=== PATIENT | male | born 1965 | race Caucasian/White ===

== ENCOUNTER 2023-08-08 05:12 | Emergency (ER) | payer BC, SELFPAY ==
[2023-08-08 05:41] VITALS: BP 113/82; BP 138/78; PULSE 105; PULSE 88; RESP 18; TEMP 36.8; O2SAT 98; BMI 29.0
[2023-08-08 06:08] LABS: Basophils Percent Auto 0.5 % (0-2); Eosinophils Absolute Auto 0.1 X10*3/uL (0.0-0.4); Eosinophils Percent Auto 1.1 % (0-4); Hematocrit 30.2 % (42.0-52.0); Hemoglobin 10.1 g/dl (14.0-18.0); Imm Gran Abs Auto 0.02 X10*3/uL (0.00-0.03); Imm Gran Pct Auto 0.4 % (0.0-0.4); Lymphocytes Percent Auto 18.5 % (20-40); MANUAL DIFF FLAG NO; Mean Corpuscular HGB Conc 33.4 g/dl (31.0-36.0); Mean Corpuscular Hemoglobin 27.4 pg (27.0-33.0); Mean Corpuscular Volume 82.1 fL (80.0-98.0); Mean Platelet Volume 8.6 fL (9.4-12.4); Monocytes Absolute Auto 0.2 X10*3/uL (0.1-1.2); Neutrophils Absolute Auto 4.1 x10*3/uL (2.0-8.3); Neutrophils Percent Auto 75.5 % (45-73); Red Blood Count 3.68 X10*6/uL (4.60-5.80); Red Cell Distribution Width 15.6 % (11.0-16.0); White Blood Count 5.5 X10*3/uL (4.8-10.8)
[2023-08-08 06:24] LABS: COVID-19 Test Negative (Negative); IDNOW Serial# 6674DD1D
[2023-08-08 06:26] LABS: Alanine Aminotransferase 18 U/L (0-40); Albumin Level 3.1 g/dL (3.5-5.0); Alkaline Phosphatase 122 U/L (39-117); Anion Gap 15 (12-20); Aspartate Amino Transferase 60 U/L (5-37); Bilirubin Total 1.4 mg/dL (0.0-1.0); Blood Urea Nitrogen 11 mg/dL (9-16); Carbon Dioxide 23 mmol/L (22-29); Chloride 110 mmol/L (96-108); Creatinine Clr Calc Pharmacy 103.4; Estimated Glomerular Filt Rate > 60; Ethanol 338 mg/dL; Glucose Random 101 mg/dL (60-115); Potassium 3.5 mmol/L (3.3-5.1); Sodium 144 mmol/L (135-145); Total Protein 7.1 g/dL (6.5-8.0)
--- NOTE | 2023-08-08 06:26 | ED_ITS ---
HPI - Alcohol General Chief Complaint: ETOH/Substance Use Stated Complaint: ETOH Time Seen by Provider: 08/08/23 06:26 Source: patient and EMS Mode of arrival: EMS Limitations: no limitations History of Present Illness HPI narrative: 58 yo male with history of alcohol abuse and dependence presenting to the ER from home for detox for alcohol. He drinks way too much and usually drinks 4 or 5 days a week. He is interested in detox but doesn't know if he can do it. He denies history of withdrawal symptoms at home until he goes 2-3 days without drinking. He states he drinks hard alcohol, increased in the last 3 days. Up to 1/2 gallon. No history of withdrawal seizures in the past. Denies other drug use. MD complaint: alcohol intoxication, alcohol dependence and desires rehab Last drink: Hours (ago) Chronic alcohol use: Yes Previous visits for alcohol intoxication: Yes Recent trauma: No Associated symptoms: denies other symptoms Treatments prior to arrival: none Related Data Allergies Allergy/AdvReac Type Severity Reaction Status Date / Time No Known Allergies Allergy Verified 08/08/23 05:43 Review of Systems 2 Review of Systems: Yes all other systems are reviewed and are negative [facility] Social History Social History Alcohol intake: current Alcohol intake frequency: 3 or more drinks per day Alcohol type: hard liquor Smoked in Last 30 Days: No Use of substances other than those prescribed or required for medical reasons: No Advance Directives: No Physical Exam ED Vital Signs: Vital Signs - 24 hr 08/08/23 05:41 Temperature 98.2 F Pulse Rate 88 Respiratory Rate 18 Blood Pressure 113/82 Pulse Oximetry 98 Oxygen Delivery Method Room Air BMI result Body Mass Index 29.0 Appearance: Alert. Oriented X3. No acute distress. Unkempt, smells of alcohol. Head: normocephalic, atraumatic. Eyes: Pupils equal, round and reactive to light. ENT: Pharynx normal, poor dentition. No tonsillar swelling or exudate. Neck: Normal inspection. Neck supple. CVS: Normal heart rate and rhythm. Pulses normal. Respiratory: No respiratory distress. Breath sounds normal. Abdomen: Soft and nontender. +BS x4 Skin: Skin warm and dry. Normal skin color. Normal skin turgor. No rashes. Extremities: No lower extremity edema. No joint swelling. Neuro/psych: Oriented X 3. No motor deficit. No sensory deficit. CN II-XII intact. Coherent speech Medical Decision Making Medical Decision Making [facility] Narrative: 58 yo male with history of ETOH abuse/dependence presenting for detox. labs show etoh level 338. he is aaox3, steady gait after 1.5 hours in the ER he decided he did not want to stay for detox he was given list of local detox facilities he has a sober ride home comfortable w/ discharge - outpatient detox bed searching on his own Differential Diagnosis Differential Diagnoses: The differential diagnosis associated with the presentation includes alcohol abuse, alcohol dependence, alcohol withdrawal, polysubstance abuse Admission/Observation Consideration of admission/observation: Escalation of care including admission/observation considered Lab Data [facility] Lab Attestation statement: I reviewed the patient's lab results. anemia, thrombocytopenia, elevated ETOH 08/08/23 06:02 08/08/23 06:02 Labs: Lab Results 08/08/23 Range/Units 06:02 WBC 5.5 (4.8-10.8) X10*3/uL RBC 3.68 L (4.60-5.80) X10*6/uL Hgb 10.1 L (14.0-18.0) g/dl Hct 30.2 L (42.0-52.0) % MCV 82.1 (80.0-98.0) fL MCH 27.4 (27.0-33.0) pg MCHC 33.4 (31.0-36.0) g/dl RDW 15.6 (11.0-16.0) % Plt Count 53 L (160-400) X10*3/uL MPV 8.6 L (9.4-12.4) fL Immature Gran % (Auto) 0.4 (0.0-0.4) % Neut % (Auto) 75.5 H (45-73) % Lymph % (Auto) 18.5 L (20-40) % [place] % (Auto) 4.0 (2-11) % Eos % (Auto) 1.1 (0-4) % Baso % (Auto) 0.5 (0-2) % Lymph # (Auto) 1.0 L (1.2-4.9) X10*3/uL [place] # (Auto) 0.2 (0.1-1.2) X10*3/uL Eos # (Auto) 0.1 (0.0-0.4) X10*3/uL Baso # (Auto) 0.0 (0.0-0.2) X10*3/uL Abs Immat Gran (auto) 0.02 (0.00-0.03) X10*3/uL Absolute Neuts (auto) 4.1 (2.0-8.3) x10*3/uL Absolute Nucleated RBC 0.000 (0.0-0.012) X10*3/uL Nucleated RBC % (auto) 0.0 (0.0-0.2) /100WBC Sodium 144 (135-145) mmol/L Potassium 3.5 (3.3-5.1) mmol/L Chloride 110 H (96-108) mmol/L Carbon Dioxide 23 (22-29) mmol/L Anion Gap 15 (12-20) BUN 11 (9-16) mg/dL Creatinine 0.80 (0.5-1.4) mg/dL Estim Creat Clear Calc 103.4 Estimated GFR > 60 Random Glucose 101 (60-115) mg/dL Calcium 8.0 L (8.4-10.2) mg/dL Total Bilirubin 1.4 H (0.0-1.0) mg/dL AST 60 H (5-37) U/L ALT 18 (0-40) U/L Alkaline Phosphatase 122 H (39-117) U/L Total Protein 7.1 (6.5-8.0) g/dL Albumin 3.1 L (3.5-5.0) g/dL Ethyl Alcohol 338 H* mg/dL COVID-19 (JOLIE) Negative (Negative) COVID-19 Clin Com See Note Independent Historian Clinical information obtained from an independent historian. History obtained from or confirmed by: EMS Chronic Conditions Patient?s care impacted by: Other (alcohol abuse) Social Determinants Patient?s care significantly limited by Social Determinants of Health including: Alcoholism and drug addiction in family and Problems related to primary support group Critical Care Time Critical Care Time Critical Care Time: No Discharge Plan Discharge Clinical Impression: Alcohol abuse Patient Disposition: Home, Self-Care Instructions: Abuse of Alcohol (DC) Additional Instructions: call the local detox facilities for a detox bed recommend cutting back on your alcohol intake If you develop new or worsening symptoms call 911 or come back to the ER for further evaluation. Print Language: Yoruba
[2023-08-08 06:34] LABS: Platelet Count 53 X10*3/uL (160-400)
--- NOTE | 2023-08-08 07:21 | PC.NURSE ---
patient discharged to sister who came and picked patient up, patient ambulated off of unit with steady gait, alert and oriented. patient givn breakfast
== END 2023-08-08 07:21 | disposition home or self-care (01) ==
PROVIDERS: Emergency Provider Emergency Medicine
DX: F10.229 Alcohol dependence with intoxication, unspecified (principal); Y90.8 Blood alcohol level of 240 mg/100 ml or more; Z11.52 Encounter for screening for COVID-19
CPT/HCPCS: 80053; 80307; 85025; 87635; 99283; 99284

== ENCOUNTER 2023-08-12 02:06 | Inpatient (IN) | payer BC, SELFPAY ==
[2023-08-12] VITALS (7 sets, daily range): BP systolic 124–138; BP diastolic 70–87; PULSE 93–106; RESP 11–20; TEMP 36.7–37.1; O2SAT 96–100; BMI 26.8; BMI 25.5
--- NOTE | ~2023-08-12 | CT_ITS ---
EXAMINATION: CT HEAD WITHOUT CONTRAST CLINICAL INFORMATION: New hallucinations COMPARISON: None available. TECHNIQUE: Contiguous axial imaging was performed from the skull base to vertex without intravenous administration of contrast. This CT examination was performed using dose optimization techniques as appropriate, variously including the following: *Automated exposure control *Adjustment of mA and/or kV according to patient size (this includes techniques or standardized protocols for targeted exams where dose is matched to indication/reason for exam; i.e. extremities or head) *Use of iterative reconstruction technique DLP: 678 mGy-cm FINDINGS: There is no evidence of acute intracranial hemorrhage or territorial infarction. Chronic white matter small vessel ischemic changes. Mild cerebral atrophy. No abnormal mass effect or midline shift is seen. Rankin to white matter differentiation is well preserved. No extra-axial fluid collections are identified. The ventricles are normal in size. There is no abnormal attenuation within the brain parenchyma. The osseous structures and soft tissues are normal. Mucoperiosteal thickening of the right frontal, maxillary, and ethmoid sinuses. The mastoid air cells and visualized portions of the paranasal sinuses are well aerated. CT/CT head/brain wo IV con IMPRESSION: 1. No acute intracranial pathology. 2. Chronic white matter small vessel ischemic changes. 3. Mucoperiosteal thickening of the right frontal, maxillary, and ethmoid sinuses.
--- NOTE | 2023-08-12 02:30 | PC.NURSE ---
belongings placed in locker #11 in pod by security .
[2023-08-12 02:41] LABS: MANUAL DIFF FLAG NO
[2023-08-12 02:45] LABS: Appearance Urine Clear; Color Urine Yellow; Glucose Urine UA Negative (Negative); Leukocyte Esterase Urine Small (1+) (Negative); Nitrite Urine Negative (Negative); Specific Gravity - Urine <= 1.005 (1.005-1.025); UMIC TRIGGER UACC YES; Urine Blood Small (1+) (Negative); Urine Ketones Negative (Negative); Urine Protein Negative (Neg-Trace)
[2023-08-12 02:46] LABS: Basophils Percent Auto 0.3 % (0-2); Eosinophils Absolute Auto 0.1 X10*3/uL (0.0-0.4); Eosinophils Percent Auto 2.2 % (0-4); Hemoglobin 10.3 g/dl (14.0-18.0); Imm Gran Abs Auto 0.01 X10*3/uL (0.00-0.03); Imm Gran Pct Auto 0.2 % (0.0-0.4); Lymphocytes Percent Auto 16.4 % (20-40); Mean Corpuscular HGB Conc 34.3 g/dl (31.0-36.0); Mean Corpuscular Volume 81.5 fL (80.0-98.0); Mean Platelet Volume 9.9 fL (9.4-12.4); Monocytes Absolute Auto 0.5 X10*3/uL (0.1-1.2); Monocytes Percent Auto 8.6 % (2-11); Neutrophils Absolute Auto 4.4 x10*3/uL (2.0-8.3); Neutrophils Percent Auto 72.3 % (45-73); Platelet Count 52 X10*3/uL (160-400); Red Blood Count 3.68 X10*6/uL (4.60-5.80); Red Cell Distribution Width 16.9 % (11.0-16.0)
[2023-08-12 02:57] LABS: Amphetamine Screen Urine Not Detected (Not Detect); Barbiturates, Urine Not Detected (Not Detect); Benzodiazepines Screen Urine Not Detected (Not Detect); Buprenorphine Scr Not Detected (Not Detect); Cannabinoid Screen Urine Not Detected (Not Detect); Cocaine Screen Urine Not Detected (Not Detect); Fentanyl, urine Not Detected (Not Detect); Methadone Screen, Urine Not Detected (Not Detect); Opiate Screen Urine Not Detected (Not Detect); Oxycodone Screen Urine Not Detected (Not Detect); Phencyclidine Screen Urine Not Detected (Not Detect)
[2023-08-12 02:58] LABS: Alanine Aminotransferase 19 U/L (0-40); Albumin Level 3.6 g/dL (3.5-5.0); Alkaline Phosphatase 133 U/L (39-117); Anion Gap 13 (12-20); Aspartate Amino Transferase 59 U/L (5-37); Bacteria Urine None Seen (None Seen); Bilirubin Total 1.8 mg/dL (0.0-1.0); Blood Urea Nitrogen 9 mg/dL (9-16); Calcium 9.8 mg/dL (8.4-10.2); Carbon Dioxide 20 mmol/L (22-29); Chloride 112 mmol/L (96-108); Estimated Glomerular Filt Rate > 60; Ethanol 284 mg/dL; Glucose Random 86 mg/dL (60-115); Hyaline Casts Urine 0-2 /LPF (0-2); Lipase 69 U/L (8-78); Potassium 3.6 mmol/L (3.3-5.1); RBC Urine 0-2 /HPF (0-2); Sodium 141 mmol/L (135-145); Squamous Epithelial Cell Urine 0-2 /HPF (0-2); Total Protein 7.9 g/dL (6.5-8.0); UACC Culture Trigger YES; WBC Urine 0-5 /HPF (0-5)
--- NOTE | 2023-08-12 06:17 | PC.NURSE ---
patient having conversations with self. thinking his mamita is in bed 4. pt redirected multiple times, informed his mom/family is not here in the hospital with him, that he came alone by ambulance.
--- NOTE | 2023-08-12 07:01 | ED.PSYCH ---
HPI - Psych General Chief Complaint: ETOH/Substance Use Stated Complaint: ETOH, SECTION 12 Time Seen by Provider: 08/12/23 07:00 Source: patient and EMS Mode of arrival: EMS Limitations: no limitations History of Present Illness HPI Narrative: 58 yo male with history of alcohol abuse presents to the ER for evaluation of visual hallucinations. He states his daughter called 911 last night when she was worried about him engaging with some things. He states he had a bad dream. He admits that drinking alcohol makes these episodes worse. He states the psychosocial stress makes things worse. 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 He has been drinking a few shots the last 5 days. He reports periods of sobriety. When asked if he was on any psychiatric medications he responded, will they help? Denies SI or HI. He states his anxiety and depression have been beyond comprehension. He was seen here 4 days ago for alcohol detox but decided against it and was discharged home. MD complaint: feels depressed, anxiety, hallucinations and alcohol abuse Onset (ago): unknown Duration: changing over time History of same: Yes Context: recent alcohol abuse and significant life stressor Associated psychiatric symptoms: depression Associated symptoms: insomnia Related Data Allergies Allergy/AdvReac Type Severity Reaction Status Date / Time No Known Allergies Allergy Verified 08/12/23 02:20 Review of Systems Review of Systems: Yes all other systems are reviewed and are negative [facility] Social History Social History Alcohol intake: current Alcohol intake frequency: 3 or more drinks per day Alcohol type: hard liquor Smoked in Last 30 Days: No Use of substances other than those prescribed or required for medical reasons: No Advance Directives: No Advance Directives Information Provided: No Physical Exam Vital Signs: Vital Signs: Last Vital Signs Temp 98.8 F 08/12/23 06:22 Pulse 96 08/12/23 09:10 Resp 16 08/12/23 09:10 BP 124/75 08/12/23 09:10 Pulse Ox 96 08/12/23 09:10 O2 Del Method Room Air 08/12/23 09:10 BMI result Body Mass Index 26.8 Appearance: Alert. Oriented X3. No acute distress. Head: normocephalic, atraumatic. Eyes: Pupils equal, round and reactive to light. ENT: Pharynx normal. No tonsillar swelling or exudate. Neck: Normal inspection. Neck supple. CVS: Normal heart rate and rhythm. Pulses normal. Respiratory: No respiratory distress. Breath sounds normal. Abdomen: Soft and nontender. +BS x4 Skin: Skin warm and dry. Normal skin color. Normal skin turgor. No rashes. Extremities: No lower extremity edema. No joint swelling. Neuro/psych: Oriented X 3. No motor deficit. No sensory deficit. CN II-XII intact. depressed mood. talking to people who are not there, responding to internal stimuli, anxious Course Reevaluation(s) Reevaluation #1: Physician observation started at 0736. Patient placed in physician observation because patient is awaiting CARE team evaluation for the possible need of inpatient psych admission. At the time observation was started patient's vital signs were stable. Patient is alert and oriented. Neuro exam is non-focal, responding to internal stimuli, hallucinating. CV: RRR and lungs are clear. Will continue to monitor. Time: 07:37 Reevaluation #2: physician observation discontinued. patient meets medical need for admission of alcohol induced delirium/withdrawal/psychosis. hospitalist texted for admission total time in physician observation is 5 hours Time: 12:37 Consultations Consultation #1: psych Medications Administered Discontinued Medications Generic Name Dose Route Start Last Admin Trade Name Freq PRN Reason Stop Dose Admin Lorazepam 1 mg 08/12/23 09:12 08/12/23 09:28 Lorazepam 1 Mg Tablet PO 08/12/23 09:13 1 mg ONCE ONE Administration Lorazepam 2 mg 08/12/23 11:58 08/12/23 12:06 Lorazepam 1 Mg Tablet PO 08/12/23 11:59 2 mg ONCE ONE Administration Medical Decision Making Medical Decision Making MDM Narrative: 58 yo male with history of ETOH abuse/dependence presenting with visual hallucinations, depression and anxiety. actively responding to internal stimuli during interview he is seeing family members and talking on the phone to people who are not there concerned for alcohol induced psychosis vs wernickes encephalopathy ciwa 16 due to hallucinations - po ativan ordered starting high dose thiamine until evaluated by CARE team Spoke w/ Kellee VASQUEZ from [facility] - recommending initation of phenobarbital and medical admission Differential Diagnosis Differential Diagnoses: The differential diagnosis associated with the presentation includes wernickes encephalopathy, substance induced mood disorder, acute psychosis due to alcohol, schizophrenia, schizoaffective disorder, PTSD, bipolar disorder, major depression with psychotic features Admission/Observation Consideration of admission/observation: Escalation of care including admission/observation considered Consult Healthcare Provider Management of the patient was discussed with: Hospitalist and Materials Management Clerk Psych Lab Data MDM Lab Attestation statement: I reviewed the patient's lab results. stable thrombocytopenia, anemia and liver function tests due to chronic alcohol abuse 08/12/23 02:35 08/12/23 02:35 Labs: Lab Results 08/12/23 Range/Units 02:35 WBC 6.0 (4.8-10.8) X10*3/uL RBC 3.68 L (4.60-5.80) X10*6/uL Hgb 10.3 L (14.0-18.0) g/dl Hct 30.0 L (42.0-52.0) % MCV 81.5 (80.0-98.0) fL MCH 28.0 (27.0-33.0) pg MCHC 34.3 (31.0-36.0) g/dl RDW 16.9 H (11.0-16.0) % Plt Count 52 L (160-400) X10*3/uL MPV 9.9 (9.4-12.4) fL Immature Gran % (Auto) 0.2 (0.0-0.4) % Neut % (Auto) 72.3 (45-73) % Lymph % (Auto) 16.4 L (20-40) % [place] % (Auto) 8.6 (2-11) % Eos % (Auto) 2.2 (0-4) % Baso % (Auto) 0.3 (0-2) % Lymph # (Auto) 1.0 L (1.2-4.9) X10*3/uL [place] # (Auto) 0.5 (0.1-1.2) X10*3/uL Eos # (Auto) 0.1 (0.0-0.4) X10*3/uL Baso # (Auto) 0.0 (0.0-0.2) X10*3/uL Abs Immat Gran (auto) 0.01 (0.00-0.03) X10*3/uL Absolute Neuts (auto) 4.4 (2.0-8.3) x10*3/uL Absolute Nucleated RBC 0.000 (0.0-0.012) X10*3/uL Nucleated RBC % (auto) 0.0 (0.0-0.2) /100WBC Sodium 141 (135-145) mmol/L Potassium 3.6 (3.3-5.1) mmol/L Chloride 112 H (96-108) mmol/L Carbon Dioxide 20 L (22-29) mmol/L Anion Gap 13 (12-20) BUN 9 (9-16) mg/dL Creatinine 1.01 (0.5-1.4) mg/dL Estim Creat Clear Calc 79.0 Estimated GFR > 60 Random Glucose 86 (60-115) mg/dL Calcium 9.8 D (8.4-10.2) mg/dL Total Bilirubin 1.8 H (0.0-1.0) mg/dL AST 59 H (5-37) U/L ALT 19 (0-40) U/L Alkaline Phosphatase 133 H (39-117) U/L Total Protein 7.9 (6.5-8.0) g/dL Albumin 3.6 (3.5-5.0) g/dL Lipase 69 (8-78) U/L Urine Color Yellow Urine Appearance Clear Urine pH 7.0 (5.0-9.0) Ur Specific [place] <= 1.005 (1.005-1.025) Urine Protein Negative (Neg-Trace) mg/dL Urine Glucose (UA) Negative (Negative) mg/dL Urine Ketones Negative (Negative) mg/dL Urine Blood Small (1+) H (Negative) Urine Nitrite Negative (Negative) Ur Leukocyte Esterase Small (1+) H (Negative) Urine RBC 0-2 (0-2) /HPF Urine WBC 0-5 (0-5) /HPF Ur Squamous Epith Cells 0-2 (0-2) /HPF Urine Bacteria None Seen (None Seen) Hyaline Casts 0-2 (0-2) /LPF Urine Opiates Screen Not Detected (Not Detect) Ur Buprenorphine Scrn Not Detected (Not Detect) ng/mL Ur Oxycodone Screen Not Detected (Not Detect) ng/mL Urine Methadone Screen Not Detected (Not Detect) ng/mL Urine Fentanyl Screen Not Detected (Not Detect) Ur Barbiturates Screen Not Detected (Not Detect) Ur Phencyclidine Scrn Not Detected (Not Detect) Ur Amphetamines Screen Not Detected (Not Detect) U Benzodiazepines Scrn Not Detected (Not Detect) Urine Cocaine Screen Not Detected (Not Detect) U Marijuana (THC) Screen Not Detected (Not Detect) Ethyl Alcohol 284 mg/dL Independent Interpretation I performed an independent interpretation of an: CT Scan Interpretation: no bleed, mass or swelling in head ct Radiology Impression Discussion of test interpretation with radiology: I have reviewed the radiologist's reading. Radiologist Impression: CT/CT head/brain wo IV con IMPRESSION: 1. No acute intracranial pathology. 2. Chronic white matter small vessel ischemic changes. 3. Mucoperiosteal thickening of the right frontal, maxillary, and ethmoid sinuses. Independent Historian Clinical information obtained from an independent historian. History obtained from or confirmed by: EMS External Record Review External record reviewed: Prior outpatient labs Prescription Management I considered prescription management with: Other (antipsychotic, ativan) Chronic Conditions Patient?s care impacted by: Other (alcohol abuse) Social Determinants Patient?s care significantly limited by Social Determinants of Health including: Alcoholism and drug addiction in family and Problems related to primary support group Critical Care Time Critical Care Time Critical Care Time: Yes Total Critical Care Time: 46 Attestation: I have personally provided critical care time exclusive of time spent on separately billable procedures. Time includes review of lab data, radiology results, discussion with consultants, and monitoring for potential decompensation. Intervention performed as documented. Discharge Plan Discharge Clinical Impression: Alcohol use disorder, Hallucinations Patient Disposition: Admitted As Inpatient Print Language: Malian
--- NOTE | 2023-08-12 09:24 | PC.NURSE ---
pt continues to be responding to internal stimuli, CIWA - 16 d/t auditory/visual hallucinations. pt alert and oriented to person/place, continues to say that family members have been right in front of him, crying to staff, pt asked this RN to take a picture of his mother who he believes to be having an operation in ED 4 to prove to his family that she is hear. pt aware that he is on a section and needs to be seen by the CARE team. pt denies SI/HI but reports that he has been having increased anxiety and depression along w increased ETOH. pt transitioned to pod d/t flight risk.
[2023-08-12] MEDS: LORazepam 1 MG TABLET PO (09:28)
--- NOTE | 2023-08-12 12:49 | PC.NURSE ---
Order given for Ativan PO and Phenobarbital IM as patient was getting more agitated , he is refusing to take any medication. No need to resistant at this time. Requesting to be taken to [facility] as that is his hospital ALICIA is a 13.
[2023-08-12] MEDS: PHENobarbitaL sodium 130 MG/ML IM ONCE 270 MG IM (13:14)
--- NOTE | 2023-08-12 13:37 | PM.IMHP ---
History of Present Illness Date of Service: 08/12/23 Attending physician on admission: Ricarda Blanc Chief Complaint: visual hallucinations 58-year-old male with history of alcohol use disorder and alcoholic cirrhosis complicated by ascitespvt/esophageal varices, chronic thrombocytopenia, denise not on cpap, and hld presented to the ED after his daughter called EMS after witnessing visual hallucination. Per daughter, the patient with lining of pillows in the room and speaking with them. He does have a long history of alcohol abuse with periods of sobriety. The patient had been sober for over a month and then about 5 days ago per daughter's report has been drinking several shots daily, last drink was 2 days ago. He presented to the ED 4 days ago and reported desiring sobriety and was given resources. Unfortunately, today he presents in acute alcohol withdrawal with elevated CIWA score. The patient seems somewhat confused on exam and question his history. 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 He has also reported feeling depressed lately but denies any SI or HI. Since arrival, vital signs stable. He has a normocytic anemia with H/H 10.3/30.0%. Platelets 52, consistent with baseline. Renal function and electrolyte levels normal. Total bilirubin 1.8, consistent with baseline. AST 59, ALT 19, alkaline phosphatase 133. Urinalysis unremarkable. Urine tox screen negative. Ethyl alcohol level 284 at [address] negative for acute intracranial pathology which shows chronic white matter small-vessel ischemic changes and thickening of the sinuses. In the ED, has been given multiple doses of lorazepam and started on phenobarbital per protocol. He was evaluated by psychiatry recommending admission to medicine for management of acute alcohol withdrawal. Review of Systems Review of Systems: Yes Unobtainable due to mental status [facility] Medical History Tubular adenoma Subclinical hypothyroidism Alcohol use disorder BPH (benign prostatic hyperplasia) Obstructive sleep apnea Hyperlipidemia Portal hypertension Esophageal varices Alcoholic cirrhosis Social History Alcohol intake: current Alcohol intake frequency: 3 or more drinks per day Alcohol type: hard liquor Smoked in Last 30 Days: No Use of substances other than those prescribed or required for medical reasons: No Advance Directives: No Advance Directives Information Provided: No Meds Allergies Allergy/AdvReac Type Severity Reaction Status Date / Time No Known Allergies Allergy Verified 08/12/23 02:20 Active Medications: Current Medications Pharmacy Consult (Consult Rx Etoh Phenob Im/Po) 1 each MISCELLANE ONCE PRN; Protocol PRN Reason: Consult order Phenobarbital (Phenobarbital 30 Mg Tablet) 30 mg PO BID CHRIS; Protocol Stop: 08/14/23 21:01 Phenobarbital (Phenobarbital 15 Mg Tablet) 15 mg PO BID CHRIS; Protocol Stop: 08/16/23 21:01 Phenobarbital (Phenobarbital 15 Mg Tablet) 15 mg PO DAILY CHRIS; Protocol Stop: 08/18/23 09:01 Phenobarbital Sodium (Phenobarbital Sodium 130 Mg/Ml Vial Im Q3hx2) 205 mg IM Q3H CHRIS; Protocol Stop: 08/12/23 18:01 Thiamine HCl (Thiamine Hcl 100 Mg Tablet) 500 mg PO TID CHRIS Stop: 08/16/23 21:00 Physical Exam Vital Signs and Narrative: Vital Signs: Last Vital Signs Temp 98.8 F 08/12/23 06:22 Pulse 96 08/12/23 09:10 Resp 16 08/12/23 09:10 BP 124/75 08/12/23 09:10 Pulse Ox 96 08/12/23 09:10 O2 Del Method Room Air 08/12/23 09:10 BMI result Body Mass Index 26.8 Constitutional - Awake and Alert, No apparent distress Eyes - PERRLA, EOMI Cardiovascular - S1S2, RRR, No edema Respiratory - Normal lung expansion, Normal respiratory effort, No respiratory distress, CTA bilaterally Gastrointestinal - NT / ND; +BS; No rebound or guarding Extremities - no calf tenderness bilaterally, no swelling Skin - Warm/Dry Neurological - Alert & oriented x3 but some what confused giving history, CN II-XII in tact, mmildly tremulous with outstretched hands Psychological - no si/hi Results Labs 08/12/23 02:35 08/12/23 02:35 Labs: Laboratory Results - last 24 hr 08/12/23 02:35 MCV 81.5 MCH 28.0 MCHC 34.3 RDW 16.9 H Plt Count 52 L MPV 9.9 Immature Gran % (Auto) 0.2 Neut % (Auto) 72.3 Lymph % (Auto) 16.4 L [place] % (Auto) 8.6 Eos % (Auto) 2.2 Baso % (Auto) 0.3 Lymph # (Auto) 1.0 L [place] # (Auto) 0.5 Eos # (Auto) 0.1 Baso # (Auto) 0.0 Abs Immat Gran (auto) 0.01 Absolute Neuts (auto) 4.4 Absolute Nucleated RBC 0.000 Nucleated RBC % (auto) 0.0 Anion Gap 13 Estim Creat Clear Calc 79.0 Estimated GFR > 60 Random Glucose 86 Calcium 9.8 D Total Bilirubin 1.8 H AST 59 H ALT 19 Alkaline Phosphatase 133 H Total Protein 7.9 Albumin 3.6 Lipase 69 Urine Color Yellow Urine Appearance Clear Urine pH 7.0 Ur Specific [place] <= 1.005 Urine Protein Negative Urine Glucose (UA) Negative Urine Ketones Negative Urine Blood Small (1+) H Urine Nitrite Negative Ur Leukocyte Esterase Small (1+) H Urine RBC 0-2 Urine WBC 0-5 Ur Squamous Epith Cells 0-2 Urine Bacteria None Seen Hyaline Casts 0-2 Urine Opiates Screen Not Detected Ur Buprenorphine Scrn Not Detected Ur Oxycodone Screen Not Detected Urine Methadone Screen Not Detected Urine Fentanyl Screen Not Detected Ur Barbiturates Screen Not Detected Ur Phencyclidine Scrn Not Detected Ur Amphetamines Screen Not Detected U Benzodiazepines Scrn Not Detected Urine Cocaine Screen Not Detected U Marijuana (THC) Screen Not Detected Ethyl Alcohol 284 Imaging Radiologist's Impressions: Impressions Head CT 08/12/23 11:12 IMPRESSION: 1. No acute intracranial pathology. 2. Chronic white matter small vessel ischemic changes. 3. Mucoperiosteal thickening of the right frontal, maxillary, and ethmoid sinuses. Assessment and Plan (1) Alcohol withdrawal: Status: Acute (2) Hallucinations: Status: Acute (3) Alcohol use disorder: Status: Acute Plan 58-year-old male with history of alcohol use disorder and alcoholic cirrhosis complicated by ascites/esophageal varices/portal hypertension, chronic thrombocytopenia, denise not on cpap, and hld admitted for management of acute alcohol withdrawal #Acute alcohol withdrawal with hallucinations -etoh on arrival 286 -witnessed hallucinations, CIWA 13 -continue phenobarbital per protocol -monitor on ciwa q4h -IV thiamine and folic acid -addiction medicine consult #Compensated alcoholic cirrhosis with ascites/esophageal varices/portal hypertension -continue lasix and spironolactone -low sodium diet # chronic thrombocytopenia -due to cirrhosis -baseline #DENISE -not on cpap dvt prophylaxis- scps full code pt requires inpt stay at least 2 midnight for management of severe alcohol withdrawal requiring phenobarbital per protocol and close monitoring for decompensation Quality Stroke Does the patient have a stroke diagnosis?: No VTE Prior VTE?: No VTE Risk Level:: Medical - moderate - high VTE Device Contraindication: N/A - Device Ordered VTE Drug Contraindication: Treatment Not Indicated
[2023-08-12] MEDS: Folic Acid 1 MG in 0.9 % Sodium Chloride 50 ML 100.4 MG IV (15:35)
[2023-08-12] MEDS: PHENobarbitaL sodium 130 MG/ML VIAL IM Q3Hx2 205 MG IM ×2 (15:41→19:03)
[2023-08-12] MEDS: Thiamine HCL 100 MG in 0.9 % Sodium Chloride 100 ML 202 MG IV (15:43)
--- NOTE | 2023-08-12 15:48 | PC.NURSE ---
PT MOVED TO ED BED 6, PLACED ON MONITOR, APPEARS IN NSR WITH OCCASIONAL PVCS. PT SLEEPING, EASILY ROUSED. A&OX3 AT THIS TIME, ABLE TO ANSWER QUESTIONS MORE APPROPRIATELY, SPEAKING LESS TANGENTIALLY. IVP PLACED IN LFA, MEDICATED PER EMR. SITTER AT BEDSIDE. WCTM.
--- NOTE | 2023-08-12 15:53 | PHA.MEDREC ---
Pharmacy Consult ? Medication Reconciliation Pharmacy has completed the medication reconciliation. Patient confirmed medications. Reports not taking Keppra. Reports he was told to stay away from meloxicam and pantoprazole, and the spironolactone was only a 2 week temporary medication. Mami Pinto, PharmD
[2023-08-12] MEDS: 0.9 % Sodium Chloride Flush 3 ML SYRINGE IVFLUSH ×2 (17:22→21:08)
[2023-08-12] MEDS: Thiamine HCL 100 MG TABLET 500 MG PO ×2 (17:22→21:09)
[2023-08-13 03:22] VITALS: BP 137/80; PULSE 96; RESP 18; TEMP 37.1; O2SAT 100
[2023-08-13 06:59] LABS: MANUAL DIFF FLAG NO
[2023-08-13 07:13] VITALS: BP 133/74; PULSE 80; RESP 18; TEMP 36.4; O2SAT 100
[2023-08-13 07:17] LABS: Basophils Percent Auto 0.3 % (0-2); Eosinophils Absolute Auto 0.1 X10*3/uL (0.0-0.4); Hematocrit 28.1 % (42.0-52.0); Hemoglobin 9.3 g/dl (14.0-18.0); Imm Gran Abs Auto 0.01 X10*3/uL (0.00-0.03); Imm Gran Pct Auto 0.3 % (0.0-0.4); Lymphocytes Absolute Auto 0.8 X10*3/uL (1.2-4.9); Lymphocytes Percent Auto 22.5 % (20-40); Mean Corpuscular HGB Conc 33.1 g/dl (31.0-36.0); Mean Corpuscular Hemoglobin 28.4 pg (27.0-33.0); Mean Corpuscular Volume 85.9 fL (80.0-98.0); Mean Platelet Volume 10.4 fL (9.4-12.4); Monocytes Absolute Auto 0.4 X10*3/uL (0.1-1.2); Monocytes Percent Auto 11.8 % (2-11); Neutrophils Absolute Auto 2.3 x10*3/uL (2.0-8.3); Neutrophils Percent Auto 62.1 % (45-73); Red Blood Count 3.27 X10*6/uL (4.60-5.80); Red Cell Distribution Width 17.9 % (11.0-16.0); White Blood Count 3.7 X10*3/uL (4.8-10.8)
[2023-08-13 07:36] LABS: Platelet Count 51 X10*3/uL (160-400)
[2023-08-13] MEDS: 0.9 % Sodium Chloride Flush 3 ML SYRINGE IVFLUSH ×3 (07:40→20:18)
[2023-08-13] MEDS: Thiamine HCL 100 MG in 0.9 % Sodium Chloride 100 ML 202 MG IV (07:41)
[2023-08-13] MEDS: Thiamine HCL 100 MG TABLET 500 MG PO ×3 (07:44→20:18)
[2023-08-13] MEDS: PHENobarbitaL 30 MG TABLET PO ×2 (07:44→20:18)
[2023-08-13 08:06] LABS: Anion Gap 9 (12-20); Blood Urea Nitrogen 9 mg/dL (9-16); Calcium 8.6 mg/dL (8.4-10.2); Carbon Dioxide 24 mmol/L (22-29); Chloride 108 mmol/L (96-108); Creatinine Clr Calc Pharmacy 98.5; Estimated Glomerular Filt Rate > 60; Glucose Random 78 mg/dL (60-115); Potassium 3.7 mmol/L (3.3-5.1); Sodium 137 mmol/L (135-145)
[2023-08-13] MEDS: Folic Acid 1 MG in 0.9 % Sodium Chloride 50 ML 100.4 MG IV (08:48)
--- NOTE | 2023-08-13 09:44 | MHC.CM.PN ---
pt lives with mother and dgter he may need a ride home when dcd dc plan home no servies
--- NOTE | 2023-08-13 13:15 | P.PNIM_ITS ---
Subjective Subjective Date of Service: 08/13/23 Interval History: Being followed for alcohol withdrawal with visual hallucinations. No episodes of hallucinations overnight, patient awake alert, feels a little shaky denies nausea, no vomiting, no chest pain, no palpitation,feels depressed. Review of Systems All other system reviewed and negative. Physical Exam 2 Vital Signs: Vital Signs: Last Vital Signs Temp 97.6 F 08/13/23 07:13 Pulse 80 08/13/23 07:13 Resp 18 08/13/23 07:13 BP 133/74 08/13/23 07:13 Pulse Ox 100 08/13/23 07:13 O2 Del Method Room Air 08/13/23 07:13 BMI result Body Mass Index 25.5 Const: Other: General awake alert, no acute distress. Anicteric sclera Neck supple no JVD. CVS regular rate rhythm, Respiratory lungs clear to auscultation, no respiratory distress, no wheeze, no rhonchi. Gastrointestinal abdomen soft, non tender, bowel sounds audible, no no guarding , no rigidity. Extremities no edema. Neuro non focal Skin no rash Psych depressed affect Objective Data Active Medications Acetaminophen (Acetaminophen 325 Mg Tablet) 650 mg PO Q6H PRN PRN Reason: Pain, Mild (Pain Scale 1-3) Thiamine HCl 100 mg/ Sodium (Chloride) 101 mls @ 202 mls/hr IV DAILY [facility] Last Infusion: 08/13/23 08:51 Dose: Infused Documented By: GREGORIO Folic Acid 1 mg/ Sodium (Chloride) 50.2 mls @ 100.4 mls/hr IV DAILY [facility] Stop: 08/14/23 09:29 Last Infusion: 08/13/23 09:39 Dose: Infused Documented By: GREGORIO Ondansetron HCl (Ondansetron Hcl 4 Mg/2 Ml Vial) 4 mg IVPUSH Q8H PRN PRN Reason: Nausea and Vomiting Pharmacy Consult (Consult Rx Etoh Phenob Im/Po) 1 each MISCELLANE ONCE PRN; Protocol PRN Reason: Consult order Phenobarbital (Phenobarbital 30 Mg Tablet) 30 mg PO BID [facility]; Protocol Stop: 08/14/23 21:01 Last Admin: 08/13/23 07:44 Dose: 30 mg Documented By: GREGORIO Phenobarbital (Phenobarbital 15 Mg Tablet) 15 mg PO BID [facility]; Protocol Stop: 08/16/23 21:01 Phenobarbital (Phenobarbital 15 Mg Tablet) 15 mg PO DAILY [facility]; Protocol Stop: 08/18/23 09:01 Senna (Sennosides 8.6 Mg Tablet) 17.2 mg PO BEDTIME PRN PRN Reason: Constipation Sodium Chloride (0.9 % Sodium Chloride Flush 3 Ml Syringe) 3 ml IVFLUSH QSHIFT [facility] Last Admin: 08/13/23 07:40 Dose: 3 ml Documented By: GREGORIO Thiamine HCl (Thiamine Hcl 100 Mg Tablet) 500 mg PO TID [facility] Stop: 08/16/23 21:00 Last Admin: 08/13/23 07:44 Dose: 500 mg Documented By: GREGORIO Labs 08/13/23 05:38 08/13/23 05:38 Labs: Laboratory Results - last 24 hr 08/13/23 05:38 MCV 85.9 MCH 28.4 MCHC 33.1 RDW 17.9 H Plt Count 51 L MPV 10.4 Immature Gran % (Auto) 0.3 Neut % (Auto) 62.1 Lymph % (Auto) 22.5 [place] % (Auto) 11.8 H Eos % (Auto) 3.0 Baso % (Auto) 0.3 Lymph # (Auto) 0.8 L [place] # (Auto) 0.4 Eos # (Auto) 0.1 Baso # (Auto) 0.0 Abs Immat Gran (auto) 0.01 Absolute Neuts (auto) 2.3 Absolute Nucleated RBC 0.000 Nucleated RBC % (auto) 0.0 Anion Gap 9 L Estim Creat Clear Calc 98.5 Estimated GFR > 60 Random Glucose 78 Calcium 8.6 D Microbiology Microbiology Results: Microbiology 08/12/23 Unknown Urine Culture - Final Urine clean catch - Urine delatorre top Assessment and Plan (1) Alcohol withdrawal: Status: Acute (2) Hallucinations: Status: Acute (3) Alcohol use disorder: Status: Acute Plan 58-year-old male with history of alcohol use disorder and alcoholic cirrhosis complicated by ascites/esophageal varices/portal hypertension, chronic thrombocytopenia, denise not on cpap, and hld admitted for management of acute alcohol withdrawal #Acute alcohol withdrawal with hallucinations -no further episodes of hallucinations, etoh on arrival 286 -continue phenobarbital per protocol -monitor on ciwa q4h/DC IV fluids -on IV thiamine and folic acid will transition to by mouth -addiction medicine consult #Compensated alcoholic cirrhosis with ascites/esophageal varices/portal hypertension -continue lasix and spironolactone -low sodium diet # chronic thrombocytopenia -due to cirrhosis -baseline #DENISE -not on cpap dvt prophylaxis- scps full code pt requires continued inpatient stay for management of severe alcohol withdrawal requiring phenobarbital per protocol and close monitoring for decompensation Quality Stroke Does the patient have a stroke diagnosis?: No VTE Prior VTE?: No VTE Risk Level:: Medical - moderate - high VTE Device Contraindication: N/A - Device Ordered VTE Drug Contraindication: Treatment Not Indicated
--- NOTE | 2023-08-13 14:47 | P.EN_ITS ---
Event Note Date of Service: 08/13/23 Event Note: Addiction consult placed for patient medically admitted with acute alcohol withdrawal Pt requesting this typewriter aligner return in the morning, I have not slept at all, please come back tomorrow Folder with resources left on bedside table, plan for ACS follow up in the morning Time Spent With Patient Time: Total time managing care of this patient today ____ minutes.
[2023-08-13 15:08] VITALS: BP 114/68; PULSE 75; RESP 18; TEMP 36.7; O2SAT 98
[2023-08-13 19:06] VITALS: BP 124/77; PULSE 98; RESP 18; TEMP 37; O2SAT 99
[2023-08-14 04:00] VITALS: BP 125/68; PULSE 72; RESP 16; TEMP 36.6; O2SAT 100
[2023-08-14 07:29] VITALS: BP 119/70; PULSE 76; RESP 12; TEMP 36.8; O2SAT 99
[2023-08-14] MEDS: Thiamine HCL 100 MG TABLET 500 MG PO (08:54)
[2023-08-14] MEDS: Folic Acid 1 MG TABLET PO (08:54)
[2023-08-14] MEDS: PHENobarbitaL 30 MG TABLET PO ×2 (08:54→20:23)
[2023-08-14] MEDS: 0.9 % Sodium Chloride Flush 3 ML SYRINGE IVFLUSH ×3 (08:54→20:23)
--- NOTE | 2023-08-14 13:24 | HO.PM.IMPN ---
Subjective Subjective Date of Service: 08/14/23 Interval History: Being followed for alcohol withdrawal with visual hallucinations Feeling better this morning tolerating diet no nausea, no vomiting, no abdominal pain, less tremulous, denies chest pain, no palpitations, no lightheadedness or dizziness. Review of Systems All other system reviewed and negative. Physical Exam Vital Signs: Vital Signs: Last Vital Signs Temp 98.3 F 08/14/23 07:29 Pulse 76 08/14/23 07:29 Resp 12 08/14/23 07:29 BP 119/70 08/14/23 07:29 Pulse Ox 99 08/14/23 07:29 O2 Del Method Room Air 08/14/23 07:29 BMI result Body Mass Index 25.5 Const: Other: General awake alert, no acute distress. Anicteric sclera Neck supple no JVD. CVS regular rate rhythm, Respiratory lungs clear to auscultation, no respiratory distress, no wheeze, no rhonchi. Gastrointestinal abdomen soft, non tender, bowel sounds audible, no guarding , no rigidity. Extremities no edema. Neuro non focal , no tremors Skin no rash Psych appropriate affect Objective Data Active Medications Acetaminophen (Acetaminophen 325 Mg Tablet) 650 mg PO Q6H PRN PRN Reason: Pain, Mild (Pain Scale 1-3) Folic Acid (Folic Acid 1 Mg Tablet) 1 mg PO DAILY [facility] Last Admin: 08/14/23 08:54 Dose: 1 mg Documented By: GREGORIO Ondansetron HCl (Ondansetron Hcl 4 Mg/2 Ml Vial) 4 mg IVPUSH Q8H PRN PRN Reason: Nausea and Vomiting Pharmacy Consult (Consult Rx Etoh Phenob Im/Po) 1 each MISCELLANE ONCE PRN; Protocol PRN Reason: Consult order Phenobarbital (Phenobarbital 30 Mg Tablet) 30 mg PO BID [facility]; Protocol Stop: 08/14/23 21:01 Last Admin: 08/14/23 08:54 Dose: 30 mg Documented By: GREGORIO Phenobarbital (Phenobarbital 15 Mg Tablet) 15 mg PO BID [facility]; Protocol Stop: 08/16/23 21:01 Phenobarbital (Phenobarbital 15 Mg Tablet) 15 mg PO DAILY [facility]; Protocol Stop: 08/18/23 09:01 Senna (Sennosides 8.6 Mg Tablet) 17.2 mg PO BEDTIME PRN PRN Reason: Constipation Sodium Chloride (0.9 % Sodium Chloride Flush 3 Ml Syringe) 3 ml IVFLUSH QSHIFT [facility] Last Admin: 08/14/23 08:54 Dose: 3 ml Documented By: GREGORIO Thiamine HCl (Thiamine Hcl 100 Mg Tablet) 500 mg PO TID [facility] Stop: 08/16/23 21:00 Last Admin: 08/14/23 08:54 Dose: 500 mg Documented By: GREGORIO Labs 08/13/23 05:38 08/13/23 05:38 Assessment and Plan (1) Alcohol withdrawal: Status: Acute (2) Hallucinations: Status: Acute (3) Alcohol use disorder: Status: Acute Plan 58-year-old male with history of alcohol use disorder and alcoholic cirrhosis complicated by ascites/esophageal varices/portal hypertension, chronic thrombocytopenia, elsa not on cpap, and hld admitted for management of acute alcohol withdrawal #Acute alcohol withdrawal with hallucinations -no further episodes of hallucinations, etoh on arrival 286 -continue phenobarbital per protocol -monitor on ciwa q4h -on thiamine and folic acid -addiction medicine consult #Compensated alcoholic cirrhosis with ascites/esophageal varices/portal hypertension -resume Coreg -low sodium diet, follow LFTs # chronic thrombocytopenia -due to cirrhosis, no bleeding noted #ELSA -not on cpap dvt prophylaxis- compression boots full code pt requires continued inpatient stay for management of severe alcohol withdrawal requiring phenobarbital per protocol and close monitoring for decompensation Quality Stroke Does the patient have a stroke diagnosis?: No VTE Prior VTE?: No VTE Risk Level:: Medical - moderate - high VTE Device Contraindication: N/A - Device Ordered VTE Drug Contraindication: Treatment Not Indicated
--- NOTE | 2023-08-14 14:02 | MHC.RECOVRN ---
Met with pt in 346 after consult placed to Addiction Medicine for alcohol use. Pt had presented to the ED with [facility] with hallucinations and alcohol use. Pt denied SI/HI. Upon evaluation, pt admitted for alcohol withdrawal and hallucinations. Pt laying in bed, awake, alert, easily engages in conversation, tearful at times. Pt reports alcohol use, 1 pint whiskey prior to admission, reports alcohol use prior to that was a few days. Pt reports recently going to [place] for AUD treatment, had been admitted to a facility from 06/18 to 07/18. Pt reports upon returning to the area he resumed drinking after one week. Pt then reports going to a facility in [facility] for a few days, I just wanted to go home. Soon after returning from [facility], pt presented to [facility]. Pt reports daughters are upset with him due to alcohol use. Pt reports stress and depression are triggers for alcohol use. Pt reports prior to going to [place] he had been working with a therapist on stress reduction techniques and is ready to use them. Currently, pt reports feeling isolated. Discussed recovery resources and supports, including [facility]. Pt is interested in naltrexone and continuing care with the [facility]. Pt denies questions or concerns at this time. Discussed with Rosa Davis APRN. [facility] appt 08/18 at 10:30AM.
[2023-08-14 15:07] VITALS: BP 108/68; PULSE 88; RESP 16; TEMP 36.7; O2SAT 99
[2023-08-14 19:18] VITALS: BP 106/56; PULSE 85; RESP 16; TEMP 36.9; O2SAT 99
[2023-08-14] MEDS: carvediloL 3.125 MG TABLET PO (20:23)
[2023-08-15 03:07] VITALS: BP 112/66; PULSE 78; RESP 16; TEMP 36.8; O2SAT 99
[2023-08-15 07:01] LABS: Hematocrit 28.7 % (42.0-52.0); Hemoglobin 9.6 g/dl (14.0-18.0); Mean Corpuscular HGB Conc 33.4 g/dl (31.0-36.0); Mean Corpuscular Hemoglobin 28.2 pg (27.0-33.0); Mean Corpuscular Volume 84.2 fL (80.0-98.0); Mean Platelet Volume 11.1 fL (9.4-12.4); Red Blood Count 3.41 X10*6/uL (4.60-5.80); Red Cell Distribution Width 17.8 % (11.0-16.0); White Blood Count 3.7 X10*3/uL (4.8-10.8)
[2023-08-15 07:03] LABS: Alanine Aminotransferase 15 U/L (0-40); Albumin Level 2.9 g/dL (3.5-5.0); Alkaline Phosphatase 103 U/L (39-117); Aspartate Amino Transferase 45 U/L (5-37); Bilirubin Direct 0.8 mg/dL (0.0-0.5); Bilirubin Total 1.7 mg/dL (0.0-1.0); Platelet Count 59 X10*3/uL (160-400); Total Protein 6.6 g/dL (6.5-8.0)
[2023-08-15 07:15] VITALS: BP 107/62; PULSE 79; RESP 16; TEMP 36.7; O2SAT 98
[2023-08-15] MEDS: Folic Acid 1 MG TABLET PO (08:22)
[2023-08-15] MEDS: Thiamine HCL 100 MG TABLET PO (08:22)
[2023-08-15] MEDS: carvediloL 3.125 MG TABLET PO (08:22)
[2023-08-15] MEDS: 0.9 % Sodium Chloride Flush 3 ML SYRINGE IVFLUSH (08:23)
[2023-08-15] MEDS: PHENobarbitaL 15 MG TABLET PO (08:23)
--- NOTE | 2023-08-15 09:38 | MHC.CM.PN ---
PT MEDICALLY CLEARED FOR DC HOME SELF-CARE, PT'S FOLLOW UP APPT W/JENNI 08/18 AT 10:30AM, CM WILL ARRANGE [facility]
--- NOTE | 2023-08-15 09:54 | P.DS_ITS ---
DS: Providers Provider Date of Service: 08/15/23 Date of admission: 08/12/23 13:33 Primary care physician: Tanya Chen NP Consults: 08/12/23 07:31 Consult to Care Team Stat Comment: Reason for consultation: visual hallucinations 08/12/23 13:54 Addiction Medicine Routine Consulting Provider: Addiction Covering Reason for consultation: etoh dependence DS: Diagnosis Discharge Diagnosis (1) Alcohol withdrawal: Status: Acute (2) Hallucinations: Status: Acute (3) Alcohol use disorder: Status: Acute DS: Summary Hospital Course Hospital Course: History of presenting illness: Date of Service: 08/12/23 Attending physician on admission: Ricarda Blanc Chief Complaint: visual hallucinations 58-year-old male with history of alcohol use disorder and alcoholic cirrhosis complicated by ascitespvt/esophageal varices, chronic thrombocytopenia, elsa not on cpap, and hld presented to the ED after his daughter called EMS after witnessing visual hallucination. Per daughter, the patient with lining of pillows in the room and speaking with them. He does have a long history of alcohol abuse with periods of sobriety. The patient had been sober for over a month and then about 5 days ago per daughter's report has been drinking several shots daily, last drink was 2 days ago. He presented to the ED 4 days ago and reported desiring sobriety and was given resources. Unfortunately, today he presents in acute alcohol withdrawal with elevated CIWA score. The patient seems somewhat confused on exam and question his history. 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 He has also reported feeling depressed lately but denies any SI or HI. Since arrival, vital signs stable. He has a normocytic anemia with H/H 10.3/30.0%. Platelets 52, consistent with baseline. Renal function and electrolyte levels normal. Total bilirubin 1.8, consistent with baseline. AST 59, ALT 19, alkaline phosphatase 133. Urinalysis unremarkable. Urine tox screen negative. Ethyl alcohol level 284 at [address] negative for acute intracranial pathology which shows chronic white matter small-vessel ischemic changes and thickening of the sinuses. In the ED, has been given multiple doses of lorazepam and started on phenobarbital per protocol. He was evaluated by psychiatry recommending admission to medicine for management of acute alcohol withdrawal. Hospital course: 58-year-old male with history of alcohol use disorder and alcoholic cirrhosis complicated by ascites/esophageal varices/portal hypertension, chronic thrombocytopenia, elsa not on cpap, and hld admitted for management of acute alcohol withdrawal with visual hallucination, patient treated with phenobarb protocol, thiamine and folic acid subsequently seen by Addiction Team patient agreed for outpatient comprehensive care, at present patient has no symptoms of withdrawal visual hallucinations have resolved, patient is tolerating diet with no nausea, no vomiting or pain, therefore being discharged home with close outpatient follow-up with outpatient care, and has been strongly advised to abstain from C alcohol. Compensated alcoholic cirrhosis with ascites/esophageal varices/portal hypertension, recommend complete abstinence from alcohol LFTs are stable continue Coreg. chronic thrombocytopenia -due to cirrhosis, no bleeding noted Time Attestation Discharge Coordination Time (in mins): 38 Quality: Safe Use of Opioids Does Pt have an Active Cancer Diagnosis on the Problem List?: No Quality: Stroke Does the patient have a stroke diagnosis?: No Physical Exam Vital Signs: Vital Signs: Last Vital Signs Temp 98.0 F 08/15/23 07:15 Pulse 79 08/15/23 07:15 Resp 16 08/15/23 07:15 BP 107/62 08/15/23 07:15 Pulse Ox 98 08/15/23 07:15 O2 Del Method Room Air 08/15/23 07:15 BMI result Body Mass Index 25.5 Const: Other: General awake alert, no acute distress. Anicteric sclera Neck supple no JVD. CVS regular rate rhythm, Respiratory lungs clear to auscultation, no respiratory distress, no wheeze, no rhonchi. Gastrointestinal abdomen soft, non tender, bowel sounds audible, no guarding , no rigidity. Extremities no edema. Neuro non focal , no tremors Skin no rash Psych appropriate affect DS: Data Data Completed and Pending Labs on day of discharge: Laboratory Results - last 24 hr 08/15/23 05:20 WBC 3.7 L RBC 3.41 L Hgb 9.6 L Hct 28.7 L MCV 84.2 MCH 28.2 MCHC 33.4 RDW 17.8 H Plt Count 59 L MPV 11.1 Absolute Nucleated RBC 0.000 Nucleated RBC % (auto) 0.0 Total Bilirubin 1.7 H Direct Bilirubin 0.8 H AST 45 H ALT 15 Alkaline Phosphatase 103 Total Protein 6.6 Albumin 2.9 L Discharge Plan Discharge Anticipated Discharge Date/Time: 08/15/23 08:37 Patient Disposition: Home, Self-Care Discharge Diagnosis: Acute alcohol withdrawal with hallucination Referrals: Tanya Chen NP [Primary Care Provider] - 1 Week Ninfa Bazzi NP [Nurse Practitioner] - 08/19/23 10:30 am (You have an appointment scheduled with the [facility]. If you can not make this appointment call office to reschedule.) Discharge Medications: Continued carvedilol 3.125 mg tablet 3.125 mg PO BID folic acid 800 mcg tablet 0.8 mg PO DAILY melatonin 10 mg Tablet 10 mg PO BEDTIME PRN (Reason: Insomnia) Discharge Orders: Discharge Order (Routine); Ordered 08/15/23 Ordered By: Ricarda Blanc Diet: Advance to usual diet Activity on Discharge: As tolerated Stand Alone Forms: Patient Portal Discharge page Print Language: Cypriot Care Plan Goals: Alcohol withdrawal with hallucination all symptoms resolved recommend abstinence from alcohol and outpatient follow-up at [facility] Concerns: Cirrhosis Plan of Treatment: Outpatient follow-up with primary care physician Outpatient follow-up at [facility] Assessment: As above
--- NOTE | 2023-08-15 10:54 | P.PNADD_ITS ---
Subjective Subjective Date of Service: 08/15/23 Reason For Visit: ETOH Withdrawal Hallucination Interim History: Met with patient in follow up Scheduled to discharge today Expressing anxiety regarding relapse and how to manage anxiety and/or how to reduce impacts of of alcohol if he does drink again Reviewed harm reduction strategies, encouraged to take HUNG Reviewed recovery supports in the community and how to access them Provided with resources for his daughters as well Review of Systems Medical Review of Systems: changed (no withdrawal sx) Mental Status Exam Mental Status Exam Patient Appearance: Appropriate Level of Consciousness: Awake, Appropriate and Alert Patient Behavior: Talkative and Anxious Mood Description: Anxious Affect Description: Anxious Ability to Follow Directions: Excellent Speech Pattern: Clear Hallucinations: None Thought Process: Intact Judgement: Good Diagnostics Vital Signs (24Hr): Vital Signs - 24 hr 08/14/23 15:07 08/14/23 19:18 08/15/23 03:07 Temperature 98.1 F 98.4 F 98.3 F Pulse Rate 88 85 78 Respiratory Rate 16 16 16 Blood Pressure 108/68 106/56 L 112/66 Pulse Oximetry 99 99 99 Oxygen Delivery Method Room Air Room Air Room Air 08/15/23 07:15 Temperature 98.0 F Pulse Rate 79 Respiratory Rate 16 Blood Pressure 107/62 Pulse Oximetry 98 Oxygen Delivery Method Room Air BMI result Body Mass Index 25.5 Labs 08/15/23 05:20 08/13/23 05:38 Labs: Laboratory Results - last 48 hr 08/15/23 05:20 WBC 3.7 L RBC 3.41 L Hgb 9.6 L Hct 28.7 L MCV 84.2 MCH 28.2 MCHC 33.4 RDW 17.8 H Plt Count 59 L MPV 11.1 Absolute Nucleated RBC 0.000 Nucleated RBC % (auto) 0.0 Total Bilirubin 1.7 H Direct Bilirubin 0.8 H AST 45 H ALT 15 Alkaline Phosphatase 103 Total Protein 6.6 Albumin 2.9 L Imaging Radiology Impressions: ITS Impressions Head CT 08/12/23 11:12 IMPRESSION: 1. No acute intracranial pathology. 2. Chronic white matter small vessel ischemic changes. 3. Mucoperiosteal thickening of the right frontal, maxillary, and ethmoid sinuses. Medications Medications Current Medications Acetaminophen (Acetaminophen 325 Mg Tablet) 650 mg PO Q6H PRN PRN Reason: Pain, Mild (Pain Scale 1-3) Carvedilol (Carvedilol 3.125 Mg Tablet) 3.125 mg PO BID [facility]; Protocol Last Admin: 08/15/23 08:22 Dose: 3.125 mg Folic Acid (Folic Acid 1 Mg Tablet) 1 mg PO DAILY [facility] Last Admin: 08/15/23 08:22 Dose: 1 mg Ondansetron HCl (Ondansetron Hcl 4 Mg/2 Ml Vial) 4 mg IVPUSH Q8H PRN PRN Reason: Nausea and Vomiting Pharmacy Consult (Consult Rx Etoh Phenob Im/Po) 1 each MISCELLANE ONCE PRN; Protocol PRN Reason: Consult order Phenobarbital (Phenobarbital 15 Mg Tablet) 15 mg PO BID [facility]; Protocol Stop: 08/16/23 21:01 Last Admin: 08/15/23 08:23 Dose: 15 mg Phenobarbital (Phenobarbital 15 Mg Tablet) 15 mg PO DAILY [facility]; Protocol Stop: 08/18/23 09:01 Senna (Sennosides 8.6 Mg Tablet) 17.2 mg PO BEDTIME PRN PRN Reason: Constipation Sodium Chloride (0.9 % Sodium Chloride Flush 3 Ml Syringe) 3 ml IVFLUSH QSHIFT [facility] Last Admin: 08/15/23 08:23 Dose: 3 ml Thiamine HCl (Thiamine Hcl 100 Mg Tablet) 100 mg PO DAILY [facility] Last Admin: 08/15/23 08:22 Dose: 100 mg Allergies Allergies Allergy/AdvReac Type Severity Reaction Status Date / Time No Known Allergies Allergy Verified 08/12/23 02:20 Assessment & Plan Assessment & Plan (1) Alcohol use disorder: Status: Acute Code(s): F10.90 - Alcohol use, unspecified, uncomplicated Assessment and Plan: * follow up with [facility] Saturday as scheduled * recovery resources provided * naltrexone ordered Total time managing care of this patient today __30__ minutes.
== END 2023-08-15 13:23 | disposition home or self-care (01) | DRG 775 ==
LOC: HO.ED 13:10 → HO.EDOVER 13:43 → HO.S3 19:16
PROVIDERS: Admitting Provider Physician Assistant; Emergency Provider Emergency Medicine; PCP Nurse Practitioner Family; Visit Provider Hospitalist
DX: F10.931 Alcohol use, unspecified with withdrawal delirium (principal); I85.10 Secondary esophageal varices without bleeding; K76.6 Portal hypertension; K70.31 Alcoholic cirrhosis of liver with ascites; D69.59 Other secondary thrombocytopenia; E78.5 Hyperlipidemia, unspecified; Y90.8 Blood alcohol level of 240 mg/100 ml or more; G47.33 Obstructive sleep apnea (adult) (pediatric); K31.89 Other diseases of stomach and duodenum; Z79.899 Other long term (current) drug therapy
CPT/HCPCS: 36415; 70450; 80048; 80053; 80076; 80307; 81001; 83690; 85025; 85027; 87086; 99285; J2560; J3411

== ENCOUNTER → 2023-08-12 13:33 | Outpatient (BNV) | payer BC, SELFPAY | PROVIDERS: Admitting Provider Physician Assistant; Emergency Provider Emergency Medicine; PCP Nurse Practitioner Family; Visit Provider Physician Assistant | DX: F10.939 Alcohol use, unspecified with withdrawal, unspecified (principal); R44.3 Hallucinations, unspecified | CPT/HCPCS: 99223; 99232; 99239 ==

== ENCOUNTER → 2023-08-12 13:33 | Outpatient (BNV) | payer BC, SELFPAY | PROVIDERS: Admitting Provider Physician Assistant; Emergency Provider Emergency Medicine; PCP Nurse Practitioner Family; Visit Provider Nurse Practitioner Psychiatric/Mental Health | DX: F10.90 Alcohol use, unspecified, uncomplicated (principal) | CPT/HCPCS: 99231; 99499 ==

== ENCOUNTER 2023-08-19 10:37 | Emergency (ER) | payer BC, SELFPAY ==
--- NOTE | ~2023-08-19 | CT_ITS ---
EXAMINATION: CT HEAD WITHOUT CONTRAST CLINICAL INFORMATION: Intoxicated, Mechanical fall, Blunt head trauma without loss of consciousness, significant head injury and posttraumatic headache. COMPARISON: CT scan of brain on 08/12/2023 TECHNIQUE: Contiguous axial imaging was performed from the skull base to vertex without intravenous administration of contrast. This CT examination was performed using dose optimization techniques as appropriate, variously including the following: *Automated exposure control *Adjustment of mA and/or kV according to patient size (this includes techniques or standardized protocols for targeted exams where dose is matched to indication/reason for exam; i.e. extremities or head) *Use of iterative reconstruction technique DLP: 673 mGy-cm FINDINGS: Ventricles, sulci and cisterns are dilated for the patient's age. There is no midline shift, no abnormal intra- or extra- axial fluid accumulation. Rankin and white matter differentiation is normal. Bone window images show no evidence of skull fracture. Small polypoid mucosal lesion is seen at lateral inferior right maxillary sinus. CT/CT head/brain wo IV con IMPRESSION: 1. Unchanged mild cerebral atrophy more than expected for the patient's age. 2. No intracranial hemorrhage or skull fracture is seen. 3. No evidence of space occupying lesion could be found. 4. The current plain CT scan of the brain shows no diagnostic evidence of acute cerebral infarction.
[2023-08-19 10:50] VITALS: BP 136/72; PULSE 88; BMI 26.6
--- NOTE | 2023-08-19 13:20 | ED.ALCOHOL ---
HPI - Alcohol General Chief Complaint: ETOH/Substance Use Stated Complaint: ETOH USE,POLICE ON BOARD PER EMS Time Seen by Provider: 08/19/23 12:10 Source: patient Mode of arrival: EMS History of Present Illness HPI narrative: 58-year-old male who reports that he owns the house that his mother lives in, he does consume alcohol, states he wants to go home, denies any suicidal or homicidal ideations in adamantly denies interest in detox at this time. The concern was that mother found patient on the floor. He denies any headache or dizziness. Related Data Home Medications ?Medication ?Instructions ?Recorded ?Confirmed carvedilol 3.125 mg tablet 3.125 mg PO BID 08/12/23 08/12/23 folic acid 800 mcg tablet 0.8 mg PO DAILY 08/12/23 08/12/23 melatonin 10 mg tablet 10 mg PO BEDTIME PRN Insomnia 08/12/23 08/12/23 Previous Rx's ?Medication ?Instructions ?Recorded naltrexone 50 mg tablet 50 mg PO DAILY #30 tabs 08/15/23 Allergies Allergy/AdvReac Type Severity Reaction Status Date / Time No Known Allergies Allergy Verified 08/19/23 10:53 Review of Systems Review of Systems: Pertinent positives and negatives as stated in HPI PMFSH Past Medical History Source: nursing notes reviewed Medical History Tubular adenoma Subclinical hypothyroidism Alcohol use disorder BPH (benign prostatic hyperplasia) Obstructive sleep apnea Hyperlipidemia Portal hypertension Esophageal varices Alcoholic cirrhosis Social History Social History Household Members: Family Housing: House Do you presently have visiting nurse or other home services: No Alcohol intake: current Alcohol intake frequency: 3 or more drinks per day Alcohol type: hard liquor Comment: mark Alcaraz Patient Tobacco Use Status: Never used Tobacco Smoked in Last 30 Days: No Use of substances other than those prescribed or required for medical reasons: No Advance Directives: No Advance Directives Information Provided: No service: No Physical Exam ED Vital Signs: Vital Signs - 24 hr 08/19/23 15:32 Temperature 98 F Pulse Rate 77 Respiratory Rate 18 Blood Pressure 136/74 Pulse Oximetry 98 Oxygen Delivery Method Room Air BMI result Body Mass Index 26.6 VITAL SIGNS: Reviewed. GENERAL: Well developed, well nourished, in no acute distress. HEAD: Normocephalic/atraumatic EYES: PERRLA, EOMI EARS: Ext canals without abnormality NOSE: Nares patent bilateral OROPHARYNX: no oral lesions noted, posterior pharynx clear NECK: Supple, no adenopathy LUNGS: Normal breath sounds. No adventitious sounds or accessory muscle use. CARDIOVASCULAR: Regular rate and rhythm without noted murmurs ABDOMEN: Soft, non-tender, non-distended with bowel sounds. MUSCULOSKELETAL: No tenderness, deformities, or effusions noted on gross inspection. EXTREMITIES: No cyanosis, clubbing or edema. SKIN: Inspection of the skin reveals no rashes NEUROLOGIC: Alert and oriented x 4. Strength and sensation to light touch were grossly intact x 4, no facial asymmetry, no pronator drift, ambulates with a steady gait, cranial nerves 2-12 are grossly intact. Medical Decision Making Medical Decision Making MDM Narrative: 58-year-old male who lives with his mother and has a history and clinical presentation of significant alcohol use disorder, currently intoxicated but otherwise stable gait, alert and oriented x4 and no focal findings. Will proceed with CT head which I will prelim read and patient will otherwise be discharged and provided safe transportation home I do not have concerns that he will became unconscious or proved to be a harm to himself. He is also requesting to leave. CT of the head on my prelim read does not demonstrate any acute intracranial bleeding or mass effect, patient continues to ambulate with a steady gait is otherwise arranged for safe transportation home where he does not live by himself. I reviewed the official read of the CT scan from Radiology and agree with the impression. Differential Diagnosis Differential Diagnoses: The differential diagnosis associated with the presentation includes Please see the discussion above Admission/Observation Consideration of admission/observation: Escalation of care including admission/observation considered Please see the discussion above Radiology Impression Discussion of test interpretation with radiology: I have reviewed the radiologist's reading. Radiologist Impression: Please see the discussion above Critical Care Time Critical Care Time Critical Care Time: Yes Total Critical Care Time: 60 Attestation: I personally attest to this time spent taking care of the patient. Discharge Plan Discharge Clinical Impression: Alcohol use disorder, Fall Patient Disposition: Home, Self-Care Instructions: Abuse of Alcohol (ED) Additional Instructions: Please return if you decide to pursue detox from alcohol dependency. Prescriptions: No Action naltrexone 50 mg tablet 50 mg PO DAILY Qty: 30 0RF Rx Instructions: take 1/2 tab daily for 3 days then increase to one tab daily carvedilol 3.125 mg tablet 3.125 mg PO BID folic acid 800 mcg tablet 0.8 mg PO DAILY melatonin 10 mg Tablet 10 mg PO BEDTIME PRN (Reason: Insomnia) Referrals: Tanya Chen DIRECTOR CLIENT SERVICES [Primary Care Provider] - Interventions: ED Discharge Assessment Last Done: 08/19/23 15:32 Discharge Date/Time: 08/19/23 15:33 Print Language: Maltese
--- NOTE | 2023-08-19 13:21 | PC.NURSE ---
Seen by provider, ambulating with steady gait, per provider okay to book uber ride room, loading and unloading supervisor notified
[2023-08-19 15:32] VITALS: BP 136/74; PULSE 77; RESP 18; TEMP 36.6; O2SAT 98
--- NOTE | 2023-08-19 15:32 | PC.NURSE ---
Nursing supervisor spring up booked ride home for patient and brought him to waiting room to wait for ride
== END 2023-08-19 15:33 | disposition home or self-care (01) ==
PROVIDERS: Emergency Provider Student in an Organized Health Care Education/Training Program; PCP Nurse Practitioner Family
DX: S09.90XA Unspecified injury of head, initial encounter (principal); R51.9 Headache, unspecified; F10.129 Alcohol abuse with intoxication, unspecified; Y90.8 Blood alcohol level of 240 mg/100 ml or more; W01.10XA Fall on same level from slipping, tripping and stumbling with subsequent striking against unspecified object, initial encounter; Y93.9 Activity, unspecified; Y92.9 Unspecified place or not applicable; Y99.8 Other external cause status; Z79.899 Other long term (current) drug therapy
CPT/HCPCS: 70450; 99284

== ENCOUNTER 2023-09-13 22:33 | Inpatient (IN) | payer BC, SELFPAY ==
--- NOTE | ~2023-09-13 | CT_ITS ---
EXAMINATION: CT head/brain wo IV con CLINICAL INFORMATION: Reason for Exam intoxicated, possible head injury COMPARISON: None. TECHNIQUE: Contiguous axial imaging was performed from the skull base to vertex without intravenous contrast. Sagittal and coronal reformatted images were obtained. This CT examination was performed using dose optimization techniques as appropriate, variously including the following: * Automated exposure control * Adjustment of mA and/or kV according to patient size (this includes techniques or standardized protocols for targeted exams where dose is matched to indication/reason for exam; i.e. extremities or head) Use of iterative reconstruction technique DLP: 650 mGy-cm FINDINGS: No acute osseous or soft tissue abnormality. The mastoid air cells and visualized portions of the paranasal sinuses are well aerated. There is no evidence of acute intracranial hemorrhage or territorial infarction. No abnormal mass effect or midline shift is seen. Rankin to white matter differentiation is well preserved. No extra-axial fluid collections are identified. No hydrocephalus. Proportional prominence of the ventricles and sulcal spaces related to volume loss. Patchy periventricular and deep white matter hypoattenuation is consistent with mild small vessel ischemic changes. CT/CT head/brain wo IV con IMPRESSION: No acute intracranial abnormality including hemorrhage, mass effect, hydrocephalus, or acute territorial edematous infarction.
--- NOTE | ~2023-09-13 | CT_ITS ---
EXAMINATION: CT abdomen pelvis w IV con CLINICAL INFORMATION: Reason for Exam Elevated lipase, thrombocytopenia, alcoholic COMPARISON: No prior CT available for comparison. TECHNIQUE: Multidetector volumetric imaging was performed from the superior aspect of the liver through the pubic symphysis 85 mL Omnipaque 350 injected Sagittal and coronal reformatted images were obtained on the technologist's workstation. This CT examination was performed using dose optimization techniques as appropriate, variously including the following: *Automated exposure control *Adjustment of mA and/or kV according to patient size (this includes techniques or standardized protocols for targeted exams where dose is matched to indication/reason for exam; i.e. extremities or head) *Use of iterative reconstruction technique DLP: 519 mGy-cm FINDINGS: LOWER THORAX: Included lung bases are clear. HEPATOBILIARY: Extremely heterogeneous liver texture with nodular surface compatible with liver cirrhosis, there are subtle hypodense areas in the posterior segment right lobe segment 6, ill-defined, cannot rule out liver lesion. Hepatocellular carcinoma. This may require correlation with follow-up advanced imaging with dynamically enhanced liver MRI. No intra or extrahepatic biliary dilatation. GALLBLADDER: Gallbladder is markedly distended with multiple gallstones present. SPLEEN: Spleen is enlarged 12 cm. PANCREAS: No focal mass or ductal dilatation. STOMACH AND GASTROINTESTINAL TRACT: Stomach is grossly unremarkable. There is no bowel distention or thickening. There is circumferential wall thickening of the rectum and distal sigmoid colon, also mild thickening of the cecum and ascending colon, nonspecific CT finding, differential diagnoses would include inflammatory and/or infection etiology including IBD, colitis, less commonly ischemia and neoplasm. Clinical correlation and follow-up recommended. ADRENALS: No adrenal nodules. KIDNEYS/URETERS: Tiny cyst upper pole right kidney 1 cm Bosniak class I, almost certainly benign no follow-up imaging recommended. No kidney stone or hydronephrosis. URINARY BLADDER: Partially decompressed. PELVIC VISCERA: Unremarkable PERITONEUM: Cloudiness mesentery midabdomen and a few enlarged mesenteric lymph nodes compatible with mesenteric panniculitis. LYMPH NODES: No lymphadenopathy. VASCULAR:Engorgement of the portal vein and varices found around the gastroesophageal junction and distal esophagus and at the splenic hilum periumbilical suggesting portal hypertension and portosystemic shunting. BONES, ABDOMINAL WALL AND SOFT TISSUES: Age-appropriate changes of the spine and skeletal system, no destructive osteolytic or osteosclerotic bone lesion found CT/CT abdomen pelvis w IV con IMPRESSION: 1. Extremely heterogeneous liver texture with nodular surface compatible with liver cirrhosis, there are subtle hypo and hyperdense areas in the posterior segment right lobe segment 6, CANNOT RULE OUT LIVER LESION. HCC. Recommend attention to correlation with follow-up advanced imaging with dynamically enhanced liver MRI. 2. Splenomegaly. 3. Varices around the gastroesophageal junction and distal esophagus and at the splenic hilum suggesting portal hypertension and portosystemic shunting. 4. Cloudy [place]ara mesentery and mesenteric lymph nodes enlarged consistent with Mesenteric panniculitis. Nonspecific CT finding. Please see below for differential. 5. Circumferential wall thickening of the rectum and distal sigmoid colon, also mild thickening of the cecum and ascending colon, nonspecific CT finding, differential diagnoses would include inflammatory and/or infection etiology including IBD, colitis, less commonly ischemia and neoplasm. 6. Markedly distended gallbladder, multiple gallstones. Mesenteric panniculitis is a nonspecific finding and can coexistent with malignancy such as extra-abdominal non-Hodgkin lymphoma, breast carcinoma, prostate carcinoma, lung carcinoma, gastrointestinal carcinoma, colorectal carcinoma, melanoma, pancreatic neoplasm among other neoplasms. It also can coexist with benign process such as Crohn's disease, sarcoidosis, liver cirrhosis, colitis, lupus, sclerosing cholangitis, pancreatitis, mesenteritis, retroperitoneal fibrosis. It also could be idiopathic. Recommended clinical assessment and careful exclusion of possible other neoplasms. If no further action taken now, followup CT scan in 6 months advised. Reference: [place] Journal of Radiology May 1999, volume 174, #2. (Referring physician staff is being called, by physician staff assistance, to be alerted of the above critical findings and recommendations.) 09/14/2023 11:22 AM MICKI
[2023-09-13 22:47] VITALS: BP 110/70; PULSE 95; O2SAT 96; BMI 22.1
[2023-09-13 22:59] VITALS: BP 114/66; PULSE 92; RESP 16; O2SAT 98
--- NOTE | 2023-09-13 23:02 | MHC.CARE ---
[facility] contacted the CARE team and indicated that Edward would be arriving to the ED on a section 12 and was found appropriate for inpatient level of care. [facility] stated that patient's daughter contacted [facility] due to increased alcohol consumption and stated that he recently relapsed after a few months of sobriety. Per [facility] he has been increasingly depressed and endorsing suicidal ideation with thoughts to drink himself to and appeared increasingly helpless and hopeless. [facility] reported that he is not currently intoxicated however, advocated for medical clearance and reported that he has not consumed food in two weeks, is not tending to his ADL's, and has been previously diagnosed with Cirrhosis of the liver. [facility] stated that he is not currently combative however, was agitated and did not want to initially present to the ED as he wanted to stay in bed and reported that due to him becoming slightly agitated they contacted PD to assist with transport. Assessment will be sent over when completed but [facility] noted that it might be a slight delay as the clinician who completed the evaluation had seen two back to back cases in the community and had to complete documentation on both. The fax number to the care team office was requested as [facility] was uncertain when the documentation would be completed and information was provided upon request. Information was passed to the ED RN and will be passed to the ED provider upon his arrival to the ED. RAD team notified regarding incoming bed search from the community.
[2023-09-13 23:24] LABS: MANUAL DIFF FLAG NO
--- NOTE | 2023-09-13 23:24 | ED_ITS ---
HPI - General Adult General Chief complaint: Psychiatric Symptoms Stated complaint: section 12, SI, ETOH, hx liver sclerosis, met PD Time Seen by Provider: 09/13/23 23:24 History of Present Illness HPI narrative: The patient is a 58-year-old male with a history of significant alcohol use disorder and cirrhosis who has had complications including ascites and esophageal varices as well as chronic thrombocytopenia. The patient was last hospitalized at this hospital last month from August 11 to August 14. The patient was admitted for alcohol withdrawal and hallucinations. The patient also had an ER visit for alcohol intoxication on August 18 by Rosa Davis the patient has continued to drink alcohol quite heavily. Tonight the patient was brought in on a section 12 issued by the [place] for [employer] because the patient seemed to be expressing suicidal ideation in the context of his ongoing alcohol use. The family reported that the patient has been drinking more heavily than usual, the patient had not been eating, and the patient had not been getting out of the house at all. The patient admits to possible passive suicidal ideation and admits that he might be trying to drink himself to . He denies any more active suicidality however. He denies doing anything to hurt himself acutely. The patient admits to having had several falls over the last several months but he has not certain if he has had a fall with a head injury recently. He denies any current headache. Related Data Home Medications ?Medication ?Instructions ?Recorded ?Confirmed carvedilol 3.125 mg tablet 3.125 mg PO BID 08/12/23 08/12/23 folic acid 800 mcg tablet 0.8 mg PO DAILY 08/12/23 08/12/23 melatonin 10 mg tablet 10 mg PO BEDTIME PRN Insomnia 08/12/23 08/12/23 Previous Rx's ?Medication ?Instructions ?Recorded naltrexone 50 mg tablet 50 mg PO DAILY #30 tabs 08/15/23 Allergies Allergy/AdvReac Type Severity Reaction Status Date / Time No Known Allergies Allergy Verified 09/13/23 22:54 Review of Systems 2 Review of Systems: Yes all other systems are reviewed and are negative [facility] Past Medical History Medical History Tubular adenoma Subclinical hypothyroidism Alcohol use disorder BPH (benign prostatic hyperplasia) Obstructive sleep apnea Hyperlipidemia Portal hypertension Esophageal varices Alcoholic cirrhosis Social History Social History Household Members: Family Housing: House Do you presently have visiting nurse or other home services: No Alcohol intake: current Alcohol intake frequency: 3 or more drinks per day Alcohol type: hard liquor Comment: mark Alcaraz Patient Tobacco Use Status: Never used Tobacco Advance Directives: No Advance Directives Information Provided: Yes Do you have a plan to hurt others: No Plan service: No Physical Exam ED Vital Signs: Vital Signs - 24 hr 09/13/23 22:59 09/14/23 03:07 09/14/23 08:03 Temperature 98.0 F 98.8 F Pulse Rate 92 84 94 Respiratory Rate 16 18 18 Blood Pressure 114/66 115/71 112/78 Pulse Oximetry 98 98 98 Oxygen Delivery Method Room Air Room Air Room Air BMI result Body Mass Index 22.1 Const Other: The patient is a disheveled 58-year-old male who seemed intoxicated but not in distress. HENMT Other: No obvious signs of trauma to the head or the face. Eyes Other: Pupils are round equal, conjunctivae are clear Neck Other: No JVD, no cervical spine tenderness Resp Effort & Inspection: normal respiratory effort Auscultation: clear to auscultation bilaterally Cardio Rate: regular rate Rhythm: regular rhythm Heart sounds: S1 normal heart sound present and S2 normal heart sound present GI Other: Abdomen is soft and nontender. Specifically there is no epigastric tenderness. Skin Other: Skin is pale and dry Neuro Other: The patient is awake and alert. He seems intoxicated. Otherwise he seems neurologically intact. Extrem Other: No signs of injury to the extremities Medications Administered Discontinued Medications Generic Name Dose Route Start Last Admin Trade Name Freq PRN Reason Stop Dose Admin Lorazepam 2 mg 09/14/23 02:18 09/14/23 02:33 Lorazepam 1 Mg Tablet PO 09/14/23 02:19 2 mg ONCE ONE Administration Medical Decision Making Medical Decision Making [facility] Narrative: The patient is a 58-year-old alcoholic who was brought to the hospital on a section 12 because his family feels that he is doing very poorly and essentially drinking himself to . Here his alcohol level was 450. [place] [address]. He also has an INR of 2.0. The patient has a history of falls although it is not clear if he has had a recent fall. Given his degree of intoxication I felt it would be prudent to get a head CT. This was negative. Other labs have shown that his lipase is elevated. He does not have any abdominal tenderness but we have done a CT of his abdomen and pelvis as well. I contacted Dr. Madsen of Hematology Oncology regarding the patient's thrombocytopenia. This point there was no recommendation for any acute intervention as obvious sign of infection or other acute process. I suspect that this is more likely an exacerbation of his chronic thrombocytopenia probably related to alcohol related marrow suppression. Recommendations would be to transfuse platelets if there was bleeding or the platelet count fell below 10,000. At the end of my shift the reading of the CT scan of the abdomen and pelvis is pending. Additionally the patient will need a crisis evaluation. The patient will be signed out to the oncoming emergency physician. Lab Data 09/14/23 07:12 09/14/23 07:12 Labs: Lab Results 09/13/23 09/14/23 09/14/23 Range/Units 23:18 00:44 07:12 WBC 3.6 L 3.2 L (4.8-10.8) X10*3/uL RBC 3.70 L 3.44 L (4.60-5.80) X10*6/uL Hgb 10.6 L 10.0 L (14.0-18.0) g/dl Hct 31.6 L 29.8 L (42.0-52.0) % MCV 85.4 86.6 (80.0-98.0) fL MCH 28.6 29.1 (27.0-33.0) pg MCHC 33.5 33.6 (31.0-36.0) g/dl RDW 20.6 H 20.5 H (11.0-16.0) % Plt Count 16 L* D 14 L* (160-400) X10*3/uL MPV 10.3 8.9 L (9.4-12.4) fL Immature Gran % (Auto) 0.3 (0.0-0.4) % Neut % (Auto) 69.9 (45-73) % Lymph % (Auto) 15.9 L (20-40) % [place] % (Auto) 11.7 H (2-11) % Eos % (Auto) 1.1 (0-4) % Baso % (Auto) 1.1 (0-2) % Lymph # (Auto) 0.6 L (1.2-4.9) X10*3/uL [place] # (Auto) 0.4 (0.1-1.2) X10*3/uL Eos # (Auto) 0.0 (0.0-0.4) X10*3/uL Baso # (Auto) 0.0 (0.0-0.2) X10*3/uL Abs Immat Gran (auto) 0.01 (0.00-0.03) X10*3/uL Absolute Neuts (auto) 2.5 (2.0-8.3) x10*3/uL Absolute Nucleated RBC 0.000 0.000 (0.0-0.012) X10*3/uL Nucleated RBC % (auto) 0.0 0.0 (0.0-0.2) /100WBC PT 22.8 H 23.6 H (11.1-13.3) SEC INR 1.9 H 1.9 H (0.9-1.1) Sodium 140 138 (135-145) mmol/L Potassium 3.6 3.2 L (3.3-5.1) mmol/L Chloride 103 101 (96-108) mmol/L Carbon Dioxide 27 24 (22-29) mmol/L Anion Gap 14 16 (12-20) BUN 11 11 (9-16) mg/dL Creatinine 0.80 0.82 (0.5-1.4) mg/dL Estim Creat Clear Calc 99.2 96.8 Estimated GFR > 60 > 60 Random Glucose 111 141 H (60-115) mg/dL Calcium 8.3 L 8.2 L (8.4-10.2) mg/dL Total Bilirubin 4.8 H (0.0-1.0) mg/dL Direct Bilirubin 3.3 H (0.0-0.5) mg/dL AST 304 H (5-37) U/L ALT 51 H (0-40) U/L Alkaline Phosphatase 147 H (39-117) U/L Total Protein 7.0 (6.5-8.0) g/dL Albumin 3.1 L (3.5-5.0) g/dL Lipase 369 H (8-78) U/L Ethyl Alcohol 450 H* mg/dL Discharge Plan Discharge Clinical Impression: Alcohol use disorder, Depression, Thrombocytopenia, Chronic alcoholic liver disease Patient Disposition: Still a Patient Prescriptions: No Action naltrexone 50 mg tablet 50 mg PO DAILY Qty: 30 0RF Rx Instructions: take 1/2 tab daily for 3 days then increase to one tab daily carvedilol 3.125 mg tablet 3.125 mg PO BID folic acid 800 mcg tablet 0.8 mg PO DAILY melatonin 10 mg Tablet 10 mg PO BEDTIME PRN (Reason: Insomnia) Print Language: Icelandic
[2023-09-13 23:28] LABS: Basophils Percent Auto 1.1 % (0-2); Eosinophils Percent Auto 1.1 % (0-4); Hematocrit 31.6 % (42.0-52.0); Hemoglobin 10.6 g/dl (14.0-18.0); Imm Gran Abs Auto 0.01 X10*3/uL (0.00-0.03); Imm Gran Pct Auto 0.3 % (0.0-0.4); Lymphocytes Absolute Auto 0.6 X10*3/uL (1.2-4.9); Lymphocytes Percent Auto 15.9 % (20-40); Mean Corpuscular HGB Conc 33.5 g/dl (31.0-36.0); Mean Corpuscular Hemoglobin 28.6 pg (27.0-33.0); Mean Corpuscular Volume 85.4 fL (80.0-98.0); Mean Platelet Volume 10.3 fL (9.4-12.4); Monocytes Absolute Auto 0.4 X10*3/uL (0.1-1.2); Monocytes Percent Auto 11.7 % (2-11); Neutrophils Absolute Auto 2.5 x10*3/uL (2.0-8.3); Neutrophils Percent Auto 69.9 % (45-73); Red Cell Distribution Width 20.6 % (11.0-16.0); White Blood Count 3.6 X10*3/uL (4.8-10.8)
[2023-09-13 23:33] LABS: Platelet Count 16 X10*3/uL (160-400)
[2023-09-13 23:37] LABS: Ethanol 450 mg/dL
[2023-09-13 23:46] LABS: Alanine Aminotransferase 51 U/L (0-40); Albumin Level 3.1 g/dL (3.5-5.0); Alkaline Phosphatase 147 U/L (39-117); Anion Gap 14 (12-20); Aspartate Amino Transferase 304 U/L (5-37); Bilirubin Total 4.8 mg/dL (0.0-1.0); Blood Urea Nitrogen 11 mg/dL (9-16); Calcium 8.3 mg/dL (8.4-10.2); Carbon Dioxide 27 mmol/L (22-29); Chloride 103 mmol/L (96-108); Creatinine Clr Calc Pharmacy 99.2; Estimated Glomerular Filt Rate > 60; Glucose Random 111 mg/dL (60-115); Potassium 3.6 mmol/L (3.3-5.1); Sodium 140 mmol/L (135-145)
[2023-09-14] VITALS (7 sets, daily range): BP systolic 112–131; BP diastolic 70–78; PULSE 83–97; RESP 14–18; TEMP 36.1–37.1; O2SAT 97–100; BMI 25.2
[2023-09-14 00:05] LABS: Bilirubin Direct 3.3 mg/dL (0.0-0.5); Lipase 369 U/L (8-78)
--- NOTE | 2023-09-14 00:33 | PC.NURSE ---
Late entry d/t computers down. Critical lab received @ 2334 Platelet count 16. Tor notified and aware of pts critical lab of platelet 16 @ 2334. Pt with CT @ 0026. Plan of care ongoing.
[2023-09-14 00:56] LABS: INTERNATIONAL NORM RATIO 1.9 (0.9-1.1); Prothrombin Time 22.8 SEC (11.1-13.3)
[2023-09-14] MEDS: LORazepam 1 MG TABLET 2 MG PO (02:33)
--- NOTE | 2023-09-14 02:35 | PC.NURSE ---
Pt c&suellen self and place\, no signs of distress, resting in bed comfortably. Pt medicated per jun. Plan of care ongoing.
--- NOTE | 2023-09-14 03:24 | PC.NURSE ---
Pt reporting unable to use the bathroom to provide urine. Plan of care ongoing.
[2023-09-14 07:23] LABS: Hematocrit 29.8 % (42.0-52.0); Mean Corpuscular HGB Conc 33.6 g/dl (31.0-36.0); Mean Corpuscular Hemoglobin 29.1 pg (27.0-33.0); Mean Corpuscular Volume 86.6 fL (80.0-98.0); Mean Platelet Volume 8.9 fL (9.4-12.4); Red Blood Count 3.44 X10*6/uL (4.60-5.80); Red Cell Distribution Width 20.5 % (11.0-16.0); White Blood Count 3.2 X10*3/uL (4.8-10.8)
[2023-09-14 07:27] LABS: INTERNATIONAL NORM RATIO 1.9 (0.9-1.1); Prothrombin Time 23.6 SEC (11.1-13.3)
[2023-09-14 07:29] LABS: Platelet Count 14 X10*3/uL (160-400)
[2023-09-14 07:33] LABS: Anion Gap 16 (12-20); Blood Urea Nitrogen 11 mg/dL (9-16); Calcium 8.2 mg/dL (8.4-10.2); Carbon Dioxide 24 mmol/L (22-29); Chloride 101 mmol/L (96-108); Creatinine Clr Calc Pharmacy 96.8; Estimated Glomerular Filt Rate > 60; Glucose Random 141 mg/dL (60-115); Potassium 3.2 mmol/L (3.3-5.1); Sodium 138 mmol/L (135-145)
--- NOTE | 2023-09-14 09:21 | PC.NURSE ---
IV established, awaiting CT scan at this time. patient denies any abdominal pain/discomfort. remains section 12 w/ patient observer at bedside for patient safety. calm/cooperative, respirations even and unlabored.
[2023-09-14] MEDS: iohexoL 350 MG/ML 75 ML INFUS..BTL 85 ML IV (10:29)
[2023-09-14 11:22] LABS: OBS Int Ctl Valid YES; OBS1 POSITIVE (NEGATIVE)
[2023-09-14 11:56] LABS: MANUAL DIFF FLAG NO
[2023-09-14 11:58] LABS: Basophils Percent Auto 1.1 % (0-2); Eosinophils Percent Auto 0.7 % (0-4); Hematocrit 30.7 % (42.0-52.0); Hemoglobin 10.2 g/dl (14.0-18.0); Imm Gran Abs Auto 0.01 X10*3/uL (0.00-0.03); Imm Gran Pct Auto 0.4 % (0.0-0.4); Lymphocytes Absolute Auto 0.4 X10*3/uL (1.2-4.9); Lymphocytes Percent Auto 14.8 % (20-40); Mean Corpuscular HGB Conc 33.2 g/dl (31.0-36.0); Mean Corpuscular Hemoglobin 28.5 pg (27.0-33.0); Mean Corpuscular Volume 85.8 fL (80.0-98.0); Monocytes Absolute Auto 0.3 X10*3/uL (0.1-1.2); Monocytes Percent Auto 12.2 % (2-11); Neutrophils Absolute Auto 1.9 x10*3/uL (2.0-8.3); Neutrophils Percent Auto 70.8 % (45-73); Red Blood Count 3.58 X10*6/uL (4.60-5.80); Red Cell Distribution Width 20.6 % (11.0-16.0); White Blood Count 2.7 X10*3/uL (4.8-10.8)
[2023-09-14 12:04] LABS: Platelet Count 14 X10*3/uL (160-400)
[2023-09-14 12:11] LABS: Alanine Aminotransferase 51 U/L (0-40); Alkaline Phosphatase 136 U/L (39-117); Anion Gap 16 (12-20); Aspartate Amino Transferase 298 U/L (5-37); Bilirubin Total 5.2 mg/dL (0.0-1.0); Blood Urea Nitrogen 10 mg/dL (9-16); Calcium 8.2 mg/dL (8.4-10.2); Carbon Dioxide 26 mmol/L (22-29); Chloride 99 mmol/L (96-108); Creatinine Clr Calc Pharmacy 107.2; Estimated Glomerular Filt Rate > 60; Glucose Random 107 mg/dL (60-115); Magnesium 1.8 mg/dL (1.6-2.6); Potassium 3.5 mmol/L (3.3-5.1); Sodium 137 mmol/L (135-145); Total Protein 6.7 g/dL (6.5-8.0)
--- NOTE | 2023-09-14 12:30 | PHA.MEDREC ---
Pharmacy Consult ? Medication Reconciliation Pharmacy has completed the medication reconciliation. spoke with patient to confirm medications. He reports that he doesn't think hes on carvedilol. He only confirmed two medications, the folic acid and melatonin. He reports he is currently not taking anything for alcohol cravings. He is still not taking pantoprazole, keppra, meloxicam, or spironolactone.
--- NOTE | 2023-09-14 12:45 | PM.IMHP ---
History of Present Illness Date of Service: 09/14/23 Attending physician on admission: Wilfrid Melo Chief Complaint: Section 12, SI, ETOH Pt is a 58-year-old male with a PMH significant for?alcohol use disorder, alcoholic cirrhosis with ascites and esophageal varices previously requiring banding, chronic thrombocytopenia, DENISE not on CPAP, and HLD who presents to the ED from home on a section 12 for evaluation of increasing alcohol intake, depression, and SI. Section 12 was issued by the [employer], for [employer], and according to family patient has been drinking more heavily than usual, not eating for 2 weeks, not leaving house, and expressing suicidal ideation. In the ED patient was noted to admit to possible passive suicidal ideation and admitting he might be trying to drink himself to . Labs were significant for showing thrombocytopenia of 16, INR 1.9, and physical exam in the ED revealed melena-appearing stool positive for occult blood. The patient reports that he has been attending rehab of some sort at the beginning of this year, but then reports history of falls in April where he experienced ankle pain which then caused him to start drinking again. Lives with his mother, daughter, and daughter's boyfriend. Patient unsure exactly how or why he arrived at the ED, but reports he has been drinking a lot lately, not eating, and feeling depressed. However, patient currently denies SI. Patient also denies melena or hematochezia, hemoptysis or hematemesis. Denies abdominal pain. No nausea, vomiting. Denies auditory visual hallucinations. No increased anxiety or diaphoresis. Denies chest pain/pressure, palpitations. No shortness a breath or cough. In the ED pt with elevated heart rate up to 94, vitals otherwise stable and WNL. Labs were significant for thrombocytopenia of 16 with repeat at 14, chronic normocytic anemia stable at 10 0.6/31.6 with repeat 10.0/29.8, PT 23.6 with INR 1.9, bilirubin 4.8, AST 304, ALT 51, alk-phos 147, albumin 3.1, and lipase 369. Stool positive for occult blood. Ethyl alcohol for 50 at time of presentation. CT?of head showed no acute intracranial abnormality. CT of abdomen found extremely heterogeneous liver texture with nodular surface compatible with liver cirrhosis with possible liver lesions, splenomegaly, varices around gastroesophageal junction and distal esophagus suggestive portal hypertension and portosystemic shunting. Also found possible mesenteric panniculitis, circumferential wall thickening of rectum and distal sigmoid colon, marked distended gallbladder with multiple gallstones. Pt was treated with lorazepam, Protonix, IVF, ceftriaxone, and started on octreotide drip. Pt will be admitted to the hospital for treatment further evaluation of thrombocytopenia in the setting of likely upper GI bleed secondary to alcoholic cirrhosis and alcohol use disorder. Review of Systems Review of Systems: Increased depression Increased alcohol consumption Anorexia Patient otherwise has no acute medical complaints, though unreliable historian Denies abdominal pain No fever, chills, nausea, vomiting No hematemesis, hemoptysis, melena, or hematochezia Denies chest pain/pressure, palpitations No shortness a breath Denies anxiety, diaphoresis, auditory or visual hallucinations ON LICENSE OF [facility] Medical History Tubular adenoma Subclinical hypothyroidism Alcohol use disorder BPH (benign prostatic hyperplasia) Obstructive sleep apnea Hyperlipidemia Portal hypertension Esophageal varices Alcoholic cirrhosis Social History Household Members: Family Housing: House Do you presently have visiting nurse or other home services: No Alcohol intake: current Alcohol intake frequency: 3 or more drinks per day Alcohol type: hard liquor Comment: mark Alcaraz Patient Tobacco Use Status: Never used Tobacco Advance Directives: No Advance Directives Information Provided: Yes Do you have a plan to hurt others: No Plan service: No Meds Allergies Allergy/AdvReac Type Severity Reaction Status Date / Time No Known Allergies Allergy Verified 09/13/23 22:54 Active Medications: Current Medications Octreotide Acetate 500 mcg/ (Sodium Chloride) 501 mls @ 25.05 mls/hr IVCONT .Q20H CHRIS Home Medications ?Medication ?Instructions ?Recorded ?Confirmed ?Last Taken ?Type folic acid 800 mcg tablet 0.8 mg PO DAILY 08/12/23 09/14/23 Unknown History melatonin 10 mg tablet 10 mg PO BEDTIME PRN Insomnia 08/12/23 09/14/23 Unknown History Physical Exam Vital Signs and Narrative: Vital Signs: Last Vital Signs Temp 97.0 F 09/14/23 11:10 Pulse 83 09/14/23 11:10 Resp 14 09/14/23 11:10 BP 113/72 09/14/23 11:10 Pulse Ox 97 09/14/23 11:10 O2 Del Method Room Air 09/14/23 11:10 BMI result Body Mass Index 22.1 Constitutional: Alert, disheveled, unkempt, in no acute distress. Mental Status: Oriented to person, place and time. Eyes: Pupils are equal, round, and reactive to light. Ear, Nose, and Throat: Oropharynx clear, mucous membranes moist. Ears and nose without deformities. Trachea midline. Respiratory: Clear to auscultation bilaterally. No wheezing, rales, or rhonchi. Cardiovascular: S1, S2 regular. No murmurs, rubs, or gallops. Gastrointestinal: Abdomen soft, non-tender, non-distended. Normal bowel sounds. Neurologic: Cranial nerves II-XII are grossly intact bilaterally. No focal neurological deficits. Moves all extremities spontaneously. Skin: Warm, dry. Extremities: No edema. Psychiatric: Calm, cooperative. Normal mood and affect. Results Labs 09/14/23 11:51 09/14/23 11:51 Labs: Laboratory Results - last 24 hr 09/13/23 09/14/23 09/14/23 23:18 00:44 07:12 MCV 85.4 86.6 MCH 28.6 29.1 MCHC 33.5 33.6 RDW 20.6 H 20.5 H Plt Count 16 L* D 14 L* MPV 10.3 8.9 L Immature Gran % (Auto) 0.3 Neut % (Auto) 69.9 Lymph % (Auto) 15.9 L [place] % (Auto) 11.7 H Eos % (Auto) 1.1 Baso % (Auto) 1.1 Lymph # (Auto) 0.6 L [place] # (Auto) 0.4 Eos # (Auto) 0.0 Baso # (Auto) 0.0 Abs Immat Gran (auto) 0.01 Absolute Neuts (auto) 2.5 Absolute Nucleated RBC 0.000 0.000 Nucleated RBC % (auto) 0.0 0.0 PT 22.8 H 23.6 H INR 1.9 H 1.9 H Anion Gap 14 16 Estim Creat Clear Calc 99.2 96.8 Estimated GFR > 60 > 60 Random Glucose 111 141 H Lactic Acid Calcium 8.3 L 8.2 L Magnesium Total Bilirubin 4.8 H Direct Bilirubin 3.3 H AST 304 H ALT 51 H Alkaline Phosphatase 147 H Total Protein 7.0 Albumin 3.1 L Lipase 369 H Stool Occult Blood Ethyl Alcohol 450 H* Blood Type Antibody Screen 09/14/23 09/14/23 09/14/23 10:19 11:04 11:51 MCV 85.8 MCH 28.5 MCHC 33.2 RDW 20.6 H Plt Count 14 L* MPV Not Reportable Immature Gran % (Auto) 0.4 Neut % (Auto) 70.8 Lymph % (Auto) 14.8 L [place] % (Auto) 12.2 H Eos % (Auto) 0.7 Baso % (Auto) 1.1 Lymph # (Auto) 0.4 L [place] # (Auto) 0.3 Eos # (Auto) 0.0 Baso # (Auto) 0.0 Abs Immat Gran (auto) 0.01 Absolute Neuts (auto) 1.9 L Absolute Nucleated RBC 0.000 Nucleated RBC % (auto) 0.0 PT INR Anion Gap 16 Estim Creat Clear Calc 107.2 Estimated GFR > 60 Random Glucose 107 Lactic Acid 4.0 H* Calcium 8.2 L Magnesium 1.8 Total Bilirubin 5.2 H Direct Bilirubin AST 298 H ALT 51 H Alkaline Phosphatase 136 H Total Protein 6.7 Albumin 3.0 L Lipase Stool Occult Blood POSITIVE Ethyl Alcohol Blood Type A Positive Antibody Screen NEGATIVE Imaging Radiologist's Impressions: Impressions Head CT 09/14/23 00:40 IMPRESSION: No acute intracranial abnormality including hemorrhage, mass effect, hydrocephalus, or acute territorial edematous infarction. Abdomen/Pelvis CT 09/14/23 09:55 IMPRESSION: 1. Extremely heterogeneous liver texture with nodular surface compatible with liver cirrhosis, there are subtle hypo and hyperdense areas in the posterior segment right lobe segment 6, CANNOT RULE OUT LIVER LESION. HCC. Recommend attention to correlation with follow-up advanced imaging with dynamically enhanced liver MRI. 2. Splenomegaly. 3. Varices around the gastroesophageal junction and distal esophagus and at the splenic hilum suggesting portal hypertension and portosystemic shunting. 4. Cloudy Tara mesentery and mesenteric lymph nodes enlarged consistent with Mesenteric panniculitis. Nonspecific CT finding. Please see below for differential. 5. Circumferential wall thickening of the rectum and distal sigmoid colon, also mild thickening of the cecum and ascending colon, nonspecific CT finding, differential diagnoses would include inflammatory and/or infection etiology including IBD, colitis, less commonly ischemia and neoplasm. 6. Markedly distended gallbladder, multiple gallstones. Mesenteric panniculitis is a nonspecific finding and can coexistent with malignancy such as extra-abdominal non-Hodgkin lymphoma, breast carcinoma, prostate carcinoma, lung carcinoma, gastrointestinal carcinoma, colorectal carcinoma, melanoma, pancreatic neoplasm among other neoplasms. It also can coexist with benign process such as Crohn's disease, sarcoidosis, liver cirrhosis, colitis, lupus, sclerosing cholangitis, pancreatitis, mesenteritis, retroperitoneal fibrosis. It also could be idiopathic. Recommended clinical assessment and careful exclusion of possible other neoplasms. If no further action taken now, followup CT scan in 6 months advised. Reference: [place] Journal of Radiology May 1999, volume 174, #2. (Referring physician staff is being called, by physician staff assistance, to be alerted of the above critical findings and recommendations.) 09/14/2023 11:22 AM AJ Assessment and Plan (1) Thrombocytopenia: Status: Acute (2) Depression: Status: Acute (3) Alcohol use disorder: Status: Acute Plan Pt is a 58-year-old male with a PMH significant for?alcohol use disorder, alcoholic cirrhosis with ascites and esophageal varices previously requiring banding, chronic thrombocytopenia, DENISE not on CPAP, and HLD who presents to the ED from home on a section 12 for evaluation of increasing alcohol intake, depression, and SI. Pt will be admitted to the hospital for treatment further evaluation of thrombocytopenia in the setting of likely upper GI bleed secondary to alcoholic cirrhosis and alcohol use disorder. Thrombocytopenia Initial platelets 16 with repeat 14, INR 1.9 In the setting of alcoholic cirrhosis and alcohol use disorder Likely secondary to upper GI bleed Patient with history of esophageal varices requiring banding Stool positive for occult blood Patient will be transfused 1 unit of platelets; platelet goal of 50 before scoping by GI Will give vitamin K 5mg IV Continue octreotide drip Protonix 40 mg IV b.i.d. GI consult Follow CBC Suicidal ideation Patient arrives on section [facility] [employer] for SI at home Currently denies SI Care team consult 1 on sitter Alcoholic cirrhosis Will empirically cover with ceftriaxone for possible SBP, started 09/14/2023 Patient does not meet sepsis criteria Alcohol use disorder Patient with increasing heavy alcohol use for the past 3 weeks Patient's alcohol level 450 at time of presentation, will hold on phenobarb protocol for now Monitor on CIWA Patient currently denies auditory or visual hallucinations, increased anxiety, nausea/vomiting, diaphoresis Daily multivitamin, folic acid thiamine Follow lytes, Mag, BNP Addiction medicine consult Lactic acidosis Initial lactic acid 4.0 with repeat 3.7 after IVF Likely secondary to cirrhosis, not sepsis Patient does not meet sepsis criteria: HR 94, but no tachypnea, fever, or leukocytosis Empirically covering with ceftriaxone for possible SBP Full Code Attending:?Dr. Joy DVT Prophylaxis: Pneumatic boots Pt will require a hospitalization of at least two nights for treatment of?thrombocytopenia in setting of likely upper GI bleed secondary to alcoholic cirrhosis and alcohol use disorder. Patient required hospitalization for close monitoring of platelet and blood levels, administration octreotide drip, transfusions as necessary, likely imminent treatment for alcohol withdrawal, specialist consultation with GI with likely procedure on Saturday, and consultation with care team/psychiatry for suicidal ideation. Quality Stroke Does the patient have a stroke diagnosis?: No VTE Prior VTE?: No VTE Risk Level:: Medical - moderate - high VTE Device Contraindication: N/A - Device Ordered VTE Drug Contraindication: Treatment Not Indicated
[2023-09-14] MEDS: Pantoprazole Sodium 40 MG/10 ML VIAL 80 MG IVPUSH (13:21)
[2023-09-14] MEDS: 0.9 % Sodium Chloride 500 ML IV (13:24)
[2023-09-14] MEDS: Octreotide Acetate 100 MCG/ML AMPUL 50 MCG IVPUSH (13:27)
[2023-09-14] MEDS: Octreotide Acetate 500 MCG in 0.9 % Sodium Chloride 500 ML 25.05 MCG IVCONT (13:33)
[2023-09-14 13:54] LABS: Reflex Lactate? Lactic Acid Added
[2023-09-14] MEDS: cefTRIAXone sodium 2 GM in 0.9 % Sodium Chloride 50 ML IV (13:59)
[2023-09-14 14:22] LABS: ~Lactic Acid-LAB USE ONLY 3.7 mmol/L (0.5-2.0)
[2023-09-14 14:38] LABS: Cancel Lactic Acid Canceled
[2023-09-14] MEDS: Phytonadione (Vit K1) 5 MG in 0.9 % Sodium Chloride 50 ML 50.5 MG IV (15:45)
[2023-09-14] MEDS: Pantoprazole Sodium 40 MG/10 ML VIAL IVPUSH (17:03)
[2023-09-14] MEDS: Multivitamin TABLET 1 TAB PO (17:03)
[2023-09-14] MEDS: Thiamine HCL 100 MG TABLET PO (17:04)
[2023-09-14] MEDS: Folic Acid 1 MG TABLET PO (17:04)
--- NOTE | 2023-09-14 17:24 | PC.NURSE ---
platelets infusing at this time. no obvious signs/symptoms of distress noted. patient remains alert and oriented with even and unlabored respirations.
[2023-09-15] VITALS (9 sets, daily range): BP systolic 119–135; BP diastolic 71–81; PULSE 90–109; RESP 12–20; TEMP 36.7–37.6; O2SAT 97–99
[2023-09-15] MEDS: Pantoprazole Sodium 40 MG/10 ML VIAL IVPUSH ×2 (06:15→16:06)
[2023-09-15] MEDS: 0.9 % Sodium Chloride Flush 3 ML SYRINGE IVFLUSH ×3 (06:15→16:15)
--- NOTE | 2023-09-15 07:32 | P.CNGI_ITS ---
History of Present Illness Data of Consult Service Date: 09/15/23 Requesting physician: Ta Conroy Primary Care Provider: Unknown Physician HPI Reason for consult: GI bleed 58-year-old male with a PMH significant for?alcohol use disorder, alcoholic cirrhosis with ascites and esophageal varices previously requiring banding, chronic thrombocytopenia, DENISE not on CPAP, and HLD who I am seeing for assessment for melena Patient initially prsented with depression and SI on background of heavy alcohol intake for 2 weeks and poor PO intake. Stool test was done and apparently ED provider noted it looked melenic. pt himself denies rectal bleeding or black tarry stools. Denies nsaid use. He tells me he had a bowel motion overnight which was brown. Patient also denies hemoptysis or hematemesis. Denies abdominal pain. No nausea, vomiting. Denies auditory visual hallucinations. No increased anxiety or diaphoresis. Denies chest pain/pressure, palpitations. No shortness a breath or cough. patient says he knows he has a liver lesion and follows with hepatology at [facility] and has been told the lesion is stable . he denies feeling suicidal today LABS;thrombocytopenia of 16 with repeat at 14, chronic normocytic anemia stable at 10 0.6/31.6 with repeat 10.0/29.8, PT 23.6 with INR 1.9, bilirubin 4.8, AST 304, ALT 51, alk-phos 147, albumin 3.1, and lipase 369. Stool positive for occult blood. Ethyl alcohol 50 IMAGING: CT of abdomen: heterogeneous liver texture with nodular surface compatible with liver cirrhosis with possible liver lesions, splenomegaly, varices around gastroesophageal junction and distal esophagus suggestive portal hypertension and portosystemic shunting. Also found possible mesenteric panniculitis, circumferential wall thickening of rectum and distal sigmoid colon, marked distended gallbladder with multiple gallstones. Review of Systems 2 Review of Systems: Constitutional : No Weight loss, No Fever, No Chills ENT/Mouth : No sore throat, No Rhinorrhea Eyes: No Swelling, No Redness Cardiovascular : No Chest Pain, No SOB, No Edema Respiratory : No Cough, No Sputum, No Wheezing Gastrointestinal : see HPI Genitourinary : NO Dysuria, No Urinary Frequency, No Hematuria, No Urgency Musculoskeletal : + joint pain, No Myalgias, No Joint Swelling Skin : No Skin Lesions, No rash Neuro : No Weakness, No Numbness, No Dizziness, No Headache Psych : No Anxiety/Panic, + Depression Heme/Lymph: No Bruising, No Lymphadenopathy Endocrine : No Polyuria, No Polydipsia All other systems reviewed and are negative. [facility] Past Medical History Medical History Tubular adenoma Subclinical hypothyroidism Alcohol use disorder BPH (benign prostatic hyperplasia) Obstructive sleep apnea Hyperlipidemia Portal hypertension Esophageal varices Alcoholic cirrhosis Social History Social History Household Members: Family Household Members Other:: Mother, Daughter and Daughters Boyfriend Housing: House Do you presently have visiting nurse or other home services: No Alcohol intake: current Alcohol intake frequency: 3 or more drinks per day Alcohol type: hard liquor Comment: 1:1 sitter Patient Tobacco Use Status: Never used Tobacco Smoked in Last 30 Days: No e-Cigarette/Vaping Use: Never Used Patient Interested in Nicotine Replacement: No Patient Given Instructions on How to Stop Smoking: No Second Hand Smoke Exposure: No Use of substances other than those prescribed or required for medical reasons: No Substance Use Type: Other Substance Use Type Other:: n/a Last Used Substance Other:: n/a Currently Displaying Signs/Symptoms of Drug Intoxication Withdrawal: No Any prior treatment program specific to substance use: No Have you been hit, kicked, punched, or otherwise hurt by someone within the past year? If so, by whom?: No Do you feel safe in your current relationship?: No Current Relationship Is there a partner from a previous relationship who is making you feel unsafe now?: No Are you made to feel afraid or neglected: Yes (Ex- will send text messages about Silly things decline elaboration) Advance Directives: No Advance Directives Information Provided: Yes Advance Directives on File: No Do you have a plan to hurt others: No Plan Recently lost weight without trying: No How much weight loss: Not applicable Eating poorly because of decreased appetite: Yes Nutrition screen score: 1 Nutrition Risks: No Nutritional Risk Poor oral hygiene: No service: No Meds Allergies Allergy/AdvReac Type Severity Reaction Status Date / Time No Known Allergies Allergy Verified 09/13/23 22:54 Active Medications: Current Medications Acetaminophen (Acetaminophen 325 Mg Tablet) 650 mg PO Q6H PRN PRN Reason: Pain, Mild (Pain Scale 1-3) Benzonatate (Benzonatate 100 Mg Capsule) 100 mg PO TID PRN PRN Reason: Cough Folic Acid (Folic Acid 1 Mg Tablet) 1 mg PO DAILY [facility] Stop: 09/17/23 14:59 Last Admin: 09/14/23 17:04 Dose: 1 mg Octreotide Acetate 500 mcg/ (Sodium Chloride) 501 mls @ 25.05 mls/hr IVCONT .Q20H [facility] Last Admin: 09/14/23 13:33 Dose: 25 mcg/hr, 25.05 mls/hr Ceftriaxone Sodium 1 gm/ (Sodium Chloride) 50 mls @ 100 mls/hr IV Q24H [facility] Melatonin (Melatonin 3 Mg Tablet) 6 mg PO BEDTIME PRN PRN Reason: Insomnia Multivitamins/Vitamin C (Multivitamin Tablet) 1 tab PO DAILY [facility] Stop: 09/17/23 14:59 Last Admin: 09/14/23 17:03 Dose: 1 tab Ondansetron HCl (Ondansetron Hcl 4 Mg/2 Ml Vial) 4 mg IVPUSH Q8H PRN PRN Reason: Nausea and Vomiting Pantoprazole Sodium (Pantoprazole Sodium 40 Mg/10 Ml Vial) 40 mg IVPUSH BID@0630,1630 [facility] Last Admin: 09/15/23 06:15 Dose: 40 mg Sodium Chloride (0.9 % Sodium Chloride Flush 3 Ml Syringe) 3 ml IVFLUSH QSHIFT [facility] Last Admin: 09/15/23 06:15 Dose: 3 ml Thiamine HCl (Thiamine Hcl 100 Mg Tablet) 100 mg PO DAILY [facility] Stop: 09/17/23 14:59 Last Admin: 09/14/23 17:04 Dose: 100 mg Home Medications ?Medication ?Instructions ?Recorded ?Confirmed ?Last Taken ?Type folic acid 800 mcg tablet 0.8 mg PO DAILY 08/12/23 09/14/23 Unknown History melatonin 10 mg tablet 10 mg PO BEDTIME PRN Insomnia 08/12/23 09/14/23 Unknown History Physical Exam 2 Vital Signs: Vital Signs: Last Vital Signs Temp 98.7 F 09/15/23 03:57 Pulse 96 09/15/23 03:57 Resp 16 09/15/23 03:57 BP 125/74 09/15/23 03:57 Pulse Ox 99 09/15/23 03:57 O2 Del Method Room Air 09/15/23 03:57 BMI result Body Mass Index 25.2 EXAM: GENERAL: The patient dishevelled VITAL SIGNS:see workflow HEENT: Nonicteric sclerae, PERRLA, EOMI. Oropharynx clear. Moist mucous membranes. Conjunctivae appear well perfused. No thyroid mass. CHEST: Chest wall is nontender. HEART: Regular rate and rhythm without murmurs. LUNGS: Clear to auscultation bilaterally. ABDOMEN: Soft, positive bowel sounds, nontender, no organomegaly.no flank tenderness SKIN: No rash, no excessive bruising, petechiae, or purpura. NEUROLOGIC: Cranial nerves II-XII intact without motor/sensory deficit. Psych: normal affect Results Labs 09/15/23 07:02 09/15/23 07:02 Labs: Short CBC 09/14/23 Range/Units 11:51 WBC 2.7 L (4.8-10.8) X10*3/uL Hgb 10.2 L (14.0-18.0) g/dl Hct 30.7 L (42.0-52.0) % Plt Count 14 L* (160-400) X10*3/uL BMP 09/14/23 09/14/23 07:12 11:51 Sodium 138 137 Potassium 3.2 L 3.5 Chloride 101 99 Carbon Dioxide 24 26 BUN 11 10 Creatinine 0.82 0.74 Calcium 8.2 L 8.2 L Liver Function 09/14/23 Range/Units 11:51 Total Bilirubin 5.2 H (0.0-1.0) mg/dL AST 298 H (5-37) U/L ALT 51 H (0-40) U/L Alkaline Phosphatase 136 H (39-117) U/L Albumin 3.0 L (3.5-5.0) g/dL Imaging CT scan - abdomen: Attestation: I personally reviewed and interpreted this imaging study as follows: (nodular liver, heterogeneity noted, varices, gallstones) Radiologist's impression: CT/CT abdomen pelvis w IV con IMPRESSION: 1. Extremely heterogeneous liver texture with nodular surface compatible with liver cirrhosis, there are subtle hypo and hyperdense areas in the posterior segment right lobe segment 6, CANNOT RULE OUT LIVER LESION. HCC. Recommend attention to correlation with follow-up advanced imaging with dynamically enhanced liver MRI. 2. Splenomegaly. 3. Varices around the gastroesophageal junction and distal esophagus and at the splenic hilum suggesting portal hypertension and portosystemic shunting. 4. Cloudy [place]ara mesentery and mesenteric lymph nodes enlarged consistent with Mesenteric panniculitis. Nonspecific CT finding. Please see below for differential. 5. Circumferential wall thickening of the rectum and distal sigmoid colon, also mild thickening of the cecum and ascending colon, nonspecific CT finding, differential diagnoses would include inflammatory and/or infection etiology including IBD, colitis, less commonly ischemia and neoplasm. 6. Markedly distended gallbladder, multiple gallstones. Mesenteric panniculitis is a nonspecific finding and can coexistent with malignancy such as extra-abdominal non-Hodgkin lymphoma, breast carcinoma, prostate carcinoma, lung carcinoma, gastrointestinal carcinoma, colorectal carcinoma, melanoma, pancreatic neoplasm among other neoplasms. It also can coexist with benign process such as Crohn's disease, sarcoidosis, liver cirrhosis, colitis, lupus, sclerosing cholangitis, pancreatitis, mesenteritis, retroperitoneal fibrosis. It also could be idiopathic. Recommended clinical assessment and careful exclusion of possible other neoplasms. If no further action taken now, followup CT scan in 6 months advised. Assessment and Plan (1) Chronic alcoholic liver disease: Status: Acute (2) Thrombocytopenia: Status: Acute Plan 1/ Cirrhosis, likely alcohol related, abn imaging of the liver, but per pt sees [facility] and stable. May have superimposed alcoholic hepatitis 2/ Possible melena, but pt denies, also plts extremely low, may have mucosal oozing, PLAN: 1/ Get notes from [facility] 2/ cont to monitor HGB< hold on EGD if stable --low plts make risk of mucosal trauma from endoscopy v high, would need to be closer to 50 K 3/ hold on steroids, maintain high protein diet 1.1g/kg per day 4/agree with multi vitamins -alcohol withdrawal protocol 5/ imaging with thickened colon suspect this is more colopathy due to cirrhosis and low albumin Procedures Date of Service Date of Service: 09/15/23
[2023-09-15 08:09] LABS: Hematocrit 28.2 % (42.0-52.0); Hemoglobin 9.2 g/dl (14.0-18.0); Mean Corpuscular HGB Conc 32.6 g/dl (31.0-36.0); Mean Corpuscular Hemoglobin 28.7 pg (27.0-33.0); Mean Corpuscular Volume 87.9 fL (80.0-98.0); Mean Platelet Volume 10.4 fL (9.4-12.4); Red Blood Count 3.21 X10*6/uL (4.60-5.80); Red Cell Distribution Width 21.4 % (11.0-16.0); White Blood Count 3.3 X10*3/uL (4.8-10.8)
[2023-09-15 08:11] LABS: Anion Gap 15 (12-20); Blood Urea Nitrogen 8 mg/dL (9-16); Calcium 8.1 mg/dL (8.4-10.2); Carbon Dioxide 25 mmol/L (22-29); Chloride 99 mmol/L (96-108); Creatinine Clr Calc Pharmacy 108.5; Estimated Glomerular Filt Rate > 60; Glucose Random 126 mg/dL (60-115); Potassium 3.9 mmol/L (3.3-5.1); Sodium 135 mmol/L (135-145)
[2023-09-15 08:18] LABS: Platelet Count 17 X10*3/uL (160-400)
--- NOTE | 2023-09-15 08:37 | MHC.CM.PN ---
CM met with Patient at bedside.Patient was cent here by [facility] [place] [facility] [employer], on a Section 12 r/t his increased ETOH use & Depression & SI. Patient will benefit from a Care Team Consult to assist with disposition. CM has initiated and will follow for dc planning. Patient lives in a house with his Mother, Daughter/HCP/Modesta and Modesta's Boyfriend. 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 PCP/NEWSPAPER EDITOR is Tanya Chen.
[2023-09-15] MEDS: Octreotide Acetate 500 MCG in 0.9 % Sodium Chloride 500 ML 25.05 MCG IVCONT (09:08)
[2023-09-15] MEDS: Multivitamin TABLET 1 TAB PO (09:08)
[2023-09-15] MEDS: Folic Acid 1 MG TABLET PO (09:08)
[2023-09-15] MEDS: Thiamine HCL 100 MG TABLET PO (09:10)
[2023-09-15 09:15] LABS: Prothrombin Time 24.6 SEC (11.1-13.3)
[2023-09-15 09:23] LABS: Alanine Aminotransferase 40 U/L (0-40); Albumin Level 2.7 g/dL (3.5-5.0); Alkaline Phosphatase 127 U/L (39-117); Aspartate Amino Transferase 216 U/L (5-37); Bilirubin Direct 3.4 mg/dL (0.0-0.5); Bilirubin Total 5.9 mg/dL (0.0-1.0); Magnesium 1.5 mg/dL (1.6-2.6)
--- NOTE | 2023-09-15 11:23 | HO.PM.IMPN ---
Subjective Subjective Date of Service: 09/15/23 Interval History: no christiano bleeding mildly tremulous denies SI platelets 14->17 after 1 unit transfused Review of Systems Review of Systems: Yes all other systems are reviewed and are negative Physical Exam Vital Signs: Vital Signs: Last Vital Signs Temp 99.5 F 09/15/23 08:00 Pulse 106 H 09/15/23 08:00 Resp 20 09/15/23 08:00 BP 132/71 09/15/23 08:00 Pulse Ox 98 09/15/23 08:00 O2 Del Method Room Air 09/15/23 08:00 BMI result Body Mass Index 25.2 Gen: mildly tremulous HEENT: sclera icteric, moist mucus membranes Neck: supple Lungs: clear to auscultation bilaterally Heart: regular, tachycardic, no murmurs Abd: soft, non-tender, non-distended Ext: no edema Skin: warm/well-perfused Neuro: alert and oriented x3, no focal findings, mildly tremulous Psych: appropriate affect Objective Data Active Medications Acetaminophen (Acetaminophen 325 Mg Tablet) 650 mg PO Q6H PRN PRN Reason: Pain, Mild (Pain Scale 1-3) Benzonatate (Benzonatate 100 Mg Capsule) 100 mg PO TID PRN PRN Reason: Cough Folic Acid (Folic Acid 1 Mg Tablet) 1 mg PO DAILY [facility] Stop: 09/17/23 14:59 Last Admin: 09/15/23 09:08 Dose: 1 mg Documented By: KATHY Octreotide Acetate 500 mcg/ (Sodium Chloride) 501 mls @ 25.05 mls/hr IVCONT .Q20H [facility] Last Admin: 09/15/23 09:08 Dose: 25 mcg/hr, 25.05 mls/hr Documented By: KATHY Ceftriaxone Sodium 1 gm/ (Sodium Chloride) 50 mls @ 100 mls/hr IV Q24H [facility] Melatonin (Melatonin 3 Mg Tablet) 6 mg PO BEDTIME PRN PRN Reason: Insomnia Multivitamins/Vitamin C (Multivitamin Tablet) 1 tab PO DAILY [facility] Stop: 09/17/23 14:59 Last Admin: 09/15/23 09:08 Dose: 1 tab Documented By: KATHY Ondansetron HCl (Ondansetron Hcl 4 Mg/2 Ml Vial) 4 mg IVPUSH Q8H PRN PRN Reason: Nausea and Vomiting Pantoprazole Sodium (Pantoprazole Sodium 40 Mg/10 Ml Vial) 40 mg IVPUSH BID@0630,1630 [facility] Last Admin: 09/15/23 06:15 Dose: 40 mg Documented By: MICHAEL Pharmacy Consult (Consult Rx Etoh Phenob Im/Po) 1 each MISCELLANE ONCE PRN; Protocol PRN Reason: Consult order Sodium Chloride (0.9 % Sodium Chloride Flush 3 Ml Syringe) 3 ml IVFLUSH QSHIFT [facility] Last Admin: 09/15/23 09:08 Dose: 3 ml Documented By: KATHY Thiamine HCl (Thiamine Hcl 100 Mg Tablet) 100 mg PO DAILY [facility] Stop: 09/17/23 14:59 Last Admin: 09/15/23 09:10 Dose: 100 mg Documented By: KATHY Labs 09/15/23 07:02 09/15/23 07:02 Labs: Laboratory Results - last 24 hr 09/14/23 09/14/23 09/14/23 10:19 11:51 14:03 MCV 85.8 MCH 28.5 MCHC 33.2 RDW 20.6 H Plt Count 14 L* MPV Not Reportable Immature Gran % (Auto) 0.4 Neut % (Auto) 70.8 Lymph % (Auto) 14.8 L Wilkinson % (Auto) 12.2 H Eos % (Auto) 0.7 Baso % (Auto) 1.1 Lymph # (Auto) 0.4 L Wilkinson # (Auto) 0.3 Eos # (Auto) 0.0 Baso # (Auto) 0.0 Abs Immat Gran (auto) 0.01 Absolute Neuts (auto) 1.9 L Absolute Nucleated RBC 0.000 Nucleated RBC % (auto) 0.0 PT INR Anion Gap 16 Estim Creat Clear Calc 107.2 Estimated GFR > 60 Random Glucose 107 Lactic Acid 4.0 H* Lactic Acid F/U @ 2Hr 3.7 H* Calcium 8.2 L Magnesium 1.8 Total Bilirubin 5.2 H Direct Bilirubin AST 298 H ALT 51 H Alkaline Phosphatase 136 H Total Protein 6.7 Albumin 3.0 L Blood Type A Positive Antibody Screen NEGATIVE 09/15/23 09/15/23 07:02 09:02 MCV 87.9 MCH 28.7 MCHC 32.6 RDW 21.4 H Plt Count 17 L* MPV 10.4 Immature Gran % (Auto) Neut % (Auto) Lymph % (Auto) Wilkinson % (Auto) Eos % (Auto) Baso % (Auto) Lymph # (Auto) Wilkinson # (Auto) Eos # (Auto) Baso # (Auto) Abs Immat Gran (auto) Absolute Neuts (auto) Absolute Nucleated RBC 0.000 Nucleated RBC % (auto) 0.0 PT 24.6 H INR 2.0 H Anion Gap 15 Estim Creat Clear Calc 108.5 Estimated GFR > 60 Random Glucose 126 H Lactic Acid Lactic Acid F/U @ 2Hr Calcium 8.1 L Magnesium 1.5 L Total Bilirubin 5.9 H Direct Bilirubin 3.4 H AST 216 H ALT 40 Alkaline Phosphatase 127 H Total Protein 6.0 L Albumin 2.7 L Blood Type Antibody Screen Assessment and Plan (1) Thrombocytopenia: Status: Acute Plan d2 58yo M with AUD, EtOH cirrhosis, hx esophageal varices with banding in past, thrombocytopenia, DENISE not on CPAP, HLD sent to ED on section 12 for EtOH intoxication/depression/SI found to have melena, coagulopathy, and thrombocytopenia UGIB, hx varices - continue IV PPI, octreotide gtt, IV ceftriaxone; GI consulted and plan EGD once plts 50+, keep on clear liquids for now thrombocytopenia - will transfuse another 1u pRBCs and recheck CBC in AM; Hem-Onc consult. Suspect due to cirrhosis coagulopathy - will give another 5 mg vit K and recheck INR in AM hypoMg - replete IV, recheck level in AM lactic acidosis - due to cirrhosis, not sepsis liver lesions suspicious for HCC [subtle hypodense areas in the posterior segment right lobe segment 6, ill-defined] - check AFP, will need outpt MRI liver protocol AUD with withdrawal syndrome - start phenobarbital taper, continue thiamine/folate/multivitamin, consult Addiction Medicine SI - arrived on sec 12 from [facility]NOTE 3] for SI; currently denies; CARE Team assessment once medically cleared and in meanwhile continue sitter VTE ppx - SCDs dispo - TBD In my clinical judgment, the patient requires continued inpatient hospitalization for the following reasons: severe thrombocytopenia, GIB Total time managing care of this patient today: 50 minutes. Quality Stroke Does the patient have a stroke diagnosis?: No VTE Prior VTE?: No VTE Risk Level:: Medical - moderate - high VTE Device Contraindication: N/A - Device Ordered VTE Drug Contraindication: Treatment Not Indicated
--- NOTE | 2023-09-15 12:06 | P.CNHO_ITS ---
Subjective - Subjective Chief complaint: Consult for: Thrombocytopenia. Patient: new to practice Consult date: 09/15/23 Requesting Physician: Benita. Primary Care Provider: Unknown Physician Family Provider: unknown Medical Summary: DIAGNOSIS: THROMBOCYTOPENIA. HPI - Consult Narrative Reason for consult: Consult for: Thrombocytopenia. Narrative: I have been asked by Dr. Joy to evaluate Jigar Travis, a 58 year old gentleman, for thrombocytopenia. He has a PMH significant for?alcohol use disorder, alcoholic cirrhosis with ascites and esophageal varices previously requiring banding, chronic thrombocytopenia, DENISE not on CPAP, and HLD. He presented to the ED from home on a section 12 for evaluation of increasing alcohol intake, depression, and SI. Section 12 was issued by the [facility], and according to family patient has been drinking more heavily than usual, not eating for 2 weeks, not leaving house, and expressing suicidal ideation. In the ED patient was noted to admit to possible passive suicidal ideation and admitting he might be trying to drink himself to . Physical exam in the ED revealed melena-appearing stool positive for occult blood. The patient reports that he has been attending rehab of some sort at the beginning of this year, but then reports history of falls in April where he experienced ankle pain which then caused him to start drinking again. Lives with his mother, daughter, and daughter's boyfriend. Patient unsure exactly how or why he arrived at the ED, but reports he has been drinking a lot lately, not eating, and feeling depressed. However, patient currently denies SI. Patient also denies melena or hematochezia, hemoptysis or hematemesis. Denies abdominal pain. No nausea, vomiting. Denies auditory visual hallucinations. No increased anxiety or diaphoresis. Denies chest pain/pressure, palpitations. No shortness a breath or cough. In the ED pt with elevated heart rate up to 94, vitals otherwise stable and WNL. Labs were significant for thrombocytopenia of 16 with repeat at 14, chronic normocytic anemia stable at 10 0.6/31.6 with repeat 10.0/29.8, PT 23.6 with INR 1.9, bilirubin 4.8, AST 304, ALT 51, alk-phos 147, albumin 3.1, and lipase 369. Stool positive for occult blood. Ethyl alcohol for [address] at time of presentation. CT?of head showed no acute intracranial abnormality. CT of abdomen found extremely heterogeneous liver texture with nodular surface compatible with liver cirrhosis with possible liver lesions, splenomegaly, varices around gastroesophageal junction and distal esophagus suggestive portal hypertension and portosystemic shunting. Also found possible mesenteric panniculitis, circumferential wall thickening of rectum and distal sigmoid colon, marked distended gallbladder with multiple gallstones. Pt was treated with lorazepam, Protonix, IVF, ceftriaxone, and started on octreotide drip. Pt was admitted to the hospital for treatment further evaluation of thrombocytopenia in the setting of likely upper GI bleed secondary to alcoholic cirrhosis and alcohol use disorder. Medical History: Tubular adenoma Subclinical hypothyroidism Alcohol use disorder BPH (benign prostatic hyperplasia) Obstructive sleep apnea Hyperlipidemia Portal hypertension Esophageal varices Alcoholic cirrhosis Review of Systems 2 Review of Systems: Increased depression Increased alcohol consumption Anorexia Patient otherwise has no acute medical complaints, though unreliable historian Denies abdominal pain No fever, chills, nausea, vomiting No hematemesis, hemoptysis, melena, or hematochezia Denies chest pain/pressure, palpitations No shortness a breath Denies anxiety, diaphoresis, auditory or visual hallucinations Review of Systems - Constitutional Reports system reviewed and no additional complaints, except as documented, Reports anorexia, Reports lack of energy, Reports malaise, Reports poor appetite, Reports weight loss - Eyes Reports system reviewed and no additional complaints, except as documented - ENT Reports system reviewed and no additional complaints, except as documented - Cardiovascular Reports system reviewed and no additional complaints, except as documented - Respiratory Reports no additional respiratory complaints - Gastrointestinal Reports system reviewed and no additional complaints, except as documented - Genitourinary Genitourinary: Reports no additional male genitourinary complaints - Musculoskeletal Reports system reviewed and no additional complaints, except as documented - Integumentary/Breasts Skin/Breast: Reports no additional skin complaints - Neurologic Reports system reviewed and no additional complaints, except as documented - Psychiatric Reports system reviewed and no additional complaints, except as documented - Endocrine Reports no additional endocrine complaints - Hematologic/Lymphatic Reports system reviewed and no additional complaints, except as documented - Allergic/Immunologic Reports system reviewed and no additional complaints, except as documented Oncology Screenings - ECOG Performance Status ECOG Performance Status: 2 [facility] Medical History: Medical History (Last Reviewed 09/14/23 @ 20:28 by Ellie Boswell RN) Alcohol use disorder Alcoholic cirrhosis BPH (benign prostatic hyperplasia) Esophageal varices Hyperlipidemia Obstructive sleep apnea Portal hypertension Subclinical hypothyroidism Tubular adenoma Functional capacity: wheelchair bound Patient : No Social History: Social History (Last Reviewed 09/14/23 @ 20:29 by Ellie Boswell RN) Living Situation History: Household Members: Family Household Members Other:: Mother, Daughter and Daughters Boyfriend Housing: House Do you presently have visiting nurse or other home services: No Alcohol History Details: 1. How often do you have a drink containing alcohol?: e. 4 or more times a week 2. How many drinks containing alcohol do you have on a typical day when you are drinking?: c. 5 or 6 3. How often do you have six or more drinks on one occasion?: d. Weekly AUDIT-C Alcohol total score: 9 Last drink: Just prior to admission Amount Drank: Bottle 375mL Whisky Currently Displaying Signs/Symptoms of Alcohol Withdrawal: No Tobacco History: Patient Tobacco Use Status: Never used Tobacco Smoked in Last 30 Days: No Smoke Quit Date: 12 Years ago e-Cigarette/Vaping Use: Never Used Patient Interested in Nicotine Replacement: No Patient Given Instructions on How to Stop Smoking: No Second Hand Smoke Exposure: No Substance Use History: Use of substances other than those prescribed or required for medical reasons : No Substance Use Type: Other Substance Use Type Other:: n/a Last Used Substance Other:: n/a Currently Displaying Signs/Symptoms of Drug Intoxication Withdrawal: No Any prior treatment program specific to substance use: No Domestic Abuse History: Have you been hit, kicked, punched, or otherwise hurt by someone within the past year? If so, by whom?: No Do you feel safe in your current relationship?: No Current Relationship Is there a partner from a previous relationship who is making you feel unsafe now?: No Are you made to feel afraid or neglected: Yes Are you made to feel afraid or neglected comment: Ex- will send text messages about Silly things decline elaboration Advance Directives: Advance Directives: No Advance Directives Information Provided: Yes Advance Directives on File: No Homicidal Assessment: Do you have a plan to hurt others: No Plan Nutrition Assessment: Recently lost weight without trying: No How much weight loss: Not applicable Eating poorly because of decreased appetite: Yes Nutrition screen score: 1 Nutrition Risks: No Nutritional Risk Patient : No Poor oral hygiene: No Occupation Assessmet: service: No Home Medications and Allergies Current Medications: Current Medications Acetaminophen (Acetaminophen 325 Mg Tablet) 650 mg PO Q6H PRN PRN Reason: Pain, Mild (Pain Scale 1-3) Benzonatate (Benzonatate 100 Mg Capsule) 100 mg PO TID PRN PRN Reason: Cough Folic Acid (Folic Acid 1 Mg Tablet) 1 mg PO DAILY [facility] Stop: 09/17/23 14:59 Last Admin: 09/15/23 09:08 Dose: 1 mg Octreotide Acetate 500 mcg/ (Sodium Chloride) 501 mls @ 25.05 mls/hr IVCONT .Q20H [facility] Last Admin: 09/15/23 09:08 Dose: 25 mcg/hr, 25.05 mls/hr Ceftriaxone Sodium 1 gm/ (Sodium Chloride) 50 mls @ 100 mls/hr IV Q24H [facility] Phytonadione 5 mg/ Sodium (Chloride) 50.5 mls @ 50.5 mls/hr IV ONCE ONE Stop: 09/15/23 12:26 Magnesium Sulfate (Magnesium Sulfate/H2o) 2 gm in 50 mls @ 25 mls/hr IV ONCE ONE Stop: 09/15/23 13:26 Melatonin (Melatonin 3 Mg Tablet) 6 mg PO BEDTIME PRN PRN Reason: Insomnia Multivitamins/Vitamin C (Multivitamin Tablet) 1 tab PO DAILY [facility] Stop: 09/17/23 14:59 Last Admin: 09/15/23 09:08 Dose: 1 tab Ondansetron HCl (Ondansetron Hcl 4 Mg/2 Ml Vial) 4 mg IVPUSH Q8H PRN PRN Reason: Nausea and Vomiting Pantoprazole Sodium (Pantoprazole Sodium 40 Mg/10 Ml Vial) 40 mg IVPUSH BID@0630,1630 [facility] Last Admin: 09/15/23 06:15 Dose: 40 mg Pharmacy Consult (Consult Rx Etoh Phenob Im/Po) 1 each MISCELLANE ONCE PRN; Protocol PRN Reason: Consult order Phenobarbital (Phenobarbital 15 Mg Tablet) 45 mg PO BID [facility]; Protocol Stop: 09/17/23 21:01 Phenobarbital (Phenobarbital 15 Mg Tablet) 15 mg PO BID [facility]; Protocol Stop: 09/19/23 21:01 Phenobarbital (Phenobarbital 15 Mg Tablet) 15 mg PO DAILY [facility]; Protocol Stop: 09/21/23 09:01 Phenobarbital Sodium (Phenobarbital Sodium 130 Mg/Ml Vial Im Q3hx2) 167 mg IM Q3H [facility]; Protocol Stop: 09/15/23 18:01 Sodium Chloride (0.9 % Sodium Chloride Flush 3 Ml Syringe) 3 ml IVFLUSH QSHIFT [facility] Last Admin: 09/15/23 09:08 Dose: 3 ml Thiamine HCl (Thiamine Hcl 100 Mg Tablet) 100 mg PO DAILY [facility] Stop: 09/17/23 14:59 Last Admin: 09/15/23 09:10 Dose: 100 mg Home Medications ?Medication ?Instructions ?Recorded ?Confirmed ?Type folic acid 800 mcg tablet 0.8 mg PO DAILY 08/12/23 09/14/23 History melatonin 10 mg tablet 10 mg PO BEDTIME PRN Insomnia 08/12/23 09/14/23 History Allergies Allergy/AdvReac Type Severity Reaction Status Date / Time No Known Allergies Allergy Verified 09/13/23 22:54 Physical Exam Vital signs: Vital Signs Temp 99.5 F 09/15/23 08:00 Pulse 106 H 09/15/23 08:00 Resp 20 09/15/23 08:00 BP 132/71 09/15/23 08:00 Pulse Ox 98 09/15/23 08:00 O2 Del Method Room Air 09/15/23 08:00 Intake & Output 09/14/23 09/15/23 09/15/23 18:59 06:59 18:59 Intake Total 600.5 / 1036.5 436 / 1036.5 490.562 / 490.562 Output Total 0 / 0 Balance 600.5 / 1036.5 436 / 1036.5 490.562 / 490.562 Urine Output (Average ml/kg/hr) 0.00 0.00 Intake: Intake, Oral Amount 0 / 0 Intake (Blood Product) Amount 0 / 336 336 / 336 Plt Aph Pas Pathreduced(E8342) 0 / 336 336 / 336 Unit [id number] Intake, IV Amount 600.5 / 700.5 100 / 700.5 490.562 / 490.562 0.9 % Sodium Chloride 100 ml @ 100 / 100 100 mls/hr IV ONCE ONE Rx#: [id number] 0.9 % Sodium Chloride 500 ml @ 500 / 500 500 mls/hr IV .Q1H [facility] Rx#: [id number] Phytonadione (Vit K1) 5 mg In 0 50.5 / 50.5 .9 % Sodium Chloride 50 ml @ 50 .5 mls/hr IV ONCE ONE Rx#: [id number] cefTRIAXone sodium 2 gm In 0.9 50 / 50 % Sodium Chloride 50 ml @ 100 mls/hr IV ONCE ONE Rx#: [id number] Octreotide Acetate 500 mcg In 0 490.562 / 490.562 .9 % Sodium Chloride 500 ml @ 25 MCG/HR 25.05 mls/hr IVCONT . Q20H [facility] Rx#:[id number] Output: Output, Urine Amount 0 / 0 Output, Stool Amount 0 / 0 Other: Meal Refused No NPO No Number of Incontinent Voids 0 Number of Unmeasured Voids 2 Number of Bowel Movements 0 Urine Bathroom Last Bowel Movement 09/14/23 Stool Bathroom Weight 77.5 kg Weight in Grams [id number] Weight 77.5 kg - Constitutional Present: mild distress - Routine HEENT Exam Head: Present: normal inspection Eye: Present: conjunctival injection, normal appearance ENT: Present: mucous membranes moist - Routine Neck Exam Present: supple - Routine Respiratory Exam Present: CTAB - Routine Cardiovascular Exam Cardiovascular: Present: RRR, S1, S2 - Routine Abdominal Exam Present: tenderness - Routine Extremities Exam Present: nontender - Routine Skin Exam Present: intact, normal turgor Hem/Onc Consult Result - Labs CBC & Chem 7: 09/16/23 05:44 09/16/23 05:44 Labs: Short CBC 09/15/23 Range/Units 07:02 WBC 3.3 L (4.8-10.8) X10*3/uL Hgb 9.2 L (14.0-18.0) g/dl Hct 28.2 L (42.0-52.0) % Plt Count 17 L* (160-400) X10*3/uL BMP 09/14/23 09/15/23 11:51 07:02 Sodium 137 135 Potassium 3.5 3.9 Chloride 99 99 Carbon Dioxide 26 25 BUN 10 8 L Creatinine 0.74 0.76 Calcium 8.2 L 8.1 L Liver Function 09/14/23 09/15/23 Range/Units 11:51 09:02 Total Bilirubin 5.2 H 5.9 H (0.0-1.0) mg/dL Direct Bilirubin 3.4 H (0.0-0.5) mg/dL AST 298 H 216 H (5-37) U/L ALT 51 H 40 (0-40) U/L Alkaline Phosphatase 136 H 127 H (39-117) U/L Albumin 3.0 L 2.7 L (3.5-5.0) g/dL Assessment and Plan Patient Active problem list reviewed?: Yes (1) Thrombocytopenia Status: Acute Assessment and plan: 58-year-old gentleman, with history of alcohol abuse, brought in while actively drinking. Noted to have significant thrombocytopenia. Serial platelet count: 16, 14, 14, 17. INR: 2. LFTs: 5.9/136/298/51. DIFFERENTIAL DIAGNOSIS: 1. ACUTE SUPPRESSIVE EFFECT ALCOHOL OF THE MARROW. With baseline thrombocytopenia, from 2. UNDERLYING LIVER CIRRHOSIS and hypersplenism. 3. AN INFECTIOUS PROCESS: No obvious fever. Elevated lactate. On empiric ceftriaxone. 4. DIC: Doubt. INR: 2. Coagulopathy related to liver disease. On vitamin K. CT scan of the abdomen: 1. Extremely heterogeneous liver texture with nodular surface compatible with liver cirrhosis, there are subtle hypo and hyperdense areas in the posterior segment right lobe segment 6, CANNOT RULE OUT LIVER LESION. HCC. Recommend attention to correlation with follow-up advanced imaging with dynamically enhanced liver MRI. 2. Splenomegaly. 3. Varices around the gastroesophageal junction and distal esophagus and at the splenic hilum suggesting portal hypertension and portosystemic shunting. 4. Cloudy Tara mesentery and mesenteric lymph nodes enlarged consistent with Mesenteric panniculitis. Nonspecific CT finding. Please see below for differential. 5. Circumferential wall thickening of the rectum and distal sigmoid colon, also mild thickening of the cecum and ascending colon, nonspecific CT finding, differential diagnoses would include inflammatory and/or infection etiology including IBD, colitis, less commonly ischemia and neoplasm. 6. Markedly distended gallbladder, multiple gallstones. 7. Mesenteric panniculitis is a nonspecific finding and can coexistent with malignancy such as extra-abdominal non-Hodgkin lymphoma, breast carcinoma, prostate carcinoma, lung carcinoma, gastrointestinal carcinoma, colorectal carcinoma, melanoma, pancreatic neoplasm among other neoplasms. It also can coexist with benign process such as Crohn's disease, sarcoidosis, liver cirrhosis, colitis, lupus, sclerosing cholangitis, pancreatitis, mesenteritis, retroperitoneal fibrosis. It also could be idiopathic. Recommended clinical assessment and careful exclusion of possible other neoplasms. If no further action taken now, followup CT scan in 6 months advised. Tremulous. Being managed for impending DTs. Has had melena. Guaiac-positive stools. PLAN: Check fibrinogen. 126, likely from decreased synthetic function of liver, To receive 1 more unit of platelets. To have upper endoscopy to look for bleeding varices, once stabilized. Question of HCC. AFP pending. Outpatient MRI. Thank you for the consult, Will follow along with you, - Time Spent With Patient Time Spent with Patient (in minutes): 30
[2023-09-15 12:36] LABS: Fibrinogen 126 MG/DL (259-690)
[2023-09-15] MEDS: PHENobarbitaL sodium 130 MG/ML IM ONCE 226 MG IM (13:09)
[2023-09-15] MEDS: cefTRIAXone sodium 1 GM in 0.9 % Sodium Chloride 50 ML IV (13:10)
[2023-09-15] MEDS: Magnesium Sulfate/H2O 2 GM/50 ML PIGGYBACK IV (13:51)
[2023-09-15] MEDS: Phytonadione (Vit K1) 5 MG in 0.9 % Sodium Chloride 50 ML 50.5 MG IV (16:06)
[2023-09-15] MEDS: Melatonin 3 MG TABLET 6 MG PO (22:48)
[2023-09-16] VITALS (10 sets, daily range): BP systolic 111–134; BP diastolic 66–79; PULSE 80–101; RESP 16–20; TEMP 35.9–37.5; O2SAT 97–99
[2023-09-16] MEDS: Pantoprazole Sodium 40 MG/10 ML VIAL IVPUSH ×2 (05:54→17:36)
[2023-09-16] MEDS: Octreotide Acetate 500 MCG in 0.9 % Sodium Chloride 500 ML 25.05 MCG IVCONT (05:54)
[2023-09-16 06:25] LABS: Hemoglobin 9.1 g/dl (14.0-18.0)
[2023-09-16 06:27] LABS: Hematocrit 27.4 % (42.0-52.0); Mean Corpuscular HGB Conc 33.2 g/dl (31.0-36.0); Mean Corpuscular Hemoglobin 29.1 pg (27.0-33.0); Mean Corpuscular Volume 87.5 fL (80.0-98.0); Mean Platelet Volume 9.8 fL (9.4-12.4); Red Blood Count 3.13 X10*6/uL (4.60-5.80); Red Cell Distribution Width 21.6 % (11.0-16.0)
[2023-09-16 06:39] LABS: Alanine Aminotransferase 34 U/L (0-40); Albumin Level 2.5 g/dL (3.5-5.0); Alkaline Phosphatase 114 U/L (39-117); Anion Gap 12 (12-20); Aspartate Amino Transferase 164 U/L (5-37); Bilirubin Total 6.3 mg/dL (0.0-1.0); Blood Urea Nitrogen 7 mg/dL (9-16); Calcium 8.2 mg/dL (8.4-10.2); Carbon Dioxide 25 mmol/L (22-29); Chloride 100 mmol/L (96-108); Creatinine Clr Calc Pharmacy 109.9; Estimated Glomerular Filt Rate > 60; Glucose Random 111 mg/dL (60-115); INTERNATIONAL NORM RATIO 2.1 (0.9-1.1); Magnesium 1.8 mg/dL (1.6-2.6); Potassium 3.5 mmol/L (3.3-5.1); Prothrombin Time 25.2 SEC (11.1-13.3); Sodium 133 mmol/L (135-145); Total Protein 5.7 g/dL (6.5-8.0)
[2023-09-16 06:42] LABS: PLT ABN DIST 1
[2023-09-16 06:45] LABS: Platelet Count 20 X10*3/uL (160-400)
--- NOTE | 2023-09-16 09:42 | PM.EVENT ---
Event Note Date of Service: 09/16/23 Event Note: Addiction consult placed Patient to be seen on 09/16 Time Spent With Patient Time: Total time managing care of this patient today ____ minutes.
[2023-09-16] MEDS: Folic Acid 1 MG TABLET PO (10:18)
[2023-09-16] MEDS: PHENobarbitaL 15 MG TABLET 45 MG PO ×2 (10:18→21:35)
[2023-09-16] MEDS: cefTRIAXone sodium 1 GM in 0.9 % Sodium Chloride 50 ML IV (10:18)
[2023-09-16] MEDS: Multivitamin TABLET 1 TAB PO (10:18)
[2023-09-16] MEDS: Thiamine HCL 100 MG TABLET PO (10:18)
[2023-09-16] MEDS: 0.9 % Sodium Chloride Flush 3 ML SYRINGE IVFLUSH ×2 (10:19→17:36)
[2023-09-16] MEDS: Calcium Carbonate 750 MG TAB.CHEW PO ×2 (11:36→21:33)
--- NOTE | 2023-09-16 12:26 | P.PNIM_ITS ---
Subjective Subjective Date of Service: 09/16/23 Interval History: no BRBPR; has dark stool tremors improved plts up to 20 Review of Systems Review of Systems: Yes all other systems are reviewed and are negative Physical Exam 2 Vital Signs: Vital Signs: Last Vital Signs Temp 97.9 F 09/16/23 11:17 Pulse 80 09/16/23 11:17 Resp 16 09/16/23 11:17 BP 111/70 09/16/23 11:17 Pulse Ox 97 09/16/23 11:15 O2 Del Method Room Air 09/16/23 11:15 BMI result Body Mass Index 25.2 Gen: NAD HEENT: sclera icteric, moist mucus membranes Neck: supple Lungs: clear to auscultation bilaterally Heart: regular, tachycardic, no murmurs Abd: soft, non-tender, non-distended Ext: no edema Skin: warm/well-perfused Neuro: alert and oriented x3, no focal findings, no asterixis Psych: appropriate affect Objective Data Active Medications Acetaminophen (Acetaminophen 325 Mg Tablet) 650 mg PO Q6H PRN PRN Reason: Pain, Mild (Pain Scale 1-3) Benzonatate (Benzonatate 100 Mg Capsule) 100 mg PO TID PRN PRN Reason: Cough Calcium Carbonate (Calcium Carbonate 750 Mg Tab.Chew) 750 mg PO Q4H PRN PRN Reason: heart burn Last Admin: 09/16/23 11:36 Dose: 750 mg Documented By: GAVIOTA Folic Acid (Folic Acid 1 Mg Tablet) 1 mg PO DAILY [facility] Stop: 09/17/23 14:59 Last Admin: 09/16/23 10:18 Dose: 1 mg Documented By: GAVIOTA Octreotide Acetate 500 mcg/ (Sodium Chloride) 501 mls @ 25.05 mls/hr IVCONT .Q20H [facility] Last Admin: 09/16/23 05:54 Dose: 25 mcg/hr, 25.05 mls/hr Documented By: DEEPAK Ceftriaxone Sodium 1 gm/ (Sodium Chloride) 50 mls @ 100 mls/hr IV Q24H [facility] Last Infusion: 09/16/23 10:48 Dose: Infused Documented By: GAVIOTA Melatonin (Melatonin 3 Mg Tablet) 6 mg PO BEDTIME PRN PRN Reason: Insomnia Last Admin: 09/15/23 22:48 Dose: 6 mg Documented By: DEEPAK Multivitamins/Vitamin C (Multivitamin Tablet) 1 tab PO DAILY [facility] Stop: 09/17/23 14:59 Last Admin: 09/16/23 10:18 Dose: 1 tab Documented By: GAVIOTA Ondansetron HCl (Ondansetron Hcl 4 Mg/2 Ml Vial) 4 mg IVPUSH Q8H PRN PRN Reason: Nausea and Vomiting Pantoprazole Sodium (Pantoprazole Sodium 40 Mg/10 Ml Vial) 40 mg IVPUSH BID@0630,1630 [facility] Last Admin: 09/16/23 05:54 Dose: 40 mg Documented By: DEEPAK Pharmacy Consult (Consult Rx Etoh Phenob Im/Po) 1 each MISCELLANE ONCE PRN; Protocol PRN Reason: Consult order Phenobarbital (Phenobarbital 15 Mg Tablet) 45 mg PO BID [facility]; Protocol Stop: 09/17/23 21:01 Last Admin: 09/16/23 10:18 Dose: 45 mg Documented By: GAVIOTA Phenobarbital (Phenobarbital 15 Mg Tablet) 15 mg PO BID [facility]; Protocol Stop: 09/19/23 21:01 Phenobarbital (Phenobarbital 15 Mg Tablet) 15 mg PO DAILY [facility]; Protocol Stop: 09/21/23 09:01 Sodium Chloride (0.9 % Sodium Chloride Flush 3 Ml Syringe) 3 ml IVFLUSH [facility] Last Admin: 09/16/23 10:19 Dose: 3 ml Documented By: GAVIOTA Thiamine HCl (Thiamine Hcl 100 Mg Tablet) 100 mg PO DAILY [facility] Stop: 09/17/23 14:59 Last Admin: 09/16/23 10:18 Dose: 100 mg Documented By: GAVIOTA Labs 09/16/23 05:44 09/16/23 05:44 Labs: Laboratory Results - last 24 hr 09/14/23 09/15/23 09/16/23 10:19 09:02 05:44 MCV 87.5 MCH 29.1 MCHC 33.2 RDW 21.6 H Plt Count 20 L* MPV 9.8 Absolute Nucleated RBC 0.000 Nucleated RBC % (auto) 0.0 PT 25.2 H INR 2.1 H Fibrinogen 126 L Anion Gap 12 Estim Creat Clear Calc 109.9 Estimated GFR > 60 Random Glucose 111 Calcium 8.2 L Magnesium 1.8 Total Bilirubin 6.3 H AST 164 H ALT 34 Alkaline Phosphatase 114 Total Protein 5.7 L Albumin 2.5 L Blood Type A Positive Antibody Screen NEGATIVE Microbiology Microbiology Results: Microbiology 09/14/23 13:26 Blood Culture - Preliminary Blood - Venous No growth after 24 hours. 09/14/23 11:51 Blood Culture - Preliminary Blood - Venous No growth after 24 hours. Assessment and Plan (1) Thrombocytopenia: Status: Acute Plan d3 58yo M with AUD, EtOH cirrhosis, hx esophageal varices with banding in past, thrombocytopenia, DENISE not on CPAP, HLD sent to ED on section 12 for EtOH intoxication/depression/SI found to have melena, coagulopathy, and thrombocytopenia UGIB, hx varices - continue IV PPI, octreotide gtt, IV ceftriaxone; GI consulted and plan EGD once plts 50+, keep on clear liquids for now thrombocytopenia - will transfuse another 1u pRBCs and recheck CBC in AM; Hem-Onc consulted. Suspect due to cirrhosis coagulopathy - due to cirrhosis; not correctible with vit K hypoMg - repleted lactic acidosis - due to cirrhosis, not sepsis liver lesions suspicious for HCC [subtle hypodense areas in the posterior segment right lobe segment 6, ill-defined] - pt states followed by liver clinic at [facility] and lesions are known to him and them AUD with withdrawal syndrome - started phenobarbital taper, continue thiamine/folate/multivitamin, Addiction Medicine consult pending SI - arrived on sec [address] [facility] for SI; currently denies; CARE Team assessment once medically cleared and in meanwhile continue sitter VTE ppx - SCDs dispo - TBD In my clinical judgment, the patient requires continued inpatient hospitalization for the following reasons: severe thrombocytopenia, GIB Total time managing care of this patient today: 40 minutes. Quality Stroke Does the patient have a stroke diagnosis?: No VTE Prior VTE?: No VTE Risk Level:: Medical - moderate - high VTE Device Contraindication: N/A - Device Ordered VTE Drug Contraindication: Treatment Not Indicated
--- NOTE | 2023-09-16 15:52 | MHC.CM.PN ---
EMR reviewed and per MD rounds, pt is not medically cleared due to management of severe thrombocytopenia and GIB.
[2023-09-17] VITALS (7 sets, daily range): BP systolic 107–131; BP diastolic 60–74; PULSE 76–93; RESP 16–19; TEMP 36.3–37.3; O2SAT 98–99
[2023-09-17] MEDS: Melatonin 3 MG TABLET 6 MG PO ×2 (00:30→20:09)
[2023-09-17] MEDS: Octreotide Acetate 500 MCG in 0.9 % Sodium Chloride 500 ML 25.05 MCG IVCONT ×2 (00:31→21:42)
[2023-09-17] MEDS: 0.9 % Sodium Chloride Flush 3 ML SYRINGE IVFLUSH ×4 (00:35→20:10)
[2023-09-17] MEDS: Pantoprazole Sodium 40 MG/10 ML VIAL IVPUSH ×2 (05:31→16:56)
[2023-09-17 06:14] LABS: Hemoglobin 9.1 g/dl (14.0-18.0); Mean Corpuscular Volume 86.5 fL (80.0-98.0); PLT CLUMP 1
[2023-09-17 06:16] LABS: Hematocrit 26.3 % (42.0-52.0); Mean Corpuscular HGB Conc 34.6 g/dl (31.0-36.0); Mean Corpuscular Hemoglobin 29.9 pg (27.0-33.0); Mean Platelet Volume 10.8 fL (9.4-12.4); Red Blood Count 3.04 X10*6/uL (4.60-5.80); Red Cell Distribution Width 21.2 % (11.0-16.0)
[2023-09-17 06:19] LABS: Platelet Count 30 X10*3/uL (160-400)
[2023-09-17 06:20] LABS: INTERNATIONAL NORM RATIO 2.3 (0.9-1.1); Prothrombin Time 27.9 SEC (11.1-13.3)
[2023-09-17 06:27] LABS: Alanine Aminotransferase 27 U/L (0-40); Albumin Level 2.4 g/dL (3.5-5.0); Alkaline Phosphatase 110 U/L (39-117); Anion Gap 10 (12-20); Aspartate Amino Transferase 123 U/L (5-37); Bilirubin Total 6.2 mg/dL (0.0-1.0); Blood Urea Nitrogen 6 mg/dL (9-16); Calcium 7.9 mg/dL (8.4-10.2); Carbon Dioxide 24 mmol/L (22-29); Chloride 104 mmol/L (96-108); Creatinine Clr Calc Pharmacy 114.5; Estimated Glomerular Filt Rate > 60; Glucose Random 88 mg/dL (60-115); Magnesium 1.7 mg/dL (1.6-2.6); Potassium 3.3 mmol/L (3.3-5.1); Sodium 135 mmol/L (135-145); Total Protein 5.5 g/dL (6.5-8.0)
[2023-09-17] MEDS: PHENobarbitaL 15 MG TABLET 45 MG PO ×2 (08:44→20:10)
[2023-09-17] MEDS: Thiamine HCL 100 MG TABLET PO (08:44)
[2023-09-17] MEDS: Multivitamin TABLET 1 TAB PO (08:44)
[2023-09-17] MEDS: Folic Acid 1 MG TABLET PO (08:44)
[2023-09-17] MEDS: cefTRIAXone sodium 1 GM in 0.9 % Sodium Chloride 50 ML IV (11:05)
--- NOTE | 2023-09-17 11:37 | HO.PM.IMPN ---
Subjective Subjective Date of Service: 09/17/23 Interval History: no tremor stool less dark no abd pain no hematemesis Review of Systems Review of Systems: Yes all other systems are reviewed and are negative Physical Exam Vital Signs: Vital Signs: Last Vital Signs Temp 99.1 F 09/17/23 11:25 Pulse 81 09/17/23 11:25 Resp 18 09/17/23 11:25 BP 112/70 09/17/23 11:25 Pulse Ox 98 09/17/23 11:25 O2 Del Method Room Air 09/17/23 11:25 BMI result Body Mass Index 25.2 Gen: NAD HEENT: sclera icteric, moist mucus membranes Neck: supple Lungs: clear to auscultation bilaterally Heart: regular, tachycardic, no murmurs Abd: soft, non-tender, non-distended Ext: no edema Skin: warm/well-perfused Neuro: alert and oriented x3, no focal findings, no asterixis Psych: appropriate affect Objective Data Active Medications Acetaminophen (Acetaminophen 325 Mg Tablet) 650 mg PO Q6H PRN PRN Reason: Pain, Mild (Pain Scale 1-3) Benzonatate (Benzonatate 100 Mg Capsule) 100 mg PO TID PRN PRN Reason: Cough Calcium Carbonate (Calcium Carbonate 750 Mg Tab.Chew) 750 mg PO Q4H PRN PRN Reason: heart burn Last Admin: 09/16/23 21:33 Dose: 750 mg Documented By: MICHAEL Folic Acid (Folic Acid 1 Mg Tablet) 1 mg PO DAILY [facility] Stop: 09/17/23 14:59 Last Admin: 09/17/23 08:44 Dose: 1 mg Documented By: GAVIOTA Octreotide Acetate 500 mcg/ (Sodium Chloride) 501 mls @ 25.05 mls/hr IVCONT .Q20H [facility] Last Admin: 09/17/23 00:31 Dose: 25 mcg/hr, 25.05 mls/hr Documented By: SHALOM Ceftriaxone Sodium 1 gm/ (Sodium Chloride) 50 mls @ 100 mls/hr IV Q24H [facility] Last Admin: 09/17/23 11:05 Dose: 100 mls/hr Documented By: GAVIOTA Sodium Chloride (Ns) 100 mls @ 100 mls/hr IV ONCE ONE Stop: 09/18/23 08:59 Melatonin (Melatonin 3 Mg Tablet) 6 mg PO BEDTIME PRN PRN Reason: Insomnia Last Admin: 09/17/23 00:30 Dose: 6 mg Documented By: SHALOM Multivitamins/Vitamin C (Multivitamin Tablet) 1 tab PO DAILY [facility] Stop: 09/17/23 14:59 Last Admin: 09/17/23 08:44 Dose: 1 tab Documented By: GAVIOTA Ondansetron HCl (Ondansetron Hcl 4 Mg/2 Ml Vial) 4 mg IVPUSH Q8H PRN PRN Reason: Nausea and Vomiting Pantoprazole Sodium (Pantoprazole Sodium 40 Mg/10 Ml Vial) 40 mg IVPUSH BID@0630,1630 [facility] Last Admin: 09/17/23 05:31 Dose: 40 mg Documented By: GREGORIO Pharmacy Consult (Consult Rx Etoh Phenob Im/Po) 1 each MISCELLANE ONCE PRN; Protocol PRN Reason: Consult order Phenobarbital (Phenobarbital 15 Mg Tablet) 45 mg PO BID [facility]; Protocol Stop: 09/17/23 21:01 Last Admin: 09/17/23 08:44 Dose: 45 mg Documented By: GAVIOTA Phenobarbital (Phenobarbital 15 Mg Tablet) 15 mg PO BID [facility]; Protocol Stop: 09/19/23 21:01 Phenobarbital (Phenobarbital 15 Mg Tablet) 15 mg PO DAILY [facility]; Protocol Stop: 09/21/23 09:01 Sodium Chloride (0.9 % Sodium Chloride Flush 3 Ml Syringe) 3 ml IVFLUSH QSHIFT [facility] Last Admin: 09/17/23 08:44 Dose: 3 ml Documented By: GAVIOTA Thiamine HCl (Thiamine Hcl 100 Mg Tablet) 100 mg PO DAILY [facility] Stop: 09/17/23 14:59 Last Admin: 09/17/23 08:44 Dose: 100 mg Documented By: GAVIOTA Labs 09/17/23 06:01 09/17/23 06:01 Labs: Laboratory Results - last 24 hr 09/14/23 09/17/23 07:12 06:01 MCV 86.5 MCH 29.9 MCHC 34.6 RDW 21.2 H Plt Count 30 L D MPV 10.8 Absolute Nucleated RBC 0.000 Nucleated RBC % (auto) 0.0 Smear Path Review SEE NOTE PT 27.9 H INR 2.3 H Anion Gap 10 L Estim Creat Clear Calc 114.5 Estimated GFR > 60 Random Glucose 88 Calcium 7.9 L Magnesium 1.7 Total Bilirubin 6.2 H AST 123 H ALT 27 Alkaline Phosphatase 110 Total Protein 5.5 L Albumin 2.4 L Microbiology Microbiology Results: Microbiology 09/14/23 13:26 Blood Culture - Preliminary Blood - Venous No growth after 48 hours. 09/14/23 11:51 Blood Culture - Preliminary Blood - Venous No growth after 48 hours. Assessment and Plan (1) Thrombocytopenia: Status: Acute Plan d4 58yo M with AUD, EtOH cirrhosis, hx esophageal varices with banding in past, thrombocytopenia, DENISE not on CPAP, HLD sent to ED on section 12 for EtOH intoxication/depression/SI found to have melena, coagulopathy, and thrombocytopenia UGIB, hx varices - continue IV PPI, octreotide gtt, IV ceftriaxone; GI consulted and plan EGD tomorrow; will give FFP + platelets just prior to EGD thrombocytopenia - improved to 30; give 1u just prior to EGD tomorrow coagulopathy - due to cirrhosis; not correctible with vit K; give FFP just prior to EGD tomorrow hypoMg - repleted lactic acidosis - due to cirrhosis, not sepsis liver lesions suspicious for HCC [subtle hypodense areas in the posterior segment right lobe segment 6, ill-defined] - pt states followed by liver clinic at [facility] and lesions are known to him and them AUD with withdrawal syndrome - started phenobarbital taper, continue thiamine/folate/multivitamin, Addiction Medicine consult pending EtOH hepatitis - no steroids per GI SI - arrived on sec 12 from [facility] for SI; currently denies; CARE Team assessment once medically cleared and in meanwhile continue sitter VTE ppx - SCDs dispo - TBD In my clinical judgment, the patient requires continued inpatient hospitalization for the following reasons: severe thrombocytopenia, GIB Total time managing care of this patient today: 40 minutes. Quality Stroke Does the patient have a stroke diagnosis?: No VTE Prior VTE?: No VTE Risk Level:: Medical - moderate - high VTE Device Contraindication: N/A - Device Ordered VTE Drug Contraindication: Treatment Not Indicated
--- NOTE | 2023-09-17 13:20 | HO.ADDICTCON ---
History of Present Illness Date of Service: 09/17/2023 Chief Complaint: GI bleed, thrombocytopenia, SI Reason for Consult: AUD Sources of Information: patient interviewed and chart reviewed HPI Narrative: Patient is a 58 year old male with alcohol use disorder medically admitted with GI bleed. Per H&P he initially presented to the ED via ambulance on a Section 12 from [facility] due to reported suicidal statements and increased drinking. Known to this freelance writer via admission last month. Seen in room 486. Patient awake and alert. He reports he had not been drinking for over a month, until last and Saturday when he reports he started drinking heavily due to not being able to go to an AA meeting. Per notes, family reports he has been drinking for over 2 weeks with decreased nutritional intake. He states that he has been attending meetings and finds those helpful He did not find Campral helpful Discussed triggers which he identified as lack of structure in his day He is very focused on feeling stress and anxiety about not being home and not being able to work, this freelance writer inquired if his drinking has impacted his work and he denies this (unclear if this is accurate) He declines any resources at this time verbalizing concern that patient observer is with him, denies any suicidal statements Review of Systems Constitutional: Reports as per HPI Diagnostics Vital Signs (24Hr): Vital Signs - 24 hr 09/16/23 16:00 09/16/23 20:00 09/17/23 00:00 Temperature 98.8 F 98.9 F 99 F Pulse Rate 100 83 85 Respiratory Rate 17 16 16 Blood Pressure 134/79 121/69 130/71 Pulse Oximetry 99 98 98 Oxygen Delivery Method Room Air Room Air Room Air 09/17/23 01:48 09/17/23 03:48 09/17/23 07:35 Temperature 98.5 F 98.7 F Pulse Rate 90 93 Respiratory Rate 18 16 18 Blood Pressure 131/62 125/74 Pulse Oximetry 98 98 Oxygen Delivery Method Room Air Room Air 09/17/23 11:25 Temperature 99.1 F Pulse Rate 81 Respiratory Rate 18 Blood Pressure 112/70 Pulse Oximetry 98 Oxygen Delivery Method Room Air BMI result Body Mass Index 25.2 Labs 09/17/23 06:01 09/17/23 06:01 Labs: Laboratory Results - last 48 hr 09/14/23 09/14/23 09/16/23 07:12 10:19 05:44 WBC 4.0 L RBC 3.13 L Hgb 9.1 L Hct 27.4 L MCV 87.5 MCH 29.1 MCHC 33.2 RDW 21.6 H Plt Count 20 L* MPV 9.8 Absolute Nucleated RBC 0.000 Nucleated RBC % (auto) 0.0 Smear Path Review SEE NOTE PT 25.2 H INR 2.1 H Sodium 133 L Potassium 3.5 Chloride 100 Carbon Dioxide 25 Anion Gap 12 BUN 7 L Creatinine 0.75 Estim Creat Clear Calc 109.9 Estimated GFR > 60 Random Glucose 111 Calcium 8.2 L Magnesium 1.8 Total Bilirubin 6.3 H AST 164 H ALT 34 Alkaline Phosphatase 114 Total Protein 5.7 L Albumin 2.5 L Blood Type A Positive Antibody Screen NEGATIVE 09/17/23 06:01 WBC 4.0 L RBC 3.04 L Hgb 9.1 L Hct 26.3 L MCV 86.5 MCH 29.9 MCHC 34.6 RDW 21.2 H Plt Count 30 L D MPV 10.8 Absolute Nucleated RBC 0.000 Nucleated RBC % (auto) 0.0 Smear Path Review PT 27.9 H INR 2.3 H Sodium 135 Potassium 3.3 Chloride 104 Carbon Dioxide 24 Anion Gap 10 L BUN 6 L Creatinine 0.72 Estim Creat Clear Calc 114.5 Estimated GFR > 60 Random Glucose 88 Calcium 7.9 L Magnesium 1.7 Total Bilirubin 6.2 H AST 123 H ALT 27 Alkaline Phosphatase 110 Total Protein 5.5 L Albumin 2.4 L Blood Type Antibody Screen Imaging Radiology Impressions: ITS Impressions Head CT 09/14/23 00:40 IMPRESSION: No acute intracranial abnormality including hemorrhage, mass effect, hydrocephalus, or acute territorial edematous infarction. Abdomen/Pelvis CT 09/14/23 09:55 IMPRESSION: 1. Extremely heterogeneous liver texture with nodular surface compatible with liver cirrhosis, there are subtle hypo and hyperdense areas in the posterior segment right lobe segment 6, CANNOT RULE OUT LIVER LESION. HCC. Recommend attention to correlation with follow-up advanced imaging with dynamically enhanced liver MRI. 2. Splenomegaly. 3. Varices around the gastroesophageal junction and distal esophagus and at the splenic hilum suggesting portal hypertension and portosystemic shunting. 4. Cloudy Tara mesentery and mesenteric lymph nodes enlarged consistent with Mesenteric panniculitis. Nonspecific CT finding. Please see below for differential. 5. Circumferential wall thickening of the rectum and distal sigmoid colon, also mild thickening of the cecum and ascending colon, nonspecific CT finding, differential diagnoses would include inflammatory and/or infection etiology including IBD, colitis, less commonly ischemia and neoplasm. 6. Markedly distended gallbladder, multiple gallstones. Mesenteric panniculitis is a nonspecific finding and can coexistent with malignancy such as extra-abdominal non-Hodgkin lymphoma, breast carcinoma, prostate carcinoma, lung carcinoma, gastrointestinal carcinoma, colorectal carcinoma, melanoma, pancreatic neoplasm among other neoplasms. It also can coexist with benign process such as Crohn's disease, sarcoidosis, liver cirrhosis, colitis, lupus, sclerosing cholangitis, pancreatitis, mesenteritis, retroperitoneal fibrosis. It also could be idiopathic. Recommended clinical assessment and careful exclusion of possible other neoplasms. If no further action taken now, followup CT scan in 6 months advised. Reference: [place] Journal of Radiology May 1999, volume 174, #2. (Referring physician staff is being called, by physician staff assistance, to be alerted of the above critical findings and recommendations.) 09/14/2023 11:22 AM Mental Status Exam Mental Status Exam Level of Consciousness: Awake and Appropriate Patient Behavior: Appropriate and Avoidant Mood Description: Calm Affect Description: Blunted Speech Pattern: Clear Thought Process: Intact Thought Content: positive for Intact Judgement: Fair Judgement and Insight: poor insight Medications Medications Current Medications Acetaminophen (Acetaminophen 325 Mg Tablet) 650 mg PO Q6H PRN PRN Reason: Pain, Mild (Pain Scale 1-3) Benzonatate (Benzonatate 100 Mg Capsule) 100 mg PO TID PRN PRN Reason: Cough Calcium Carbonate (Calcium Carbonate 750 Mg Tab.Chew) 750 mg PO Q4H PRN PRN Reason: heart burn Last Admin: 09/16/23 21:33 Dose: 750 mg Folic Acid (Folic Acid 1 Mg Tablet) 1 mg PO DAILY [facility] Stop: 09/17/23 14:59 Last Admin: 09/17/23 08:44 Dose: 1 mg Octreotide Acetate 500 mcg/ (Sodium Chloride) 501 mls @ 25.05 mls/hr IVCONT .Q20H [facility] Last Admin: 09/17/23 00:31 Dose: 25 mcg/hr, 25.05 mls/hr Ceftriaxone Sodium 1 gm/ (Sodium Chloride) 50 mls @ 100 mls/hr IV Q24H [facility] Last Infusion: 09/17/23 11:35 Dose: Infused Sodium Chloride (Ns) 100 mls @ 100 mls/hr IV ONCE ONE Stop: 09/18/23 08:59 Melatonin (Melatonin 3 Mg Tablet) 6 mg PO BEDTIME PRN PRN Reason: Insomnia Last Admin: 09/17/23 00:30 Dose: 6 mg Multivitamins/Vitamin C (Multivitamin Tablet) 1 tab PO DAILY [facility] Stop: 09/17/23 14:59 Last Admin: 09/17/23 08:44 Dose: 1 tab Ondansetron HCl (Ondansetron Hcl 4 Mg/2 Ml Vial) 4 mg IVPUSH Q8H PRN PRN Reason: Nausea and Vomiting Pantoprazole Sodium (Pantoprazole Sodium 40 Mg/10 Ml Vial) 40 mg IVPUSH BID@0630,1630 [facility] Last Admin: 09/17/23 05:31 Dose: 40 mg Pharmacy Consult (Consult Rx Etoh Phenob Im/Po) 1 each MISCELLANE ONCE PRN; Protocol PRN Reason: Consult order Phenobarbital (Phenobarbital 15 Mg Tablet) 45 mg PO BID [facility]; Protocol Stop: 09/17/23 21:01 Last Admin: 09/17/23 08:44 Dose: 45 mg Phenobarbital (Phenobarbital 15 Mg Tablet) 15 mg PO BID [facility]; Protocol Stop: 09/19/23 21:01 Phenobarbital (Phenobarbital 15 Mg Tablet) 15 mg PO DAILY [facility]; Protocol Stop: 09/21/23 09:01 Sodium Chloride (0.9 % Sodium Chloride Flush 3 Ml Syringe) [facility] Last Admin: 09/17/23 08:44 Dose: 3 ml Thiamine HCl (Thiamine Hcl 100 Mg Tablet) 100 mg PO DAILY [facility] Stop: 09/17/23 14:59 Last Admin: 09/17/23 08:44 Dose: 100 mg Allergies Allergies Allergy/AdvReac Type Severity Reaction Status Date / Time No Known Allergies Allergy Verified 09/13/23 22:54 Assessment & Plan Assessment & Plan (1) Alcohol use disorder: Status: Acute Code(s): F10.90 - Alcohol use, unspecified, uncomplicated Assessment and Plan: encouraged patient to continue vitamins at home due to ongoing alcohol use not interested in HUNG patient minimizing alcohol use at this time and declines supports--feels he has adequate supports and knowledge of what to do to help myself no follow up indicated at this time, unless patient requests it Total time managing care of this patient today ____ minutes. [facility] Past Medical History Medical History Tubular adenoma Subclinical hypothyroidism Alcohol use disorder BPH (benign prostatic hyperplasia) Obstructive sleep apnea Hyperlipidemia Portal hypertension Esophageal varices Alcoholic cirrhosis Social History Social History Household Members: Family Household Members Other:: Mother, Daughter and Daughters Boyfriend Housing: House Do you presently have visiting nurse or other home services: No Alcohol intake: current Alcohol intake frequency: 3 or more drinks per day Alcohol type: hard liquor Comment: 1:1 sitter at bedside Patient Tobacco Use Status: Never used Tobacco Smoked in Last 30 Days: No e-Cigarette/Vaping Use: Never Used Patient Interested in Nicotine Replacement: No Patient Given Instructions on How to Stop Smoking: No Second Hand Smoke Exposure: No Use of substances other than those prescribed or required for medical reasons: No Substance Use Type: Other Substance Use Type Other:: n/a Last Used Substance Other:: n/a Currently Displaying Signs/Symptoms of Drug Intoxication Withdrawal: No Any prior treatment program specific to substance use: No Have you been hit, kicked, punched, or otherwise hurt by someone within the past year? If so, by whom?: No Do you feel safe in your current relationship?: No Current Relationship Is there a partner from a previous relationship who is making you feel unsafe now?: No Are you made to feel afraid or neglected: Yes (Ex- will send text messages about Silly things decline elaboration) Advance Directives: No Advance Directives Information Provided: Yes Advance Directives on File: No Do you have a plan to hurt others: No Plan Recently lost weight without trying: No How much weight loss: Not applicable Eating poorly because of decreased appetite: Yes Nutrition screen score: 1 Nutrition Risks: No Nutritional Risk Poor oral hygiene: No service: No
[2023-09-17 18:31] LABS: Appearance Urine Clear; Color Urine Dark Yellow; Glucose Urine UA Negative (Negative); Leukocyte Esterase Urine Negative (Negative); Nitrite Urine Negative (Negative); PH 8.5 (5.0-9.0); Specific Gravity - Urine <= 1.005 (1.005-1.025); Urine Blood Negative (Negative); Urine Ketones Negative (Negative); Urine Protein Negative (Neg-Trace)
[2023-09-17 18:45] LABS: Amphetamine Screen Urine Not Detected (Not Detect); Barbiturates, Urine POSITIVE (Not Detect); Benzodiazepines Screen Urine Not Detected (Not Detect); Buprenorphine Scr Not Detected (Not Detect); Cannabinoid Screen Urine Not Detected (Not Detect); Cocaine Screen Urine Not Detected (Not Detect); Fentanyl, urine Not Detected (Not Detect); Methadone Screen, Urine Not Detected (Not Detect); Opiate Screen Urine Not Detected (Not Detect); Oxycodone Screen Urine Not Detected (Not Detect); Phencyclidine Screen Urine Not Detected (Not Detect)
[2023-09-18] VITALS (17 sets, daily range): BP systolic 103–134; BP diastolic 57–80; PULSE 73–99; RESP 16–20; TEMP 36.3–37.3; O2SAT 97–100
[2023-09-18] MEDS: Pantoprazole Sodium 40 MG/10 ML VIAL IVPUSH ×2 (06:16→15:39)
[2023-09-18 09:05] LABS: Hematocrit 29.6 % (42.0-52.0); Hemoglobin 9.8 g/dl (14.0-18.0); Mean Corpuscular HGB Conc 33.1 g/dl (31.0-36.0); Mean Corpuscular Hemoglobin 29.1 pg (27.0-33.0); Mean Corpuscular Volume 87.8 fL (80.0-98.0); Mean Platelet Volume 10.4 fL (9.4-12.4); Red Blood Count 3.37 X10*6/uL (4.60-5.80); Red Cell Distribution Width 22.2 % (11.0-16.0); White Blood Count 3.8 X10*3/uL (4.8-10.8)
[2023-09-18 09:08] LABS: Platelet Count 42 X10*3/uL (160-400)
[2023-09-18] MEDS: PHENobarbitaL 15 MG TABLET PO ×2 (09:13→21:05)
[2023-09-18] MEDS: 0.9 % Sodium Chloride Flush 3 ML SYRINGE IVFLUSH ×3 (09:13→21:04)
[2023-09-18 09:25] LABS: Alanine Aminotransferase 27 U/L (0-40); Albumin Level 2.4 g/dL (3.5-5.0); Alkaline Phosphatase 111 U/L (39-117); Anion Gap 12 (12-20); Aspartate Amino Transferase 119 U/L (5-37); Bilirubin Total 7.4 mg/dL (0.0-1.0); Blood Urea Nitrogen 6 mg/dL (9-16); Calcium 8.1 mg/dL (8.4-10.2); Carbon Dioxide 18 mmol/L (22-29); Chloride 110 mmol/L (96-108); Creatinine Clr Calc Pharmacy 108.5; Estimated Glomerular Filt Rate > 60; Glucose Random 72 mg/dL (60-115); Magnesium 1.8 mg/dL (1.6-2.6); Potassium 3.9 mmol/L (3.3-5.1); Sodium 136 mmol/L (135-145); Total Protein 5.8 g/dL (6.5-8.0)
--- NOTE | 2023-09-18 11:18 | P.PNIM_ITS ---
Subjective Subjective Date of Service: 09/18/23 Interval History: no tremor no melena no hematochezia denies SI Review of Systems Review of Systems: Yes all other systems are reviewed and are negative Physical Exam 2 Vital Signs: Vital Signs: Last Vital Signs Temp 98.2 F 09/18/23 11:12 Pulse 87 09/18/23 11:12 Resp 20 09/18/23 11:12 BP 105/62 09/18/23 11:12 Pulse Ox 99 09/18/23 11:12 O2 Del Method Room Air 09/18/23 11:12 BMI result Body Mass Index 25.2 Gen: NAD HEENT: sclera icteric, moist mucus membranes Neck: supple Lungs: clear to auscultation bilaterally Heart: regular, tachycardic, no murmurs Abd: soft, non-tender, non-distended Ext: no edema Skin: warm/well-perfused Neuro: alert and oriented x3, no focal findings, no asterixis Psych: appropriate affect Objective Data Active Medications Acetaminophen (Acetaminophen 325 Mg Tablet) 650 mg PO Q6H PRN PRN Reason: Pain, Mild (Pain Scale 1-3) Benzonatate (Benzonatate 100 Mg Capsule) 100 mg PO TID PRN PRN Reason: Cough Calcium Carbonate (Calcium Carbonate 750 Mg Tab.Chew) 750 mg PO Q4H PRN PRN Reason: heart burn Last Admin: 09/16/23 21:33 Dose: 750 mg Documented By: MICHAEL Octreotide Acetate 500 mcg/ (Sodium Chloride) 501 mls @ 25.05 mls/hr IVCONT .Q20H [facility] Last Admin: 09/17/23 21:42 Dose: 25 mcg/hr, 25.05 mls/hr Documented By: IVORY Ceftriaxone Sodium 1 gm/ (Sodium Chloride) 50 mls @ 100 mls/hr IV Q24H [facility] Last Infusion: 09/17/23 11:35 Dose: Infused Documented By: GAVIOTA Melatonin (Melatonin 3 Mg Tablet) 6 mg PO BEDTIME PRN PRN Reason: Insomnia Last Admin: 09/17/23 20:09 Dose: 6 mg Documented By: IVORY Ondansetron HCl (Ondansetron Hcl 4 Mg/2 Ml Vial) 4 mg IVPUSH Q8H PRN PRN Reason: Nausea and Vomiting Pantoprazole Sodium (Pantoprazole Sodium 40 Mg/10 Ml Vial) 40 mg IVPUSH BID@0630,1630 [facility] Last Admin: 09/18/23 06:16 Dose: 40 mg Documented By: IVORY Pharmacy Consult (Consult Rx Etoh Phenob Im/Po) 1 each MISCELLANE ONCE PRN; Protocol PRN Reason: Consult order Phenobarbital (Phenobarbital 15 Mg Tablet) 15 mg PO BID [facility]; Protocol Stop: 09/19/23 21:01 Last Admin: 09/18/23 09:13 Dose: 15 mg Documented By: MARIA LUISA Phenobarbital (Phenobarbital 15 Mg Tablet) 15 mg PO DAILY [facility]; Protocol Stop: 09/21/23 09:01 Sodium Chloride (0.9 % Sodium Chloride Flush 3 Ml Syringe) 3 ml IVFLUSH QSWIFT [facility] Last Admin: 09/18/23 09:13 Dose: 3 ml Documented By: MARIA LUISA Labs 09/18/23 08:45 09/18/23 08:45 Labs: Laboratory Results - last 24 hr 09/17/23 09/18/23 18:10 08:45 MCV 87.8 MCH 29.1 MCHC 33.1 RDW 22.2 H Plt Count 42 L D MPV 10.4 Absolute Nucleated RBC 0.000 Nucleated RBC % (auto) 0.0 Anion Gap 12 Estim Creat Clear Calc 108.5 Estimated GFR > 60 Random Glucose 72 Calcium 8.1 L Magnesium 1.8 Total Bilirubin 7.4 H AST 119 H ALT 27 Alkaline Phosphatase 111 Total Protein 5.8 L Albumin 2.4 L Urine Color Dark Yellow Urine Appearance Clear Urine pH 8.5 Ur Specific [place] <= 1.005 Urine Protein Negative Urine Glucose (UA) Negative Urine Ketones Negative Urine Blood Negative Urine Nitrite Negative Ur Leukocyte Esterase Negative Urine Opiates Screen Not Detected Ur Buprenorphine Scrn Not Detected Ur Oxycodone Screen Not Detected Urine Methadone Screen Not Detected Urine Fentanyl Screen Not Detected Ur Barbiturates Screen POSITIVE H Ur Phencyclidine Scrn Not Detected Ur Amphetamines Screen Not Detected U Benzodiazepines Scrn Not Detected Urine Cocaine Screen Not Detected U Marijuana (THC) Screen Not Detected Blood Type A Positive Antibody Screen NEGATIVE Microbiology Microbiology Results: Microbiology 09/14/23 13:26 Blood Culture - Preliminary Blood - Venous No growth after 48 hours. Assessment and Plan (1) Thrombocytopenia: Status: Acute Plan d5 58yo M with AUD, EtOH cirrhosis, hx esophageal varices with banding in past, thrombocytopenia, DENISE not on CPAP, HLD sent to ED on section 12 for EtOH intoxication/depression/SI found to have melena, coagulopathy, and thrombocytopenia UGIB, hx varices - continue IV PPI, octreotide gtt, IV ceftriaxone; GI consulted and plan EGD today; will give FFP + platelets just prior to EGD thrombocytopenia - improved to 42; give 1u just prior to EGD today coagulopathy - due to cirrhosis; not correctible with vit K; give FFP just prior to EGD today hypoMg - repleted lactic acidosis - due to cirrhosis, not sepsis liver lesions suspicious for HCC [subtle hypodense areas in the posterior segment right lobe segment 6, ill-defined] - pt states followed by liver clinic at [facility] and lesions are known to him and them; AFP level pending AUD with withdrawal syndrome - continue phenobarbital taper, continue thiamine/folate/multivitamin, Addiction Medicine consulted and pt declines services EtOH hepatitis - no steroids per GI SI - arrived on sec 12 from [facility] for SI; currently denies; CARE Team assessment once medically cleared; discontinue sitter VTE ppx - SCDs dispo - TBD In my clinical judgment, the patient requires continued inpatient hospitalization for the following reasons: severe thrombocytopenia, GIB Total time managing care of this patient today: 40 minutes. Quality Stroke Does the patient have a stroke diagnosis?: No VTE Prior VTE?: No VTE Risk Level:: Medical - moderate - high VTE Device Contraindication: N/A - Device Ordered VTE Drug Contraindication: Treatment Not Indicated
--- NOTE | 2023-09-18 12:04 | HO.ANESPROP2 ---
[facility], LAT[facility] Active Problems Active Problems: All Active Problems Chronic alcoholic liver disease (Acute) Thrombocytopenia (Acute) Depression (Acute) Alcohol use disorder (Acute) Past Medical History Medical History Tubular adenoma Subclinical hypothyroidism Alcohol use disorder BPH (benign prostatic hyperplasia) Obstructive sleep apnea Hyperlipidemia Portal hypertension Esophageal varices Alcoholic cirrhosis Functional capacity: wheelchair bound Family History Family history of problems with anesthesia: No Surgical History History of Problems with Anesthesia: No Social History Social History Household Members: Family Household Members Other:: Mother, Daughter and Daughters Boyfriend Housing: House Do you presently have visiting nurse or other home services: No Alcohol intake: current Alcohol intake frequency: 3 or more drinks per day Alcohol type: hard liquor Comment: 1:1 sitter at bedside Patient Tobacco Use Status: Never used Tobacco Smoked in Last 30 Days: No e-Cigarette/Vaping Use: Never Used Patient Interested in Nicotine Replacement: No Patient Given Instructions on How to Stop Smoking: No Second Hand Smoke Exposure: No Use of substances other than those prescribed or required for medical reasons: No Substance Use Type: Other Substance Use Type Other:: n/a Last Used Substance Other:: n/a Currently Displaying Signs/Symptoms of Drug Intoxication Withdrawal: No Any prior treatment program specific to substance use: No Have you been hit, kicked, punched, or otherwise hurt by someone within the past year? If so, by whom?: No Do you feel safe in your current relationship?: No Current Relationship Is there a partner from a previous relationship who is making you feel unsafe now?: No Are you made to feel afraid or neglected: Yes (Ex- will send text messages about Silly things decline elaboration) Are you DNR?: No Advance Directives: No Advance Directives Information Provided: Yes Advance Directives on File: No Do you have a plan to hurt others: No Plan Recently lost weight without trying: No How much weight loss: Not applicable Eating poorly because of decreased appetite: Yes Nutrition screen score: 1 Nutrition Risks: No Nutritional Risk Poor oral hygiene: No service: No Meds Allergies Allergy/AdvReac Type Severity Reaction Status Date / Time No Known Allergies Allergy Verified 09/13/23 22:54 Active Medications: Current Medications Acetaminophen (Acetaminophen 325 Mg Tablet) 650 mg PO Q6H PRN PRN Reason: Pain, Mild (Pain Scale 1-3) Benzonatate (Benzonatate 100 Mg Capsule) 100 mg PO TID PRN PRN Reason: Cough Calcium Carbonate (Calcium Carbonate 750 Mg Tab.Chew) 750 mg PO Q4H PRN PRN Reason: heart burn Last Admin: 09/16/23 21:33 Dose: 750 mg Octreotide Acetate 500 mcg/ (Sodium Chloride) 501 mls @ 25.05 mls/hr IVCONT .Q20H [facility] Last Admin: 09/17/23 21:42 Dose: 25 mcg/hr, 25.05 mls/hr Ceftriaxone Sodium 1 gm/ (Sodium Chloride) 50 mls @ 100 mls/hr IV Q24H [facility] Last Infusion: 09/17/23 11:35 Dose: Infused Melatonin (Melatonin 3 Mg Tablet) 6 mg PO BEDTIME PRN PRN Reason: Insomnia Last Admin: 09/17/23 20:09 Dose: 6 mg Ondansetron HCl (Ondansetron Hcl 4 Mg/2 Ml Vial) 4 mg IVPUSH Q8H PRN PRN Reason: Nausea and Vomiting Pantoprazole Sodium (Pantoprazole Sodium 40 Mg/10 Ml Vial) 40 mg IVPUSH BID@0630,1630 [facility] Last Admin: 09/18/23 06:16 Dose: 40 mg Pharmacy Consult (Consult Rx Etoh Phenob Im/Po) 1 each MISCELLANE ONCE PRN; Protocol PRN Reason: Consult order Phenobarbital (Phenobarbital 15 Mg Tablet) 15 mg PO BID [facility]; Protocol Stop: 09/19/23 21:01 Last Admin: 09/18/23 09:13 Dose: 15 mg Phenobarbital (Phenobarbital 15 Mg Tablet) 15 mg PO DAILY [facility]; Protocol Stop: 09/21/23 09:01 Sodium Chloride (0.9 % Sodium Chloride Flush 3 Ml Syringe) [facility] Last Admin: 09/18/23 09:13 Dose: 3 ml Home Medications ?Medication ?Instructions ?Recorded ?Confirmed ?Last Taken ?Type folic acid 800 mcg tablet 0.8 mg PO DAILY 08/12/23 09/14/23 Unknown History melatonin 10 mg tablet 10 mg PO BEDTIME PRN Insomnia 08/12/23 09/14/23 Unknown History Exam Height,Weight and Vital Signs: Height 5 ft 9 in Weight 77.5 kg Last Vital Signs Temp 98.5 F 09/18/23 11:35 Pulse 78 09/18/23 11:35 Resp 18 09/18/23 11:35 BP 111/68 09/18/23 11:35 Pulse Ox 99 09/18/23 11:12 O2 Del Method Room Air 09/18/23 11:12 Pertinent Lab Results Pertinent Lab Results: Laboratory Tests 09/13/23 09/14/23 09/14/23 23:18 00:44 07:12 WBC 3.6 L 3.2 L RBC 3.70 L 3.44 L Hgb 10.6 L 10.0 L Hct 31.6 L 29.8 L MCV 85.4 86.6 MCH 28.6 29.1 MCHC 33.5 33.6 RDW 20.6 H 20.5 H Plt Count 16 L* D 14 L* MPV 10.3 8.9 L Immature Gran % (Auto) 0.3 Neut % (Auto) 69.9 Lymph % (Auto) 15.9 L Yates % (Auto) 11.7 H Eos % (Auto) 1.1 Baso % (Auto) 1.1 Lymph # (Auto) 0.6 L Yates # (Auto) 0.4 Eos # (Auto) 0.0 Baso # (Auto) 0.0 Abs Immat Gran (auto) 0.01 Absolute Neuts (auto) 2.5 Absolute Nucleated RBC 0.000 0.000 Nucleated RBC % (auto) 0.0 0.0 Smear Path Review SEE NOTE PT 22.8 H 23.6 H INR 1.9 H 1.9 H Fibrinogen Sodium 140 138 Potassium 3.6 3.2 L Chloride 103 101 Carbon Dioxide 27 24 Anion Gap 14 16 BUN 11 11 Creatinine 0.80 0.82 Estim Creat Clear Calc 99.2 96.8 Estimated GFR > 60 > 60 Random Glucose 111 141 H Lactic Acid Lactic Acid F/U @ 2Hr Calcium 8.3 L 8.2 L Magnesium Total Bilirubin 4.8 H Direct Bilirubin 3.3 H AST 304 H ALT 51 H Alkaline Phosphatase 147 H Total Protein 7.0 Albumin 3.1 L Lipase 369 H Urine Color Urine Appearance Urine pH Ur Specific [place] Urine Protein Urine Glucose (UA) Urine Ketones Urine Blood Urine Nitrite Ur Leukocyte Esterase Stool Occult Blood Urine Opiates Screen Ur Buprenorphine Scrn Ur Oxycodone Screen Urine Methadone Screen Urine Fentanyl Screen Ur Barbiturates Screen Ur Phencyclidine Scrn Ur Amphetamines Screen U Benzodiazepines Scrn Urine Cocaine Screen U Marijuana (THC) Screen Ethyl Alcohol 450 H* Blood Type Antibody Screen 09/14/23 09/14/23 09/14/23 10:19 11:04 11:51 WBC 2.7 L RBC 3.58 L Hgb 10.2 L Hct 30.7 L MCV 85.8 MCH 28.5 MCHC 33.2 RDW 20.6 H Plt Count 14 L* MPV Not Reportable Immature Gran % (Auto) 0.4 Neut % (Auto) 70.8 Lymph % (Auto) 14.8 L Yates % (Auto) 12.2 H Eos % (Auto) 0.7 Baso % (Auto) 1.1 Lymph # (Auto) 0.4 L Yates # (Auto) 0.3 Eos # (Auto) 0.0 Baso # (Auto) 0.0 Abs Immat Gran (auto) 0.01 Absolute Neuts (auto) 1.9 L Absolute Nucleated RBC 0.000 Nucleated RBC % (auto) 0.0 Smear Path Review PT INR Fibrinogen Sodium 137 Potassium 3.5 Chloride 99 Carbon Dioxide 26 Anion Gap 16 BUN 10 Creatinine 0.74 Estim Creat Clear Calc 107.2 Estimated GFR > 60 Random Glucose 107 Lactic Acid 4.0 H* Lactic Acid F/U @ 2Hr Calcium 8.2 L Magnesium 1.8 Total Bilirubin 5.2 H Direct Bilirubin AST 298 H ALT 51 H Alkaline Phosphatase 136 H Total Protein 6.7 Albumin 3.0 L Lipase Urine Color Urine Appearance Urine pH Ur Specific [place] Urine Protein Urine Glucose (UA) Urine Ketones Urine Blood Urine Nitrite Ur Leukocyte Esterase Stool Occult Blood POSITIVE Urine Opiates Screen Ur Buprenorphine Scrn Ur Oxycodone Screen Urine Methadone Screen Urine Fentanyl Screen Ur Barbiturates Screen Ur Phencyclidine Scrn Ur Amphetamines Screen U Benzodiazepines Scrn Urine Cocaine Screen U Marijuana (THC) Screen Ethyl Alcohol Blood Type A Positive Antibody Screen NEGATIVE 09/14/23 09/15/23 09/15/23 14:03 07:02 09:02 WBC 3.3 L RBC 3.21 L Hgb 9.2 L Hct 28.2 L MCV 87.9 MCH 28.7 MCHC 32.6 RDW 21.4 H Plt Count 17 L* MPV 10.4 Immature Gran % (Auto) Neut % (Auto) Lymph % (Auto) Yates % (Auto) Eos % (Auto) Baso % (Auto) Lymph # (Auto) Yates # (Auto) Eos # (Auto) Baso # (Auto) Abs Immat Gran (auto) Absolute Neuts (auto) Absolute Nucleated RBC 0.000 Nucleated RBC % (auto) 0.0 Smear Path Review PT 24.6 H INR 2.0 H Fibrinogen 126 L Sodium 135 Potassium 3.9 Chloride 99 Carbon Dioxide 25 Anion Gap 15 BUN 8 L Creatinine 0.76 Estim Creat Clear Calc 108.5 Estimated GFR > 60 Random Glucose 126 H Lactic Acid Lactic Acid F/U @ 2Hr 3.7 H* Calcium 8.1 L Magnesium 1.5 L Total Bilirubin 5.9 H Direct Bilirubin 3.4 H AST 216 H ALT 40 Alkaline Phosphatase 127 H Total Protein 6.0 L Albumin 2.7 L Lipase Urine Color Urine Appearance Urine pH Ur Specific [place] Urine Protein Urine Glucose (UA) Urine Ketones Urine Blood Urine Nitrite Ur Leukocyte Esterase Stool Occult Blood Urine Opiates Screen Ur Buprenorphine Scrn Ur Oxycodone Screen Urine Methadone Screen Urine Fentanyl Screen Ur Barbiturates Screen Ur Phencyclidine Scrn Ur Amphetamines Screen U Benzodiazepines Scrn Urine Cocaine Screen U Marijuana (THC) Screen Ethyl Alcohol Blood Type Antibody Screen 09/16/23 09/17/23 09/17/23 05:44 06:01 18:10 WBC 4.0 L 4.0 L RBC 3.13 L 3.04 L Hgb 9.1 L 9.1 L Hct 27.4 L 26.3 L MCV 87.5 86.5 MCH 29.1 29.9 MCHC 33.2 34.6 RDW 21.6 H 21.2 H Plt Count 20 L* 30 L D MPV 9.8 10.8 Immature Gran % (Auto) Neut % (Auto) Lymph % (Auto) Yates % (Auto) Eos % (Auto) Baso % (Auto) Lymph # (Auto) Yates # (Auto) Eos # (Auto) Baso # (Auto) Abs Immat Gran (auto) Absolute Neuts (auto) Absolute Nucleated RBC 0.000 0.000 Nucleated RBC % (auto) 0.0 0.0 Smear Path Review PT 25.2 H 27.9 H INR 2.1 H 2.3 H Fibrinogen Sodium 133 L 135 Potassium 3.5 3.3 Chloride 100 104 Carbon Dioxide 25 24 Anion Gap 12 10 L BUN 7 L 6 L Creatinine 0.75 0.72 Estim Creat Clear Calc 109.9 114.5 Estimated GFR > 60 > 60 Random Glucose 111 88 Lactic Acid Lactic Acid F/U @ 2Hr Calcium 8.2 L 7.9 L Magnesium 1.8 1.7 Total Bilirubin 6.3 H 6.2 H Direct Bilirubin AST 164 H 123 H ALT 34 27 Alkaline Phosphatase 114 110 Total Protein 5.7 L 5.5 L Albumin 2.5 L 2.4 L Lipase Urine Color Dark Yellow Urine Appearance Clear Urine pH 8.5 Ur Specific [place] <= 1.005 Urine Protein Negative Urine Glucose (UA) Negative Urine Ketones Negative Urine Blood Negative Urine Nitrite Negative Ur Leukocyte Esterase Negative Stool Occult Blood Urine Opiates Screen Not Detected Ur Buprenorphine Scrn Not Detected Ur Oxycodone Screen Not Detected Urine Methadone Screen Not Detected Urine Fentanyl Screen Not Detected Ur Barbiturates Screen POSITIVE H Ur Phencyclidine Scrn Not Detected Ur Amphetamines Screen Not Detected U Benzodiazepines Scrn Not Detected Urine Cocaine Screen Not Detected U Marijuana (THC) Screen Not Detected Ethyl Alcohol Blood Type Antibody Screen 09/18/23 08:45 WBC 3.8 L RBC 3.37 L Hgb 9.8 L Hct 29.6 L MCV 87.8 MCH 29.1 MCHC 33.1 RDW 22.2 H Plt Count 42 L D MPV 10.4 Immature Gran % (Auto) Neut % (Auto) Lymph % (Auto) Yates % (Auto) Eos % (Auto) Baso % (Auto) Lymph # (Auto) Yates # (Auto) Eos # (Auto) Baso # (Auto) Abs Immat Gran (auto) Absolute Neuts (auto) Absolute Nucleated RBC 0.000 Nucleated RBC % (auto) 0.0 Smear Path Review PT INR Fibrinogen Sodium 136 Potassium 3.9 Chloride 110 H Carbon Dioxide 18 L Anion Gap 12 BUN 6 L Creatinine 0.76 Estim Creat Clear Calc 108.5 Estimated GFR > 60 Random Glucose 72 Lactic Acid Lactic Acid F/U @ 2Hr Calcium 8.1 L Magnesium 1.8 Total Bilirubin 7.4 H Direct Bilirubin AST 119 H ALT 27 Alkaline Phosphatase 111 Total Protein 5.8 L Albumin 2.4 L Lipase Urine Color Urine Appearance Urine pH Ur Specific [place] Urine Protein Urine Glucose (UA) Urine Ketones Urine Blood Urine Nitrite Ur Leukocyte Esterase Stool Occult Blood Urine Opiates Screen Ur Buprenorphine Scrn Ur Oxycodone Screen Urine Methadone Screen Urine Fentanyl Screen Ur Barbiturates Screen Ur Phencyclidine Scrn Ur Amphetamines Screen U Benzodiazepines Scrn Urine Cocaine Screen U Marijuana (THC) Screen Ethyl Alcohol Blood Type A Positive Antibody Screen NEGATIVE Airway Mallampati Class: II TM Dist: >3cm Neck ROM: Full Heart: rrr Lungs: cta Assessment and Plan Assessment Anesthesia Assessment: Anesthesia Plan Discussed and Chart Reviewed Final Anesthetic Review Family History of Problems with Anesthesia: No History of Problems with Anesthesia: No NPO: Yes ASA Class: III Final Preanesthetic Review: No Changes in Pt Med Stat, Meds/Allgs Chart Reviewed and Consent Obtained/Reviewed Patient Risk: Intermediate Procedure Risk: Low Anesthetic Plan Anesthetic Plan: MAC: Disposition: Standard PACU
--- NOTE | 2023-09-18 13:20 | PC.NURSE ---
transferred to [facility] for EGD
--- NOTE | 2023-09-18 13:53 | P.PNGI_ITS ---
Subjective Subjective Date of Service: 09/18/23 Interval History: denies melena, stool has been brown no nausea or vomiting no rectal bleeding no longer has suicidal ideation Critical Care Time (minutes): 0 Physical Exam 2 Vital Signs: Vital Signs: Last Vital Signs Temp 98.9 F 09/18/23 13:41 Pulse 78 09/18/23 13:41 Resp 18 09/18/23 13:41 BP 134/80 09/18/23 13:41 Pulse Ox 97 09/18/23 13:41 O2 Del Method Room Air 09/18/23 13:41 BMI result Body Mass Index 25.2 EXAM: GENERAL: The patient is jaundiced VITAL SIGNS:see workflow HEENT: icteric sclerae, PERRLA, EOMI. Oropharynx clear. Moist mucous membranes. Conjunctivae appear well perfused. No thyroid mass. CHEST: Chest wall is nontender. HEART: Regular rate and rhythm without murmurs. LUNGS: Clear to auscultation bilaterally. ABDOMEN: Soft, positive bowel sounds, nontender, no organomegaly.no flank tenderness SKIN: No rash, no excessive bruising, petechiae, or purpura. NEUROLOGIC: Cranial nerves II-XII intact without motor/sensory deficit. Psych: normal affect Objective Data Labs 09/18/23 08:45 09/18/23 08:45 Labs: Laboratory Results - last 24 hr 09/17/23 09/18/23 18:10 08:45 WBC 3.8 L RBC 3.37 L Hgb 9.8 L Hct 29.6 L MCV 87.8 MCH 29.1 MCHC 33.1 RDW 22.2 H Plt Count 42 L D MPV 10.4 Absolute Nucleated RBC 0.000 Nucleated RBC % (auto) 0.0 Sodium 136 Potassium 3.9 Chloride 110 H Carbon Dioxide 18 L Anion Gap 12 BUN 6 L Creatinine 0.76 Estim Creat Clear Calc 108.5 Estimated GFR > 60 Random Glucose 72 Calcium 8.1 L Magnesium 1.8 Total Bilirubin 7.4 H AST 119 H ALT 27 Alkaline Phosphatase 111 Total Protein 5.8 L Albumin 2.4 L Urine Color Dark Yellow Urine Appearance Clear Urine pH 8.5 Ur Specific [place] <= 1.005 Urine Protein Negative Urine Glucose (UA) Negative Urine Ketones Negative Urine Blood Negative Urine Nitrite Negative Ur Leukocyte Esterase Negative Urine Opiates Screen Not Detected Ur Buprenorphine Scrn Not Detected Ur Oxycodone Screen Not Detected Urine Methadone Screen Not Detected Urine Fentanyl Screen Not Detected Ur Barbiturates Screen POSITIVE H Ur Phencyclidine Scrn Not Detected Ur Amphetamines Screen Not Detected U Benzodiazepines Scrn Not Detected Urine Cocaine Screen Not Detected U Marijuana (THC) Screen Not Detected Blood Type A Positive Antibody Screen NEGATIVE Microbiology Microbiology Results: Microbiology 09/14/23 13:26 Blood - Venous Blood Culture - Preliminary No growth after 48 hours. 09/14/23 11:51 Blood - Venous Blood Culture - Preliminary No growth after 48 hours. Procedures Date of Service Date of Service: 09/18/23 Progress Note: A&P Assessment and plan (1) Chronic alcoholic liver disease: Status: Acute Assessment and Plan: 1/ Chronic anemia, possible melena, hx of variceal banding in past 2/ Worsening LFT, suspected alcoholic hepatitis superimposed on cirrhosis. Maddrey score 80 PLAN: 1/ EGD for assessment for varices 2/ if neg then can commence pred 40 mg and assess Lille score D#4 or D#7 3/ high protein diet 4/ f/u with psych Time Spent With Patient Time: Total time managing care of this patient today ____ minutes. Quality Stroke Does the patient have a stroke diagnosis?: No VTE Prior VTE?: No VTE Risk Level:: Medical - moderate - high VTE Device Contraindication: N/A - Device Ordered VTE Drug Contraindication: Treatment Not Indicated
--- NOTE | 2023-09-18 13:58 | MHC.SHP ---
Pre-Procedural Eval Section A - 24 Hr Update-Section A only Date of Service: 09/18/23 The patient is an INPATIENT: Yes The patient has been examined within 24 hours of the surgical procedure. The History & Physical has been completed within 30 days and I have reviewed it.: Yes Section B - Complete if H&P > 30 days Chief Complaint: GI bleed, thrombocytopenia, SI Allergies: Allergies Allergy/AdvReac Type Severity Reaction Status Date / Time No Known Allergies Allergy Verified 09/13/23 22:54 Plan I have reviewed the history and physical and performed a pertinent physical examination on my patient. No changes have occurred unless specified. Time Spent With Patient Time: Total time managing care of this patient today ____ minutes.
--- NOTE | 2023-09-18 13:58 | W.PM.OPN ---
Operative Note Operative Note Date of Service: 09/18/23 Narrative: Procedure Description: EGD Indication: melena? and varices Anesthesia: MAC FLEXIBLE TRANSORAL UPPER GASTROINTESTINAL ENDOSCOPY UPPER ENDOSCOPY Consent: Indications for the procedure and potential complications of bleeding, perforation, reaction to medications and missed diagnosis were discussed with the patient and informed consent was obtained. Instrument: Olympus GIF H 190 J mid size upper endoscope Monitoring: Vital signs and clinical assessment, continuous EKG monitoring, Pulse oximetry, Carbon Dioxide monitoring and blood pressure monitoring were done throughout the procedure. Procedure: The patient was placed in the left lateral decubitis position and pre-procedure medications were administered and a bite block was placed. The endoscope was inserted into the mouth and advanced under direct vision to the third part of duodenum. A careful inspection was made as the upper endoscope was withdrawn including a retroflexed examination of the proximal stomach; Findings and interventions are described below. Findings: Larynx:normal Esophagus: GE junction at 38 cm, diaphragm hiatus at 38 cm, 3 cords of grade I varices, no high risk castellanos, collapsed with air, scar from prior banding noted. Stomach: mosaic pattern and congestion consistent with portal hypertensive gastropathy . Grade 2 flap valve on retroflexed examination of the cardia. Duodenum: congestion and edema from portal hypertension Intervention: none Impression/Findings: portal hypertensive gastropathy grade I varices PLAN: commence low dose carvedilol and titrate fro HR around 60 repeat EGD in 6-12 months or earlier if needed
--- NOTE | 2023-09-18 14:11 | PC.NURSE ---
patient tolerated FFP infusion well. vs wnl.
--- NOTE | 2023-09-18 14:29 | PC.NURSE ---
report given to suri garces rn at 0146.
--- NOTE | 2023-09-18 14:52 | MHC.CM.PN ---
Pt has not been medically cleared for DC yet. He was scheduled for an endoscopy today. Plan is for him to be evaluated by Care Team when medically cleared due to being sent to [facility]. on a section 12 from community service provider.
[2023-09-18] MEDS: cefTRIAXone sodium 1 GM in 0.9 % Sodium Chloride 50 ML IV (15:33)
[2023-09-18] MEDS: Octreotide Acetate 500 MCG in 0.9 % Sodium Chloride 500 ML 25.05 MCG IVCONT (15:47)
--- NOTE | 2023-09-18 18:55 | MHC.RECOVSUP ---
? Reason for consult Recovery Support o Current location: [facility] o Identified substance use concern: Alcohol - Support ? Intervention: o Community resources provided o Harm reduction discussion ? Plan: o Patient awaiting crisis evaluation o Patient to follow up with [facility] after discharge ? Additional information: Met with patient and we talked about recovery and harm reduction, Patient stated that he goes to AA meeting and working on a sponsor. He stated that what he needs a therapist. I informed the care team about his request.
[2023-09-18] MEDS: carvediloL 3.125 MG TABLET PO (21:04)
[2023-09-18] MEDS: Melatonin 3 MG TABLET 6 MG PO (21:05)
[2023-09-19] VITALS (7 sets, daily range): BP systolic 102–137; BP diastolic 65–90; PULSE 75–84; RESP 16–20; TEMP 36.7–37.2; O2SAT 96–99
--- NOTE | 2023-09-19 00:30 | MHC.CARE ---
CARE Team evaluation complete. Pt is a [facility] bedsearch. Hospitalist, RN and Pt are aware of disposition.
[2023-09-19] MEDS: Pantoprazole Sodium 40 MG/10 ML VIAL IVPUSH (05:56)
[2023-09-19 07:58] LABS: Glucose, Whole Blood 96 mg/dL (60-115)
[2023-09-19] MEDS: PHENobarbitaL 15 MG TABLET PO (08:47)
[2023-09-19] MEDS: carvediloL 3.125 MG TABLET PO (08:48)
[2023-09-19 08:57] LABS: Hemoglobin 9.8 g/dl (14.0-18.0); Mean Corpuscular HGB Conc 32.7 g/dl (31.0-36.0); Mean Corpuscular Hemoglobin 29.1 pg (27.0-33.0); Mean Platelet Volume 9.5 fL (9.4-12.4); Red Blood Count 3.37 X10*6/uL (4.60-5.80); Red Cell Distribution Width 22.2 % (11.0-16.0)
[2023-09-19 08:58] LABS: Platelet Count 50 X10*3/uL (160-400); White Blood Count 2.5 X10*3/uL (4.8-10.8)
[2023-09-19 09:09] LABS: Alanine Aminotransferase 27 U/L (0-40); Albumin Level 2.7 g/dL (3.5-5.0); Alkaline Phosphatase 114 U/L (39-117); Anion Gap 13 (12-20); Aspartate Amino Transferase 101 U/L (5-37); Bilirubin Total 8.4 mg/dL (0.0-1.0); Blood Urea Nitrogen 6 mg/dL (9-16); Calcium 8.2 mg/dL (8.4-10.2); Carbon Dioxide 21 mmol/L (22-29); Chloride 106 mmol/L (96-108); Creatinine Clr Calc Pharmacy 98.1; Estimated Glomerular Filt Rate > 60; Glucose Random 109 mg/dL (60-115); Magnesium 1.7 mg/dL (1.6-2.6); Potassium 3.6 mmol/L (3.3-5.1); Sodium 136 mmol/L (135-145); Total Protein 6.1 g/dL (6.5-8.0)
[2023-09-19] MEDS: cefTRIAXone sodium 1 GM in 0.9 % Sodium Chloride 50 ML IV (11:39)
[2023-09-19] MEDS: Octreotide Acetate 500 MCG in 0.9 % Sodium Chloride 500 ML 25 MCG IVCONT (11:48)
[2023-09-19 12:08] LABS: Glucose, Whole Blood 120 mg/dL (60-115)
--- NOTE | 2023-09-19 13:03 | P.DS_ITS ---
DS: Providers Provider Date of Service: 09/19/23 Date of admission: 09/14/23 13:25 Primary care physician: Tanya Chen NP Consults: 09/14/23 13:35 Consult to Gastroenterology Routine Consulting Provider: Bhavik Queen Reason for consultation: GI bleed, platelets 14, alcoholic cirrhosis w/varices 09/14/23 14:04 Consult to Care Team Routine Comment: Reason for consultation: Pt on Section 12 for alcohol use, SI 09/14/23 14:49 Addiction Medicine Routine Consulting Provider: Addiction Covering Reason for consultation: Alcohol use disorder 09/15/23 08:20 Consult to Hematology / Oncology Routine Consulting Provider: [facility] Oncology/Hematology Reason for consultation: Thrombocytopenia, cirrhosis, GIB. Plts 14->17 after 1u 09/18/23 08:16 Consult to Care Team Routine Comment: Reason for consultation: Pt arrived on sec 12; denies SI; does he still need sitter? 09/18/23 16:19 Consult to Care Team Routine Comment: Reason for consultation: Medically cleared now. Came in on sec 12 DS: Diagnosis Discharge Diagnosis (1) Chronic alcoholic liver disease: Status: Acute DS: Summary Hospital Course Hospital Course: HPI: Pt is a 58-year-old male with a PMH significant for?alcohol use disorder, alcoholic cirrhosis with ascites and esophageal varices previously requiring banding, chronic thrombocytopenia, DENISE not on CPAP, and HLD who presents to the ED from home on a section 12 for evaluation of increasing alcohol intake, depression, and SI. Section 12 was issued by the [facility], and according to family patient has been drinking more heavily than usual, not eating for 2 weeks, not leaving house, and expressing suicidal ideation. In the ED patient was noted to admit to possible passive suicidal ideation and admitting he might be trying to drink himself to . Labs were significant for showing thrombocytopenia of 16, INR 1.9, and physical exam in the ED revealed melena-appearing stool positive for occult blood. The patient reports that he has been attending rehab of some sort at the beginning of this year, but then reports history of falls in April where he experienced ankle pain which then caused him to start drinking again. Lives with his mother, daughter, and daughter's boyfriend. Patient unsure exactly how or why he arrived at the ED, but reports he has been drinking a lot lately, not eating, and feeling depresse d. However, patient currently denies SI. Patient also denies melena or hematochezia, hemoptysis or hematemesis. Denies abdominal pain. No nausea, vomiting. Denies auditory visual hallucinations. No increased anxiety or diaphoresis. Denies chest pain/pressure, palpitations. No shortness a breath or cough. In the ED pt with elevated heart rate up to 94, vitals otherwise stable and WNL. Labs were significant for thrombocytopenia of 16 with repeat at 14, chronic normocytic anemia stable at 10 0.6/31.6 with repeat 10.0/29.8, PT 23.6 with INR 1.9, bilirubin 4.8, AST 304, ALT 51, alk-phos 147, albumin 3.1, and lipase 369. Stool positive for occult blood. Ethyl alcohol for [address] at time of presentation[address] CT?of head showed no acute intracranial abnormality. CT of abdomen found extremely heterogeneous liver texture with nodular surface compatible with liver cirrhosis with possible liver lesions, splenomegaly, varices around gastroesophageal junction and distal esophagus suggestive portal hypertension and portosystemic shunting. Also found possible mesenteric panniculitis, circumferential wall thickening of rectum and distal sigmoid colon, marked distended gallbladder with multiple gallstones. Pt was treated with lorazepam, Protonix, IVF, ceftriaxone, and started on octreotide drip. Pt will be admitted to the hospital for treatment further evaluation of thrombocytopenia in the s etting of likely upper GI bleed secondary to alcoholic cirrhosis and alcohol use disorder. Hospital course: There was concern for questionable dark stools. Patient was initiated on IV Protonix, IV octreotide and IV ceftriaxone. Gi was consulted and patient underwent EGD on 09/17. Hemoglobin remained stable prior to discharge and patient without further episodes of hematemesis or melena. Pat ient stable to be transferred out of acute medicine unit. Care team was consulted for SI and patient to be transferred to inpatient psychiatry. Patient was given platelet transfusion with improvement in platelet count. Patient was initiated on phenobarb protocol for alcohol use disorder. Addiction Team was consulted and patient declined services. Status at Discharge Functional status at discharge: independent ambulation Overall status at discharge: patient is back to baseline Time Attestation Discharge Coordination Time (in mins): 40 minutes Quality: Safe Use of Opioids Does Pt have an Active Cancer Diagnosis on the Problem List?: No Quality: Stroke Does the patient have a stroke diagnosis?: No Physical Exam Vital Signs: Vital Signs: Last Vital Signs Temp 98.5 F 09/19/23 08:00 Pulse 75 09/19/23 08:48 Resp 20 09/19/23 08:00 BP 117/71 09/19/23 08:48 Pulse Ox 98 09/19/23 08:00 O2 Del Method Room Air 09/19/23 08:00 O2 Flow Rate 6 09/18/23 14:54 BMI result Body Mass Index 25.2 Gen: NAD HEENT: sclera icteric, moist mucus membranes Neck: supple Lungs: clear to auscultation bilaterally Heart: regular, tachycardic, no murmurs Abd: soft, non-tender, non-distended Ext: no edema Skin: warm/well-perfused Neuro: alert and oriented x3, no focal findings, no asterixis Psych: appropriate affect DS: Data Data Completed and Pending Completed studies during hospitalization [Text1]: Procedures Detoxification Services for Substance Abuse Treatment (08/12/23) Labs on day of discharge: Laboratory Results - last 24 hr 09/15/23 09/19/23 09/19/23 09:02 07:40 08:42 WBC 2.5 L RBC 3.37 L Hgb 9.8 L Hct 30.0 L MCV 89.0 MCH 29.1 MCHC 32.7 RDW 22.2 H Plt Count 50 L MPV 9.5 Absolute Nucleated RBC 0.000 Nucleated RBC % (auto) 0.0 Sodium 136 Potassium 3.6 Chloride 106 Carbon Dioxide 21 L Anion Gap 13 BUN 6 L Creatinine 0.84 Estim Creat Clear Calc 98.1 Estimated GFR > 60 POC Glucose 96 Random Glucose 109 Calcium 8.2 L Magnesium 1.7 Total Bilirubin 8.4 H AST 101 H ALT 27 Alkaline Phosphatase 114 Total Protein 6.1 L Albumin 2.7 L Alpha Fetoprotein 2.0 09/19/23 11:58 WBC RBC Hgb Hct MCV MCH MCHC RDW Plt Count MPV Absolute Nucleated RBC Nucleated RBC % (auto) Sodium Potassium Chloride Carbon Dioxide Anion Gap BUN Creatinine Estim Creat Clear Calc Estimated GFR POC Glucose 120 H Random Glucose Calcium Magnesium Total Bilirubin AST ALT Alkaline Phosphatase Total Protein Albumin Alpha Fetoprotein Preliminary micro results at discharge 09/14/23 13:26 Blood Culture - Preliminary Blood - Venous No growth after 48 hours. 09/14/23 11:51 Blood Culture - Preliminary Blood - Venous No growth after 48 hours. Imaging Chest x-ray: Radiologist's impression: ITS Impressions Head CT 09/14/23 00:40 IMPRESSION: No acute intracranial abnormality including hemorrhage, mass effect, hydrocephalus, or acute territorial edematous infarction. Abdomen/Pelvis CT 09/14/23 09:55 IMPRESSION: 1. Extremely heterogeneous liver texture with nodular surface compatible with liver cirrhosis, there are subtle hypo and hyperdense areas in the posterior segment right lobe segment 6, CANNOT RULE OUT LIVER LESION. HCC. Recommend attention to correlation with follow-up advanced imaging with dynamically enhanced liver MRI. 2. Splenomegaly. 3. Varices around the gastroesophageal junction and distal esophagus and at the splenic hilum suggesting portal hypertension and portosystemic shunting. 4. Cloudy Tara mesentery and mesenteric lymph nodes enlarged consistent with Mesenteric panniculitis. Nonspecific CT finding. Please see below for differential. 5. Circumferential wall thickening of the rectum and distal sigmoid colon, also mild thickening of the cecum and ascending colon, nonspecific CT finding, differential diagnoses would include inflammatory and/or infection etiology including IBD, colitis, less commonly ischemia and neoplasm. 6. Markedly distended gallbladder, multiple gallstones. Mesenteric panniculitis is a nonspecific finding and can coexistent with malignancy such as extra-abdominal non-Hodgkin lymphoma, breast carcinoma, prostate carcinoma, lung carcinoma, gastrointestinal carcinoma, colorectal carcinoma, melanoma, pancreatic neoplasm among other neoplasms. It also can coexist with benign process such as Crohn's disease, sarcoidosis, liver cirrhosis, colitis, lupus, sclerosing cholangitis, pancreatitis, mesenteritis, retroperitoneal fibrosis. It also could be idiopathic. Recommended clinical assessment and careful exclusion of possible other neoplasms. If no further action taken now, followup CT scan in 6 months advised. Reference: [place] Journal of Radiology May 1999, volume 174, #2. (Referring physician staff is being called, by physician staff assistance, to be alerted of the above critical findings and recommendations.) 09/14/2023 11:22 AM AJ Discharge Plan Discharge Anticipated Discharge Date/Time: 09/19/23 12:59 Patient Disposition: Xfer Psychiatric Hosp Discharge Diagnosis: Suicidal ideation with major depressive disorder Referrals: Tanya Chen NP [Primary Care Provider] - 1 Week Discharge Medications: New carvedilol 3.125 mg Tablet 3.125 mg PO BID 30 Days Qty: 60 0RF Protocol: Hold for SBP/HR < HOLD for SBP < : 90 HOLD for HR < : 60 omeprazole 40 mg capsule,delayed release(DR/EC) 40 mg PO DAILY Qty: 30 0RF Continued folic acid 800 mcg tablet 0.8 mg PO DAILY melatonin 10 mg Tablet 10 mg PO BEDTIME PRN (Reason: Insomnia) Discharge Orders: Discharge Order (Routine); Ordered 09/19/23 Ordered By: Zoie Griffiths Diet: Low salt diet Activity on Discharge: As tolerated Stand Alone Forms: Patient Portal Discharge page Print Language: Montenegrin Care Plan Goals: Follow-up with PCP within 1 week Outpatient EGD in 6 months Health Concerns: Alcoholic cirrhosis Chronic thrombocytopenia Coagulopathy due to cirrhosis Liver lesions, suspicious for HCC Major depressive disorder Plan of Treatment: Omeprazole 40 mg daily Coreg 3.25 mg twice daily Cessation of alcohol Assessment: As above
--- NOTE | 2023-09-19 15:23 | HO.POSTANES ---
Post Anesthesia Evaluation Post Anesthesia Evaluation Date of Service: 09/18/23 Vital Signs: Vital Signs Temp Pulse Resp BP Pulse Ox O2 Del Method 09/19/23 12:03 98 Room Air 09/19/23 12:00 98.9 F 81 20 102/65 97 Room Air 09/19/23 08:48 75 117/71 09/19/23 08:00 98.5 F 75 20 117/71 98 Room Air 09/19/23 04:00 98.1 F 77 18 137/90 H 96 Room Air Anesthesia: Monitored Mental Status: Awake Pain Control: Satisfactory Nausea/Vomiting: None Hydration: Adequate Anesthesia-Related Issues: No Anes. Related Issues
== END 2023-09-19 17:17 | DRG 280 ==
LOC: HO.ED 09-14 10:08 → HO.EDOVER 09-14 13:53 → HO.IMC 09-14 17:12
PROVIDERS: Emergency Medicine; Family Medicine; Internal Medicine Gastroenterology; Internal Medicine Medical Oncology; Admitting Provider Student in an Organized Health Care Education/Training Program; Emergency Provider Student in an Organized Health Care Education/Training Program; PCP Nurse Practitioner Family; Visit Provider Student in an Organized Health Care Education/Training Program
PROC: 0DJ08ZZ Inspection of Upper Intestinal Tract, Via Natural or Artificial Opening Endoscopic (ICD-10-PCS; CPT 43235; principal; 2023-09-18 14:50)
DX: K70.30 Alcoholic cirrhosis of liver without ascites (principal); K70.10 Alcoholic hepatitis without ascites; D68.4 Acquired coagulation factor deficiency; E87.20 Acidosis, unspecified; C22.0 Liver cell carcinoma; K76.6 Portal hypertension; R45.851 Suicidal ideations; I85.10 Secondary esophageal varices without bleeding; D64.9 Anemia, unspecified; F32.9 Major depressive disorder, single episode, unspecified; K80.20 Calculus of gallbladder without cholecystitis without obstruction; D69.59 Other secondary thrombocytopenia; K31.89 Other diseases of stomach and duodenum; E03.8 Other specified hypothyroidism; E83.42 Hypomagnesemia; F10.929 Alcohol use, unspecified with intoxication, unspecified; F10.939 Alcohol use, unspecified with withdrawal, unspecified; Y90.8 Blood alcohol level of 240 mg/100 ml or more; G47.33 Obstructive sleep apnea (adult) (pediatric); Z79.899 Other long term (current) drug therapy
CPT/HCPCS: 36415; 70450; 74177; 80048; 80053; 80076; 80307; 81003; 82105; 82248; 82272; 82947; 83605; 83690; 83735; 85025; 85027; 85384; 85610; 86850; 86900; 86901; 87040; 99285; C9113; J0696; J1596; J2250; J2354; J2560; J2704; J3430; J3475; P9017; P9073; Q9967; S9485

== ENCOUNTER → 2023-09-14 13:25 | Outpatient (BNV) | payer BC, SELFPAY | PROVIDERS: Admitting Provider Student in an Organized Health Care Education/Training Program; Emergency Provider Student in an Organized Health Care Education/Training Program; Visit Provider Internal Medicine Medical Oncology | DX: D69.6 Thrombocytopenia, unspecified (principal) | CPT/HCPCS: 99222 ==

== ENCOUNTER → 2023-09-14 13:25 | Outpatient (BNV) | payer BC, SELFPAY | PROVIDERS: Admitting Provider Student in an Organized Health Care Education/Training Program; Emergency Provider Student in an Organized Health Care Education/Training Program; Visit Provider Nurse Practitioner Psychiatric/Mental Health | DX: F10.90 Alcohol use, unspecified, uncomplicated (principal) | CPT/HCPCS: 99232; 99499 ==

== ENCOUNTER → 2023-09-14 13:25 | Outpatient (BNV) | payer BC, SELFPAY | PROVIDERS: Admitting Provider Student in an Organized Health Care Education/Training Program; Emergency Provider Student in an Organized Health Care Education/Training Program; Visit Provider Student in an Organized Health Care Education/Training Program | DX: K70.9 Alcoholic liver disease, unspecified (principal) | CPT/HCPCS: 99223; 99232; 99233; 99239 ==

== ENCOUNTER → 2023-09-14 13:25 | Outpatient (BNV) | payer BC, SELFPAY | PROVIDERS: Admitting Provider Student in an Organized Health Care Education/Training Program; Emergency Provider Student in an Organized Health Care Education/Training Program; Visit Provider Internal Medicine Gastroenterology | DX: K70.9 Alcoholic liver disease, unspecified (principal); I85.00 Esophageal varices without bleeding; K31.89 Other diseases of stomach and duodenum | CPT/HCPCS: 43235; 99223; 99232 ==

== ENCOUNTER 2023-09-19 17:39 | Inpatient (IN) | payer BC, SELFPAY ==
--- OUTSIDE RECORDS SUMMARY | 2023-09-19 17:46 | XMS_ITS | Continuity of Care Document ---
Author Organization [facility] Jori Santillan Dillon lt Address [address] [place] [address]- Care Team Providers Care Plant Technician/Control Room Operator Name Role Phone Gustavo CLOUD CONSULTANTTanya Primary Care Physician [phone] Encounter [facility] Date(s): 05/15/23 - 06/14/23 [facility] Jori Malinley Adult [address] [place] [address]- Allergies, Adverse Reactions, Alerts No Known Allergies Immunizations Given and Recorded Vaccine Date Status Refusal Reason zoster vaccine, inactivated 03/08/23 Recorded zoster vaccine, inactivated 09/26/21 Recorded zoster vaccine, inactivated 07/25/21 Recorded pneumococcal 20-valent conjugate vaccine 1 03/07/23 Given hepatitis B adult vaccine 02/01/23 Recorded hepatitis B adult vaccine 07/11/21 Recorded hepatitis B adult vaccine 12/30/20 Recorded hepatitis B adult vaccine 10/14/19 Given hepatitis B adult vaccine 09/09/19 Given SARS-CoV-2(COVID-19)mRNA-LNP vac([id number]) 02/01/23 Recorded influenza virus vaccine, inactivated 12/21/22 Flavio rded influenza virus vaccine, inactivated 01/23/22 Flavio rded influenza virus vaccine, inactivated 01/11/20 Give n [id number] 12y+ bivalent booster vax 01/23/22 Recorded SARS-CoV-2 mRNA ([id number]) vax 05/24/21 Recorded pneumococcal 13-valent vaccine 12/30/20 Recorded SARS-CoV-2 (COVID-19) mRNA BNT-162b2 vac 08/27/20 Recorded SARS-CoV-2 (COVID-19) mRNA BNT-162b2 vac 08/06/20 Recorded Hepatitis A Adult Vaccine 2 2/9/21 Given Hepatitis A Adult Vaccine 11/04/19 Recorded Measles/Mumps/Rubella Virus Vaccine 11/06/19 Recor ded tetanus/diphtheria/pertussis, acel(Tdap) 11/04/19 Recorded pneumococcal 23-valent vaccine 3 08/20/19 Given Influenza Virus Vaccine (oldterm) 04/29/19 Recorde d 1Result Comment: [id number] 2Result Comment: [facility]:[id number] 3Early/Late Reason: Med Not Available Medications cephalexin monohydrate 500 mg oral capsule 21 each, 0 Refill(s), TAKE 1 CAPSULE BY MOUTH 3 TIMES A DAY FOR 7 DAYS, TAKE WITH FOOD, 0 Refills, 04/29/23 23:41:00 EST, Partial fill upon patient request if the prescription is for a schedule II opioid drug. Start Date: 04/29/23 Status: Ordered furosemide 20 mg oral tablet Refills 0, Maintenance, 05/23/23 13:29:00 EST, Partial fill upon patient request if the prescription is for a schedule II opioid drug. Start Date: 05/23/23 Status: Ordered pantoprazole 40 mg oral delayed release tablet 0 Refills, Maintenance, 05/23/23 13:28:00 EST Start Date: 05/23/23 Status: Ordered propranolol 10 mg oral tablet Refills 0, Maintenance, 05/23/23 13:28:00 EST, Partial fill upon patient request if the prescription is for a schedule II opioid drug. Start Date: 05/23/23 Status: Ordered Problem List Condition Confirmation Course Effective Dates Status H ealth Status Informant Alcoholic hepatitis Confirmed Active Cholelithiasis Confirmed Active Cirrhosis of liver Confirmed Active Depression Confirmed Active Esophageal varices Confirmed Active H/O alcohol abuse Confirmed Active Hyperlipidemia Confirmed Active Enlarged prostate Confirmed Active Microscopic hematuria Confirmed Active Alcohol abuse, in remission Confirmed Active Obese class I Confirmed Active DENISE (obstructive sleep apnea) Confirmed Active Portal hypertension Confirmed Active PVT (portal vein thrombosis) Confirmed Active Rosacea Confirmed Active Subclinical hypothyroidism Confirmed Active Tubular adenoma of colon 1 Confirmed 10/22/19 Active Vitamin D deficiency Confirmed Active 1repeat screening colonoscopy in 2026 Social History Social History Type Response Smoking Status Former smoker, quit more than 30 days ago; Other: smoked socially; nothing regular; entered on: 07/15/19 Sex Patient Care team information Care Team Personnel Name: Gloria Stringer RN Position: [facility] RN Member Role: Primary Care Nurse Name: Tanya Chen NP Position: [facility] PCO Associate Professional Member Role: PCP Address: Address: [address] [place] [address]- Name: Coby Fernández RN Position: [facility] RN Member Role: Primary Care Nurse Name: Denia Batista Position: [facility] Outreach Member Role: Lifetime Consulting Physician Name: Helena Kumar RN Position: [facility] RN Member Role: Primary Care Nurse Name: Shanel Funk RN Position: [facility] RN Member Role: Primary Care Nurse Name: Clau Daniel RN Position: [facility] SN RN Member Role: Primary Care Nurse Name: Merry Moreau RN Position: [facility] Outreach Member Role: Primary Care Nurse Name: Hayder Haile MD Position: [facility] Renal MD Member Role: Lifetime Consulting Physician Address: Address: [address] [place] [address] [facility] [place] [address]- Care Team Related Persons Name: ANTONIO TUCKER Address: home [address] [place] [address] Name: JAGRUTI TUCKER Address: home [address] [address]
--- OUTSIDE RECORDS SUMMARY | 2023-09-19 17:46 | XMS_ITS | Continuity of Care Document ---
Author Organization [facility] Dillon Address [address] [place] [address]- Care Team Providers Care Professional Builder Name Role Phone Gustavo PEDRO, Tanya Israel Primary Care Physician Encounter [facility] Date(s): 09/27/20 - 10/27/20 [facility] [place] Adult [address] [place] [address]- Attending Physician: Tania Bautista Admitting Physician: Tania Bautista Referring Physician: AdmtrTania Allergies, Adverse Reactions, Alerts Substance Reaction Severity Status NKA Active Immunizations Given and Recorded Vaccine Date Status Refusal Reason Hepatitis A Adult Vaccine 1 05/31/20 Given influenza virus vaccine, inactivated 01/11/20 Give n hepatitis B adult vaccine 10/14/19 Given hepatitis B adult vaccine 09/09/19 Given pneumococcal 23-valent vaccine 2 08/20/19 Given Influenza Virus Vaccine (oldterm) 04/29/19 Recorde d 1Result Comment: [facility]:[id number] 2Early/Late Reason: Med Not Available Medications ergocalciferol 23420 iu oral capsule 1, capsule, By Mouth, Every week, # 13 capsule, Refills 1, Tot. Refills 0, Maintenance, 06/28/20 12:51:00 EST, Route to Pharmacy Electronically, [id number], 170.18, cm, 01/11/20 10:37:00 EDT, Height, 82.6, kg, 09/24/19 8:19:00 EDT, Dry Weight Start Date: 06/28/20 Status: Ordered folic acid 1 mg oral tablet 1 mg, 1, tablet, By Mouth, Daily, # 30 tablet, Refills 5, Tot. Refills 5, Maintenance, 01/04/20 21:25:00 EDT, Route to Pharmacy Electronically, [facility]/pharmacy #[id number], 170.18, cm, 10/20/19 9:53:00 EDT, Height, 82.6, kg, 09/24/19 8:19:00 EDT, Dry Weight Start Date: 01/04/20 Status: Ordered furosemide 20 mg oral tablet 20 mg, 1, tablet, By Mouth, Daily, # 30 tablet, Refills 11, Tot. Refills 11, Maintenance, 08/21/19 11:56:00 EDT, Route to Pharmacy Electronically, [facility]/pharmacy #[id number], 170.18, cm, 08/21/19 4:27:00 EDT, Height, 91, kg, 08/19/19 4:32:00 EDT, Dry Weight Start Date: 08/21/19 Status: Ordered multivitamin with minerals Multiple Vitamins with Minerals oral tablet 1 tablet, By Mouth, Daily, # 90 tablet, 11 Refills, Maintenance, 09/14/20 13:32:00 EDT, Tablet, [facility]/pharmacy #[id number], 1 tablet By Mouth Daily, 170.18, cm, 01/11/20 10:37:00 EDT, Height, 82.6, kg, 09/24/19 8:19:00 EDT, Dry Weight Start Date: 09/14/20 Stop Date: 09/09/21 Status: Ordered nadolol 20 mg oral tablet 20 mg, 1, tablet, By Mouth, Daily, # 90 tablet, Refills 0, Tot. Refills 0, Maintenance, 07/27/20 10:20:00 EDT, Route to Pharmacy Electronically, [facility]/pharmacy #[id number], 170.18, cm, 01/11/20 10:37:00 EDT,Height, 82.6, kg, 09/24/19 8:19:00 EDT, Dry Weight Start Date: 07/27/20 Stop Date: 01/23/21 Status: Ordered spironolactone 25 mg oral tablet 25 mg, 1, tablet, By Mouth, Daily, Refills 0, Maintenance, 09/07/19 9:35:00 EDT Start Date: 09/07/19 Status: Ordered Vitamin B1 100 mg oral tablet 1, tablet, By Mouth, Daily, OFFICE VISIT NEEDED FOR FURTHER REFILLS, # 30 tablet, Refills 0, Tot. Refills 0, Maintenance, 06/30/20 6:51:00 EST, Route to Pharmacy Electronically, [facility]/pharmacy #[id number], 170.18, cm, 01/11/20 10:37:00 EDT, Height, 82.6, kg,... Start Date: 06/30/20 Status: Ordered Vitamin B6 50 mg oral tablet See Instructions, TAKE 1 TABLET BY MOUTH EVERY DAY, # 30 tablet, Refills 0, Acute, Instructions Replace Required Details, Route to Pharmacy Electronically, [id number], 170.18, cm, 01/11/20 10:37:00 EDT, Height, 82.6, kg, 09/24/19 8:19:00 EDT, Dry... Start Date: 10/04/20 Status: Ordered Problem List Condition Effective Dates Status Health Status Inform ant Alcoholic hepatitis(Confirmed) Active Cholelithiasis(Confirmed) Active Cirrhosis of liver(Confirmed) Active Depression(Confirmed) Active Esophageal varices(Confirmed) Active H/O alcohol abuse(Confirmed) Active Hyperlipidemia(Confirmed) Active Enlarged prostate(Confirmed) Active Macrocytic anemia(Confirmed) Active Microscopic hematuria(Confirmed) Active DENISE (obstructive sleep apnea)(Confirmed) Active Portal hypertension(Confirmed) Active PVT (portal vein thrombosis)(Confirmed) Active Rosacea(Confirmed) Active Subclinical hypothyroidism(Confirmed) Active Tubular adenoma of colon(Confirmed) 1 10/22/19 Active Vitamin D deficiency(Confirmed) Active 1repeat screening colonoscopy in 2026 Social History Social History Type Response Smoking Status Former smoker, quit more than 30 days ago; Other: smoked socially; nothing regular; entered on: 07/15/19 Sex
--- OUTSIDE RECORDS SUMMARY | 2023-09-19 17:46 | XMS_ITS | Continuity of Care Document ---
Author Organization [facility] Jori Santillan Dillon Address [address] [place] [address]- Care Team Providers Care Software Engineering Supervisor Name Role Phone Gustavo Tanya VASQUEZ Primary Care Physician [facility]counter [facility] Date[facility]s): 07/09/22 - 08/08/22 [facility] Jori Malinley Adult [address] [place] [address]- Allergies, Adverse Reactions, Alerts No Known Allergies Immunizations Given and Recorded Vaccine Date Status Refusal Reason zoster vaccine, inactivated 09/26/21 Recorded zoster vaccine, inactivated 07/25/21 Recorded hepatitis B adult vaccine 07/11/21 Recorded hepatitis B adult vaccine 12/30/20 Recorded hepatitis B adult vaccine 10/14/19 Given hepatitis B adult vaccine 09/09/19 Given SARS-CoV-2 mRNA ([id number]) vax 05/24/21 Recorded pneumococcal 13-valent vaccine 12/30/20 Recorded SARS-CoV-2 (COVID-19) mRNA BNT-162b2 vac 08/27/20 Recorded SARS-CoV-2 (COVID-19) mRNA BNT-162b2 vac 08/06/20 Recorded Hepatitis A Adult Vaccine 1 05/31/20 Given Hepatitis A Adult Vaccine 11/04/19 Recorded influenza virus vaccine, inactivated 01/11/20 Give n Measles/Mumps/Rubella Virus Vaccine 11/06/19 Recor ded tetanus/diphtheria/pertussis, acel(Tdap) 11/04/19 Recorded pneumococcal 23-valent vaccine 2 08/20/19 Given Influenza Virus Vaccine (oldterm) 04/29/19 Recorde d 1Result Comment: [facility]:[id number] 2Early/Late Reason: Med Not Available Medications ergocalciferol 59509 iu oral capsule 1, capsule, By Mouth, Every week, # 13 capsule, Refills 1, Tot. Refills 0, Maintenance, 06/28/20 12:51:00 EST, Route to Pharmacy Electronically, [facility], 170.18, cm, 01/11/20 10:37:00 EDT, Height, 82.6, kg, 09/24/19 8:19:00 EDT, Dry Weight Start Date: 06/28/20 Status: Ordered multivitamin with minerals Multiple Vitamins with Minerals oral tablet 1 tablet, By Mouth, Daily, # 90 tablet, 11 Refills, Maintenance, 09/14/20 13:32:00 EDT, Tablet, [facility] #[id number], 1 tablet By Mouth Daily, 170.18, cm, 01/11/20 10:37:00 EDT, Height, 82.6, kg, 09/24/19 8:19:00 EDT, Dry Weight Start Date: 09/14/20 Stop Date: 09/09/21 Status: Ordered nadolol 20 mg oral tablet 20 mg, 1, tablet, By Mouth, Daily, # 30 tablet, Refills 0, Maintenance, 05/03/21 14:00:00 EST, Partial fill upon patient request if the prescription is for a schedule II opioid drug. Start Date: 05/03/21 Status: Ordered ondansetron 4 mg oral tablet 1 tablet = 4 mg, By Mouth, Every 12 hours, PRN Nausea & Vomiting, # 12 tablet, 0 Refills, Acute07/13/23 12:00:00 EDT, 07/11/22 8:47:00 EDT, Tablet, [facility]/pharmacy #[id number], 170, cm, 07/11/22 8:12:00 EDT, Height, 78.7, kg, 08/15/21 15:48:00 EDT, Dry Weight Start Date: 07/11/22 Stop Date: 07/13/23 Status: Ordered traZODone 50 mg oral tablet 50 mg, 1, tablet, By Mouth, Daily at bedtime, for 30 days, # 30 tablet, Refills 0, Tot. Refills 0, Acute 09/02/22 17:25:00 EDT, 08/03/22 17:25:00 EDT, Route to Pharmacy Electronically, [facility], 170, cm, 07/11/22 8:12:00 EDT, Height, 7... Start Date: 08/03/22 Stop Date: 09/02/22 Status: Ordered Vitamin B1 100 mg oral tablet 1, tablet, By Mouth, Daily, OFFICE VISIT NEEDED FOR FURTHER REFILLS, # 30 tablet, Refills 0, Tot. Refills 0, Maintenance, 06/30/20 6:51:00 EST, Route to Pharmacy Electronically, [facility]acy #[id number], 170.18, cm, 01/11/20 10:37:00 EDT, Height, 82.6, kg,... Start Date: 06/30/20 Status: Ordered Vitamin B6 50 mg oral tablet See Instructions, TAKE 1 TABLET BY MOUTH EVERY DAY, # 30 tablet, Refills 0, Acute, Instructions Replace Required Details, Route to Pharmacy Electronically, [id number], 170.18, cm, 01/11/20 10:37:00 EDT, Height, 82.6, kg, 09/24/19 8:19:00 EDT, Dry... Start Date: 10/04/20 Status: Ordered Problem List Condition Confirmation Course Effective Dates Status H ealth Status Informant Alcoholic hepatitis Confirmed Active Cholelithiasis Confirmed Active Cirrhosis of liver Confirmed Active Depression Confirmed Active Esophageal varices Confirmed Active H/O alcohol abuse Confirmed Active Hyperlipidemia Confirmed Active Enlarged prostate Confirmed Active Macrocytic anemia Confirmed Active Microscopic hematuria Confirmed Active Alcohol abuse, in remission Confirmed Active DENISE (obstructive sleep apnea) Confirmed [...] Team Personnel Name: Gloria Stringer RN Position: [facility] RN Member Role: Primary Care Nurse Name: Tanya Chen NP Position: [facility] PCO Associate Professional Member Role: PCP Address: Address: [address] [place] [id number]- Name: Coby Fernández RN Position: [facility] RN Member Role: Primary Care Nurse Name: Denia Batista Position: [facility] Outreach Member Role: Lifetime Consulting Physician Name: Helena Kumar RN Position: [facility] RN Member Role: Primary Care Nurse Name: Shanel Funk RN Position: [facility] RN Member Role: Primary Care Nurse Name: Lizzeth COREA, Merry Position: [facility] RN Member Role: Primary Care Nurse Name: Hayder Haile MD Position: [facility] Renal MD Member Role: Lifetime Consulting Physician Address: Address: [address] [place] [address] [facility] [place] [address]- Care Team Related Persons Name: ANTONIO TUCKER Address: [address] [place] [address] Name: JAGRUTI TUCKER Address: home [address] [address]
--- OUTSIDE RECORDS SUMMARY | 2023-09-19 17:46 | XMS_ITS | Continuity of Care Document ---
Author Organization [facility] Address [address] [place] [address]- Care Team Providers Care Plastic Cutter Name Role Phone Gustavo Tanya VASQUEZ Primary Care Physician [phone] Encounter [facility] Date(s): 11/24/19 - 12/24/19 [facility] [address] [place] [id number] [facility] Allergies, Adverse Reactions, Alerts Substance Reaction Severity Status NKA Active Immunizations Given and Recorded Vaccine Date Status Refusal Reason hepatitis B adult vaccine 10/14/19 Given hepatitis B adult vaccine 09/09/19 Given pneumococcal 23-valent vaccine 1 08/20/19 Given Influenza Virus Vaccine (oldterm) 04/29/19 Recorde d 1Early/Late Reason: Med Not Available Medications enoxaparin 120 mg/0.8 mL injectable solution 0.8 mL = 120 mg, Subcutaneous Injection, Every 24 hours, for 30 days, # 24 mL, 3 Refills, Acute 02/04/20 9:35:00 EDT, 10/07/19 9:35:00 EDT, Injection, [id number], 170, cm, 09/09/19 9:18:00 EDT, Height, 80.8, kg, 08/31/19 20:58:00 EDT, Dry Weight Start Date: 10/07/19 Stop Date: 02/04/20 Status: Ordered folic acid 1 mg oral tablet 1 mg, 1, tablet, By Mouth, Daily, # 30 tablet, Refills 3, Tot. Refills 3, Maintenance, 09/16/19 20:47:00 EDT, Route to Pharmacy Electronically, [id number], 170, cm, 09/09/19 9:18:00 EDT, Height, 80.8, kg, 08/31/19 20:58:00 EDT, Dry Weight Start Date: 09/16/19 Status: Ordered furosemide 20 mg oral tablet 20 mg, 1, tablet, By Mouth, Daily, # 30 tablet, Refills 11, Tot. Refills 11, Maintenance, 08/21/19 11:56:00 EDT, Route to Pharmacy Electronically, [facility]/pharmacy #[id number], 170.18, cm, 08/21/19 4:27:00 EDT, Height, 91, kg, 08/19/19 4:32:00 EDT, Dry Weight Start Date: 08/21/19 Status: Ordered midodrine 10 mg oral tablet 1 tablet = 10 mg, By Mouth, 3 times a day, # 90 tablet, 3 Refills, Maintenance, 09/16/19 20:47:00 EDT, Tablet, [facility]/pharmacy #[id number], 170, cm, 09/09/19 9:18:00 EDT, Height, 80.8, kg, 08/31/19 20:58:00 EDT, Dry Weight Start Date: 09/16/19 Status: Ordered multivitamin with minerals Multiple Vitamins with Minerals oral tablet 1 tablet, By Mouth, Daily, # 30 tablet, 11 Refills, Maintenance, 09/20/19 13:32:00 EDT, Tablet, [facility]/pharmacy #[id number], 1 tablet By Mouth Daily,x30 days, 170, cm, 09/09/19 9:18:00 EDT, Height, 80.8, kg, 08/31/19 20:58:00 EDT, Dry Weight Start Date: 09/20/19 Stop Date: 09/14/20 Status: Ordered nadolol 20 mg oral tablet 20 mg, 1, tablet, By Mouth, Daily, # 30 tablet, Refills 3, Tot. Refills 3, Maintenance, 09/16/19 20:47:00 EDT, Route to Pharmacy Electronically, [facility]/pharmacy #[id number], 170, cm, 09/09/19 9:18:00 EDT, Height, 80.8, kg, 08/31/19 20:58:00 EDT, Dry Weight Start Date: 09/16/19 Status: Ordered pantoprazole 40 mg oral delayed release tablet = 40 mg, By Mouth, Daily, # 30 tablet, 3 Refills, Maintenance, 09/20/19 13:31:00 EDT, EC Tablet, 170, cm, 09/09/19 9:18:00 EDT, Height, 80.8, kg, 08/31/19 20:58:00 EDT, Dry Weight Start Date: 09/20/19 Stop Date: 01/18/20 Status: Ordered pyridoxine 50 mg oral tablet 50 mg, 1, tablet, By Mouth, Daily, for 30 days, # 30 tablet, Refills 3, Tot. Refills 3, Acute 01/18/20 13:32:00 EDT, 09/20/19 13:32:00 EDT, Route to Pharmacy Electronically, [facility]/pharmacy #[id number], 170, cm, 09/09/19 9:18:00 EDT, Height, 80.8, kg, 08/31/19... Start Date: 09/20/19 Stop Date: 01/18/20 Status: Ordered spironolactone 25 mg oral tablet 25 mg, 1, tablet, By Mouth, Daily, Refills 0, Maintenance, 09/07/19 9:35:00 EDT Start Date: 09/07/19 Status: Ordered thiamine 100 mg oral tablet 100 mg, 1, tablet, By Mouth, Daily, # 30 tablet, Refills 3, Tot. Refills 3, Maintenance, 09/16/19 20:47:00 EDT, Route to Pharmacy Electronically, [facility]/pharmacy #[id number], 170, cm, 09/09/19 9:18:00 EDT, Height, 80.8, kg, 08/31/19 20:58:00 EDT, Dry Weight Start Date: 09/16/19 Status: Ordered Vitamin D 20744 iu oral capsule 50,000 International_Units, 1, capsule, By Mouth, Every week, # 13 capsule, Refills 1, Tot. Refills1, Maintenance, 07/17/19 10:13:00 EDT, Route to Pharmacy Electronically, [facility]/pharmacy #[id number], 171, cm, 07/15/19 13:04:00 EDT, Height Start Date: 07/17/19 Status: Ordered Problem List Condition Effective Dates Status Health Status Inform ant Alcohol abuse(Confirmed) Active Alcoholic hepatitis(Confirmed) Active Cholelithiasis(Confirmed) Active Cirrhosis of liver(Confirmed) Active Depression(Confirmed) Active Esophageal varices(Confirmed) Active Hyperlipidemia(Confirmed) Active Hyponatremia(Confirmed) Active Enlarged prostate(Confirmed) Active Macrocytic anemia(Confirmed) Active Microscopic hematuria(Confirmed) Active Obesity(Confirmed) Active DENISE (obstructive sleep apnea)(Confirmed) Active Portal [...]
--- OUTSIDE RECORDS SUMMARY | 2023-09-19 17:46 | XMS_ITS | Continuity of Care Document ---
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 Name Role Phone Gustavo CUT AND PRINT MACHINE OPERATORTanya Primary Care Physician [phone] Encounter [facility] Date(s): 05/03/21 - 05/10/21 [facility] Adult [address] [place] [address]- Encounter Diagnosis COVID-19(Discharge Diagnosis) - 05/03/21 Attending Physician: Not on Staff, Attending MD Allergies, Adverse Reactions, Alerts No Known Allergies Immunizations Given and Recorded Vaccine Date Status Refusal Reason pneumococcal 13-valent vaccine 12/30/20 Recorded hepatitis B adult vaccine 12/30/20 Recorded hepatitis B adult vaccine 10/14/19 Given hepatitis B adult vaccine 09/09/19 Given SARS-CoV-2 (COVID-19) mRNA BNT-162b2 vac 08/27/20 Recorded SARS-CoV-2 (COVID-19) mRNA BNT-162b2 vac 08/06/20 Recorded Hepatitis A Adult Vaccine 1 05/31/20 Given Hepatitis A Adult Vaccine 11/04/19 Recorded influenza virus vaccine, inactivated 01/11/20 Give n Measles/Mumps/Rubella Virus Vaccine 11/06/19 Recor ded tetanus/diphtheria/pertussis, acel(Tdap) 11/04/19 Recorded pneumococcal 23-valent vaccine 2 08/20/19 Given Influenza Virus Vaccine (oldterm) 04/29/19 Recorde d 1Result Comment: [facility]:[id number] 2Early/Late Reason: Med Not Available Medications nadolol 20 mg oral tablet 20 mg, 1, tablet, By Mouth, Daily, # 30 tablet, Refills 0, Maintenance, 05/03/21 14:00:00 EST, Partial fill upon patient request if the prescription is for a schedule II opioid drug. Start Date: 05/03/21 Status: Ordered spironolactone 25 mg oral tablet 25 mg, 1, tablet, By Mouth, Daily, Refills 0, Maintenance, 09/07/19 9:35:00 EDT Start Date: 09/07/19 Status: Ordered Vitamin B6 50 mg oral tablet See Instructions, TAKE 1 TABLET BY MOUTH EVERY DAY, # 30 tablet, Refills 0, Acute, Instructions Replace Required Details, Route to Pharmacy Electronically, [id number], 170.18, cm, 01/11/20 10:37:00 EDT, Height, 82.6, [...] deficiency(Confirmed) Active 1repeat screening colonoscopy in 2026 Diagnosis Diagnosis Type Effective Dates Health Status Clini mahesh Service Informant COVID-19 Discharge Diagnosis 05/03/21 Vital Signs Most recent to oldest [Reference Range]: 1 Height 170.18 cm (05/03/21 1:58 PM) Weight 72.7 kg (05/03/21 1:58 PM) Body Mass Index [18.5-24.99] 25.1 *H* (05/03/21 1:58 PM) Social History Social History Type Response Smoking Status Former smoker, quit more than 30 days ago; Other: smoked socially; nothing regular; entered on: 07/15/19 Sex
--- OUTSIDE RECORDS SUMMARY | 2023-09-19 17:46 | XMS_ITS | Continuity of Care Document ---
Author Organization [facility] Address [address] [place] [address]- Care Team Providers Care Paste Maker Name Role Phone Gustavo Tanya VASQUEZ Primary Care Physician Encounter [facility] Date(s): 08/16/21 - 11/15/[address] [address]- Attending Physician: Aime Mendoza MD Admitting Physician: Aime Mendoza MD Allergies, Adverse Reactions, Alerts No Known Allergies Immunizations Given and Recorded Vaccine Date Status Refusal Reason zoster vaccine, inactivated 09/26/21 Recorded zoster vaccine, inactivated 07/25/21 Recorded hepatitis B adult vaccine 07/11/21 Recorded hepatitis B adult vaccine 12/30/20 Recorded hepatitis B adult vaccine 10/14/19 Given hepatitis B adult vaccine 09/09/19 Given SARS-CoV-2 mRNA (avgerrs-fkmh-ccszj) vax 05/24/21 Recorded pneumococcal 13-valent vaccine 12/30/20 [...] Vaccine (oldterm) 04/29/19 Recorde d 1Result Comment: [facility]:[id number] 2Early/Late Reason: Med Not Available Medications ergocalciferol 06232 iu oral capsule 1, capsule, By Mouth, Every week, # 13 capsule, Refills 1, Tot. Refills 0, Maintenance, 06/28/20 12:51:00 EST, Route to Pharmacy Electronically, [id number], 170.18, cm, 01/11/20 10:37:00 EDT, Height, 82.6, kg, 09/24/19 8:19:00 EDT, Dry Weight Start Date: 06/28/20 Status: Ordered multivitamin with minerals Multiple Vitamins with Minerals oral tablet 1 tablet, By Mouth, Daily, # 90 tablet, 11 Refills, Maintenance, 09/14/20 13:32:00 EDT, Tablet, [facility]/pharmacy #[id number], 1 tablet By Mouth [...] opioid drug. Start Date: 05/03/21 Status: Ordered Vitamin B1 100 mg oral tablet 1, tablet, By Mouth, Daily, OFFICE VISIT NEEDED FOR FURTHER REFILLS, # 30 tablet, Refills 0, Tot. Refills 0, Maintenance, 06/30/20 6:51:00 EST, Route to Pharmacy Electronically, [facility]/pharmacy #[id number], 170.18, cm, 01/11/20 10:37:00 EDT, Height, 82.6, kg,... Start Date: 06/30/20 Status: Ordered Vitamin B6 50 mg oral tablet See Instructions, TAKE 1 TABLET BY MOUTH EVERY DAY, # 30 tablet, Refills 0, Acute, Instructions Replace Required Details, Route to Pharmacy Electronically, [facility], 170.18, cm, 01/11/20 10:37:00 EDT, Height, 82.6, [...]
--- OUTSIDE RECORDS SUMMARY | 2023-09-19 17:46 | XMS_ITS | Continuity of Care Document ---
Author Organization [facility] Tyrell Dillon Address [address] [place] [address]- Care Team Providers Care Supervisor Beehive Kiln Name Role Phone Tanya Chen NP Primary Care Physician [phone] Encounter [facility] Date(s): 08/11/19 - 08/18/19 [facility] Adult [address] [place] [address]- [place] Encounter Diagnosis Elevated LFTs(Discharge Diagnosis) - 08/11/19 Attending Physician: Tanya Chen NP Allergies, Adverse Reactions, Alerts Substance Reaction Severity Status NKA Active Immunizations Given and Recorded Vaccine Date Status Refusal Reason Influenza Virus Vaccine (oldterm) 04/29/19 Recorde d Medications Vitamin D 89376 iu oral capsule 50,000 International_Units, 1, capsule, By Mouth, Every week, # 13 capsule, Refills 1, Tot. Refills1, Maintenance, 07/17/19 10:13:00 EDT, Route to Pharmacy Electronically, [facility]/pharmacy #[id number], 171, cm, 07/15/19 13:04:00 EDT, Height Start Date: 07/17/19 Status: Ordered Zofran 4 mg oral tablet 1 tablet = 4 mg, By Mouth, Every 8 hours, PRN Nausea & Vomiting, # 12 tablet, 0 Refills, Maintenance, 08/11/19 8:51:00 EDT, Tablet, [facility]/pharmacy #[id number], 171, cm, 07/15/19 13:04:00 EDT, Height Start Date: 08/11/19 Status: Ordered Problem List Condition Effective Dates Status Health Status Inform ant Alcohol abuse(Confirmed) Active Depression(Confirmed) Active Hyperlipidemia(Confirmed) Active Enlarged prostate(Confirmed) Active Microscopic hematuria(Confirmed) Active Obesity(Confirmed) Active DENISE (obstructive sleep apnea)(Confirmed) Active Rosacea(Confirmed) Active Fatty liver(Confirmed) Active Vitamin D deficiency(Confirmed) Active Diagnosis Diagnosis Type Effective Dates Health Status Cl inical Service Informant Elevated LFTs Discharge Diagnosis 08/11/19 Social History Social History Type Response Smoking Status Former smoker, quit more than 30 days ago; Other: smoked socially; nothing regular; entered on: 07/15/19 Sex
--- OUTSIDE RECORDS SUMMARY | 2023-09-19 17:46 | XMS_ITS | Continuity of Care Document ---
Author Organization [facility] Dillon Address [address] [place] [address]- Care Team Providers Care Wafer Mounter Name Role Phone Gustavo FIRST CRUSHERTanya Primary Care Physician Encounter [facility] Date(s): 01/31/21 - 03/02/21 [facility] [address] [place] [address]- Attending Physician: Tania Bautista Admitting Physician: AdmTania rene Referring Physician: AdmtrTania Allergies, Adverse Reactions, Alerts Substance Reaction Severity Status NKA Active Immunizations Given and Recorded Vaccine Date Status Refusal Reason Hepatitis A Adult Vaccine 1 05/31/20 Given influenza virus vaccine, inactivated 01/11/20 Give n hepatitis B adult vaccine 10/14/19 Given hepatitis B adult vaccine 09/09/19 Given pneumococcal 23-valent vaccine 2 08/20/19 Given Influenza Virus Vaccine (oldterm) 04/29/19 Recorde d 1Result Comment: [facility]:[id number] 2Early/Late Reason: Med Not Available Medications ergocalciferol 75143 iu oral capsule 1, capsule, By Mouth, Every week, # 13 capsule, Refills 1, Tot. Refills 0, Maintenance, 06/28/20 12:51:00 EST, Route to Pharmacy Electronically, [facility], 170.18, cm, 01/11/20 10:37:00 EDT, Height, 82.6, kg, 09/24/19 8:19:00 EDT, Dry Weight Start Date: 06/28/20 Status: Ordered folic acid 1 mg oral tablet 1 mg, 1, tablet, By Mouth, Daily, # 30 tablet, Refills 5, Tot. Refills 5, Maintenance, 01/04/20 21:25:00 EDT, [id number] 170.18, cm, 10/20/19 9:53:00 EDT, Height, 82.6, kg, 09/24/19 8:19:00 EDT, Dry Weight Start Date: 01/04/20 Status: Ordered furosemide 20 mg oral tablet 20 mg, 1, tablet, By Mouth, Daily, # 30 tablet, Refills 11, Tot. Refills 11, Maintenance, 08/21/19 11:56:00 EDT, [id number], 170.18, cm, 08/21/19 4:27:00 EDT, Height, 91, kg, 08/19/19 4:32:00 EDT, Dry Weight Start Date: 08/21/19 Status: Ordered multivitamin with minerals Multiple Vitamins with Minerals oral tablet 1 tablet, By Mouth, Daily, # 90 tablet, 11 Refills, Maintenance, 09/14/20 13:32:00 EDT, [id number] 1 tablet By Mouth Daily, 170.18, cm, 01/11/20 10:37:00 EDT, Height, 82.6, kg, 09/24/19 8:19:00 EDT, Dry Weight Start Date: 09/14/20 Stop Date: 09/09/21 Status: Ordered spironolactone 25 mg oral tablet 25 mg, 1, tablet, By Mouth, Daily, Refills 0, Maintenance, 09/07/19 9:35:00 EDT Start Date: 09/07/19 Status: Ordered Vitamin B1 100 mg oral tablet 1, tablet, By Mouth, Daily, OFFICE VISIT NEEDED FOR FURTHER REFILLS, # 30 tablet, Refills 0, Tot. Refills 0, Maintenance, 06/30/20 6:51:00 EST, Route to Pharmacy Electronically, [facility]/pharmacy #[id number], 170.18, cm, 01/11/20 10:37:00 EDT, Height, 82.6, kg,... Start Date: 06/30/20 Status: Ordered Vitamin B6 50 mg oral tablet See Instructions, TAKE 1 TABLET BY MOUTH EVERY DAY, # 30 tablet, Refills 0, Acute, Instructions Replace Required Details, Route to Pharmacy Electronically, [facility] 31366, 170.18, cm, 01/11/20 10:37:00 EDT, Height, 82.6, [...]
--- OUTSIDE RECORDS SUMMARY | 2023-09-19 17:46 | XMS_ITS | Continuity of Care Document ---
Author Organization [facility] Tyrell Dillon Address [address] [place] [address]- Care Team Providers Care Outbound Supervisor Name Role Phone Gustavo PROCESS ENVIRONMENTAL TECHNICIANTanya Primary Care Physician [phone] [facility]counter [facility] Date[facility]): 05/13/20 - 06/12/20 [facility] [place], operated by [facility] Adult [address] [place] [address]- Allergies, Adverse Reactions, Alerts Substance Reaction Severity Status NKA Active Immunizations Given and Recorded Vaccine Date Status Refusal Reason Hepatitis A Adult Vaccine 1 05/31/20 Given influenza virus vaccine, inactivated 01/11/20 Give n hepatitis B adult vaccine 10/14/19 Given hepatitis B adult vaccine 09/09/19 Given pneumococcal 23-valent vaccine 2 08/20/19 Given Influenza Virus Vaccine (oldterm) 04/29/19 Maite luna 1Result Comment: [facility]:[id number] 2Early/Late Reason: Med Not Available Medications folic acid 1 mg oral tablet 1 mg, 1, tablet, By Mouth, Daily, # 30 tablet, Refills 5, Tot. Refills 5, Maintenance, 01/04/20 21:25:00 EDT, Route to Pharmacy Electronically, [facility]/pharmacy #[id number], 170.18, cm, 10/20/19 9:53:00 EDT, Height, 82.6, kg, 09/24/19 8:19:00 EDT, Dry Weight Start Date: 01/04/20 Status: Ordered furosemide 20 mg oral tablet 20 mg, 1, tablet, By Mouth, Daily, # 30 tablet, Refills 11, Tot. Refills 11, Maintenance, 08/21/19 11:56:00 EDT, Route to Pharmacy Electronically, [facility]/pharmacy #[id number], 170.18, cm, 08/21/19 4:27:00 EDT, Height, 91, kg, 08/19/19 4:32:00 EDT, Dry Weight Start Date: 08/21/19 Status: Ordered multivitamin with minerals Multiple Vitamins with Minerals oral tablet 1 tablet, By Mouth, Daily, # 30 tablet, 11 Refills, Maintenance, 09/20/19 13:32:00 EDT, Tablet, [facility]/pharmacy #[id number], 1 tablet By Mouth Daily,x30 days, 170, cm, 09/09/19 9:18:00 EDT, Height, 80.8, kg, 08/31/19 20:58:00 EDT, Dry Weight Start Date: 09/20/19 Stop Date: 09/14/20 Status: Ordered nadolol 20 mg oral tablet 20 mg, 1, tablet, By Mouth, Daily, # 30 tablet, Refills 5, Tot. Refills 5, Maintenance, 01/29/20 10:20:00 EDT, Route to Pharmacy Electronically, [facility]/pharmacy #[id number], 170.18, cm, 01/11/20 10:37:00 EDT,Height, 82.6, kg, 09/24/19 8:19:00 EDT, Dry Weight Start Date: 01/29/20 Stop Date: 07/27/20 Status: Ordered spironolactone 25 mg oral tablet 25 mg, 1, tablet, By Mouth, Daily, Refills 0, Maintenance, 09/07/19 9:35:00 EDT Start Date: 09/07/19 Status: Ordered Vitamin B1 100 mg oral tablet 1, tablet, By Mouth, Daily, # 30 tablet, Refills 5, Tot. Refills 0, Acute, 01/18/20 9:04:00 EDT, Route to Pharmacy Electronically, [facility] STORE [id number], 170.18, cm, 01/11/20 10:37:00 EDT, Height, 82.6, kg, 09/24/19 8:19:00 EDT, Dry Weight Start Date: 01/18/20 Status: Ordered Vitamin B6 50 mg oral tablet 1, tablet, By Mouth, Daily, # 90 tablet, Refills 0, Tot. Refills 0, Acute, 06/08/20 19:46:00 EST, Route to Pharmacy Electronically, [facility], 170.18, cm, 01/11/20 10:37:00 EDT, Height, 82.6, kg, 09/24/19 8:19:00 EDT, Dry Weight Start Date: 06/08/20 Status: Ordered Vitamin D 49282 iu oral capsule 50,000 International_Units, 1, capsule, By Mouth, Every week, # 13 capsule, Refills 1, Tot. Refills1, Maintenance, 01/05/20 8:42:00 EDT, Route to Pharmacy Electronically, [facility]/pharmacy #[id number], 170.18,cm, 10/20/19 9:53:00 EDT, Height, 82.6, kg, ... Start Date: 01/05/20 Status: Ordered Problem List Condition Effective Dates [...]
--- OUTSIDE RECORDS SUMMARY | 2023-09-19 17:46 | XMS_ITS | Continuity of Care Document ---
Author Organization [facility] Address [address] [place] [address]- Care Team Providers Care Machine Stuffer Name Role Phone Tanya Chen NP Primary Care Physician [place] [facility] [place](s): 10/02/19 - 01/30/20 [facility] [address] [place] [address]- [facility] Attending Physician: Aime Mendoza MD Admitting Physician: Aime Mendoza MD Referring Physician: Tanya Chen NP Allergies, Adverse Reactions, Alerts Substance Reaction Severity Status NKA Active Immunizations Given and Recorded Vaccine Date Status Refusal Reason influenza virus vaccine, inactivated 01/11/20 Give n hepatitis B adult vaccine 10/14/19 Given hepatitis B adult vaccine 09/09/19 Given pneumococcal 23-valent vaccine 1 08/20/19 Given Influenza Virus Vaccine (oldterm) 04/29/19 Recorde d 1Early/Late Reason: Med Not Available Medications folic acid 1 mg oral tablet 1 mg, 1, tablet, By Mouth, Daily, # 30 tablet, Refills 5, Tot. Refills 5, Maintenance, 01/04/20 21:25:00 EDT, Route to Pharmacy Electronically, [facility]/pharmacy #[id number], 170.18, cm, 10/20/19 9:53:00 EDT, Height, 82.6, kg, 09/24/19 8:19:00 EDT, Dry Weight Start Date: 01/04/20 Status: Ordered furosemide 20 mg oral tablet 20 mg, 1, tablet, By Mouth, Daily, # 30 tablet, Refills 11, Tot. Refills 11, Maintenance, 08/21/19 11:56:00 EDT, Route to Pharmacy Electronically, [facility]/pharmacy #[id number], 170.18, cm, 08/21/19 4:27:00 EDT, Height, 91, kg, 08/19/19 4:32:00 EDT, Dry Weight Start Date: 08/21/19 Status: Ordered multivitamin with minerals Multiple Vitamins with Minerals oral tablet 1 tablet, By Mouth, Daily, # 30 tablet, 11 Refills, Maintenance, 09/20/19 13:32:00 EDT, Tablet, [facility]/pharmacy #[id number], 1 tablet By Mouth Daily,x30 days, 170, cm, 09/09/19 9:18:00 EDT, Height, 80.8, kg, 08/31/19 20:58:00 EDT, Dry Weight Start Date: 09/20/19 Stop Date: 09/14/20 Status: Ordered nadolol 20 mg oral tablet 20 mg, 1, tablet, By Mouth, Daily, # 30 tablet, Refills 5, Tot. Refills 5, Maintenance, 01/29/20 10:20:00 EDT, Route to Pharmacy Electronically, [facility]/pharmacy #[id number], 170.18, cm, 01/11/20 10:37:00 EDT,Height, 82.6, [...] 01/18/20 9:04:00 EDT, Route to Pharmacy Electronically, [facility] STORE [id number], 170.18, cm, 01/11/20 10:37:00 EDT, Height, 82.6, kg, 09/24/19 8:19:00 EDT, Dry Weight Start Date: 01/18/20 Status: Ordered Vitamin B6 50 mg oral tablet 1, tablet, By Mouth, Daily, # 30 tablet, Refills 5, Tot. Refills 0, Acute, 01/18/20 9:04:00 EDT, Route to Pharmacy Electronically, [facility] STORE 26760, 170.18, cm, 01/11/20 10:37:00 EDT, Height, 82.6, kg, 09/24/19 8:19:00 EDT, Dry Weight Start Date: 01/18/20 Status: Ordered Vitamin D 34337 iu oral capsule 50,000 International_Units, 1, capsule, By Mouth, Every week, # 13 capsule, Refills 1, Tot. Refills1, Maintenance, 01/05/20 8:42:00 EDT, Route to Pharmacy Electronically, [facility]/pharmacy #[id number], 170.18,cm, 10/20/19 9:53:00 EDT, Height, 82.6, [...]
--- OUTSIDE RECORDS SUMMARY | 2023-09-19 17:46 | XMS_ITS | Continuity of Care Document ---
Author Organization [facility] Tyrell Dillon lt Address [address] [place] [address]- Care Team Providers Care Data Entry Machine Operator Name Role Phone Gustavo Tanya VASQUEZ Primary Care Physician [facility] Date[facility]s): 07/24/23 - 08/23/23 [facility], operated by [facility] [address] [place] [address]- Allergies, Adverse Reactions, Alerts No Known Allergies Immunizations Given and Recorded Vaccine Date Status Refusal Reason tetanus/diphtheria/pertussis, acel(Tdap) 06/17/23 Recorded tetanus/diphtheria/pertussis, acel(Tdap) 11/04/19 Recorded zoster vaccine, inactivated 03/08/23 Recorded zoster vaccine, inactivated 09/26/21 Recorded zoster vaccine, inactivated 07/25/21 Recorded pneumococcal 20-valent conjugate vaccine 1 03/07/23 Given hepatitis B adult vaccine 02/01/23 Recorded hepatitis B adult vaccine 07/11/21 Recorded hepatitis B adult vaccine 12/30/20 Recorded hepatitis B adult vaccine 10/14/19 Given hepatitis B adult vaccine 09/09/19 Given SARS-CoV-2(COVID-19)mRNA-LNP vac([id number]) 02/01/23 Recorded influenza virus vaccine, inactivated 12/21/22 Flavio rded influenza virus vaccine, inactivated 01/23/22 Flavio rded influenza virus vaccine, inactivated 01/11/20 Give n [id number] 12y+ bivalent booster vax 01/23/22 Recorded SARS-CoV-2 mRNA ([id number]) vax 05/24/21 Recorded pneumococcal 13-valent vaccine 12/30/20 Recorded SARS-CoV-2 (COVID-19) mRNA BNT-162b2 vac 08/27/20 Recorded SARS-CoV-2 (COVID-19) mRNA BNT-162b2 vac 08/06/20 Recorded Hepatitis A Adult Vaccine 2 05/31/20 Given Hepatitis A Adult Vaccine 11/04/19 Recorded Measles/Mumps/Rubella Virus Vaccine 11/06/19 Recor ded pneumococcal 23-valent vaccine 3 08/20/19 Given Influenza Virus Vaccine (oldterm) 04/29/19 Recorde d 1Result Comment: [id number] 2Result Comment: [facility]:[id number] 3Early/Late Reason: Med Not Available Medications acamprosate 333 mg oral delayed release tablet 0 Refills, Maintenance, 07/19/23 13:46:00 EDT, Partial fill upon patient request if the prescription is for a schedule II opioid drug. Start Date: 07/19/23 Status: Ordered carvedilol 3.125 mg oral tablet Refills 0, Maintenance, 07/24/23 20:30:00 EDT, Partial fill upon patient request if the prescription is for a schedule II opioid drug. Start Date: 07/24/23 Status: Ordered folic acid 0.8 mg oral tablet 1 tablet = 0.8 mg, By Mouth, Daily, # 30 tablet, 5 Refills, Maintenance, 07/23/23 12:54:00 EDT, Tablet, [facility]/pharmacy #[id number], 168, cm, 07/22/23 11:32:00 EDT, Height, 79.5, kg, 07/22/23 11:32:00 EDT, Dry Weight Start Date: 07/23/23 Status: Ordered Melatonin 10 mg oral tablet 1 tablet = 10 mg, By Mouth, Daily at bedtime, for 30 days, # 30 tablet, 5 Refills, Acute 01/19/24 12:53:00 EDT, 07/23/23 12:53:00 EDT, Tablet, [facility]/pharmacy #[id number], 168, cm, 07/22/23 11:32:00 EDT, Height, 79.5, kg, 07/22/23 11:32:00 EDT, Dry Weight Start Date: 07/23/23 Stop Date: 01/19/24 Status: Ordered pantoprazole 40 mg oral delayed release tablet 1 tablet = 40 mg, By Mouth, Daily, # 30 tablet, 0 Refills, Maintenance, 07/22/23 13:02:00 EDT, EC Tablet, 168, cm, 07/22/23 11:32:00 EDT, Height, 79.5, kg, 07/22/23 11:32:00 EDT, Dry Weight Start Date: 07/22/23 Status: Ordered Vitamin C By Mouth, Daily, 0 Refills, Maintenance, 07/19/23 13:53:00 EDT, Partial fill upon patient request if the prescription is for a schedule II opioid drug. Start Date: 07/19/23 Status: Ordered Problem List Condition Confirmation Course Effective Dates Status H ealth Status Informant Alcohol abuse Confirmed Active Cholelithiasis Confirmed Active Cirrhosis of liver Confirmed Active Depression Confirmed Active Esophageal varices Confirmed Active H/O acute alcoholic hepatitis 2019 bili >20 did not respond to steroids Confirmed Active Hyperlipidemia Confirmed Active Enlarged prostate Confirmed Active Microscopic hematuria Confirmed Active DENISE (obstructive sleep apnea) Confirmed Active Portal hypertension Confirmed Active PVT (portal vein thrombosis) Confirmed Active Rosacea Confirmed Active Cerebrovascular small vessel disease Confirmed Active Subclinical hypothyroidism Confirmed Active Tubular adenoma of colon 1 Confirmed 10/22/19 Active Vitamin D deficiency Confirmed Active 1repeat screening colonoscopy in 2026 Social History Social History Type Response Smoking Status Former smoker, quit more than 30 days ago; Other: smoked socially; nothing regular; entered on: 07/15/19 Sex Patient Care team information Care Team Personnel Name: Gloria Stringer RN Position: [facility] RN Member Role: Primary Care Nurse Name: Tanya Chen NP Position: [facility] PCO Associate Professional Member Role: PCP Address: Address: [address] [place] [id number] Name: Coby Fernández RN Position: [facility] RN Member Role: Primary Care Nurse Name: Denia Batista Position: [facility] Outreach Member Role: Lifetime Consulting Physician Name: Helena Kumar RN Position: [facility] RN Member Role: Primary Care Nurse Name: Shanel Funk RN Position: [facility] RN Member Role: Primary Care Nurse Name: Clau Daniel RN Position: [facility] AMB Nurse Member Role: Primary Care Nurse Name: Merry Moreau RN Position: [facility] Outreach Member Role: Primary Care Nurse Name: Hayder Haile MD Position: [facility] Renal MD Member Role: Lifetime Consulting Physician Address: Address: [address] [place] [address] [facility] [place] [address]- Care Team Related Persons Name: ANTONIO TUCKER Address: home [address] [place] [address] Name: JAGRUTI TUCKER Address: [address] [address]
--- OUTSIDE RECORDS SUMMARY | 2023-09-19 17:46 | XMS_ITS | Continuity of Care Document ---
Author Organization [facility] Tyrell Dillon Address [address] [place] [address]- Care Team Providers Care Legal Collector Name Role Phone Gustavo Tanya VASQUEZ Primary Care Physician [facility] Date[facility]s): 01/04/20 - 02/03/20 [facility] Adult [address] [place] [address]- [facility] Allergies, Adverse Reactions, Alerts Substance Reaction Severity [...] 01/04/20 21:25:00 EDT, Route to Pharmacy Electronically, [facility]/pharmacy #[id number], 170.18, cm, 10/20/19 9:53:00 EDT, Height, 82.6, kg, 09/24/19 8:19:00 EDT, Dry Weight Start Date: 01/04/20 Status: Ordered furosemide 20 mg oral tablet 20 mg, 1, tablet, By Mouth, Daily, # 30 tablet, Refills 11, Tot. Refills 11, Maintenance, 08/21/19 11:56:00 EDT, Route to Pharmacy Electronically, [facility]/pharmacy #[id number], 170.18, cm, 08/21/19 4:27:00 EDT, Height, 91, kg, 08/19/19 4:32:00 EDT, Dry Weight Start Date: 08/21/19 Status: Ordered multivitamin with minerals Multiple Vitamins with Minerals oral tablet 1 tablet, By Mouth, Daily, # 30 tablet, 11 Refills, Maintenance, 09/20/19 13:32:00 EDT, Tablet, [facility]/pharmacy #[id number], 1 tablet By Mouth Daily,x30 days, 170, cm, 09/09/19 9:18:00 EDT, Height, 80.8, kg, 08/31/19 20:58:00 EDT, Dry Weight Start Date: 09/20/19 Stop Date: 09/14/20 Status: Ordered nadolol 20 mg oral tablet 20 mg, 1, tablet, By Mouth, Daily, # 30 tablet, Refills 5, Tot. Refills 5, Maintenance, 01/29/20 10:20:00 EDT, Route to Pharmacy Electronically, [facility]/pharmacy #[id number], 170.18, cm, 01/11/20 10:37:00 EDT,Height, 82.6, [...] 01/18/20 9:04:00 EDT, Route to Pharmacy Electronically, [facility], 170.18, cm, 01/11/20 10:37:00 EDT, Height, 82.6, kg, 09/24/19 8:19:00 EDT, Dry Weight Start Date: 01/18/20 Status: Ordered Vitamin B6 50 mg oral tablet 1, tablet, By Mouth, Daily, # 30 tablet, Refills 5, Tot. Refills 0, Acute, 01/18/20 9:04:00 EDT, Route to Pharmacy Electronically, [facility] STORE 52814, 170.18, cm, 01/11/20 10:37:00 EDT, Height, 82.6, kg, 09/24/19 8:19:00 EDT, Dry Weight Start Date: 01/18/20 Status: Ordered Vitamin D 15566 iu oral capsule 50,000 International_Units, 1, capsule, By Mouth, Every week, # 13 capsule, Refills 1, Tot. Refills1, Maintenance, 01/05/20 8:42:00 EDT, Route to Pharmacy Electronically, [facility]/pharmacy #[id number], 170.18,cm, 10/20/19 9:53:00 EDT, Height, 82.6, [...]
--- OUTSIDE RECORDS SUMMARY | 2023-09-19 17:46 | XMS_ITS | Continuity of Care Document ---
Author Organization [facility] Jori Santillan Dillon lt Address [address] [place] [address]- Care Team Providers Care Screwhead Polisher Name Role Phone Gustavo HOSE TESTERTanya Primary Care Physician [facility] Date[facility]): 05/20/23 - 06/19/23 [facility] Jori Malinley Adult [address] [place] [address]- Allergies, Adverse Reactions, Alerts No Known Allergies [...] hepatitis B adult vaccine 09/09/19 Given SARS-CoV-2(COVID-19)mRNA-LNP vac([id number]) 02/01/23 Recorded influenza virus vaccine, inactivated 12/21/22 Flavio rded influenza virus vaccine, inactivated 01/23/22 Flavio rded influenza virus vaccine, inactivated 01/11/20 Give n [id number] 12y+ bivalent booster vax 01/23/22 Recorded SARS-CoV-2 mRNA ([id number]) vax 05/24/21 Recorded pneumococcal 13-valent vaccine 12/30/20 Recorded SARS-CoV-2 (COVID-19) mRNA BNT-162b2 vac 08/27/20 Recorded SARS-CoV-2 (COVID-19) mRNA BNT-162b2 vac 08/06/20 Recorded Hepatitis A Adult Vaccine 2 2/9/21 Given Hepatitis A Adult Vaccine 11/04/19 Recorded Measles/Mumps/Rubella Virus Vaccine 11/06/19 Recor ded tetanus/diphtheria/pertussis, acel(Tdap) 11/04/19 Recorded pneumococcal 23-valent vaccine 3 08/20/19 Given Influenza Virus Vaccine (oldterm) 04/29/19 Recorde d 1Result Comment: [id number] 2Result Comment: [facility]:[id number] 3Early/Late Reason: Med Not Available Medications cephalexin [...] Team Personnel Name: Gloria Stringer RN Position: [facility] RN Member Role: Primary Care Nurse Name: Tanya Chen NP Position: [facility] PCO Associate Professional Member Role: PCP Address: Address: [address] [place] [address]- Name: Coby Fernández RN Position: [facility] RN Member Role: Primary Care Nurse Name: Denia Batista Position: [facility] Outreach Member Role: Lifetime Consulting Physician Name: Helena Kumar RN Position: [facility] RN Member Role: Primary Care Nurse Name: Shanel Funk RN Position: [facility] RN Member Role: Primary Care Nurse Name: Clau aDniel RN Position: [facility] SN RN Member Role: Primary Care Nurse Name: Merry Moreau RN Position: [facility] Outreach Member Role: Primary Care Nurse Name: Hayder Haile MD Position: [facility] Renal MD Member Role: Lifetime Consulting Physician Address: Address: [address] [place] [address] [facility] [place] [address]- Care Team Related Persons Name: ANTONIO TUCKER Address: [address] [place] [address] Name: JAGRUTI TUCKER Address: [address] [address]
--- OUTSIDE RECORDS SUMMARY | 2023-09-19 17:46 | XMS_ITS | Continuity of Care Document ---
Author Organization [facility] Tyrell Dillon Address [address] [place] [address]- Care Team Providers Care Parking Enforcer Name Role Phone Tanya Chen NP Primary Care Physician Encounter [facility] Date(s): 08/25/19 - 09/25/19 [facility] Adult [address] [place] [address]- [facility] Attending Physician: Tanya Chen NP Allergies, Adverse Reactions, Alerts Substance Reaction Severity Status NKA Active Immunizations Given and Recorded Vaccine Date Status Refusal Reason hepatitis B adult vaccine 09/09/19 Given pneumococcal 23-valent vaccine 1 08/20/19 Given Influenza Virus Vaccine (oldterm) 04/29/19 Recorde d 1Early/Late Reason: Med Not Available Medications enoxaparin 120 mg/0.8 mL injectable solution 0.8 mL = 120 mg, Subcutaneous Injection, Every 24 hours, for 30 days, # 24 mL, 3 Refills, Acute 02/04/20 9:35:00 EDT, 10/07/19 9:35:00 EDT, Injection, [facility]/pharmacy #[id number], 170, cm, 09/09/19 9:18:00 EDT, Height, 80.8, kg, 08/31/19 20:58:00 EDT, Dry Weight Start Date: 10/07/19 Stop Date: 02/04/20 Status: Ordered enoxaparin 120 mg/0.8 mL injectable solution 0.8 mL = 120 mg, Subcutaneous Injection, Every 24 hours, for 30 days, # 24 mL, 0 Refills, Acute 10/07/19 9:35:00 EDT, 09/07/19 9:35:00 EDT, Injection, [facility], 170, cm, 09/07/19 7:36:00 EDT, Height, 80.8, kg, 08/31/19 20:58:00 EDT, . Start Date: 09/07/19 Stop Date: 10/07/19 Status: Ordered folic acid 1 mg oral tablet 1 mg, 1, tablet, By Mouth, Daily, # 30 tablet, Refills 3, Tot. Refills 3, Maintenance, 09/16/19 20:47:00 EDT, Route to Pharmacy Electronically, [facility]/pharmacy #[id number], 170, cm, 09/09/19 9:18:00 EDT, Height, [...] Dry Weight Start Date: 08/21/19 Status: Ordered lactulose 10 gm/15 ml oral syrup 30 mL = 20 Gm, By Mouth, 3 times a day, for 30 days, # 2,700 mL, 0 Refills, Acute 10/07/19 9:36:00 EDT, 09/07/19 9:36:00 EDT, Syrup, [facility], 30 mL By Mouth 3 times a day,x30 days, 170, cm, 09/07/19 7:36:00 EDT, Height, 80.8, kg, 08/20... Start Date: 09/07/19 Stop Date: 10/07/19 Status: Ordered midodrine 10 mg oral tablet 1 tablet = 10 mg, By Mouth, 3 times a day, # 90 tablet, 3 Refills, Maintenance, 09/16/19 20:47:00 EDT, Tablet, [facility]/pharmacy #[id number], 170, cm, 09/09/19 9:18:00 EDT, Height, [...] 09/16/19 20:47:00 EDT, Route to Pharmacy Electronically, [facility]/pharmacy #[id number], 170, cm, 09/09/19 9:18:00 EDT, Height, [...] 09/20/19 13:32:00 EDT, Route to Pharmacy Electronically, [facility]/pharmacy #[id number], 170, cm, 09/09/19 9:18:00 EDT, Height, [...] 09/16/19 20:47:00 EDT, Route to Pharmacy Electronically, [facility]/pharmacy #[id number], 170, cm, 09/09/19 9:18:00 EDT, Height, 80.8, kg, 08/31/19 20:58:00 EDT, Dry Weight Start Date: 09/16/19 Status: Ordered Vitamin D 60052 iu oral capsule 50,000 International_Units, 1, capsule, By Mouth, Every week, # 13 capsule, Refills 1, Tot. Refills1, Maintenance, 07/17/19 10:13:00 EDT, Route to Pharmacy Electronically, [facility]/pharmacy #[id number], 171, cm, 07/15/19 13:04:00 EDT, Height [...] thrombosis)(Confirmed) Active Rosacea(Confirmed) Active Subclinical hypothyroidism(Confirmed) Active Vitamin D deficiency(Confirmed) Active Social History Social History Type Response Smoking Status Former smoker, quit more than 30 days ago; Other: smoked socially; nothing regular; entered on: 07/15/19 Sex
--- OUTSIDE RECORDS SUMMARY | 2023-09-19 17:46 | XMS_ITS | Continuity of Care Document ---
Author Organization [facility] ter Address [address] [place] [address]- Care Team Providers Care Road Sign Installer Name Role Phone Gustavo Tanya VASQUEZ Primary Care Physician [phone] Encounter [facility] [place] [place] Date(s): 05/03/23 - 05/04/[address] [address]- Discharge Disposition: A-D/C Walkout Attending Physician: Not on Staff, Attending MD Admitting Physician: Not on Staff, Admitting MD Referring Physician: Not on Staff, Referring MD Allergies, Adverse Reactions, Alerts No Known [...] hepatitis B adult vaccine 09/09/19 Given SARS-CoV-2(COVID-19)mRNA-LNP vac([id number]) 02/01/23 Recorded influenza virus vaccine, inactivated 12/21/22 Flavio rded influenza virus vaccine, inactivated 01/23/22 Flavio rded influenza virus vaccine, inactivated 01/11/20 Give n [id number] 12y+ bivalent booster vax 01/23/22 Recorded SARS-CoV-2 mRNA (ezdrdio-jyxp-izzlq) vax 05/24/21 Recorded pneumococcal 13-valent vaccine 12/30/20 Recorded SARS-CoV-2 (COVID-19) mRNA BNT-162b2 vac 08/27/20 Recorded SARS-CoV-2 (COVID-19) mRNA BNT-162b2 vac 08/06/20 Recorded Hepatitis A Adult Vaccine 2 05/31/20 Given Hepatitis A Adult Vaccine 11/04/19 Recorded Measles/Mumps/Rubella Virus Vaccine 11/06/19 Recor ded tetanus/diphtheria/pertussis, acel(Tdap) 11/04/19 Recorded pneumococcal 23-valent vaccine 3 08/20/19 Given Influenza Virus Vaccine (oldterm) 04/29/19 Recorde d 1Result Comment: [id number] 2Result Comment: [facility] [place]:[id number] 3Early/Late Reason: Med Not Available Medications cephalexin monohydrate 500 mg oral capsule 21 each, 0 Refill(s), TAKE 1 CAPSULE BY MOUTH 3 TIMES A DAY FOR 7 DAYS, TAKE WITH FOOD, 0 Refills, 04/29/23 23:41:00 EST, Partial fill upon patient request if the prescription is for a schedule II opioid drug. Start Date: 04/29/23 Status: Ordered Problem List Condition Confirmation Course [...] Confirmed Active 1repeat screening colonoscopy in 2026 Vital Signs Most recent to oldest [Reference Range]: 1 2 Height 171 cm (05/03/23 6:36 PM) 171 cm (05/03/23 5:45 PM) Weight 82 kg (05/03/23 6:36 PM) 82 kg (05/03/23 5:45 PM) Oxygen Saturation [94-100 %] 100 % (05/04/23 12:11 AM) 99 % (05/03/23 5:45 PM) Pulse Rate [55-90 bpm] 136 bpm *H* (05/04/23 12:11 AM) 146 bpm *H* (05/03/23 5:45 PM) Body Mass Index [18.5-24.99 kg/m2] 28.04 kg/m2 *H* (05/03/23 5:45 PM) Blood Pressure [90-138/55-84 mm Hg] 125/ 80mm Hg (05/04/23 12:11 AM) 115/84mm Hg (05/03/23 5:45 PM) Respiratory Rate [16-30 br/min] 18 br/mi n (05/03/23 5:45 PM) Temperature [96.8-100.4 DegF] 98.1 DegF (05/04/23 12:11 AM) 98.0 DegF (05/03/23 5:45 PM) Mode of Delivery (Oxygen) Room air (05/03/23 5:45 PM) Blood pressure sites Arm, left (05/04/23 12:11 AM) Arm, right (05/03/23 5:45 PM) Temperature Route Oral (05/04/23 12:11 AM) Oral (05/03/23 5:45 PM) Dry Weight 82 kg (05/03/23 6:36 PM) 82 kg (05/03/23 5:45 PM) Weight Obtained Via Patient/family state d (05/03/23 5:45 PM) Dry Weight Obtained Via Patient/family s tated (05/03/23 5:45 PM) Social History Social History Type Response Smoking Status Former smoker, quit more than 30 days ago; Other: smoked socially; nothing regular; entered on: 07/15/19 Sex EKG study * Event Display: EKG Authored Date: * Event Display: ECG 12-Lead Authored Date: Please click on pdf link to open report * Event Display: ECG 12-Lead Authored Date: Ventricular Rate: 144 BPM Atrial Rate: 144 BPM P-R Interval: 122 ms QRS Duration: 74 ms Q-T Interval: 312 ms QTC Calculation(Bazett): 483 ms P [place]: 43 degrees R [place]: 34 degrees T [place]: 58 degrees Sinus tachycardia Otherwise normal ECG When compared with ECG of 18-AUG-2019 14:21, No significant change was found Confirmed by VIANEY PFEIFFER MD ([id number]) on 05/04/2023 1:11:40 PM [place]: VIANEY PFEIFFER MD Patient Care team information Care Team Personnel Name: Gloria Stringer RN Position: [facility] RN Member Role: Primary Care Nurse Name: Tanya Chen NP Position: [facility] PCO Associate Professional Member Role: PCP Address: Address: [address] [place] [id number]- [place] Name: Pradeep COREA, Coby Position: [facility] RN Member Role: Primary Care Nurse Name: Denia Batista Position: [facility] Outreach Member Role: Lifetime Consulting Physician Name: Helena Kumar RN Position: [facility] RN Member Role: Primary Care Nurse Name: Shanel Funk RN Position: [facility] RN Member Role: Primary Care Nurse Name: Clau Daniel RN Position: [facility] SN RN Member Role: Primary Care Nurse Name: Merry Moreau RN Position: [facility] Outreach Member Role: Primary Care Nurse Name: Hayder Haile MD Position: [facility] Renal MD Member Role: Lifetime Consulting Physician Address: Address: [address] [place] [address] [facility] [place] [address]- Care Team Related Persons Name: ANTONIO TUCKER Address: home [address] [place] [address] Name: JAGRUTI TUCKER Address: [address] [address]
--- OUTSIDE RECORDS SUMMARY | 2023-09-19 17:46 | XMS_ITS | Continuity of Care Document ---
Author Organization [facility] Tyrell Dillon Address [address] [place] [address]- Care Team Providers Care Fudger Name Role Phone Gustavo HEEL FORMERTanya Primary Care Physician Encounter [facility] Date(s): 07/12/21 - 08/11/21 [facility] [address] [place] [address]- Allergies, Adverse Reactions, Alerts No Known Allergies Immunizations Given and Recorded Vaccine Date Status Refusal Reason zoster vaccine, inactivated 07/25/21 Recorded hepatitis B adult vaccine 07/11/21 Recorded hepatitis B adult vaccine 12/30/20 Recorded hepatitis B adult vaccine 10/14/19 Given hepatitis B adult vaccine 09/09/19 Given SARS-CoV-2 mRNA (doqujfu-okow-ueuve) vax 05/24/21 Recorded pneumococcal 13-valent vaccine 12/30/20 [...] Vaccine (oldterm) 04/29/19 Recorde d 1Result Comment: [facility]:[id number] 2Early/Late Reason: Med Not Available Medications ergocalciferol 52454 iu oral capsule 1, capsule, By Mouth, Every week, # 13 capsule, Refills 1, Tot. Refills 0, Maintenance, 06/28/20 12:51:00 EST, Route to Pharmacy Electronically, [id number], 170.18, cm, 01/11/20 10:37:00 EDT, Height, 82.6, kg, 09/24/19 8:19:00 EDT, Dry Weight Start Date: 06/28/20 Status: Ordered multivitamin with minerals Multiple Vitamins with Minerals oral tablet 1 tablet, By Mouth, Daily, # 90 tablet, 11 Refills, Maintenance, 09/14/20 13:32:00 EDT, Tablet, [facility]/pharmacy #[id number], 1 tablet By Mouth Daily, 170.18, [...] 06/30/20 6:51:00 EST, Route to Pharmacy Electronically, [facility]/pharmacy #[id number], 170.18, cm, 01/11/20 10:37:00 EDT, Height, 82.6, kg,... Start Date: 06/30/20 Status: Ordered Vitamin B6 50 mg oral tablet See Instructions, TAKE 1 TABLET BY MOUTH EVERY DAY, # 30 tablet, Refills 0, Acute, Instructions Replace Required Details, Route to Pharmacy Electronically, [id number], 170.18, cm, 01/11/20 10:37:00 EDT, Height, 82.6, [...]
--- OUTSIDE RECORDS SUMMARY | 2023-09-19 17:46 | XMS_ITS | Continuity of Care Document ---
Author Organization [facility] Jori Santillan Dillon lt Address [address] [place] [address]- Care Team Providers Care Clinical Trials Nurse Name Role Phone Tanya Chen NP Primary Care Physician Encounter [facility] Date(s): 04/23/23 - 05/25/23 [facility] Jori Santillan Adult [address] [place] [address]- Attending Physician: Tanya Chen NP Allergies, Adverse Reactions, Alerts No Known Allergies [...] hepatitis B adult vaccine 09/09/19 Given SARS-CoV-2(COVID-19)mRNA-LNP vac([id number]) 02/01/23 Recorded influenza virus vaccine, inactivated 12/21/22 Flavio rded influenza virus vaccine, inactivated 01/23/22 Flavio rded influenza virus vaccine, inactivated 01/11/20 Give n [id number] 12y+ bivalent booster vax 01/23/22 Recorded SARS-CoV-2 mRNA (isdwlml-xark-vwdyf) vax 05/24/21 Recorded pneumococcal 13-valent vaccine 12/30/20 Recorded SARS-CoV-2 (COVID-19) mRNA BNT-162b2 vac 08/27/20 Recorded SARS-CoV-2 (COVID-19) mRNA BNT-162b2 vac 08/06/20 Recorded Hepatitis A Adult Vaccine 2 05/31/20 Given Hepatitis A Adult Vaccine 11/04/19 Recorded Measles/Mumps/Rubella Virus Vaccine 11/06/19 Recor ded tetanus/diphtheria/pertussis, acel(Tdap) 11/04/19 Recorded pneumococcal 23-valent vaccine 3 08/20/19 Given Influenza Virus Vaccine (oldterm) 04/29/19 Recorde d 1Result Comment: [id number] 2Result Comment: [facility]:[id number] 3Early/Late Reason: Med Not Available Medications cephalexin [...] Team Personnel Name: Gloria Stringer RN Position: [facility] RN Member Role: Primary Care Nurse Name: Tanya Chen NP Position: [facility] PCO Associate Professional Member Role: PCP Address: Address: [address] [place] [id number]- [place] Name: Coby Fernández RN Position: [facility] RN Member Role: Primary Care Nurse Name: Denia Batista Position: [facility] Outreach Member Role: Lifetime Consulting Physician Name: Helena Kumar RN Position: [facility] RN Member Role: Primary Care Nurse Name: Shanel Funk RN Position: [facility] RN Member Role: Primary Care Nurse Name: Clau Daniel RN Position: [facility] SN RN Member Role: Primary Care Nurse Name: Merry Moreau RN Position: [facility] Outreach Member Role: Primary Care Nurse Name: Hayder Haile MD Position: [facility] Renal MD Member Role: Lifetime Consulting Physician Address: Address: [address] [place] [address] [facility] [place] [address]- Care Team Related Persons Name: ANTONIO TUCKER Address: home [address] [place] [address] Name: JAGRUTI TUCKER Address: [address] [address]
--- OUTSIDE RECORDS SUMMARY | 2023-09-19 17:46 | XMS_ITS | Continuity of Care Document ---
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 Name Role Phone Tanya Chen NP Primary Care Physician [phone] Encounter [facility] [place] Date(s): 01/11/20 - 01/18/20 [facility] Adult [address] [place] [address]- [facility] Encounter Diagnosis Cirrhosis of liver(Discharge Diagnosis) - 01/11/20 H/O alcohol abuse(Discharge Diagnosis) - 01/11/20 Subclinical hypothyroidism(Discharge Diagnosis) - 01/11/20 PVT (portal vein thrombosis)(Discharge Diagnosis) - 01/11/20 Vitamin D deficiency(Discharge Diagnosis) - 01/11/20 Tubular adenoma of colon(Discharge Diagnosis) - 01/11/20 Portal hypertension(Discharge Diagnosis) - 01/11/20 Macrocytic anemia(Discharge Diagnosis) - 01/11/20 Depression(Discharge Diagnosis) - 01/11/20 Esophageal varices(Discharge Diagnosis) - 01/11/20 Attending Physician: Tanya Chen NP Referring Physician: Vipul Pike MD Allergies, Adverse Reactions, Alerts Substance Reaction Severity [...] 01/04/20 21:25:00 EDT, Route to Pharmacy Electronically, [facility]/pharmacy #[id number], 170.18, cm, 10/20/19 9:53:00 EDT, Height, 82.6, kg, 09/24/19 8:19:00 EDT, Dry Weight Start Date: 01/04/20 Status: Ordered furosemide 20 mg oral tablet 20 mg, 1, tablet, By Mouth, Daily, # 30 tablet, Refills 11, Tot. Refills 11, Maintenance, 08/21/19 11:56:00 EDT, Route to Pharmacy Electronically, [facility]/pharmacy #[id number], 170.18, cm, 08/21/19 4:27:00 EDT, Height, 91, kg, 08/19/19 4:32:00 EDT, Dry Weight Start Date: 08/21/19 Status: Ordered multivitamin with minerals Multiple Vitamins with Minerals oral tablet 1 tablet, By Mouth, Daily, # 30 tablet, 11 Refills, Maintenance, 09/20/19 13:32:00 EDT, Tablet, [facility]/pharmacy #[id number], 1 tablet By Mouth Daily,x30 days, 170, cm, 09/09/19 9:18:00 EDT, Height, 80.8, kg, 08/31/19 20:58:00 EDT, Dry Weight Start Date: 09/20/19 Stop Date: 09/14/20 Status: Ordered nadolol 20 mg oral tablet 20 mg, 1, tablet, By Mouth, Daily, # 30 tablet, Refills 3, Tot. Refills 3, Maintenance, 09/16/19 20:47:00 EDT, Route to Pharmacy Electronically, [facility]/pharmacy #[id number], 170, cm, 09/09/19 9:18:00 EDT, Height, 80.8, kg, 08/31/19 20:58:00 EDT, Dry Weight Start Date: 09/16/19 Status: Ordered spironolactone 25 mg oral tablet 25 mg, 1, tablet, By Mouth, Daily, Refills 0, Maintenance, 09/07/19 9:35:00 EDT Start Date: 09/07/19 Status: Ordered Vitamin B1 100 mg oral tablet 1, tablet, By Mouth, Daily, # 30 tablet, Refills 5, Tot. Refills 0, Acute, 01/18/20 9:04:00 EDT, Route to Pharmacy Electronically, [facility], 170.18, cm, 01/11/20 10:37:00 EDT, Height, 82.6, kg, 09/24/19 8:19:00 EDT, Dry Weight Start Date: 01/18/20 Status: Ordered Vitamin B6 50 mg oral tablet 1, tablet, By Mouth, Daily, # 30 tablet, Refills 5, Tot. Refills 0, Acute, 01/18/20 9:04:00 EDT, Route to Pharmacy Electronically, [id number], 170.18, cm, 01/11/20 10:37:00 EDT, Height, 82.6, kg, 09/24/19 8:19:00 EDT, Dry Weight Start Date: 01/18/20 Status: Ordered Vitamin D 91508 iu oral capsule 50,000 International_Units, 1, capsule, By Mouth, Every week, # 13 capsule, Refills 1, Tot. Refills1, Maintenance, 01/05/20 8:42:00 EDT, Route to Pharmacy Electronically, [facility]/pharmacy #[id number], 170.18,cm, 10/20/19 9:53:00 EDT, Height, [...] Diagnosis Diagnosis Type Effective Dates Health Status Clinical Service Informant Cirrhosis of liver Discharge Diagnosis 01/11/20 H/O alcohol abuse Discharge Diagnosis 01/11/20 Esophageal varices Discharge Diagnosis 01/11/20 Depression Discharge Diagnosis 01/11/20 Macrocytic anemia Discharge Diagnosis 01/11/20 Portal hypertension Discharge Diagnosis 01/11/20 Vitamin D deficiency Discharge Diagnosis 01/11/20 PVT (portal vein thrombosis) Discharge Diagnosis 01/11/20 Tubular adenoma of colon Discharge Diagnosis 01/11/20 Subclinical hypothyroidism Discharge Diagnosis 01/11/20 Vital Signs Most recent to oldest [Reference Range]: 1 Height 170.18 cm (01/11/20 10:37 AM) Weight 74.8 kg (01/11/20 10:37 AM) Oxygen Saturation [94-100 %] 99 % (01/11/20 10:37 AM) Pulse Rate [55-90 bpm] 72 bpm (01/11/20 10:37 AM) Body Mass Index [18.5-24.99] 25.83 *H* (01/11/20 10:37 AM) Blood Pressure [90-138/55-84 mm Hg] 90/4 8mm Hg (01/11/20 10:37 AM) Temperature [96.8-100.4 DegF] 97.5 DegF (01/11/20 10:37 AM) Mode of Delivery (Oxygen) Room air (01/11/20 10:37 AM) Blood pressure sites Arm, right (01/11/20 10:37 AM) Temperature Route Oral (01/11/20 10:37 AM) Weight Obtained Via Standing scale (01/11/20 10:37 AM) Social History Social History Type Response Smoking Status Former smoker, quit more than 30 days ago; Other: smoked socially; nothing regular; entered on: 07/15/19 Sex
--- OUTSIDE RECORDS SUMMARY | 2023-09-19 17:46 | XMS_ITS | Continuity of Care Document ---
Author Organization [facility] Address [address] [place] [address]- Care Team Providers Care Table Keeper Name Role Phone Gustavo Tanya VASQUEZ Primary Care Physician Encounter [facility] [place] Date(s): 08/29/20 - 09/28/20 [facility] [address] [place] [address]- Allergies, Adverse Reactions, Alerts Substance Reaction Severity Status NKA Active Immunizations Given and Recorded Vaccine Date Status Refusal Reason Hepatitis A Adult Vaccine 1 05/31/20 Given influenza virus vaccine, inactivated 01/11/20 Give n hepatitis B adult vaccine 10/14/19 Given hepatitis B adult vaccine 09/09/19 Given pneumococcal 23-valent vaccine 2 08/20/19 Given Influenza Virus Vaccine (oldterm) 04/29/19 Carlinee jeremy 1Result Comment: [facility]:[id number] 2Early/Late Reason: Med Not Available Medications ergocalciferol 76052 iu oral capsule 1, capsule, By Mouth, Every week, # 13 capsule, Refills 1, Tot. Refills 0, Maintenance, 06/28/20 12:51:00 EST, Route to Pharmacy Electronically, [id number], 170.18, cm, 01/11/20 10:37:00 EDT, Height, 82.6, kg, 09/24/19 8:19:00 EDT, Dry Weight Start Date: 06/28/20 Status: Ordered folic acid 1 mg oral tablet 1 mg, 1, tablet, By Mouth, Daily, # 30 tablet, Refills 5, Tot. Refills 5, Maintenance, 01/04/20 21:25:00 EDT, Route to Pharmacy Electronically, [facility]/pharmacy #[id number], 170.18, cm, 10/20/19 9:53:00 EDT, Height, 82.6, kg, 09/24/19 8:19:00 EDT, Dry Weight Start Date: 01/04/20 Status: Ordered furosemide 20 mg oral tablet 20 mg, 1, tablet, By Mouth, Daily, # 30 tablet, Refills 11, Tot. Refills 11, Maintenance, 08/21/19 11:56:00 EDT, Route to Pharmacy Electronically, [facility]/pharmacy #[id number], 170.18, cm, 08/21/19 4:27:00 EDT, Height, 91, kg, 08/19/19 4:32:00 EDT, Dry Weight Start Date: 08/21/19 Status: Ordered multivitamin with minerals Multiple Vitamins with Minerals oral tablet 1 tablet, By Mouth, Daily, # 90 tablet, 11 Refills, Maintenance, 09/14/20 13:32:00 EDT, Tablet, [facility]/pharmacy #[id number], 1 tablet By Mouth Daily, 170.18, cm, 01/11/20 10:37:00 EDT, Height, 82.6, kg, 09/24/19 8:19:00 EDT, Dry Weight Start Date: 09/14/20 Stop Date: 09/09/21 Status: Ordered nadolol 20 mg oral tablet 20 mg, 1, tablet, By Mouth, Daily, # 90 tablet, Refills 0, Tot. Refills 0, Maintenance, 07/27/20 10:20:00 EDT, Route to Pharmacy Electronically, [facility]/pharmacy #[id number], 170.18, cm, 01/11/20 10:37:00 EDT,Height, [...] 06/30/20 6:51:00 EST, Route to Pharmacy Electronically, [id number], 170.18, cm, 01/11/20 10:37:00 EDT, Height, 82.6, kg,... Start Date: 06/30/20 Status: Ordered Problem List Condition Effective Dates [...]
--- OUTSIDE RECORDS SUMMARY | 2023-09-19 17:47 | XMS_ITS | Continuity of Care Document ---
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 Name Role Phone Tanya Chen NP Primary Care Physician Encounter [facility] Date(s): 03/07/23 - 03/14/23 [facility] Jori Malinley Adult [address] [place] [address]- Encounter Diagnosis Annual physical exam(Discharge Diagnosis) - 03/07/23 Alcohol abuse, in remission(Discharge Diagnosis) - 03/07/23 Cirrhosis of liver(Discharge Diagnosis) - 03/07/23 Esophageal varices(Discharge Diagnosis) - 03/08/23 H/O alcohol abuse(Discharge Diagnosis) - 03/08/23 Hyperlipidemia(Discharge Diagnosis) - 03/08/23 Portal hypertension(Discharge Diagnosis) - 03/08/23 Subclinical hypothyroidism(Discharge Diagnosis) - 03/08/23 Tubular adenoma of colon(Discharge Diagnosis) - 03/08/23 Vitamin D deficiency(Discharge Diagnosis) - 03/08/23 Folliculitis(Discharge Diagnosis) - 03/08/23 Attending Physician: Tanya Chen NP Allergies, Adverse Reactions, Alerts No Known Allergies Immunizations Given and Recorded Vaccine Date Status Refusal Reason pneumococcal 20-valent conjugate vaccine 1 03/07/23 Given hepatitis B adult vaccine 02/01/23 Recorded hepatitis B adult vaccine 07/11/21 Recorded hepatitis B adult vaccine 12/30/20 Recorded hepatitis B adult vaccine 10/14/19 Given hepatitis B adult vaccine 09/09/19 Given SARS-CoV-2(COVID-19)mRNA-LNP vac([id number]) 02/01/23 Recorded influenza virus vaccine, inactivated 12/21/22 Flavio rded influenza virus vaccine, inactivated 01/23/22 Flavio rded influenza virus vaccine, inactivated 01/11/20 Give n [id number] 12y+ bivalent booster vax 01/23/22 Recorded zoster vaccine, inactivated 09/26/21 Recorded zoster vaccine, inactivated 07/25/21 Recorded SARS-CoV-2 mRNA ([id number]) vax 05/24/21 Recorded pneumococcal 13-valent vaccine 12/30/20 Recorded SARS-CoV-2 (COVID-19) mRNA BNT-162b2 vac 08/27/20 Recorded SARS-CoV-2 (COVID-19) mRNA BNT-162b2 vac 08/06/20 Recorded Hepatitis A Adult Vaccine 2 05/31/20 Given Hepatitis A Adult Vaccine 11/04/19 Recorded Measles/Mumps/Rubella Virus Vaccine 11/06/19 Recor ded tetanus/diphtheria/pertussis, acel(Tdap) 11/04/19 Recorded pneumococcal 23-valent vaccine 3 08/20/19 Given Influenza Virus Vaccine (oldterm) 04/29/19 Recorde d 1Result Comment: [id number] 2Result Comment: [facility]:[id number] 3Early/Late Reason: Med Not Available Medications cephalexin monohydrate 500 mg oral capsule 1 capsule = 500 mg, By Mouth, 3 times a day, for 7 days, take with food, # 21 capsule, 0 Refills, Acute 03/15/23 8:49:00 EST, 03/08/23 8:49:00 EST, Capsule, [id number], 169, cm, 03/07/23 10:53:00 EST, Height, 78.7, kg, 08/15/21 15:48:00 Mike VALDERRAMA. Start Date: 03/08/23 Stop Date: 03/15/23 Status: Ordered Problem List Condition Confirmation Course [...] Confirmed Active 1repeat screening colonoscopy in 2026 Diagnosis Diagnosis Type Effective Dates Health Status Clinical Service Informant Annual physical exam Discharge Diagnosis 03/07/23 Alcohol abuse, in remission Discharge Diagnosis 03/07/23 Cirrhosis of liver Discharge Diagnosis 03/07/23 Esophageal varices Discharge Diagnosis 03/08/23 H/O alcohol abuse Discharge Diagnosis 03/08/23 Hyperlipidemia Discharge Diagnosis 03/08/23 Portal hypertension Discharge Diagnosis 03/08/23 Subclinical hypothyroidism Discharge Diagnosis 03/08/23 Tubular adenoma of colon Discharge Diagnosis 03/08/23 Vitamin D deficiency Discharge Diagnosis 03/08/23 Folliculitis Discharge Diagnosis 03/08/23 Vital Signs Most recent to oldest [Reference Range]: 1 Height 169.0 cm (03/07/23 10:53 AM) Weight 80.5 kg (03/07/23 10:53 AM) Oxygen Saturation [94-100 %] 98 % (03/07/23 10:53 AM) Pulse Rate [55-90 bpm] 94 bpm *H* (03/07/23 10:53 AM) Body Mass Index [18.5-24.99 kg/m2] 28.19 kg/m2 *H* (03/07/23 10:53 AM) Blood Pressure [90-138/55-84 mm Hg] 121/ 78mm Hg (03/07/23 10:53 AM) Temperature [96.8-100.4 DegF] 97.8 DegF (03/07/23 10:53 AM) Mode of Delivery (Oxygen) Room air (03/07/23 10:53 AM) Blood pressure sites Arm, left (03/07/23 10:53 AM) Temperature Route Oral (03/07/23 10:53 AM) Weight Obtained Via Standing scale (03/07/23 10:53 AM) Social History Social History Type Response Smoking Status Former smoker, quit more than 30 days ago; Other: smoked socially; nothing regular; entered on: 07/15/19 Sex Note * Trini Luong: PERFORM, SIGN, VERIFY Event Display: Patient Education/Instruction Authored Date: [id number] [facility] *JS Dwyer Clinical Summary Name SANGITA TUCKER Age 57 Years 1965 PCP Gustavo FEATHER SEPARATOR, Tanya Israel PCP Visit Date 03/07/2023 10:35:00 Additional Instructions: Scheduled Appointments?? Future Appointments ?[facility] ?Phone:??--?Fax:??-- ?Appt. Date:??03/11/2023?1:00 PM ?Scheduled Provider:??Reji MARTINEZ , Aime Hanley Follow-Up Instructions ?? With: Address: When: Gustavo VASQUEZ, Tanya Israel In 1 year Diagnosis Encounter for general adult medical examination without abnormal findings; Alcohol abuse, in remission; Unspecified cirrhosis of liver Medications: Please continue your medications until treatment is completed or stopped by your provider. Discuss any questions related to medications with your provider. Medications to Continue with No Changes These medications were not printed or sent to your pharmacy Nadolol (nadolol 20 mg oral tablet) 1 tab(s) Oral Daily. Next Dose: Allergy Info:?? NKA Medications Given This Visit Medication Dose Route pneumococcal 20-valent conjugate vaccine (pneumococcal 20-valent vacc) 0.5 mL Intramuscular Future Orders ?No future orders Vital Signs Height 169.0 cm Weight 80.5 kg BMI 28.19 kg/m2 Blood Pressure 121 mm Hg/78 mm Hg Temperature 97.8 DegF Pulse Rate 94 bpm Respiratory Rate 02 Sat Mode of Delivery 98 %/Room air You can now view a summary of your hospital visit from the comfort of your home through a free online portal called [email or web address]. [email or web address] is a website that allows you to securely view your medical information including discharge summary, medications and follow-up visits. ??You can alsosend a secure electronic message to your doctor???s office to request appointments, renew medications or just ask a question. You can enroll at [email or web address] or register during your next office visit. Disclaimer:?? The information provided is of a general nature and is intended to be used in conjunction with the recommendations and advice of your health care practitioner. ??Every effort has been made to ensure that the information provided is accurate and complete at the time it is provided to you however, as your needs change, or, as new ??information becomes available, different or additional instructions may be required. If you have questions, please consult with your primary care provider or pharmacist, as appropriate. ??This information is not intended to serve as substitution for assessment and evaluation by a qualified health care provider. If you do not have a primary care provider, you may find a [facility] provider by calling [facility] [place] Link at [phone]. [facility], in keeping with [facility] guidance, no longer requires face masks for staff, patientsor visitors in most situations. Similar to time spent indoors at other locations, there is the chance that you were exposed to respiratory viruses during your time with us (such as flu or COVID-19).? If you develop symptoms concerning for a viral respiratory infection, please seek testing (and treatment if indicated) from your medical provider or home test kit. For information about the plan of care including goals and instructions for your diagnosis, please see the patient education orders section of this document. Patient Education Materials?? The content of this educational material or handout may have been modified, supplemented, or adapted from its original content and format to support your individualized medical care. Prevention Guidelines, Men Ages 50 to 64 Screening tests and vaccines are an important part of managing your health. Health counseling is essential, too. Below are guidelines for these, for men ages 50 to 64. Talk with your healthcare provider to make sure you???re up-to-date on what you need. Screening Who needs it How often Alcohol misuse All men in this age group At routine exams Blood pressure All men in this age group Every 2 years if your blood pressure is less than 120/80 mm Hg; yearly if your systolic blood pressure is 120 to 139 mm Hg, or your diastolic blood pressure reading is 80 to 89 mm Hg Colorectal cancer All men in this age group Flexible sigmoidoscopy every 5 years, or colonoscopy every 10 years, or double- contrast barium enema every 5 years; yearly fecal occult blood test or fecal immunochemical test; or a stool DNA test asoften as your healthcare provider advises; talk with your healthcare provider about which tests arebest for you Depression All men in this age group At routine exams Type 2 diabetes or prediabetes All adults beginning at age 45 and adults without symptoms at any age who are overweight or obese and have 1 or more other risk factors for diabetes At least every 3 years Hepatitis C Men at increased risk for infection ??? talk with your healthcare provider At routine exams High cholesterol or triglycerides All men in this age group At least every 5 years HIV Men at increased risk for infection ??? talk with your healthcare provider At routine exams Lung cancer Adults age 55 to 80 who have smoked Yearly screening in smokers with 30 pack-year history of smoking or who quit within 15 years Obesity All men in this age group At routine exams Prostate cancer Starting at age 45, talk to healthcare provider about risks and benefits of digital rectal exam (MORRIS) and prostate-specific antigen (PSA) screening1 At routine exams Syphilis Men at increased risk for infection ??? talk with your healthcare provider At routine exams Tuberculosis Men at increased risk for infection ??? talk with your healthcare provider Ask your healthcare provider Vision All men in this age group Ask your healthcare provider Vaccine Who needs it How often Chickenpox (varicella) All men in this age group who have no record of this infection or vaccine 2 doses; second dose should be given at least 4 weeks after the first dose Hepatitis A Men at increased risk for infection ??? talk with your healthcare provider 2 doses given at least 6 months apart Hepatitis B Men at increased risk for infection ??? talk with your healthcare provider 3 doses over 6 months; second dose should be given 1 month after the first dose; the third dose should be given at least 2 months after the second dose and at least 4 months after the first dose Haemophilus influenzae??Type B (HIB) Men at increased risk for infection ??? talk with your healthcare provider 1 to 3 doses Influenza (flu) All men in this age group Once a year Measles, mumps, rubella (MMR) Men in this age group through their late 50s who have no record of these infections or vaccines 1 or 2 dose; ask your healthcare provider Meningococcal Men at increased risk for infection ??? talk with your healthcare provider 1 or more doses Pneumococcal conjugate vaccine (PCV13)??and pneumococcal polysaccharide??vaccine??(PPSV23) Men at increased risk for infection ??? talk with your healthcare provider PCV13: 1 dose ages 19 to 65 (protects against 13 types of pneumococcal bacteria) ?? PPSV23: 1 to??2doses through age 64, or 1 dose at 65 or older (protects against 23 types of pneumococcal bacteria) Tetanus/diphtheria/ pertussis (Td/Tdap) booster All men in this age group Td every 10 years, or a one-time dose of Tdap instead of a Td booster after age 18, then Td every 10 years Zoster All men ages 60 and older 1 dose Counseling Who needs it How often Diet and exercise Men who are overweight or obese When diagnosed, and then at routine exams Sexually transmitted infection prevention Men at increased risk for infection ??? talk with your healthcare provider At routine exams Use of daily aspirin Men in this age group at risk for cardiovascular health problems At routine exams Use of tobacco and the health affects it can cause All men in this age group Every visit [address] [place] [address] [facility] ?? [phone] [employer]. [address] [place] [address]. All rights reserved. This information is not intended as a substitute for professional medical care. Always follow your healthcare professional's instructions. Patient Care team information Care Team Personnel Name: Gloria Stringer RN Position: [facility] RN Member Role: Primary Care Nurse Name: Tanya Chen NP Position: [facility] PCO Associate Professional Member Role: PCP Address: Address: [address] [place] [id number] Name: Coby Fernández RN Position: [facility] RN Member Role: Primary Care Nurse Name: Denia Batista Position: [facility] Outreach Member Role: Lifetime Consulting Physician Name: Helena Kumar RN Position: [facility] RN Member Role: Primary Care Nurse Name: Shanel Funk RN Position: [facility] RN Member Role: Primary Care Nurse Name: Clau Daniel RN Position: [facility] SN RN Member Role: Primary Care Nurse Name: Merry Moreau RN Position: [facility] Outreach Member Role: Primary Care Nurse Name: Hayder Haile MD Position: [facility] Renal MD Member Role: Lifetime Consulting Physician Address: Address: [address] [place] [address] [facility] [place] [address]- Care Team Related Persons Name: ANTONIO TUCKER Address: home [address] [place] [address] Name: JAGRUTI TUCKER Address: [address] [address]
--- OUTSIDE RECORDS SUMMARY | 2023-09-19 17:47 | XMS_ITS | Continuity of Care Document ---
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 10/14[place]19 - 11/13/19 [facility] Adult [address] [place] [address]- [facility] Attending Physician: Tania Bautista Admitting Physician: Tania [...] 08/21/19 11:56:00 EDT, Route to Pharmacy Electronically, [id number], 170.18, cm, 08/21/19 4:27:00 EDT, Height, 91, kg, 08/19/19 4:32:00 EDT, Dry Weight Start Date: 08/21/19 Status: Ordered midodrine 10 mg oral tablet 1 tablet = 10 mg, By Mouth, 3 times a day, # 90 tablet, 3 Refills, Maintenance, 09/16/19 20:47:00 EDT, Tablet, [id number], 170, cm, 09/09/19 9:18:00 EDT, Height, 80.8, kg, 08/31/19 20:58:00 EDT, Dry Weight Start Date: 09/16/19 Status: Ordered multivitamin with minerals Multiple Vitamins with Minerals oral tablet 1 tablet, By Mouth, Daily, # 30 tablet, 11 Refills, Maintenance, 09/20/19 13:32:00 EDT, Tablet, [id number], 1 tablet By Mouth Daily,x30 days, 170, cm, 09/09/19 9:18:00 EDT, Height, 80.8, kg, 08/31/19 20:58:00 EDT, Dry Weight Start Date: 09/20/19 Stop Date: 09/14/20 Status: Ordered nadolol 20 mg oral tablet 20 mg, 1, tablet, By Mouth, Daily, # 30 tablet, Refills 3, Tot. Refills 3, Maintenance, 09/16/19 20:47:00 EDT, Route to Pharmacy Electronically, [id number], 170, cm, 09/09/19 9:18:00 EDT, Height, [...] 09/20/19 13:32:00 EDT, Route to Pharmacy Electronically, [id number], 170, cm, 09/09/19 9:18:00 EDT, Height, [...] 09/16/19 20:47:00 EDT, Route to Pharmacy Electronically, [id number], 170, cm, 09/09/19 9:18:00 EDT, Height, 80.8, kg, 08/31/19 20:58:00 EDT, Dry Weight Start Date: 09/16/19 Status: Ordered Vitamin D 05719 iu oral capsule 50,000 [employer], 1, capsule, By Mouth, Every week, # 13 capsule, Refills 1, Tot. Refills1, Maintenance, 07/17/19 10:13:00 EDT, Route to Pharmacy Electronically, [id number], 171, cm, 07/15/19 13:04:00 EDT, Height [...]
--- OUTSIDE RECORDS SUMMARY | 2023-09-19 17:47 | XMS_ITS | Continuity of Care Document ---
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 Role Phone Gustavo Tanya VASQUEZ Primary Care Physician [phone] [facility]counter [facility] Date(s): 07/22/23 - 07/22/[address] [address] Discharge Disposition: A-D/C Home Attending Physician: Suyapa oGetz DO Admitting Physician: Suyapa Goetz DO Referring Physician: Suyapa Goetz DO Allergies, Adverse Reactions, Alerts No Known Allergies [...] hepatitis B adult vaccine 09/09/19 Given SARS-CoV-2(COVID-19)mRNA-LNP vac([id number]) 02/01/23 Recorded influenza virus vaccine, inactivated 12/21/22 Flavio rded influenza virus vaccine, inactivated 01/23/22 Flavio rded influenza virus vaccine, inactivated 01/11/20 Give n [id number] 12y+ bivalent booster vax 01/23/22 Recorded SARS-CoV-2 mRNA (sdmkozu-[id number]-ftwvr) vax 05/24/21 Recorded pneumococcal 13-valent vaccine 12/30/20 Recorded SARS-CoV-2 (COVID-19) mRNA BNT-162b2 vac 08/27/20 Recorded SARS-CoV-2 (COVID-19) mRNA BNT-162b2 vac 08/06/20 Recorded Hepatitis A Adult Vaccine 2 05/31/20 Given Hepatitis A Adult Vaccine 11/04/19 Recorded Measles/Mumps/Rubella Virus Vaccine 11/06/19 Recor ded pneumococcal 23-valent vaccine 3 08/20/19 Given Influenza Virus Vaccine (oldterm) 04/29/19 Recorde d 1Result Comment: [id number] 2Result Comment: [facility]:[id number] 3Early/Late Reason: Med Not Available Medications acamprosate 333 mg oral delayed release tablet 0 Refills, Maintenance, 07/19/23 13:46:00 EDT, Partial fill upon patient request if the prescription is for a schedule II opioid drug. Start Date: 07/19/23 Status: Ordered folic acid 0.8 mg oral tablet 1 tablet = 0.8 mg, By Mouth, Daily, 0 Refills, Maintenance, 07/19/23 13:47:00 EDT, Partial fill upon patient request if the prescription is for a schedule II opioid drug. Start Date: 07/19/23 Status: Ordered furosemide 20 mg oral tablet Refills 0, Maintenance, 05/23/23 13:29:00 EST, Partial fill upon patient request if the prescription is for a schedule II opioid drug. Start Date: 05/23/23 Status: Ordered Melatonin 10 mg oral tablet 2 tablet = 20 mg, By Mouth, Daily at bedtime, 0 Refills, Maintenance, 07/19/23 13:48:00 EDT, Partial fill upon patient request if the prescription is for a schedule II opioid drug. Start Date: 07/19/23 Status: Ordered pantoprazole 40 mg oral delayed release tablet 1 tablet = 40 mg, By Mouth, Daily, # 30 tablet, 0 Refills, Maintenance, 07/22/23 13:02:00 EDT, EC Tablet, 168, cm, 07/22/23 11:32:00 EDT, Height, 79.5, kg, 07/22/23 11:32:00 EDT, Dry Weight Start Date: 07/22/23 Status: Ordered pantoprazole 40 mg oral delayed release tablet 0 Refills, Maintenance, 05/23/23 13:28:00 EST Start Date: 05/23/23 Status: Ordered propranolol 10 mg oral tablet Refills 0, Maintenance, 05/23/23 13:28:00 EST, Partial fill upon patient request if the prescription is for a schedule II opioid drug. Start Date: 05/23/23 Status: Ordered spironolactone 50 mg oral tablet 1 tablet = 50 mg, By Mouth, Daily, # 30 tablet, 0 Refills, Maintenance, 07/19/23 13:47:00 EDT, Tablet, Partial fill upon patient request if the prescription is for a schedule II opioid drug. Start Date: 07/19/23 Status: Ordered traZODone 100 mg oral tablet 100 mg, 1, tablet, By Mouth, Daily at bedtime, Refills 0, Maintenance, 07/19/23 13:48:00 EDT, Partial fill upon patient request if the prescription is for a schedule II opioid drug. Start Date: 07/19/23 Status: Ordered Vitamin C By Mouth, Daily, [...] varices Confirmed Active H/O acute alcoholic hepatitis Confirmed Active Hyperlipidemia Confirmed Active Enlarged prostate [...] recent to oldest [Reference Range]: 1 2 3 Height 168 cm (07/22/23 11:32 AM) Oxygen Saturation [94-100 %] 100 % (07/22/23 1:02 PM) 100 % (07/22/23 12:53 PM) 100 % (07/22/23 11:32 AM) Pulse Rate [55-90 bpm] 85 bpm (07/22/23 11:32 AM) Blood Pressure [90-138/55-84 mm Hg] 120/75mm Hg (07/22/23 1:02 PM) 111/73mm Hg (07/22/23 12:53 PM) 125/82mm Hg (07/22/23 11:32 AM) Respiratory Rate [16-30 br/min] 17 br/min (07/22/23 1:02 PM) 15 br/min *L* (07/22/23 12:53 PM) 15 br/min *L* (07/22/23 11:32 AM) Temperature [96.8-100.4 DegF] 98.2 DegF (07/22/23 11:32 AM) Mode of Delivery (Oxygen) Room air (07/22/23 1:02 PM) Room air (07/22/23 12:53 PM) Room air (07/22/23 11:32 AM) Blood pressure sites Arm, left (07/22/23 1:02 PM) Arm, left (07/22/23 12:53 PM) Arm, left (07/22/23 11:32 AM) Temperature Route Temporal (07/22/23 11:32 AM) Dry Weight 79.5 kg (07/22/23 11:32 AM) Dry Weight Obtained Via Patient/family s tated (07/22/23 11:32 AM) Social History Social History Type Response Smoking Status Former smoker, quit more than 30 days ago; Other: smoked socially; nothing regular; entered on: 07/15/19 Sex Clinical Note * Event Display: GG EGD Please click on pdf link to open report Note * Shawna Ashford RN: PERFORM Event Display: Discharge/Transfer Note Hospital Authored Date: [id number] Nursing Discharge Note Entered On: 07/22/2023 12:50 EDT Performed On: 07/22/2023 12:50 EDT by Shawna Ashford RN Nursing Discharge Note 2 Discharge Time : 07/22/2023 13:52 EDT Shawna Ashford RN - 07/22/2023 13:57 EDT Discharge Level of Care at Discharge : Home/Mcc/Foster Care Patient Left Unit Via : Wheelchair Patient Accompanied Off Unit with : Significant other DC Instructions Provided & Signed by Pt : Yes Patient Understands D/C Instructions : Yes Patient Instructions Discharge Signed : Yes Did Pt have Specialty Bed or Wound Vac : No Shawna Ashford RN - 07/22/2023 12:50 EDT * Shawna Ashford RN: PERFORM Event Display: Patient Education/Instruction Authored Date: Surgery Adult Discharge Instructions [address] [address] Name: SANGITA TUCKER : 1965?? Visit: 07/22/2023 11:04?? Current Date: 07/22/2023 12:50 ?? Account: [id number]?? Surgery Discharge Instructions We would like to thank you for allowing us to assist you with your healthcare needs. The following includes patient education materials and information regarding your injury/illness. Our entire staffstrives to provide an excellent experience for our patients and their families. PLEASE ENSURE YOU FOLLOW-UP PER THE INSTRUCTIONS BELOW! ?? YOUR OPINION IS IMPORTANT TO US! Please complete the survey you may receive by mail or email. Your feedback will be used to make improvements to the healthcare experiences of our patients and their families. Surveys are administered by [employer] ?? If further treatment with your primary care physician or another doctor is recommended, it is important for you to keep the appointment. Call your primary care physician or return to the Emergency Department immediately if your condition worsens, fails to improve, or new symptoms develop. If you need to find a doctor, you can call [facility] Link for a referral at [phone] or toll free at [phone] ([phone]) or log in to [email or web address].. ?? [facility], in keeping with [facility] guidance, no longer requires face masks for staff, patientsor visitors in most situations. Similiar to time spent indoors at other locations, there is the chance that you were exposed to repiratory viruses during your time with us (such as flu or COVID-19). If you develop symptoms concerning for a viral respiratory infection, please seek testing (and treatment if indicated) from your medical provider or home test kit. ?? You can view and manage your care through the patient portal or by using a health care riley of your choosing. [employer] is a website that allows you to securely view your medical information including your hospital discharge summary, office visit summaries, medications and follow-up visits. You can also request appointments, renew medications, and request access to your medical information using a health care riley of your choosing, or just ask a question. You are entitled to know the individuals who participated in your treatment. This information is available within your medical record and will be provided upon your request. You can enroll at [email or web address] or register d uring your next office visit. You have been discharged from [facility], Patient Care Unit: ENDO??. If you have any questions regarding these instructions after you leave, please call us and we will be happy to assist you. [facility] Your Care Team Attending Physician Suyapa Goetz DO?? Discharging Providers Suyapa Goetz DO Reason for Admission CIRRHOSIS/PORTALHYPERTENSION Primary Care Provider Gustavo PEDRO, Tanya Israel? Advance Directive Health Care Proxy on File Yes - Health Care Proxy What to do next Instructions From Your Doctor ?? Orders? /05/15 11:27:00 EDT, ??Per Daystay Protocol?? You Need to Schedule the Following Appointments Follow Up with??See Primary Care Physician if needed Follow Up with??Tanya Chen When:??In 0 days Discharge Medications GARRETTSANGITA Carr :1965 Visit Date:07/22/2023 Medications: Please continue your medications until treatment is completed or stopped by your provider. You may resume your daily prescription medications. Discuss any questions related to medications with your provider. What How Much When Instructions Next Dose Unchanged Acamprosate (acamprosate 333 mg oral delayed release tablet) Unchanged Ascorbic Acid (Vitamin C) Oral Daily Unchanged Folic Acid (folic acid 0.8 mg oral tablet) 1 tab(s) Oral Daily Unchanged Furosemide (furosemide 20 mg oral tablet) Unchanged Melatonin (Melatonin 10 mg oral tablet) 2 tab(s) Oral Daily at Bedtime Unchanged Pantoprazole (pantoprazole 40 mg oral delayed release tablet) Unchanged Propranolol (propranolol 10 mg oral tablet) Unchanged Spironolactone (spironolactone 50 mg oral tablet) 1 tab(s) Oral Daily Unchanged Trazodone (traZODone 100 mg oral tablet) 1 tab(s) Oral Daily at Bedtime Allergies (NKA means No Known Allergies) NKA Education Materials Below is the list of Educational Leaflet Providered with your Discharge Instructions. [employer] Patient Education - Esophageal Varices?? [employer] Patient Education - Surgery Medical Daystay Surgical Overnight Discharge Instructions?? Valuables and Belongings I fully understand and agree that [facility] accepts no responsibility for all my personal property including clothing, toilet articles, radios, jewelry, dentures, hearing aids, rings, money, or any other property that is in my possession or is brought to me after admission. I understand certain valuables may be placed in a hospital safe for a short period of time. I understand that the hospital is not liable for loss or damage due to accident, fire, or other natural occurrence while said property is in the safe. I accept full responsibility for any personal property that I keep with me, and will not hold the hospital responsible in case of loss or disappearance. I acknowledge that i have been encouraged to send valuables and belongings home. ? Other Discharge Information ? Case Management Discharge Plan?? Discharge Plan?? Discharge Level of Care at Discharge: Home/Mcc/Foster Care ?? Pulmonary Rehab Status?? Pulmonary Rehab Discharge Status?? Respiratory Rate:??15 br/min??Low ? Common Emergency Awareness Tips IS IT A STROKE? Act FAST and Check for these signs: FACE Does the face look uneven? ARM Does one arm drift down? SPEECH Does their speech sound strange? TIME Call at any sign of stroke ?? Heart Attack Signs Chest discomfort: Most heart attacks involve discomfort in the center of the chest and lasts more than a few minutes, or goes away and comes back. It can feel like uncomfortable pressure, squeezing, fullness or pain. Discomfort in upper body: Symptoms can include pain or discomfort in one or both arms, back, neck, jaw or stomach. Shortness of breath: With or without discomfort. Other signs: Breaking out in a cold sweat, nausea, or lightheaded. Remember, MINUTES DO MATTER. If you experience any of these heart attack warning signs, call to get immediate medical attention! ?? Smoking can increase your chances of developing chronic health problems and can cause harmful effects to other family members in your house. If you smoke, you are strongly encouraged to quit. Please call [facility] [employer] Link at [phone] or [phone] ([phone]) or log in to [email or web address] for referrals to smoking cessation programs. ?? The National Suicide Prevention Hotline is available 12/11 if you or someone you know needs to find a reason to keep living. By calling 5-671-803-eGenerations (3739) you'll be connected to a skilled, trained counselor at a crisis center in your area. SURGERY DISCHARGE INSTRUCTIONS SIGNATURE PAGE SANGITA TUCKER Location:[facility] Registration Date and Time:07/22/2023 11:04 EDT Primary Care Physician: Tanya Chen NP, Attending Physician: Suyapa Goetz DO, I SANGITA TUCKER, have received the above patient education materials/instructions and have verbalized understanding. If ambulance or transport services are being used I further acknowledge being given a choice of service. ?? If you need to contact me, please call me at this number: . 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 676 Esophageal Varices ??You must carefully read the Consumer Information Use and Disclaimer below in order to understand and correctly use this information?? The Basics Written by the doctors and editors at UpToDate??What are esophageal varices?Esophageal varices are swollen blood vessels in the esophagus, which is the tube that connects the mouth to the stomach (figure 1). Esophageal varices often happen in people with serious liver disease, called cirrhosis. ??What are the symptoms of esophageal varices?Esophageal varices do not causesymptoms until they leak or burst. This causes bleeding, which can be very serious. Signs of bleeding from esophageal varices include:? Vomiting blood ??? Dark-colored or black bowel movements ??? Bloody bowel movements or diarrhea ??? Feeling lightheaded ??? Passing out ??If you have liver disease and get one of more of these symptoms,??call for an ambulance (in the [place] and [place], dial 9-1-1). Do not drive yourself to the hospital or have another person drive you.??Is there a test for esophageal varices?Yes. All people who have cirrhosis should have a test called an upper endoscopy to check for esophageal varices (figure 2).??For an upper endoscopy, thedoctor puts a thin, flexible tube into your mouth down your throat and into your esophagus. The tube (called an endoscope) has a camera and a light on it. This allows the doctor to see inside your esophagus, stomach, and the first part of your intestine.??Sometimes, doctors do an endoscopy using a small capsule with a tiny camera inside. You swallow the capsule while lying on your right side and sip water every 30 seconds. The capsule sends photos of the lining of your esophagus and stomach to a device outside your body. A doctor then looks for any problems in the photos.??If you have cirrhosis, you should have an upper endoscopy every 1 to 3 years. The doctor will check to see if you have new varices or if the ones you have are getting larger.??How are esophageal varices treated?Treatments that can make varices less likely to bleed include:? Taking medicines called beta-blockers ??? These are also used to treat high blood pressure. Examples include propranolol (brand name: Inderal) and nadolol (brand name: Corgard). ??? Losing weight, if you are overweight ??? Avoiding alcohol ??If you have had bleeding from varices or are likely to have bleeding, your doctor can do a procedure during an endoscopy called variceal band ligation. This means that the doctor will place smallrubber bands around the varices to prevent bleeding. You will need to take medicines that lower theamount of acid in your stomach while the varices heal. Your doctor will tell you what medicine to take. Some of the medicines are available over the counter and include:? Omeprazole (sample brand name: Prilosec) ??? Esomeprazole (sample brand name: Nexium) ??? Lansoprazole (sample brand name: Prevacid) ??? Pantoprazole (sample brand name: Protonix) ??Variceal band ligation has to be repeatedevery 2 to 8 weeks until the varices are gone. Rarely, people who have severe bleeding need to havea procedure called a TIPS. For this procedure, a doctor inserts a thin tube through a vein in theneck and places the tube inside the liver. The tube helps blood to flow through the liver more easily. This lowers the blood pressure in the varices and helps stop bleeding.??Can esophageal varices be prevented?Treating the underlying liver disease that caused the cirrhosis might help prevent varices.??All topics are updated as new evidence becomes available and our??peer review process??is complete.This topic retrieved from official.fm on:??Sep 25, 2021.Topic 05873 Version 10.0Release: 30.2.4 - C30.156?2021??[employer] and/or its affiliates.??All rights reserved.Graphic 93011 Version 4.0Consumer Information Use and Disclaimer:This generalized information is a limited summary of diagnosis, treatment, and/or medication information. It is not meant to be comprehensive and should be used as a tool to help the user understand and/or assess potential diagnostic and treatment options. It does NOT include all information about conditions, treatments, medications, side effects, or risks that may apply to a specific patient. It is not intended to be medical advice or a substitute for the medical advice, diagnosis, or treatment of a health care provider based on the health care provider's examination and assessment of a patient's specific and unique circumstances. Patients mustspeak with a health care provider for complete information about their health, medical questions, and treatment options, including any risks or benefits regarding use of medications. This information does not endorse any treatments or medications as safe, effective, or approved for treating a specific patient. [employer] and its affiliates disclaim any warranty or liability relating to this information or the use thereof. The use of this information is governed by the Terms of Use, available at??https://www.[employer].com/en/know/pzsjtnmn-jngmkjwtyaory-jsrjm?2021 [employer] and its affiliates and/or licensors. All rights reserved.Last Updated 09/27/21? * Shawna Ashford RN: PERFORM Event Display: Patient Education Leaflets Authored Date: [id number] Surgery Medical Daystay Surgical Overnight Discharge Instructions ?? 295 Medical Daystay/Surgical Overnight Discharge Instructions ? Since your coordination and judgment may be altered by medication and/or anesthesia, a responsible adult must drive you home from the hospital. ? If you have received medication for pain or sedation while under our care, you should not drive, operate machinery, drink alcohol, or sign any legal documents for 24 hours.?? You should have someone with you at home tonight. ? Remain at home the day of discharge.?? You may be up and about unless otherwise instructed by your physician. ? You may resume your daily prescription medication schedule.?? Any depressant medication should be avoided for 24 hours unless otherwise instructed by your surgeon or anesthesiologist. ? Call your physician for a follow-up appointment.? If you experience unusual or severe pain not relied by your pain medication, excessive bleedingor drainage, persistent nausea and vomiting, excessive swelling or redness, foul odor from incisionsite or fever over 100.6F, you need to call your physician. ? A follow-up phone call by a nurse will be made the day after your procedure.?? If you have stayed with us over night, you will not be receiving a follow-up phone call. ? Nausea and vomiting are a common side effect of prescription pain medication.?? We recommend that pills are not taken on an empty stomach.?? While taking any prescription pain medication you should not drive or drink alcohol. ? Patient Care team information Care Team Personnel Name: Gloria Stringer RN Position: [facility] RN Member Role: Primary Care Nurse Name: Tanya Chen NP Position: [facility] PCO Associate Professional Member Role: PCP Address: Address: [address] [place] [address]- [place] Name: Coby Fernández RN Position: [facility] RN Member Role: Primary Care Nurse Name: Denia Batista Position: [facility] Outreach Member Role: Lifetime Consulting Physician Name: Helena Kumar RN Position: [facility] RN Member Role: Primary Care Nurse Name: Shanel Funk RN Position: [facility] RN Member Role: Primary Care Nurse Name: Clau Daniel RN Position: [facility] SN RN Member Role: Primary Care Nurse Name: Merry Moreau RN Position: [facility] Outreach Member Role: Primary Care Nurse Name: Hayder Haile MD Position: [facility] Renal MD Member Role: Lifetime Consulting Physician Address: Address: [address] [facility] [place] [address]- Care Team Related Persons Name: ANTONIO TUCKER Address: [address] [place] [address] Name: JAGRUTI TUCKER Address: [address] [address]
--- OUTSIDE RECORDS SUMMARY | 2023-09-19 17:47 | XMS_ITS | Continuity of Care Document ---
Author Organization [facility] Address [address] [place] [address]- Care Team Providers Care Senior Cytotechnologist Name Role Phone Gustavo OVEN ROASTERTanya Primary Care Physician [facility] 07[facility]21 - 08[facility]10/21 [facility] Adult [address] [place] [address]- Allergies, Adverse Reactions, Alerts No Known Allergies Immunizations Given and Recorded Vaccine Date Status Refusal Reason zoster vaccine, inactivated 07/25/21 Recorded hepatitis B adult vaccine 07/11/21 Recorded hepatitis B adult vaccine 12/30/20 Recorded hepatitis B adult vaccine 10/14/19 Given hepatitis B adult vaccine 09/09/19 Given SARS-CoV-2 mRNA (lltlmpt-pjpq-lrjug) vax 05/24/21 Recorded pneumococcal 13-valent vaccine 12/30/20 [...] Vaccine (oldterm) 04/29/19 Recorde d 1Result Comment: [facility]:[id number] 2Early/Late Reason: Med Not Available Medications ergocalciferol 74420 iu oral capsule 1, capsule, By Mouth, Every week, # 13 capsule, Refills 1, Tot. Refills 0, Maintenance, 06/28/20 12:51:00 EST, Route to Pharmacy Electronically, [id number], 170.18, cm, 01/11/20 10:37:00 EDT, Height, 82.6, kg, 09/24/19 8:19:00 EDT, Dry Weight Start Date: 06/28/20 Status: Ordered multivitamin with minerals Multiple Vitamins with Minerals oral tablet 1 tablet, By Mouth, Daily, # 90 tablet, 11 Refills, Maintenance, 09/14/20 13:32:00 EDT, Tablet, [facility]/pharmacy #[id number], 1 tablet By Mouth Daily, [...] 6:51:00 EST, Route to Pharmacy Electronically, [facility]/pharmacy #[id number], 170.18, cm, 01/11/20 10:37:00 EDT, Height, 82.6, kg,... Start Date: 06/30/20 Status: Ordered Vitamin B6 50 mg oral tablet See Instructions, TAKE 1 TABLET BY MOUTH EVERY DAY, # 30 tablet, Refills 0, Acute, Instructions Replace Required Details, Route to Pharmacy Electronically, [id number], 170.18, cm, 01/11/20 10:37:00 EDT, Height, 82.6, [...]
--- OUTSIDE RECORDS SUMMARY | 2023-09-19 17:47 | XMS_ITS | Continuity of Care Document ---
Author Organization [facility] Jori Santillan Dillon lt Address [address] [place] [address]- Care Team Providers Care Social Worker Psychiatric Name Role Phone Gustavo HEALTH TYPE TECHNICIANTanya Primary Care Physician [facility]counter [facility] Date(s): 05/22/23 - 06/21/23 [facility] Jori Malinley Adult [address] [place] [address]- Allergies, Adverse Reactions, Alerts No Known Allergies [...] hepatitis B adult vaccine 09/09/19 Given SARS-CoV-2(COVID-19)mRNA-LNP vac([id number]) 02/01/23 Recorded influenza virus vaccine, inactivated 12/21/22 Flavio rded influenza virus vaccine, inactivated 01/23/22 Flavio rded influenza virus vaccine, inactivated 01/11/20 Give n [id number] 12y+ bivalent booster vax 01/23/22 Recorded SARS-CoV-2 mRNA (aclwcar-kanx-xtpcu) vax 05/24/21 Recorded pneumococcal 13-valent vaccine 12/30/20 Recorded SARS-CoV-2 (COVID-19) mRNA BNT-162b2 vac 08/27/20 Recorded SARS-CoV-2 (COVID-19) mRNA BNT-162b2 vac 08/06/20 Recorded Hepatitis A Adult Vaccine 2 2/9/21 Given Hepatitis A Adult Vaccine 11/04/19 Recorded Measles/Mumps/Rubella Virus Vaccine 11/06/19 Recor ded tetanus/diphtheria/pertussis, acel(Tdap) 11/04/19 Recorded pneumococcal 23-valent vaccine 3 08/20/19 Given Influenza Virus Vaccine (oldterm) 04/29/19 Recorde d 1Result Comment: [id number] 2Result Comment: [facility]:[id number] 3Early/Late Reason: Med Not Available Medications cephalexin [...] Team Personnel Name: Gloria Stringer RN Position: [facility] RN Member Role: Primary Care Nurse Name: Tanya Chen NP Position: [facility] PCO Associate Professional Member Role: PCP Address: Address: [address] [place] [address]- Name: Coby Fernández RN Position: [facility] RN Member Role: Primary Care Nurse Name: Denia Batista Position: [facility] Outreach Member Role: Lifetime Consulting Physician Name: Helena Kumar RN Position: [facility] RN Member Role: Primary Care Nurse Name: Shanel Funk RN Position: [facility] RN Member Role: Primary Care Nurse Name: Clau Daniel RN Position: [facility] SN RN Member Role: Primary Care Nurse Name: Merry Moreau RN Position: [facility] Outreach Member Role: Primary Care Nurse Name: Hayder Haile MD Position: [facility] Renal MD Member Role: Lifetime Consulting Physician Address: Address: [address] [place] [address] [facility] [place] [address]- Care Team Related Persons Name: ANTONIO TUCKER Address: home [address] [place] [address] Name: JAGRUTI TUCKER Address: [address] [address]
--- OUTSIDE RECORDS SUMMARY | 2023-09-19 17:47 | XMS_ITS | Continuity of Care Document ---
Author Organization [facility] Address [address] [place] [address]- Care Team Providers Care Debt Collection Specialist Name Role Phone Gustavo Tanya VASQUEZ Primary Care Physician Encounter [facility] Date(s): 02/28/21 - 03/30/21 [facility] [address] [place] [address]- [place] Allergies, Adverse Reactions, Alerts Substance Reaction Severity Status NKA Active Immunizations Given and Recorded Vaccine Date Status Refusal Reason Hepatitis A Adult Vaccine 1 05/31/20 Given influenza virus vaccine, inactivated 01/11/20 Give n hepatitis B adult vaccine 10/14/19 Given hepatitis B adult vaccine 09/09/19 Given pneumococcal 23-valent vaccine 2 08/20/19 Given Influenza Virus Vaccine (oldterm) 04/29/19 Maite luna 1Result Comment: [facility]:[id number] 2Early/Late Reason: Med Not Available Medications multivitamin with minerals Multiple Vitamins with Minerals oral tablet 1 tablet, By Mouth, Daily, # 90 tablet, 11 Refills, Maintenance, 09/14/20 13:32:00 EDT, Tablet, [id number], 1 tablet By Mouth Daily, 170.18, [...] Replace Required Details, Route to Pharmacy Electronically, [facility], 170.18, cm, 01/11/20 10:37:00 EDT, Height, 82.6, [...]
--- OUTSIDE RECORDS SUMMARY | 2023-09-19 17:47 | XMS_ITS | Continuity of Care Document ---
Author Organization [facility] Dillon lt Address [address] [place] [address]- Care Team Providers Care Agribusiness Internship Name Role Phone Gustavo PEDRO, Tanya Israel Primary Care Physician Encounter [facility] Date(s): 07/11/22 - 08/10/22 [facility] Adult [address] [place] [address]- Allergies, Adverse Reactions, Alerts No Known Allergies Immunizations Given and Recorded Vaccine Date Status Refusal Reason zoster vaccine, inactivated 09/26/21 Recorded zoster vaccine, inactivated 07/25/21 Recorded hepatitis B adult vaccine 07/11/21 Recorded hepatitis B adult vaccine 12/30/20 Recorded hepatitis B adult vaccine 10/14/19 Given hepatitis B adult vaccine 09/09/19 Given SARS-CoV-2 mRNA (udadjvu-dwvt-hxfuc) vax 05/24/21 Recorded pneumococcal 13-valent vaccine 12/30/20 [...] (oldterm) 04/29/19 Recorde d 1Result Comment: [facility]:[id number] 2Early/Late Reason: Med Not Available Medications ergocalciferol 37236 iu oral capsule 1, capsule, By Mouth, Every week, # 13 capsule, Refills 1, Tot. Refills 0, Maintenance, 06/28/20 12:51:00 EST, Route to Pharmacy Electronically, [facility] [address], 170.18, cm, 01/11/20 10:37:00 EDT, Height, 82.6, kg, 09/24/19 8:19:00 EDT, Dry Weight Start Date: 06/28/20 Status: Ordered multivitamin with minerals Multiple Vitamins with Minerals oral tablet 1 tablet, By Mouth, Daily, # 90 tablet, 11 Refills, Maintenance, 09/14/20 13:32:00 EDT, Tablet, [facility] #[id number], 1 tablet By Mouth Daily, 170.18, [...] Acute07/13/23 12:00:00 EDT, 07/11/22 8:47:00 EDT, Tablet, [facility]pharm[facility] #[id number], 170, cm, 07/11/22 8:12:00 EDT, Height, 78.7, kg, 08/15/21 15:48:00 EDT, Dry Weight Start Date: 07/11/22 Stop Date: 07/13/23 Status: Ordered traZODone 50 mg oral tablet 50 mg, 1, tablet, By Mouth, Daily at bedtime, for 30 days, # 30 tablet, Refills 0, Tot. Refills 0, Acute 09/02/22 17:25:00 EDT, 08/03/22 17:25:00 EDT, Route to Pharmacy Electronically, [facility], 170, cm, 07/11/22 8:12:00 EDT, Height, 7... Start Date: 08/03/22 Stop Date: 09/02/22 Status: Ordered Vitamin B1 100 mg oral tablet 1, tablet, By Mouth, Daily, OFFICE VISIT NEEDED FOR FURTHER REFILLS, # 30 tablet, Refills 0, Tot. Refills 0, Maintenance, 06/30/20 6:51:00 EST, Route to Pharmacy Electronically, [facility] #[id number], 170.18, cm, 01/11/20 10:37:00 EDT, Height, 82.6, kg,... Start Date: 06/30/20 Status: Ordered Vitamin B6 50 mg oral tablet See Instructions, TAKE 1 TABLET BY MOUTH EVERY DAY, # 30 tablet, Refills 0, Acute, Instructions Replace Required Details, Route to Pharmacy Electronically, [facility] [address]94, 170.18, cm, 01/11/20 10:37:00 EDT, Height, 82.6, [...] Team Personnel Name: Gloria Stringer RN Position: S RN Member Role: Primary Care Nurse Name: Tanya Chen NP Position: [facility] PCO Associate Professional Member Role: PCP Address: Address: [address] [place] [address]- Name: Coby Fernández RN Position: S RN Member Role: Primary Care Nurse Name: Denia Batista Position: [facility] Outreach Member Role: Lifetime Consulting Physician Name: Helena Kumar RN Position: [facility] RN Member Role: Primary Care Nurse Name: Shanel Funk RN Position: [facility] RN Member Role: Primary Care Nurse Name: Merry Moreau RN Position: [facility] RN Member Role: Primary Care Nurse Name: Hayder Haile MD Position: [facility] Renal MD Member Role: Lifetime Consulting Physician Address: Address: [address] [place] [address] [facility] [address] Care Team Related Persons Name: ANTONIO TUCKER Address: home [address] [place] [address] Name: JAGRUTI TUCKER Address: [address] [address]
--- OUTSIDE RECORDS SUMMARY | 2023-09-19 17:47 | XMS_ITS | Continuity of Care Document ---
Author Organization [facility] Jori Santillan Dillon Address [address] [place] [address]- Care Team Providers Care Shutdown Planner Name Role Phone Gustavo MORTGAGE LOAN PROCESSING CLERKTanya Primary Care Physician [facility]counter [facility] Date(s): 07/24/21 - 07/31/21 [facility] Jori Malinley Adult [address] [place] [address]- Encounter Diagnosis Annual physical exam(Discharge Diagnosis) - 07/23/21 Cirrhosis of liver(Discharge Diagnosis) - 07/23/21 Subclinical hypothyroidism(Discharge Diagnosis) - 07/23/21 Vitamin D deficiency(Discharge Diagnosis) - 07/23/21 Tubular adenoma of colon(Discharge Diagnosis) - 07/23/21 Esophageal varices(Discharge Diagnosis) - 07/23/21 H/O alcohol abuse(Discharge Diagnosis) - 07/23/21 Hyperlipidemia(Discharge Diagnosis) - 07/23/21 Portal hypertension(Discharge Diagnosis) - 07/23/21 Attending Physician: Not on Staff, Attending MD Allergies, Adverse Reactions, Alerts No Known Allergies Immunizations Given and Recorded Vaccine Date Status Refusal Reason zoster vaccine, inactivated 07/25/21 Recorded hepatitis B adult vaccine 07/11/21 Recorded hepatitis B adult vaccine 12/30/20 Recorded hepatitis B adult vaccine 10/14/19 Given hepatitis B adult vaccine 09/09/19 Given SARS-CoV-2 mRNA (whktvek-utbw-xujif) vax 05/24/21 Recorded pneumococcal 13-valent vaccine 12/30/20 [...] Given Influenza Virus Vaccine (oldterm) 04/29/19 Recorde jeremy 1Result Comment: [facility]:[id number] 2Early/Late Reason: Med Not Available Medications ergocalciferol 43379 iu oral capsule 1, capsule, By Mouth, Every week, # 13 capsule, Refills 1, Tot. Refills 0, Maintenance, 06/28/20 12:51:00 EST, Route to Pharmacy Electronically, [facility] 82362, 170.18, cm, 01/11/20 10:37:00 EDT, Height, 82.6, kg, 09/24/19 8:19:00 EDT, Dry Weight Start Date: 06/28/20 Status: Ordered multivitamin with minerals Multiple Vitamins with Minerals oral tablet 1 tablet, By Mouth, Daily, # 90 tablet, 11 Refills, Maintenance, 09/14/20 13:32:00 EDT, Tablet, [facility]/pharmacy #0693, 1 tablet By Mouth Daily, 170.18, [...] 6:51:00 EST, Route to Pharmacy Electronically, [facility]/pharmacy #[id number], 170.18, cm, 01/11/20 10:37:00 EDT, Height, 82.6, kg,... Start Date: 06/30/20 Status: Ordered Vitamin B6 50 mg oral tablet See Instructions, TAKE 1 TABLET BY MOUTH EVERY DAY, # 30 tablet, Refills 0, Acute, Instructions Replace Required Details, Route to Pharmacy Electronically, [facility] 26971, 170.18, cm, 01/11/20 10:37:00 EDT, Height, 82.6, [...] Service Informant Annual physical exam Discharge Diagnosis 07/23/21 Cirrhosis of liver Discharge Diagnosis 07/23/21 Esophageal varices Discharge Diagnosis 07/23/21 H/O alcohol abuse Discharge Diagnosis 07/23/21 Hyperlipidemia Discharge Diagnosis 07/23/21 Portal hypertension Discharge Diagnosis 07/23/21 Subclinical hypothyroidism Discharge Diagnosis 07/23/21 Vitamin D deficiency Discharge Diagnosis 07/23/21 Tubular adenoma of colon Discharge Diagnosis 07/23/21 Vital Signs Most recent to oldest [Reference Range]: 1 Height 170.18 cm (07/24/21 1:38 PM) Weight 77.9 kg (07/24/21 1:38 PM) Oxygen Saturation [94-100 %] 99 % (07/24/21 1:38 PM) Pulse Rate [55-90 bpm] 83 bpm (07/24/21 1:38 PM) Body Mass Index [18.5-24.99] 26.9 *H* (07/24/21 1:38 PM) Blood Pressure [90-138/55-84 mm Hg] 98/6 4mm Hg (07/24/21 1:38 PM) Respiratory Rate [16-30 br/min] 16 br/mi n (07/24/21 1:38 PM) Temperature [96.8-100.4 DegF] 98.4 DegF (07/24/21 1:38 PM) Mode of Delivery (Oxygen) Room air (07/24/21 1:38 PM) Blood pressure sites Arm, left (07/24/21 1:38 PM) Temperature Route Oral (07/24/21 1:38 PM) Weight Obtained Via Standing scale (07/24/21 1:38 PM) Social History Social History Type Response Smoking Status Former smoker, quit more than 30 days ago; Other: smoked socially; nothing regular; entered on: 07/15/19 Sex
--- OUTSIDE RECORDS SUMMARY | 2023-09-19 17:47 | XMS_ITS | Continuity of Care Document ---
Author Organization [facility] Jori Santillan Dillon lt Address [address] [place] [address]- Care Team Providers Care Recording Clerk Name Role Phone Gustavo NURSING OFFICERTanya Primary Care Physician [facility]counter [facility] Date(s): 05/14/23 - 06/13/23 [facility] Jori Malinley Adult [address] [place] [address]- Allergies, Adverse Reactions, Alerts No Known Allergies [...] hepatitis B adult vaccine 09/09/19 Given SARS-CoV-2(COVID-19)mRNA-LNP vac([id number]) 02/01/23 Recorded influenza virus vaccine, inactivated 12/21/22 Flavio rded influenza virus vaccine, inactivated 01/23/22 Flavio rded influenza virus vaccine, inactivated 01/11/20 Give n [id number] 12y+ bivalent booster vax 01/23/22 Recorded SARS-CoV-2 mRNA (rbgqggy-hbqk-heill) vax 05/24/21 Recorded pneumococcal 13-valent vaccine 12/30/20 Recorded SARS-CoV-2 (COVID-19) mRNA BNT-162b2 vac 08/27/20 Recorded SARS-CoV-2 (COVID-19) mRNA BNT-162b2 vac 08/06/20 Recorded Hepatitis A Adult Vaccine 2 2/9/21 Given Hepatitis A Adult Vaccine 11/04/19 Recorded Measles/Mumps/Rubella Virus Vaccine 11/06/19 Recor ded tetanus/diphtheria/pertussis, acel(Tdap) 11/04/19 Recorded pneumococcal 23-valent vaccine 3 08/20/19 Given Influenza Virus Vaccine (oldterm) 04/29/19 Recorde d 1Result Comment: [id number] 2Result Comment: [facility]:[id number] 3Early/Late Reason: Med Not Available Medications cephalexin [...] Team Personnel Name: Gloria Stringer RN Position: [facility] RN Member Role: Primary Care Nurse Name: Tanya Chen NP Position: [facility] PCO Associate Professional Member Role: PCP Address: Address: [address] [place] [address]- Name: Coby Fernández RN Position: [facility] RN Member Role: Primary Care Nurse Name: Denia Batista Position: [facility] Outreach Member Role: Lifetime Consulting Physician Name: Helena Kumar RN Position: [facility] RN Member Role: Primary Care Nurse Name: Shanel Funk RN Position: [facility] RN Member Role: Primary Care Nurse Name: Clau Daniel RN Position: [facility] SN RN Member Role: Primary Care Nurse Name: Merry Moreau RN Position: [facility] Outreach Member Role: Primary Care Nurse Name: Hayder Haile MD Position: [facility] Renal MD Member Role: Lifetime Consulting Physician Address: Address: [address] [place] [address] [facility] [place] [address]- Care Team Related Persons Name: ANTONIO TUCKER Address: home [address] [place] [address] Name: JAGRUTI TUCKER Address: [address] [address]
--- OUTSIDE RECORDS SUMMARY | 2023-09-19 17:47 | XMS_ITS | Continuity of Care Document ---
Author Organization [facility] Tyrell Dillon Address [address] [place] [address]- Care Team Providers Care Firer Diesel Locomotive Name Role Phone Tanya Chen NP Primary Care Physician Encounter [facility] Date(s): 12/09/20 - 03/02/21 [facility] Adult [address] [place] [address]- Attending Physician: Tanya Chen NP Allergies, Adverse [...] d 1Result Comment: [facility]:[id number] 2Early/Late Reason: Med Not Available Medications ergocalciferol 44926 iu oral capsule 1, capsule, By Mouth, Every week, # 13 capsule, Refills 1, Tot. Refills 0, Maintenance, 06/28/20 12:51:00 EST, Route to Pharmacy Electronically, [facility] [address]331, 170.18, cm, 01/11/20 10:37:00 EDT, Height, 82.6, kg, 09/24/19 8:19:00 EDT, Dry Weight Start Date: 06/28/20 Status: Ordered folic acid 1 mg oral tablet 1 mg, 1, tablet, By Mouth, Daily, # 30 tablet, Refills 5, Tot. Refills 5, Maintenance, 01/04/20 21:25:00 EDT, Route to [facility], [id number], 170.18, cm, 10/20/19 9:53:00 EDT, Height, 82.6, kg, 09/24/19 8:19:00 EDT, Dry Weight Start Date: 01/04/20 Status: Ordered furosemide 20 mg oral tablet 20 mg, 1, tablet, By Mouth, Daily, # 30 tablet, Refills 11, Tot. Refills 11, Maintenance, 08/21/19 11:56:00 EDT, [id number] 170.18, cm, 08/21/19 4:27:00 EDT, Height, 91, kg, 08/19/19 4:32:00 EDT, Dry Weight Start Date: 08/21/19 Status: Ordered multivitamin with minerals Multiple Vitamins with Minerals oral tablet 1 tablet, By Mouth, Daily, # 90 tablet, 11 Refills, Maintenance, 09/14/20 13:32:00 EDT, Tablet[id number], 1 tablet By Mouth Daily, 170.18, [...] 06/30/20 6:51:00 EST, [id number], 170.18, cm, 01/11/20 10:37:00 EDT, Height, 82.6, kg,... Start Date: 06/30/20 Status: Ordered Vitamin B6 50 mg oral tablet See Instructions, TAKE 1 TABLET BY MOUTH EVERY DAY, # 30 tablet, Refills 0, Acute, Instructions Replace Required Details, Route to Pharmacy Electronically, [facility] 39877, 170.18, cm, 01/11/20 10:37:00 EDT, Height, 82.6, [...]
--- OUTSIDE RECORDS SUMMARY | 2023-09-19 17:47 | XMS_ITS | Continuity of Care Document ---
Author Organization [facility] Address [address] [place] [address]- Care Team Providers Care Adult High School Instructor Name Role Phone Gustavo Tanya VASQUEZ Primary Care Physician [place] [facility] [place] 08/08/22 - 09/07/22 [facility] [address] [place] [id number]- Allergies, Adverse Reactions, Alerts No Known Allergies Immunizations Given and Recorded Vaccine Date Status Refusal Reason zoster vaccine, inactivated 09/26/21 Recorded zoster vaccine, inactivated 07/25/21 Recorded hepatitis B adult vaccine 07/11/21 Recorded hepatitis B adult vaccine 12/30/20 Recorded hepatitis B adult vaccine 10/14/19 Given hepatitis B adult vaccine 09/09/19 Given SARS-CoV-2 mRNA (zqvivhf-ranq-qvrma) vax 05/24/21 Recorded pneumococcal 13-valent vaccine 12/30/20 [...] Vaccine (oldterm) 04/29/19 Recorde d 1Result Comment: [facility]:[id number] 2Early/Late Reason: Med Not Available Medications ergocalciferol 76089 iu oral capsule 1, capsule, By Mouth, Every week, # 13 capsule, Refills 1, Tot. Refills 0, Maintenance, 06/28/20 12:51:00 EST, Route to Pharmacy Electronically, [facility] 14990, 170.18, cm, 01/11/20 10:37:00 EDT, Height, 82.6, kg, 09/24/19 8:19:00 EDT, Dry Weight Start Date: 06/28/20 Status: Ordered multivitamin with minerals Multiple Vitamins with Minerals oral tablet 1 tablet, By Mouth, Daily, # 90 tablet, 11 Refills, Maintenance, 09/14/20 13:32:00 EDT, Tablet, [facility]/pharmacy #[id number], 1 tablet By Mouth [...] Acute07/13/23 12:00:00 EDT, 07/11/22 8:47:00 EDT, Tablet, [facility]/pharmacy #[id number], 170, cm, 07/11/22 8:12:00 EDT, Height, 78.7, kg, 08/15/21 15:48:00 EDT, Dry Weight Start Date: 07/11/22 Stop Date: 07/13/23 Status: Ordered Vitamin B1 100 mg oral tablet 1, tablet, By Mouth, Daily, OFFICE VISIT NEEDED FOR FURTHER REFILLS, # 30 tablet, Refills 0, Tot. Refills 0, Maintenance, 06/30/20 6:51:00 EST, Route to Pharmacy Electronically, [facility]/pharmacy #[id number], 170.18, cm, 01/11/20 10:37:00 EDT, Height, 82.6, kg,... Start Date: 06/30/20 Status: Ordered Vitamin B6 50 mg oral tablet See Instructions, TAKE 1 TABLET BY MOUTH EVERY DAY, # 30 tablet, Refills 0, Acute, Instructions Replace Required Details, Route to Pharmacy Electronically, [facility] 92701, 170.18, cm, 01/11/20 10:37:00 EDT, Height, 82.6, [...] RN Position: [facility] RN Member Role: Primary Care Nurse Name: Tanya Chen NP Position: [facility] PCO Associate Professional Member Role: PCP Address: Address: [address] [place] [address]- Name: Coby Fernández RN Position: [facility] RN Member Role: Primary Care Nurse Name: Denia Batista Position: [facility] Outreach Member Role: Lifetime Consulting Physician Name: Helena Kumar RN Position: [facility] RN Member Role: Primary Care Nurse Name: Shanel Funk RN Position: [facility] RN Member Role: Primary Care Nurse Name: Merry Moreau RN Position: [facility] RN Member Role: Primary Care Nurse Name: Hayder Haile MD Position: [facility] Renal MD Member Role: Lifetime Consulting Physician Address: Address: [address] [place] [address] [facility] [place] [address]- Care Team Related Persons Name: ANTONIO TUCKER Address: home [address] [place] [id number] Name: JAGRUTI TUCKER Address: home [address] [place] [address] KELLY MOSES [id number]
--- OUTSIDE RECORDS SUMMARY | 2023-09-19 17:47 | XMS_ITS | Continuity of Care Document ---
Author Organization [facility] Address [address] [place] [address]- Care Team Providers Care Medical Radiation Tech Name Role Phone Gustavo Tanya VASQUEZ Primary Care Physician Encounter [facility] Date(s): 06/11/23 - 07/11/23 [facility] [address] [place] [address]- [place] Allergies, Adverse Reactions, Alerts No Known Allergies [...] hepatitis B adult vaccine 09/09/19 Given SARS-CoV-2(COVID-19)mRNA-LNP vac([id number]) 02/01/23 Recorded influenza virus vaccine, inactivated 12/21/22 Flavio rded influenza virus vaccine, inactivated 01/23/22 Flavio rded influenza virus vaccine, inactivated 01/11/20 Give n [id number] 12y+ bivalent booster vax 01/23/22 Recorded SARS-CoV-2 mRNA (jzwumab-qynk-wkakc) vax 05/24/21 Recorded pneumococcal 13-valent vaccine 12/30/20 Recorded SARS-CoV-2 (COVID-19) mRNA BNT-162b2 vac 08/27/20 Recorded SARS-CoV-2 (COVID-19) mRNA BNT-162b2 vac 08/06/20 Recorded Hepatitis A Adult Vaccine 2 05/31/20 Given Hepatitis A Adult Vaccine 11/04/19 Recorded Measles/Mumps/Rubella Virus Vaccine 11/06/19 Recor ded tetanus/diphtheria/pertussis, acel(Tdap) 11/04/19 Recorded pneumococcal 23-valent vaccine 3 08/20/19 Given Influenza Virus Vaccine (oldterm) 04/29/19 Recorde d 1Result Comment: [id number] 2Result Comment: [facility]:22059-464-53 3Early/Late Reason: Med Not Available Medications furosemide 20 mg oral tablet Refills 0, [...] ealth Status Informant Alcohol abuse Confirmed Active Alcoholic hepatitis Confirmed Active Cholelithiasis Confirmed Active Cirrhosis of liver Confirmed Active Depression Confirmed Active Esophageal varices Confirmed Active Hyperlipidemia Confirmed Active Enlarged prostate Confirmed Active Microscopic hematuria Confirmed Active Obese class I Confirmed Active [...] Associate Professional Member Role: PCP Address: Address: [address] [place] [id number] Name: Coby Fernández RN Position: S RN Member Role: Primary Care Nurse Name: Denia Batista Position: S Outreach Member Role: Lifetime Consulting Physician Name: Helena Kumar RN Position: S RN Member Role: Primary Care Nurse Name: Shanel Funk RN Position: [facility] RN Member Role: Primary Care Nurse Name: Clau Daniel RN Position: [facility] SN RN Member Role: Primary Care Nurse Name: Merry Moreau RN Position: [facility] Outreach Member Role: Primary Care Nurse Name: Hayder Haile MD Position: [facility] Renal MD Member Role: Lifetime Consulting Physician Address: Address: [address] [place] [address] [facility] [place] [address]- Care Team Related Persons Name: ANTONIO TUCKER Address: home [address] [place] [address] Name: JAGRUTI TUCKER Address: [address] [address]
--- OUTSIDE RECORDS SUMMARY | 2023-09-19 17:47 | XMS_ITS | Continuity of Care Document ---
Author Organization [facility] ter Address [address] [place] [address]- Care Team Providers Care Showroom Consultant Name Role Phone Tanya Chen NP Primary Care Physician Encounter [facility] Date(s): 07/20/19 - 10/07/[address] [address] Attending Physician: Tanya Chen NP Admitting Physician: Tanya Chen NP Referring Physician: Tanya Chen NP Allergies, Adverse [...] 20:47:00 EDT, Route to [facility]acy Electronically, [id number], 170, cm, 09/09/19 9:18:00 EDT, Height, 80.8, [...] Start Date: 09/16/19 Status: Ordered Vitamin D 33983 iu oral capsule 50,000 International_Units, 1, capsule, [...]
--- OUTSIDE RECORDS SUMMARY | 2023-09-19 17:47 | XMS_ITS | Continuity of Care Document ---
Author Organization [facility] Jori Santillan Dillon lt Address [address] [place] [address]- Care Team Providers Care Starch And Prosize Mixer Name Role Phone Gustavo Tanya VASQUEZ Primary Care Physician Encounter [facility] Date(s): 03/04/23 - 04/03/23 [facility] Jori Malinley Adult [address] [place] [address]- Allergies, Adverse Reactions, Alerts No Known Allergies Immunizations Given and Recorded Vaccine Date Status Refusal Reason pneumococcal 20-valent conjugate vaccine 1 03/07/23 Given hepatitis B adult vaccine 02/01/23 Recorded hepatitis B adult vaccine 07/11/21 Recorded hepatitis B adult vaccine 12/30/20 Recorded hepatitis B adult vaccine 10/14/19 Given hepatitis B adult vaccine 09/09/19 Given SARS-CoV-2(COVID-19)mRNA-LNP vac(wxt176) 02/01/23 Recorded influenza virus vaccine, inactivated 12/21/22 Flavio rded influenza virus vaccine, inactivated 01/23/22 Flavio rded influenza virus vaccine, inactivated 01/11/20 Give n [id number] 12y+ bivalent booster vax 01/23/22 Recorded zoster vaccine, inactivated 09/26/21 Recorded zoster vaccine, inactivated 07/25/21 Recorded SARS-CoV-2 mRNA (lqruhoi-lpqw-nnlok) vax 05/24/21 Recorded pneumococcal 13-valent vaccine 12/30/20 Recorded SARS-CoV-2 (COVID-19) mRNA BNT-162b2 vac 08/27/20 Recorded SARS-CoV-2 (COVID-19) mRNA BNT-162b2 vac 08/06/20 Recorded Hepatitis A Adult Vaccine 2 05/31/20 Given Hepatitis A Adult Vaccine 11/04/19 Recorded Measles/Mumps/Rubella Virus Vaccine 11/06/19 Recor ded tetanus/diphtheria/pertussis, acel(Tdap) 11/04/19 Recorded pneumococcal 23-valent vaccine 3 08/20/19 Given Influenza Virus Vaccine (oldterm) 04/29/19 Recorde d 1Result Comment: [id number] 2Result Comment: [facility]:51843-527-72 3Early/Late Reason: Med Not Available Problem List Condition Confirmation Course Effective Dates [...] Team Personnel Name: Gloria Stringer RN Position: [facility] RN Member Role: Primary Care Nurse Name: Tanya Chen NP Position: [facility] PCO Associate Professional Member Role: PCP Address: Address: [address] [place] [address]- Name: Coby Fernández RN Position: [facility] RN Member Role: Primary Care Nurse Name: Denia Batista Position: [facility] Outreach Member Role: Lifetime Consulting Physician Name: Helena Kumar RN Position: [facility] RN Member Role: Primary Care Nurse Name: Shanel Funk RN Position: [facility] RN Member Role: Primary Care Nurse Name: Clau Daniel RN Position: [facility] SN RN Member Role: Primary Care Nurse Name: Merry Moreau RN Position: [facility] Outreach Member Role: Primary Care Nurse Name: Hayder Haile MD Position: [facility] Renal MD Member Role: Lifetime Consulting Physician Address: Address: [address] [place] [address] [facility] [address]- Care Team Related Persons Name: ANTONIO TUCKER Address: home [address] [place] [address] Name: JAGRUTI TUCKER Address: [address] [address]
--- OUTSIDE RECORDS SUMMARY | 2023-09-19 17:47 | XMS_ITS | Continuity of Care Document ---
Author Organization [facility] Tyrell Dillon lt Address [address] [place] [address]- Care Team Providers Care Rn Heart Name Role Phone Tanya Chen NP Primary Care Physician [place] [facility] [place] 05/31/20 - 06/07/20 [facility] Adult [address] [place] [address]- Attending Physician: Not on Staff, Attending MD Referring Physician: Tanya Chen NP Allergies, [...] (oldterm) 04/29/19 Maite luna 1Result Comment: [facility]:[id number] 2Early/Late Reason: Med Not Available Medications folic acid 1 mg oral tablet 1 mg, 1, tablet, By Mouth, Daily, # 30 tablet, Refills 5, Tot. Refills 5, Maintenance, 01/04/20 21:25:00 EDT, Route to Pharmacy Electronically, [facility] #[id number], 170.18, cm, 10/20/19 9:53:00 EDT, Height, 82.6, kg, 09/24/19 8:19:00 EDT, Dry Weight Start Date: 01/04/20 Status: Ordered furosemide 20 mg oral tablet 20 mg, 1, tablet, By Mouth, Daily, # 30 tablet, Refills 11, Tot. Refills 11, Maintenance, 08/21/19 11:56:00 EDT, Route to [facility]acy [facility], [id number], 170.18, cm, 08/21/19 4:27:00 EDT, Height, 91, kg, 08/19/19 4:32:00 EDT, Dry Weight Start Date: 08/21/19 Status: Ordered multivitamin with minerals Multiple Vitamins with Minerals oral tablet 1 tablet, By Mouth, Daily, # 30 tablet, 11 Refills, Maintenance, 09/20/19 13:32:00 EDT, Tablet, [facility]/pharmacy #[id number], 1 tablet By Mouth Daily,x30 days, 170, cm, 09/09/19 9:18:00 EDT, Height, 80.8, kg, 08/31/19 20:58:00 EDT, Dry Weight Start Date: 09/20/19 Stop Date: 09/14/20 Status: Ordered nadolol 20 mg oral tablet 20 mg, 1, tablet, By Mouth, Daily, # 30 tablet, Refills 5, Tot. Refills 5, Maintenance, 01/29/20 10:20:00 EDT, [id number] 170.18, cm, 01/11/20 10:37:00 EDT,Height, 82.6, [...] 01/18/20 9:04:00 EDT, Route to Pharmacy Electronically, [facility] [id number], 170.18, cm, 01/11/20 10:37:00 EDT, Height, 82.6, kg, 09/24/19 8:19:00 EDT, Dry Weight Start Date: 01/18/20 Status: Ordered Vitamin B6 50 mg oral tablet 1, tablet, By Mouth, Daily, # 30 tablet, Refills 5, Tot. Refills 0, Acute, 01/18/20 9:04:00 EDT, Route to Pharmacy Electronically, [facility] 09[facility], 170.18, cm, 01/11/20 10:37:00 EDT, Height, 82.6, kg, 09/24/19 8:19:00 EDT, Dry Weight Start Date: 01/18/20 Status: Ordered Vitamin D 98070 iu oral capsule 50,000 International_Units, 1, capsule, By Mouth, Every week, # 13 capsule, Refills 1, Tot. Refills1, Maintenance, 01/05/20 8:42:00 EDT, Route to Pharmacy Electronically, [facility]/pharmacy #[id number], 170.18,cm, 10/20/19 9:53:00 EDT, Height, [...]
--- OUTSIDE RECORDS SUMMARY | 2023-09-19 17:47 | XMS_ITS | Continuity of Care Document ---
Author Organization [facility] Jori Santillan Dillon lt Address [address] [place] [address]- Care Team Providers Care Juvenile Detention Officer Name Role Phone Gustavo Tanya VASQUEZ Primary Care Physician [phone] Encounter [facility] Date(s): 03/07/23 - 04/06/23 [facility] Jori Malinley Adult [address] [place] [address]- Allergies, Adverse Reactions, Alerts No Known Allergies Immunizations Given and Recorded Vaccine Date Status Refusal Reason pneumococcal 20-valent conjugate vaccine 1 03/07/23 Given hepatitis B adult vaccine 02/01/23 Recorded hepatitis B adult vaccine 07/11/21 Recorded hepatitis B adult vaccine 12/30/20 Recorded hepatitis B adult vaccine 10/14/19 Given hepatitis B adult vaccine 09/09/19 Given SARS-CoV-2(COVID-19)mRNA-LNP vac(qrb066) 02/01/23 Recorded influenza virus vaccine, inactivated 12/21/22 Flavio rded influenza virus vaccine, inactivated 01/23/22 Flavio rded influenza virus vaccine, inactivated 01/11/20 Give n [id number] 12y+ bivalent booster vax 01/23/22 Recorded zoster vaccine, inactivated 09/26/21 Recorded zoster vaccine, inactivated 07/25/21 Recorded SARS-CoV-2 mRNA (ufohapb-ueve-xvjku) vax 05/24/21 Recorded pneumococcal 13-valent vaccine 12/30/20 Recorded SARS-CoV-2 (COVID-19) mRNA BNT-162b2 vac 08/27/20 Recorded SARS-CoV-2 (COVID-19) mRNA BNT-162b2 vac 08/06/20 Recorded Hepatitis A Adult Vaccine 2 05/31/20 Given Hepatitis A Adult Vaccine 11/04/19 Recorded Measles/Mumps/Rubella Virus Vaccine 11/06/19 Recor ded tetanus/diphtheria/pertussis, acel(Tdap) 11/04/19 Recorded pneumococcal 23-valent vaccine 3 08/20/19 Given Influenza Virus Vaccine (oldterm) 04/29/19 Recorde d 1Result Comment: [id number] 2Result Comment: [facility]:11921-816-67 3Early/Late Reason: Med Not Available Problem List [...] Team Personnel Name: Gloria Stringer RN Position: [facility] RN Member Role: Primary Care Nurse Name: Tanya Chen NP Position: [facility] PCO Associate Professional Member Role: PCP Address: Address: [address] [place] [address]- Name: Coby Fernández RN Position: [facility] RN Member Role: Primary Care Nurse Name: Denia Batista Position: [facility] Outreach Member Role: Lifetime Consulting Physician Name: Helena Kumar RN Position: [facility] RN Member Role: Primary Care Nurse Name: Shanel Funk RN Position: [facility] RN Member Role: Primary Care Nurse Name: Clau Daniel RN Position: [facility] SN RN Member Role: Primary Care Nurse Name: Merry Moreau RN Position: [facility] Outreach Member Role: Primary Care Nurse Name: Hayder Haile MD Position: [facility] Renal MD Member Role: Lifetime Consulting Physician Address: Address: [address] [place] [address] [facility] [place] [address]- Care Team Related Persons Name: ANTONIO TUCKER Address: home [address] [place] [address] Name: JAGRUTI TUCKER Address: [address] [address]
--- OUTSIDE RECORDS SUMMARY | 2023-09-19 17:47 | XMS_ITS | Continuity of Care Document ---
Author Organization [facility] Address [address] [place] [address]- Care Team Providers Care Cattle Producers Name Role Phone Tanya Chen NP Primary Care Physician En[place] [facility] Date(s): 03/28/21 - 06/17/21 [facility] [address] [place] [address]- Attending Physician: Aime Mendoza MD Admitting Physician: [...] (oldterm) 04/29/19 Recorde d 1Result Comment: [facility]:[id number] 2Early/Late Reason: Med Not Available Medications nadolol [...] Replace Required Details, Route to Pharmacy Electronically, [facility] 0[facility], 170.18, cm, 01/11/20 10:37:00 EDT, Height, 82.6, [...]
--- OUTSIDE RECORDS SUMMARY | 2023-09-19 17:47 | XMS_ITS | Continuity of Care Document ---
Author Organization [facility] Address [address] [place] [address]- Care Team Providers Care River Expedition Guide Name Role Phone Tanya Chen NP Primary Care Physician Encounter [facility] Date(s): 06/10/20 - 10/08/20 [facility] [address] [place] [address]- Attending Physician: Aime Mendoza MD Admitting Physician: [...] Vaccine (oldterm) 04/29/19 Recorde d 1Result Comment: [facility]:[id number] 2Early/Late Reason: Med Not Available Medications ergocalciferol 98992 iu oral capsule 1, capsule, By Mouth, Every week, # 13 capsule, Refills 1, Tot. Refills 0, Maintenance, 06/28/20 12:51:00 EST, Route to Pharmacy Electronically, [facility], 170.18, cm, 01/11/20 10:37:00 EDT, Height, 82.6, kg, 09/24/19 8:19:00 EDT, Dry Weight Start Date: 06/28/20 Status: Ordered folic acid 1 mg oral tablet 1 mg, 1, tablet, By Mouth, Daily, # 30 tablet, Refills 5, Tot. Refills 5, Maintenance, 01/04/20 21:25:00 EDT, Route to Pharmacy Electronically, [facility]/pharmacy #[id number], 170.18, cm, 10/20/19 9:53:00 EDT, Height, 82.6, kg, 09/24/19 8:19:00 EDT, Dry Weight Start Date: 01/04/20 Status: Ordered furosemide 20 mg oral tablet 20 mg, 1, tablet, By Mouth, Daily, # 30 tablet, Refills 11, Tot. Refills 11, Maintenance, 08/21/19 11:56:00 EDT, Route to Pharmacy Electronically, [facility]/pharmacy #[id number], 170.18, cm, 08/21/19 4:27:00 EDT, Height, 91, kg, 08/19/19 4:32:00 EDT, Dry Weight Start Date: 08/21/19 Status: Ordered multivitamin with minerals Multiple Vitamins with Minerals oral tablet 1 tablet, By Mouth, Daily, # 90 tablet, 11 Refills, Maintenance, 09/14/20 13:32:00 EDT, Tablet, [facility]/pharmacy #[id number], 1 tablet By Mouth Daily, 170.18, cm, 01/11/20 10:37:00 EDT, Height, 82.6, kg, 09/24/19 8:19:00 EDT, Dry Weight Start Date: 09/14/20 Stop Date: 09/09/21 Status: Ordered nadolol 20 mg oral tablet 20 mg, 1, tablet, By Mouth, Daily, # 90 tablet, Refills 0, Tot. Refills 0, Maintenance, 07/27/20 10:20:00 EDT, Route to Pharmacy Electronically, [facility]/pharmacy #[id number], 170.18, cm, 01/11/20 [...] 06/30/20 6:51:00 EST, Route to Pharmacy Electronically, [facility]/pharmacy #[id number], 170.18, cm, 01/11/20 10:37:00 EDT, Height, 82.6, kg,... Start Date: 06/30/20 Status: Ordered Vitamin B6 50 mg oral tablet See Instructions, TAKE 1 TABLET BY MOUTH EVERY DAY, # 30 tablet, Refills 0, Acute, Instructions Replace Required Details, Route to Pharmacy Electronically, [facility] 27139, 170.18, cm, 01/11/20 10:37:00 EDT, Height, 82.6, [...]
--- OUTSIDE RECORDS SUMMARY | 2023-09-19 17:47 | XMS_ITS | Continuity of Care Document ---
Author Organization [facility] Tyrell Dillon lt Address [address] [place] [address]- Care Team Providers Care Quality Process Lead Name Role Phone Gustavo DATA MANAGEMENT ENGINEERTanya Primary Care Physician [phone] [facility] [place]/22[place]23 - 06/21/23 [facility] Adult [address] [place] [address]- Attending Physician: Tania Bautista Admitting Physician: AdmTania rene Referring Physician: AdmtrTania Allergies, Adverse Reactions, Alerts No Known Allergies [...] hepatitis B adult vaccine 09/09/19 Given SARS-CoV-2(COVID-19)mRNA-LNP vac([id number]) 02/01/23 Recorded influenza virus vaccine, inactivated 12/21/22 Flavio rded influenza virus vaccine, inactivated 01/23/22 Flavio rded influenza virus vaccine, inactivated 01/11/20 Give n [id number] 12y+ bivalent booster vax 01/23/22 Recorded SARS-CoV-2 mRNA (phedyol-zaes-kupef) vax 05/24/21 Recorded pneumococcal 13-valent vaccine 12/30/20 Recorded SARS-CoV-2 (COVID-19) mRNA BNT-162b2 vac 08/27/20 Recorded SARS-CoV-2 (COVID-19) mRNA BNT-162b2 vac 08/06/20 Recorded Hepatitis A Adult Vaccine 2 05/31/20 Given Hepatitis A Adult Vaccine 11/04/19 Recorded Measles/Mumps/Rubella Virus Vaccine 11/06/19 Recor ded tetanus/diphtheria/pertussis, acel(Tdap) 11/04/19 Recorded pneumococcal 23-valent vaccine 3 08/20/19 Given Influenza Virus Vaccine (oldterm) 04/29/19 Recorde d 1Result Comment: [id number] 2Result Comment: [facility]:[id number] 3Early/Late Reason: Med Not Available Medications cephalexin [...] socially; nothing regular; entered on: 07/15/19 Sex Cardiology * Event Display: Non BH Cardiovascular Results Authored Date: * Event Display: EKG Non BH Authored Date: Laboratory * Event Display: Non BH Lab Results Authored Date: Note * Tresa Nugent RN: PERFORM, SIGN, VERIFY Tanya Chen NP: REVIEW Event Display: Case Management Discharge Plan Authored Date: Patient: SANGITA TUCKER Age: 54 years Sex: Male : 1965 Associated Diagnoses: None Author: Tresa Nugent RN Care Management Discharge Call Note Discharge date 09/07/2019 Date of contact 09/08/2019 Diagnosis portal vein thrombosis Discharge instructions were reviewed with the patient? Yes Medication reconciliation performed Yes Looks like you were recently discharged from the hospital (ED), how are you feeling? feeling tired Please tell me the problem or condition that brought you to the hospital (ED)? sent home on lovenox is giving his own lovenox declined [facility] discussed new meds explained them is following up with liver doctor Do you know what to do in case of an emergency? yes Were you given any prescriptions to fill? Yes. Do you understand how to take your medication? Yes Do you have an appointment already scheduled with your PCP? Yes Is date appropriate: [facility] tomorrow. Home Care Services requested? No Have there been any changes in your condition since discharge? No Do you have someone at home that is able to help you? Yes Patient Care team information Care Team Personnel Name: Gloria Stringer RN Position: S RN Member Role: Primary Care Nurse Name: Tanya Chen NP Position: [facility] PCO Associate Professional Member Role: PCP Address: Address: [address] [place] [id number]- Name: Coby Fernández RN Position: S RN Member Role: Primary Care Nurse Name: Denia Batista Position: S Outreach Member Role: Lifetime Consulting Physician Name: Helena Kumar RN Position: S RN Member Role: Primary Care Nurse Name: Shanel Funk RN Position: S RN Member Role: Primary Care Nurse Name: Clau Daniel RN Position: [facility] SN RN Member Role: Primary Care Nurse Name: Merry Moreau RN Position: [facility] Outreach Member Role: Primary Care Nurse Name: Hayder Haile MD Position: [facility] Renal MD Member Role: Lifetime Consulting Physician Address: Address: [address] [place] [address] [facility] [place] [address]- Care Team Related Persons Name: ANTONIO TUCKER Address: [address] [place] [address] Name: JAGRUTI TUCKER Address: [address] [address]
--- OUTSIDE RECORDS SUMMARY | 2023-09-19 17:47 | XMS_ITS | Continuity of Care Document ---
Author Organization [facility] ter Address [address] [place] [address]- Care Team Providers Care Special Weapons Unit Officer Name Role Phone Gustavo PEDRO, Tanya Israel Primary Care Physician [phone] [place] [facility] [place] 08/31/19 - 09/07/[address] [address]- [facility] Discharge Disposition: A-D/C Home Attending Physician: Mazin Kwan MD Admitting Physician: Juana Licea MD Referring Physician: Not on Staff, Referring MD Allergies, Adverse Reactions, Alerts Substance Reaction Severity Status NKA Active Immunizations Given and Recorded Vaccine Date Status Refusal Reason pneumococcal 23-valent vaccine 1 08/20/19 Given Influenza Virus Vaccine (oldterm) 04/29/19 Recorde d 1Early/Late Reason: Med Not Available Medications enoxaparin 120 mg/0.8 mL injectable solution 0.8 mL = 120 mg, Subcutaneous Injection, Every 24 hours, for 30 days, # 24 mL, 0 Refills, Acute 10/07/19 9:35:00 EDT, 09/07/19 9:35:00 EDT, Injection, [facility], 170, cm, 09/07/19 7:36:00 EDT, Height, 80.8, kg, 08/31/19 20:58:00 EDT, . Start Date: 09/07/19 Stop Date: 10/07/19 Status: Ordered folic acid 1 mg oral tablet 1 mg, 1, tablet, By Mouth, Daily, # 30 tablet, Refills 0, Tot. Refills 0, Maintenance, 08/21/19 13:30:00 EDT, [id number] 170.18, cm, 08/21/19 4:27:00 EDT, Height, 91, kg, 08/19/19 4:32:00 EDT, Dry Weight Start Date: 08/21/19 Status: Ordered furosemide 20 mg oral tablet [...] 10/07/19 9:36:00 EDT, 09/07/19 9:36:00 EDT, Syrup, [facility], 30 mL By Mouth 3 times a day,x30 days, 170, cm, 09/07/19 7:36:00 EDT, Height, 80.8, kg, 08/20... Start Date: 09/07/19 Stop Date: 10/07/19 Status: Ordered midodrine 10 mg oral tablet 1 tablet = 10 mg, By Mouth, 3 times a day, # 90 tablet, 0 Refills, Maintenance, 09/07/19 9:36:00 EDT, Tablet, [facility], 170, cm, 09/07/19 7:36:00 EDT, Height, 80.8, kg, 08/31/19 20:58:00 EDT, Dry Weight Start Date: 09/07/19 Status: Ordered multivitamin with minerals Multiple Vitamins with Minerals oral tablet 1 tablet, By Mouth, Daily, # 30 tablet, 0 Refills, Maintenance, 08/21/19 13:32:00 EDT, [id number], 1 tablet By Mouth Daily,x30 days, 170.18, cm, 08/21/19 4:27:00 EDT, Height, 91, kg, 08/19/19 4:32:00 EDT, Dry Weight Start Date: 08/21/19 Stop Date: 09/20/19 Status: Ordered nadolol 20 mg oral tablet 20 mg, 1, tablet, By Mouth, Daily, # 30 tablet, Refills 0, Tot. Refills 0, Maintenance, 09/07/19 9:36:00 EDT, Route to Pharmacy Electronically, [facility], 170, cm, 09/07/19 7:36:00 EDT, Height, 80.8, kg, 08/31/19 20:58:00 EDT, Dry Weight Start Date: 09/07/19 Status: Ordered pantoprazole 40 mg oral delayed release tablet = 40 mg, By Mouth, Daily, # 30 tablet, 0 Refills, Maintenance, 08/21/19 13:31:00 EDT, EC Tablet, 170.18, cm, 08/21/19 4:27:00 EDT, Height, 91, kg, 08/19/19 4:32:00 EDT, Dry Weight Start Date: 08/21/19 Stop Date: 09/20/19 Status: Ordered pyridoxine 50 mg oral tablet 50 mg, 1, tablet, By Mouth, Daily, for 30 days, # 30 tablet, Refills 0, Tot. Refills 0, Acute 09/20/19 13:32:00 EDT, 08/21/19 13:32:00 EDT, Route to Pharmacy Electronically, [facility] #[id number], 170.18, cm, 08/21/19 4:27:00 EDT, Height, 91, kg, ... Start Date: 08/21/19 Stop Date: 09/20/19 Status: Ordered spironolactone 25 mg oral tablet 25 mg, 1, tablet, By Mouth, Daily, Refills 0, Maintenance, 09/07/19 9:35:00 EDT Start Date: 09/07/19 Status: Ordered thiamine 100 mg oral tablet 100 mg, 1, tablet, By Mouth, Daily, # 30 tablet, Refills 0, Tot. Refills 0, Maintenance, 08/21/19 13:32:00 EDT, Route to Pharmacy Electronically, [facility] #[id number], 170.18, cm, 08/21/19 4:27:00 EDT,Height, 91, kg, 08/19/19 4:32:00 EDT, Dry Weight Start Date: 08/21/19 Status: Ordered Vitamin D 16990 iu oral capsule 50,000 International_Units, 1, capsule, [...] Active Cirrhosis of liver(Confirmed) Active Depression(Confirmed) Active Hyperlipidemia(Confirmed) Active Hyponatremia(Confirmed) Active Enlarged prostate(Confirmed) Active Macrocytic anemia(Confirmed) Active Microscopic hematuria(Confirmed) Active Obesity(Confirmed) Active DENISE (obstructive sleep apnea)(Confirmed) Active Portal hypertension(Confirmed) Active PVT (portal vein thrombosis)(Confirmed) Active Rosacea(Confirmed) Active Fatty liver(Confirmed) Active Subclinical hypothyroidism(Confirmed) Active Vitamin D deficiency(Confirmed) Active Procedures Procedure Date Related Diagnosis Body Site Status Upper GI endoscopy-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 09/01/19 Completed Results Orders for Microbiology Reports Name Date Blood Culture 08/31/19 Blood Culture #2 08/31/19 Microbiology Reports TEST:Blood Culture, Second Order STATUS:Auth (Verified) BODY SITE: SOURCE:Blood COLLECTED DATE/TIME:08/31/19 4:40 PM Blood Culture, Second Order SPECIMEN DESCRIPTION : BLOOD RAC SPECIAL REQUESTS : NONE CULTURE : NO GROWTH 5 DAYS. REPORT STATUS : FINAL 09/05/2019 TEST:Blood Culture STATUS:Auth (Verified) BODY SITE: SOURCE:Blood COLLECTED DATE/TIME:08/31/19 3:59 PM Blood Culture SPECIMEN DESCRIPTION : BLOOD R AC SPECIAL REQUESTS : NONE CULTURE : NO GROWTH 5 DAYS. REPORT STATUS : FINAL 09/05/2019 Vital Signs Most recent to oldest [Reference Range]: 1 2 3 Height 170 cm (09/07/19 3:44 PM) 170 cm (09/07/19 7:36 AM) 170 cm (09/07/19 5:16 AM) Weight 82.2 kg (09/06/19 7:08 AM) 86.1 kg (09/05/19 6:16 AM) 83.4 kg (09/04/19 5:25 AM) Oxygen Saturation [94-100 %] 100 % (09/07/19 7:36 AM) 99 % (09/07/19 5:16 AM) 100 % (09/06/19 11:35 PM) Pulse Rate [55-90 bpm] 72 bpm (09/07/19 3:44 PM) 72 bpm (09/07/19 8:33 AM) 72 bpm (09/07/19 8:33 AM) Body Mass Index [18.5-24.99] 28.44 *H* (09/06/19 7:08 AM) 29.79 *H* (09/05/19 6:16 AM) 28.86 *H* (09/04/19 5:25 AM) Blood Pressure [90-138/55-84 mm Hg] 105/61mm Hg (09/07/19 3:44 PM) 112/68mm Hg (09/07/19 8:33 AM) 112/68mm Hg (09/07/19 8:33 AM) Respiratory Rate [16-30 br/min] 16 br/min (09/07/19 7:36 AM) 18 br/min (09/07/19 5:16 AM) 18 br/min (09/06/19 11:35 PM) Temperature [96.8-100.4 DegF] 97.3 DegF (09/07/19 7:36 AM) 98.0 DegF (09/07/19 5:16 AM) 97.7 DegF (09/06/19 11:35 PM) Mode of Delivery (Oxygen) Room air (09/07/19 7:36 AM) Room air (09/07/19 5:16 AM) Room air (09/06/19 11:35 PM) Blood pressure sites Arm, right (09/07/19 3:44 PM) Arm, right (09/07/19 7:36 AM) Arm, left (09/07/19 5:16 AM) Temperature Route Oral (09/07/19 7:36 AM) Oral (09/07/19 5:16 AM) Oral (09/06/19 11:35 PM) Dry Weight 80.8 kg (08/31/19 8:58 PM) 81.0 kg (08/31/19 6:25 PM) 81.0 kg (08/31/19 4:18 PM) Weight Obtained Via Bed scale (09/06/19 7:08 AM) Bed scale (09/05/19 6:16 AM) Standing scale (08/31/19 10:13 AM) Dry Weight Obtained Via Standing scale (08/31/19 10:13 AM) Social History Social History Type Response Smoking Status Former smoker, quit more than 30 days ago; Other: smoked socially; nothing regular; entered on: 07/15/19 Sex
--- OUTSIDE RECORDS SUMMARY | 2023-09-19 17:47 | XMS_ITS | Continuity of Care Document ---
Author Organization [facility] Address [address] [place] [address]- Care Team Providers Care Laser Engraver Name Role Phone Gustavo PEDRO, Tanya Israel Primary Care Physician [phone] [place] [facility] [place]21 [facility] Adult [address] [place] [address]- Attending Physician: Tania Bautista Admitting Physician: Tania [...] Vaccine (oldterm) 04/29/19 Recorde d 1Result Comment: [facility]:[id number] 2Early/Late Reason: Med Not Available Medications nadolol [...] Replace Required Details, Route to Pharmacy Electronically, [id number], 170.18, cm, 01/11/20 10:37:00 EDT, Height, 82.6, [...]
--- OUTSIDE RECORDS SUMMARY | 2023-09-19 17:47 | XMS_ITS | Continuity of Care Document ---
Author Organization [facility] ter Address [address] [place] [address]- Care Team Providers Care Mortuary Beautician Name Role Phone Gustavo Tanya VASQUEZ Primary Care Physician Encounter [facility] [place] Date(s): 09/07/19 - 10/07/[address] [address]- [facility] Attending Physician: Not on Staff, Attending MD [...] 08/21/19 11:56:00 EDT, Route to Pharmacy Electronically, [facility] #[id number], 170.18, cm, 08/21/19 4:27:00 EDT, Height, 91, kg, 08/19/19 4:32:00 EDT, Dry Weight Start Date: 08/21/19 Status: Ordered midodrine 10 mg oral tablet 1 tablet = 10 mg, By Mouth, 3 times a day, # 90 tablet, 3 Refills, Maintenance, 09/16/19 20:47:00 EDT, Tablet, [facility] #[id number], 170, cm, 09/09/19 9:18:00 EDT, Height, 80.8, kg, 08/31/19 20:58:00 EDT, Dry Weight Start Date: 09/16/19 Status: Ordered multivitamin with minerals Multiple Vitamins with Minerals oral tablet 1 tablet, By Mouth, Daily, # 30 tablet, 11 Refills, Maintenance, 09/20/19 13:32:00 EDT, Tablet, [facility] #[id number], 1 tablet By Mouth Daily,x30 days, 170, cm, 09/09/19 9:18:00 EDT, Height, 80.8, kg, 08/31/19 20:58:00 EDT, Dry Weight Start Date: 09/20/19 Stop Date: 09/14/20 Status: Ordered nadolol 20 mg oral tablet 20 mg, 1, tablet, By Mouth, Daily, # 30 tablet, Refills 3, Tot. Refills 3, Maintenance, 09/16/19 20:47:00 EDT, Route to Pharmacy Electronically, [facility]/pharmacy #[id number], 170, cm, 09/09/19 9:18:00 EDT, Height, [...] 09/20/19 13:32:00 EDT, Route to Pharmacy Electronically, [facility]/pharm[facility] #[id number], 170, cm, 09/09/19 9:18:00 EDT, Height, [...] 09/16/19 20:47:00 EDT, Route to Pharmacy Electronically, [facility] #[id number], 170, cm, 09/09/19 9:18:00 EDT, Height, 80.8, kg, 08/31/19 20:58:00 EDT, Dry Weight Start Date: 09/16/19 Status: Ordered Vitamin D 35670 iu oral capsule 50,000 International_Units, 1, capsule, By Mouth, Every week, # 13 capsule, Refills 1, Tot. Refills1, Maintenance, 07/17/19 10:13:00 EDT, Route to Pharmacy Electronically, [facility]/pharmacy #[id number], 171, cm, 07/15/19 13:04:00 EDT, Height [...]
--- OUTSIDE RECORDS SUMMARY | 2023-09-19 17:47 | XMS_ITS | Continuity of Care Document ---
Author Organization [facility] Address [address] [place] [address]- Care Team Providers Care Medicare Contact Specialist Name Role Phone Gustavo Tanya VASQUEZ Primary Care Physician Encounter [facility] [place] Date(s): 12/09/19 - 01/08/20 [facility] [address] [place] [address]- [facility] Allergies, Adverse Reactions, Alerts Substance [...] 02/04/20 9:35:00 EDT, 10/07/19 9:35:00 EDT, Injection, [facility]/pharmacy #[id number], 170, cm, 09/09/19 9:18:00 EDT, Height, 80.8, kg, 08/31/19 20:58:00 EDT, Dry Weight Start Date: 10/07/19 Stop Date: 02/04/20 Status: Ordered folic acid 1 mg oral tablet 1 mg, 1, tablet, By Mouth, Daily, # 30 tablet, Refills 5, Tot. Refills 5, Maintenance, 01/04/20 21:25:00 EDT, Route to Pharmacy Electronically, [facility]/pharmacy #[id number], 170.18, cm, 10/20/19 9:53:00 EDT, Height, 82.6, kg, 09/24/19 8:19:00 EDT, Dry Weight Start Date: 01/04/20 Status: Ordered furosemide 20 mg oral tablet 20 mg, 1, tablet, By Mouth, Daily, # 30 tablet, Refills 11, Tot. Refills 11, Maintenance, 08/21/19 11:56:00 EDT, Route to Pharmacy Electronically, [facility]/pharmacy #[id number], 170.18, cm, 08/21/19 4:27:00 EDT, Height, 91, kg, 08/19/19 4:32:00 EDT, Dry Weight Start Date: 08/21/19 Status: Ordered midodrine 10 mg oral tablet 1 tablet = 10 mg, By Mouth, 3 times a day, # 90 tablet, 3 Refills, Maintenance, 09/16/19 20:47:00 EDT, Tablet, [facility] #[id number], 170, cm, 09/09/19 9:18:00 EDT, Height, 80.8, kg, 08/31/19 20:58:00 EDT, Dry Weight Start Date: 09/16/19 Status: Ordered multivitamin with minerals Multiple Vitamins with Minerals oral tablet 1 tablet, By Mouth, Daily, # 30 tablet, 11 Refills, Maintenance, 09/20/19 13:32:00 EDT, Tablet, [facility]/pharmacy #[id number], 1 tablet By Mouth Daily,x30 days, 170, cm, 09/09/19 9:18:00 EDT, Height, 80.8, kg, 08/31/19 20:58:00 EDT, Dry Weight Start Date: 09/20/19 Stop Date: 09/14/20 Status: Ordered nadolol 20 mg oral tablet 20 mg, 1, tablet, By Mouth, Daily, # 30 tablet, Refills 3, Tot. Refills 3, Maintenance, 09/16/19 20:47:00 EDT, Route to Pharmacy Electronically, [facility]/pharmacy #[id number], 170, cm, 09/09/19 9:18:00 EDT, [...] 09/20/19 13:32:00 EDT, Route to Pharmacy Electronically, [facility]/pharmacy #[id number], 170, cm, 09/09/19 9:18:00 EDT, [...] 09/16/19 20:47:00 EDT, Route to Pharmacy Electronically, [facility]/pharmacy #[id number], 170, cm, 09/09/19 9:18:00 EDT, Height, 80.8, kg, 08/31/19 20:58:00 EDT, Dry Weight Start Date: 09/16/19 Status: Ordered Vitamin D 33357 iu oral capsule 50,000 International_Units, 1, capsule, By Mouth, Every week, # 13 capsule, Refills 1, Tot. Refills1, Maintenance, 01/05/20 8:42:00 EDT, Route to Pharmacy Electronically, [facility]/pharmacy #[id number], 170.18,cm, 10/20/19 9:53:00 EDT, Height, [...]
--- OUTSIDE RECORDS SUMMARY | 2023-09-19 17:47 | XMS_ITS | Continuity of Care Document ---
Author Organization [facility] Address [address] [place] [address]- Care Team Providers Care Weight Control Engineer Name Role Phone Gustavo Tanya VASQUEZ Primary Care Physician [phone] Encounter [facility] [place] Date(s): 05/04/21 - 06/03/21 [facility] [address] [place] [address]- [place] Allergies, Adverse Reactions, Alerts No Known [...] Vaccine (oldterm) 04/29/19 Recorde d 1Result Comment: [facility]:[id number] 2Early/Late Reason: Med Not Available Medications nadolol [...] Replace Required Details, Route to Pharmacy Electronically, [id number], 170.18, cm, 01/11/20 10:37:00 EDT, Height, 82.6, [...]
--- OUTSIDE RECORDS SUMMARY | 2023-09-19 17:47 | XMS_ITS | Continuity of Care Document ---
Author Organization [facility] [place] [facility] Address [address] [place] [address]- Care Team Providers Care Environmental Management Specialist Name Role Phone Gustavo PEDRO, Tanya Israel Primary Care Physician [phone] [place] [facility] [place] 05/17/23 [facility] [place] Adult [address] [place] [address]- Allergies, Adverse Reactions, Alerts No Known Allergies [...] hepatitis B adult vaccine 09/09/19 Given SARS-CoV-2(COVID-19)mRNA-LNP vac([id number]) 02/01/23 Recorded influenza virus vaccine, inactivated 12/21/22 Flavio rded influenza virus vaccine, inactivated 01/23/22 Flavio rded influenza virus vaccine, inactivated 01/11/20 Give n [id number] 12y+ bivalent booster vax 01/23/22 Recorded SARS-CoV-2 mRNA (wznelwd-qczi-[id number]) vax 05/24/21 Recorded pneumococcal 13-valent vaccine 12/30/20 Recorded SARS-CoV-2 (COVID-19) mRNA BNT-162b2 vac 08/27/20 Recorded SARS-CoV-2 (COVID-19) mRNA BNT-162b2 vac 08/06/20 Recorded Hepatitis A Adult Vaccine 2 05/31/20 Given Hepatitis A Adult Vaccine 11/04/19 Recorded Measles/Mumps/Rubella Virus Vaccine 11/06/19 Recor ded tetanus/diphtheria/pertussis, acel(Tdap) 11/04/19 Recorded pneumococcal 23-valent vaccine 3 08/20/19 Given Influenza Virus Vaccine (oldterm) 04/29/19 Recorde d 1Result Comment: [id number] 2Result Comment: [facility]:[id number] 3Early/Late Reason: Med Not Available Medications cephalexin [...] Team Personnel Name: Gloria Stringer RN Position: [facility] RN Member Role: Primary Care Nurse Name: Tanya Chen NP Position: [facility] PCO Associate Professional Member Role: PCP Address: Address: [address] [place] [address] Name: Coby Fernández RN Position: [facility] RN Member Role: Primary Care Nurse Name: Denia Batista Position: S Outreach Member Role: Lifetime Consulting Physician Name: Helena Kumar RN Position: [facility] RN Member Role: Primary Care Nurse Name: Shanel Funk RN Position: [facility] RN Member Role: Primary Care Nurse Name: Clau Daniel RN Position: [facility] SN RN Member Role: Primary Care Nurse Name: Merry Moreau RN Position: [facility] Outreach Member Role: Primary Care Nurse Name: Hayder Haile MD Position: [facility] Renal MD Member Role: Lifetime Consulting Physician Address: Address: [address] [place] [address] [facility] [place] [address]- Care Team Related Persons Name: ANTONIO TUCKER Address: home [address] [place] [address] Name: JAGRUTI TUCKER Address: home [address] [address]
--- OUTSIDE RECORDS SUMMARY | 2023-09-19 17:47 | XMS_ITS | Continuity of Care Document ---
Author Organization [facility] Address [address] [place] [address]- Care Team Providers Care Powerhouse Attendant Name Role Phone Tanya Chen NP Primary Care Physician [place] [facility] [place] 09/18/19 [facility] [address] [place] [address]- [facility] Attending Physician: Aime Mendoza MD Referring Physician: Tanya [...] 10/07/19 9:35:00 EDT, 09/07/19 9:35:00 EDT, Injection, [facility], 170, cm, 09/07/19 7:36:00 EDT, Height, 80.8, kg, 08/31/19 20:58:00 EDT, Start Date: 09/07/19 Stop Date: 10/07/19 Status: [...] 10/07/19 9:36:00 EDT, 09/07/19 9:36:00 EDT, Syrup, [facility], 30 mL By Mouth [...] oral tablet 1 tablet, By Mouth, Daily, for 30 days, # 30 tablet, 0 Refills, Hard Stop 09/20/19 13:32:00 EDT, 08/21/19 13:32:00 EDT, Tablet, [facility] #[id number], 170.18, cm, 08/21/19 4:27:00 EDT, Height, 91, kg, 08/19/19 4:32:00 EDT, Dry Weight Start Date: 08/21/19 Stop Date: 09/20/19 Status: Ordered multivitamin with minerals Multiple Vitamins [...] tablet = 40 mg, By Mouth, Daily, for 30 days, # 30 tablet, 0 Refills, Hard Stop 09/20/19 13:31:00 EDT, 08/21/19 13:31:00 EDT, EC Tablet, 170.18, cm, 08/21/19 4:27:00 EDT, Height, 91, kg, 08/19/19 4:32:00 EDT, Dry Weight Start Date: 08/21/19 Stop Date: 09/20/19 Status: Ordered pantoprazole 40 mg oral delayed [...] Start Date: 09/16/19 Status: Ordered Vitamin D 79256 iu oral capsule 50,000 International_Units, 1, capsule, [...]
--- OUTSIDE RECORDS SUMMARY | 2023-09-19 17:47 | XMS_ITS | Continuity of Care Document ---
Author Organization [facility] Address [address] [place] [address]- Care Team Providers Care Contract Management Specialist Name Role Phone Gustavo Tanya VASQUEZ Primary Care Physician Encounter [facility] [place] Date(s): 06/05/22 - 07/05/22 [facility] [address] [place] [address]- Allergies, Adverse Reactions, Alerts No Known Allergies Immunizations Given and Recorded Vaccine Date Status Refusal Reason zoster vaccine, inactivated 09/26/21 Recorded zoster vaccine, inactivated 07/25/21 Recorded hepatitis B adult vaccine 07/11/21 Recorded hepatitis B adult vaccine 12/30/20 Recorded hepatitis B adult vaccine 10/14/19 Given hepatitis B adult vaccine 09/09/19 Given SARS-CoV-2 mRNA (oeylvzy-mtsg-fjmfm) vax 05/24/21 Recorded pneumococcal 13-valent vaccine 12/30/20 [...] Recorde d 1Result Comment: [facility]:[id number] 2Early/Late Reason: Med Not Available Medications ergocalciferol 68336 iu oral capsule 1, capsule, By Mouth, Every week, # 13 capsule, Refills 1, Tot. Refills 0, Maintenance, 06/28/20 12:51:00 EST, Route to Pharmacy Electronically, [facility], 170.18, cm, 01/11/20 10:37:00 EDT, Height, 82.6, kg, 09/24/19 8:19:00 EDT, Dry Weight Start Date: 06/28/20 Status: Ordered multivitamin with minerals Multiple Vitamins with Minerals oral tablet 1 tablet, By Mouth, Daily, # 90 tablet, 11 Refills, Maintenance, 09/14/20 13:32:00 EDT, Tablet, [facility]/pharmacy #[id number], 1 tablet By Mouth Daily, 170.18, [...] 06/30/20 6:51:00 EST, Route to Pharmacy Electronically, [facility]/pharmacy #[id number], 170.18, cm, 01/11/20 10:37:00 EDT, Height, 82.6, kg,... Start Date: 06/30/20 Status: Ordered Vitamin B6 50 mg oral tablet See Instructions, TAKE 1 TABLET BY MOUTH EVERY DAY, # 30 tablet, Refills 0, Acute, Instructions Replace Required Details, Route to Pharmacy Electronically, [facility], 170.18, cm, 01/11/20 10:37:00 EDT, Height, 82.6, kg, 09/24/19 8:19:00 EDT, Dry... Start Date: 10/04/20 Status: Ordered Problem List Condition Confirmation Course Effective Dates Status H ealth Status Informant Alcohol use disorder, moderate, in sustained remission Confirmed Active Alcoholic hepatitis Confirmed Active Cholelithiasis Confirmed Active Cirrhosis of liver Confirmed Active Depression Confirmed Active Esophageal varices Confirmed Active H/O alcohol abuse Confirmed Active Hyperlipidemia Confirmed Active Enlarged prostate Confirmed Active Macrocytic anemia Confirmed Active Microscopic hematuria Confirmed Active DENISE [...] Professional Member Role: PCP Address: Address: [address] [place] [address]- Name: Coby Fernández RN Position: [facility] Moreau RN Position: [facility] RN Member Role: Primary Care Nurse Name: Hayder Haile MD Position: [facility] Renal MD Member Role: Lifetime Consulting Physician Address: Address: [address] [place] [address] [facility] [place] [address]- Care Team Related Persons Name: ANTONIO TUCKER Address: [address] [place] [address] Name: JAGRUTI TUCKER Address: home [address] [address]
--- OUTSIDE RECORDS SUMMARY | 2023-09-19 17:47 | XMS_ITS | Continuity of Care Document ---
Author Organization [facility] Dillon Address [address] [place] [address]- Care Team Providers Care Cot Assembler Name Role Phone Gustavo Tanya VASQUEZ Primary Care Physician [phone] Encounter [facility] Date(s): 01/11/20 - 02/10/20 [facility] Adult [address] [place] [address]- [facility] Attending Physician: Tania Bautista Admitting Physician: AdmTania [...] 01/04/20 21:25:00 EDT, Route to Pharmacy Electronically, [facility]/pharmacy #[id number], 170.18, cm, 10/20/19 9:53:00 EDT, Height, 82.6, kg, 09/24/19 8:19:00 EDT, Dry Weight Start Date: 01/04/20 Status: Ordered furosemide 20 mg oral tablet 20 mg, 1, tablet, By Mouth, Daily, # 30 tablet, Refills 11, Tot. Refills 11, Maintenance, 08/21/19 11:56:00 EDT, Route to Pharmacy Electronically, [facility]/pharmacy #[id number], 170.18, cm, 08/21/19 4:27:00 EDT, Height, 91, kg, 08/19/19 4:32:00 EDT, Dry Weight Start Date: 08/21/19 Status: Ordered multivitamin with minerals Multiple Vitamins with Minerals oral tablet 1 tablet, By Mouth, Daily, # 30 tablet, 11 Refills, Maintenance, 09/20/19 13:32:00 EDT, Tablet, [facility]/pharmacy #[id number], 1 tablet By Mouth Daily,x30 days, 170, cm, 09/09/19 9:18:00 EDT, Height, 80.8, kg, 08/31/19 20:58:00 EDT, Dry Weight Start Date: 09/20/19 Stop Date: 09/14/20 Status: Ordered nadolol 20 mg oral tablet 20 mg, 1, tablet, By Mouth, Daily, # 30 tablet, Refills 5, Tot. Refills 5, Maintenance, 01/29/20 10:20:00 EDT, Route to Pharmacy Electronically, [facility]/pharmacy #[id number], 170.18, cm, 01/11/20 10:37:00 EDT,Height, 82.6, [...] 01/18/20 9:04:00 EDT, Route to Pharmacy Electronically, [facility]ORE [id number], 170.18, cm, 01/11/20 10:37:00 EDT, Height, 82.6, kg, 09/24/19 8:19:00 EDT, Dry Weight Start Date: 01/18/20 Status: Ordered Vitamin B6 50 mg oral tablet 1, tablet, By Mouth, Daily, # 30 tablet, Refills 5, Tot. Refills 0, Acute, 01/18/20 9:04:00 EDT, Route to Pharmacy Electronically, [facility] STORE 56[facility], 170.18, cm, 01/11/20 10:37:00 EDT, Height, 82.6, kg, 09/24/19 8:19:00 EDT, Dry Weight Start Date: 01/18/20 Status: Ordered Vitamin D 76980 iu oral capsule 50,000 International_Units, 1, capsule, By Mouth, Every week, # 13 capsule, Refills 1, Tot. Refills1, Maintenance, 01/05/20 8:42:00 EDT, Route to Pharmacy Electronically, [facility]/pharmacy #[id number], 170.18,cm, 10/20/19 9:53:00 EDT, Height, 82.6, [...]
--- OUTSIDE RECORDS SUMMARY | 2023-09-19 17:47 | XMS_ITS | Continuity of Care Document ---
Author Organization [facility] Jori Santillan Dillon lt Address [address] [place] [address]- Care Team Providers Care Top Knitter Name Role Phone Gustavo MARINE STEAMFITTERTanya Primary Care Physician [facility]counter [facility] Date(s): 05/30/23 - 06/29/23 [facility] Jori Malinley Adult [address] [place] [address]- Allergies, Adverse Reactions, Alerts No Known Allergies [...] hepatitis B adult vaccine 09/09/19 Given SARS-CoV-2(COVID-19)mRNA-LNP vac([id number]) 02/01/23 Recorded influenza virus vaccine, inactivated 12/21/22 Flavio rded influenza virus vaccine, inactivated 01/23/22 Flavio rded influenza virus vaccine, inactivated 01/11/20 Give n [id number] 12y+ bivalent booster vax 01/23/22 Recorded SARS-CoV-2 mRNA (uodplrc-ezqx-piqeq) vax 05/24/21 Recorded pneumococcal 13-valent vaccine 12/30/20 Recorded SARS-CoV-2 (COVID-19) mRNA BNT-162b2 vac 08/27/20 Recorded SARS-CoV-2 (COVID-19) mRNA BNT-162b2 vac 08/06/20 Recorded Hepatitis A Adult Vaccine 2 2/9/21 Given Hepatitis A Adult Vaccine 11/04/19 Recorded Measles/Mumps/Rubella Virus Vaccine 11/06/19 Recor ded tetanus/diphtheria/pertussis, acel(Tdap) 11/04/19 Recorded pneumococcal 23-valent vaccine 3 08/20/19 Given Influenza Virus Vaccine (oldterm) 04/29/19 Recorde d 1Result Comment: [id number] 2Result Comment: [facility]:[id number] 3Early/Late Reason: Med Not Available Medications cephalexin [...] RN Position: [facility] RN Member Role: Primary Care Nurse Name: Tanya Chen NP Position: [facility] PCO Associate Professional Member Role: PCP Address: Address: [address] [place] [address]- Name: Coby Fernández RN Position: [facility] RN Member Role: Primary Care Nurse Name: Denia Batista Position: [facility] Outreach Member Role: Lifetime Consulting Physician Name: Helena Kumar RN Position: [facility] RN Member Role: Primary Care Nurse Name: Shanel Funk RN Position: [facility] RN Member Role: Primary Care Nurse Name: Clau Daniel RN Position: [facility] SN RN Member Role: Primary Care Nurse Name: Merry Moreau RN Position: [facility] Outreach Member Role: Primary Care Nurse Name: Hayder Haile MD Position: [facility] Renal MD Member Role: Lifetime Consulting Physician Address: Address: [address] [place] [address] [facility] [place] [address]- Care Team Related Persons Name: ANTONIO TUCKER Address: home [address] [place] [address] Name: JAGRUTI TUCKER Address: [address] [address]
--- OUTSIDE RECORDS SUMMARY | 2023-09-19 17:47 | XMS_ITS | Continuity of Care Document ---
Author Organization [facility] Tyrell Dillon lt Address [address] [place] [address]- Care Team Providers Care Small Appliance Assembly Supervisor Name Role Phone Gustavo FOAM DISPENSER, Tanya Israel Primary Care Physician Encounter [facility] Date(s): 07/15/19 - 07/25/19 [facility] Jroi Malinley Adult [address] [place] [address]- [facility] Attending Physician: Tania Bautista Admitting Physician: Tania Bautista Referring Physician: AdmtrTania Allergies, Adverse Reactions, Alerts Substance Reaction Severity Status NKA Active Immunizations Given and Recorded Vaccine Date Status Refusal Reason Influenza Virus Vaccine (oldterm) 04/29/19 Recorde d Medications Vitamin D 82270 iu oral capsule 50,000 International_Units, 1, capsule, [...] Fatty liver(Confirmed) Active Vitamin D deficiency(Confirmed) Active Social History Social History Type Response Smoking Status Former smoker, quit more than 30 days ago; Other: smoked socially; nothing regular; entered on: 07/15/19 Sex
--- OUTSIDE RECORDS SUMMARY | 2023-09-19 17:47 | XMS_ITS | Continuity of Care Document ---
Author Organization [facility] Jori Santillan Dillon lt Address [address] [place] [address]- Care Team Providers Care Truck Engine Technician Name Role Phone Gustavo MAINFRAME ARCHITECTTanya Primary Care Physician [facility]counter [facility] Date(s): 05/24/23 - 06/23/23 [facility] Jori Malinley Adult [address] [place] [address]- Allergies, Adverse Reactions, Alerts No Known Allergies [...] hepatitis B adult vaccine 09/09/19 Given SARS-CoV-2(COVID-19)mRNA-LNP vac([id number]) 02/01/23 Recorded influenza virus vaccine, inactivated 12/21/22 Flavio rded influenza virus vaccine, inactivated 01/23/22 Flavio rded influenza virus vaccine, inactivated 01/11/20 Give n [id number] 12y+ bivalent booster vax 01/23/22 Recorded SARS-CoV-2 mRNA (skfhmbd-attw-jgogi) vax 05/24/21 Recorded pneumococcal 13-valent vaccine 12/30/20 Recorded SARS-CoV-2 (COVID-19) mRNA BNT-162b2 vac 08/27/20 Recorded SARS-CoV-2 (COVID-19) mRNA BNT-162b2 vac 08/06/20 Recorded Hepatitis A Adult Vaccine 2 2/9/21 Given Hepatitis A Adult Vaccine 11/04/19 Recorded Measles/Mumps/Rubella Virus Vaccine 11/06/19 Recor ded tetanus/diphtheria/pertussis, acel(Tdap) 11/04/19 Recorded pneumococcal 23-valent vaccine 3 08/20/19 Given Influenza Virus Vaccine (oldterm) 04/29/19 Recorde d 1Result Comment: [id number] 2Result Comment: [facility]:[id number] 3Early/Late Reason: Med Not Available Medications cephalexin [...] Team Personnel Name: Gloria Stringer RN Position: [facility] RN Member Role: Primary Care Nurse Name: Tanya Chen NP Position: [facility] PCO Associate Professional Member Role: PCP Address: Address: [address] [place] [address]- Name: Coby Fernández RN Position: [facility] RN Member Role: Primary Care Nurse Name: Denia Batista Position: [facility] Outreach Member Role: Lifetime Consulting Physician Name: Helena Kumar RN Position: [facility] RN Member Role: Primary Care Nurse Name: Shanel Funk RN Position: [facility] RN Member Role: Primary Care Nurse Name: Clau Daniel RN Position: [facility] SN RN Member Role: Primary Care Nurse Name: Merry Moreau RN Position: [facility] Outreach Member Role: Primary Care Nurse Name: Hayder Haile MD Position: [facility] Renal MD Member Role: Lifetime Consulting Physician Address: Address: [address] [place] [address] [facility] [place] [address]- Care Team Related Persons Name: ANTONIO TUCKER Address: [address] [place] [address] Name: JAGRUTI TUCKER Address: [address] [address]
--- OUTSIDE RECORDS SUMMARY | 2023-09-19 17:48 | XMS_ITS | Continuity of Care Document ---
Author Organization [facility] Dillon Address [address] [place] [address]- Care Team Providers Care Enrollment Management Manager Name Role Phone Tanya Chen NP [id number] 10[facility]27[facility]20 [facility] Adult [address] [place] [address]- Attending Physician: Not on Staff, Attending MD [...] (oldterm) 04/29/19 Recorde d 1Result Comment: [facility]:[id number] 2Early/Late Reason: Med Not Available Medications ergocalciferol 10463 iu oral capsule 1, capsule, By Mouth, Every week, # 13 capsule, Refills 1, Tot. Refills 0, Maintenance, 06/28/20 12:51:00 EST, Route to Pharmacy Electronically, [facility] 13132, 170.18, cm, 01/11/20 10:37:00 EDT, Height, 82.6, kg, 09/24/19 8:19:00 EDT, Dry Weight Start Date: 06/28/20 Status: Ordered folic acid 1 mg oral tablet 1 mg, 1, tablet, By Mouth, Daily, # 30 tablet, Refills 5, Tot. Refills 5, Maintenance, 01/04/20 21:25:00 EDT, Route to Pharmacy Electronically, [facility]/pharmacy #[id number], 170.18, cm, 10/20/19 9:53:00 EDT, Height, 82.6, kg, 09/24/19 8:19:00 EDT, Dry Weight Start Date: 01/04/20 Status: Ordered furosemide 20 mg oral tablet 20 mg, 1, tablet, By Mouth, Daily, # 30 tablet, Refills 11, Tot. Refills 11, Maintenance, 08/21/19 11:56:00 EDT, Route to Pharmacy Electronically, [facility]/pharmacy #[id number], 170.18, cm, 08/21/19 4:27:00 EDT, Height, 91, kg, 08/19/19 4:32:00 EDT, Dry Weight Start Date: 08/21/19 Status: Ordered multivitamin with minerals Multiple Vitamins with Minerals oral tablet 1 tablet, By Mouth, Daily, # 90 tablet, 11 Refills, Maintenance, 09/14/20 13:32:00 EDT, Tablet, [facility]/pharmacy #[id number], 1 tablet By Mouth Daily, 170.18, cm, 01/11/20 10:37:00 EDT, Height, 82.6, kg, 09/24/19 8:19:00 EDT, Dry Weight Start Date: 09/14/20 Stop Date: 09/09/21 Status: Ordered nadolol 20 mg oral tablet 20 mg, 1, tablet, By Mouth, Daily, # 90 tablet, Refills 0, Tot. Refills 0, Maintenance, 07/27/20 10:20:00 EDT, [id number] 170.18, cm, 01/11/20 10:37:00 EDT,Height, 82.6, [...] 06/30/20 6:51:00 EST, Route to Pharmacy Electronically, [facility]/pharmacy #[id number], 170.18, cm, 01/11/20 10:37:00 EDT, Height, 82.6, kg,... Start Date: 06/30/20 Status: Ordered Vitamin B6 50 mg oral tablet See Instructions, TAKE 1 TABLET BY MOUTH EVERY DAY, # 30 tablet, Refills 0, Acute, Instructions Replace Required Details, Route to Pharmacy Electronically, [facility]ORE 79835, 170.18, cm, 01/11/20 10:37:00 EDT, Height, 82.6, [...]
--- OUTSIDE RECORDS SUMMARY | 2023-09-19 17:48 | XMS_ITS | Continuity of Care Document ---
Author Organization [facility] Jori Santillan Dillon lt Address [address] [place] [address]- Care Team Providers Care Telesales Team Leader Name Role Phone Gustavo IP ARCHITECTTanya Primary Care Physician [facility]counter [facility] Date(s): 02/11/23 - 03/13/23 [facility] Jori Malinley Adult [address] [place] [address]- Allergies, Adverse Reactions, Alerts No Known Allergies Immunizations Given and Recorded Vaccine Date Status Refusal Reason pneumococcal 20-valent conjugate vaccine 1 03/07/23 Given hepatitis B adult vaccine 02/01/23 Recorded hepatitis B adult vaccine 07/11/21 Recorded hepatitis B adult vaccine 12/30/20 Recorded hepatitis B adult vaccine 10/14/19 Given hepatitis B adult vaccine 09/09/19 Given SARS-CoV-2(COVID-19)mRNA-LNP vac([id number]) 02/01/23 Recorded influenza virus vaccine, inactivated 12/21/22 Flavio rded influenza virus vaccine, inactivated 01/23/22 Flavio rded influenza virus vaccine, inactivated 01/11/20 Give n [id number] 12y+ bivalent booster vax 01/23/22 Recorded zoster vaccine, inactivated 09/26/21 Recorded zoster vaccine, inactivated 07/25/21 Recorded SARS-CoV-2 mRNA (iqravky-uwxo-tisil) vax 05/24/21 Recorded pneumococcal 13-valent vaccine 12/30/20 Recorded SARS-CoV-2 (COVID-19) mRNA BNT-162b2 vac 08/27/20 Recorded SARS-CoV-2 (COVID-19) mRNA BNT-162b2 vac 08/06/20 Recorded Hepatitis A Adult Vaccine 2 05/31/20 Given Hepatitis A Adult Vaccine 11/04/19 Recorded Measles/Mumps/Rubella Virus Vaccine 11/06/19 Recor ded tetanus/diphtheria/pertussis, acel(Tdap) 11/04/19 Recorded pneumococcal 23-valent vaccine 3 08/20/19 Given Influenza Virus Vaccine (oldterm) 04/29/19 Recorde d 1Result Comment: [id number] 2Result Comment: [facility]:[id number] 3Early/Late Reason: Med Not Available Medications cephalexin monohydrate 500 mg oral capsule 1 capsule = 500 mg, By Mouth, 3 times a day, for 7 days, take with food, # 21 capsule, 0 Refills, Acute 03/15/23 8:49:00 EST, 03/08/23 8:49:00 EST, Capsule, [id number], 169, cm, 03/07/23 10:53:00 EST, Height, 78.7, kg, 08/15/21 15:48:00 EDT, D... Start Date: 03/08/23 Stop Date: 03/15/23 Status: [...] Team Personnel Name: Gloria Stringer RN Position: [facility] RN Member Role: Primary Care Nurse Name: Tanya Chen NP Position: [facility] PCO Associate Professional Member Role: PCP Address: Address: [address] [place] [id number]- Name: Coby Fernández RN Position: [facility] RN Member Role: Primary Care Nurse Name: Denia Batista Position: [facility] Outreach Member Role: Lifetime Consulting Physician Name: Helena Kumar RN Position: [facility] RN Member Role: Primary Care Nurse Name: Shanel Funk RN Position: [facility] RN Member Role: Primary Care Nurse Name: Clau Daniel RN Position: [facility] SN RN Member Role: Primary Care Nurse Name: Merry Moreau RN Position: [facility] Outreach Member Role: Primary Care Nurse Name: Hayder Haile MD Position: [facility] Renal MD Member Role: Lifetime Consulting Physician Address: Address: [address] [place] [address] [facility] [place] [address]- Care Team Related Persons Name: ANTONIO TUCKER Address: [address] [place] [address] Name: JAGRUTI TUCKER Address: [address] [address]
--- OUTSIDE RECORDS SUMMARY | 2023-09-19 17:48 | XMS_ITS | Continuity of Care Document ---
Author Organization [facility] Tyrell Dillon lt Address [address] [place] [address]- Care Team Providers Care Artificial Flower Maker Name Role Phone Gustavo PEDRO, Tanya Israel Primary Care Physician Encounter [facility] Date(s): 12/21/22 - 01/20/23 [facility] Adult [address] [place] [address]- Allergies, Adverse Reactions, Alerts No Known Allergies Immunizations Given and Recorded Vaccine Date Status Refusal Reason zoster vaccine, inactivated 09/26/21 Recorded zoster vaccine, inactivated 07/25/21 Recorded hepatitis B adult vaccine 07/11/21 Recorded hepatitis B adult vaccine 12/30/20 Recorded hepatitis B adult vaccine 10/14/19 Given hepatitis B adult vaccine 09/09/19 Given SARS-CoV-2 mRNA (atshwcm-isze-emwvc) vax 05/24/21 Recorded pneumococcal 13-valent vaccine 12/30/20 [...] Vaccine (oldterm) 04/29/19 Recorde d 1Result Comment: [facility]:[id number] 2Early/Late Reason: Med Not Available Medications ergocalciferol 39923 iu oral capsule 1, capsule, By Mouth, Every week, # 13 capsule, Refills 1, Tot. Refills 0, Maintenance, 06/28/20 12:51:00 EST, Route to Pharmacy Electronically, [facility] 62424, 170.18, cm, 01/11/20 10:37:00 EDT, Height, 82.6, kg, 09/24/19 8:19:00 EDT, Dry Weight Start Date: 06/28/20 Status: Ordered multivitamin with minerals Multiple Vitamins with Minerals oral tablet 1 tablet, By Mouth, Daily, # 90 tablet, 11 Refills, Maintenance, 09/14/20 13:32:00 EDT, Tablet, [facility]/pharmacy #[id number], 1 tablet By Mouth Daily, [...] Acute07/13/23 12:00:00 EDT, 07/11/22 8:47:00 EDT, Tablet, [facility]/pharmacy #[id number], 170, cm, 07/11/22 8:12:00 EDT, Height, 78.7, kg, 08/15/21 15:48:00 EDT, Dry Weight Start Date: 07/11/22 Stop Date: 07/13/23 Status: Ordered Vitamin B1 100 mg oral tablet 1, tablet, By Mouth, Daily, OFFICE VISIT NEEDED FOR FURTHER REFILLS, # 30 tablet, Refills 0, Tot. Refills 0, Maintenance, 06/30/20 6:51:00 EST, Route to Pharmacy Electronically, [facility]/pharmacy #[id number], 170.18, cm, 01/11/20 10:37:00 EDT, Height, 82.6, kg,... Start Date: 06/30/20 Status: Ordered Vitamin B6 50 mg oral tablet See Instructions, TAKE 1 TABLET BY MOUTH EVERY DAY, # 30 tablet, Refills 0, Acute, Instructions Replace Required Details, Route to Pharmacy Electronically, [facility] STORE 79171, 170.18, cm, 01/11/20 10:37:00 EDT, Height, 82.6, [...] Team Personnel Name: Gloria Stringer RN Position: [facility] RN Member Role: Primary Care Nurse Name: Tanya Chen NP Position: [facility] PCO Associate Professional Member Role: PCP Address: Address: [address] [place] [address]- Name: Coby Fernández RN Position: [facility] RN Member Role: Primary Care Nurse Name: Denia Batista Position: [facility] Outreach Member Role: Lifetime Consulting Physician Name: Helena Kumar RN Position: [facility] RN Member Role: Primary Care Nurse Name: Shanel Funk RN Position: [facility] RN Member Role: Primary Care Nurse Name: Clau Daniel RN Position: [facility] SN RN Member Role: Primary Care Nurse Name: Merry Moreau RN Position: [facility] Outreach Member Role: Primary Care Nurse Name: Hayder Haile MD Position: [facility] Renal MD Member Role: Lifetime Consulting Physician Address: Address: [address] [facility] [address]- Care Team Related Persons Name: ANTONIO TUCKER Address: [address] [place] [address] Name: JAGRUTI TUCKER Address: [address] [address]
--- OUTSIDE RECORDS SUMMARY | 2023-09-19 17:48 | XMS_ITS | Continuity of Care Document ---
Author Organization [facility] Address [address] [place] [address]- Care Team Providers Care Lead Engineer Name Role Phone Gustavo Tanya VASQUEZ Primary Care Physician [facility]counter [facility] Date(s): 02/12/23 - 03/14/23 [facility] [address] [place] [address]- [place] Allergies, Adverse Reactions, Alerts No Known Allergies Immunizations Given and Recorded Vaccine Date Status Refusal Reason pneumococcal 20-valent conjugate vaccine 1 03/07/23 Given hepatitis B adult vaccine 02/01/23 Recorded hepatitis B adult vaccine 07/11/21 Recorded hepatitis B adult vaccine 12/30/20 Recorded hepatitis B adult vaccine 10/14/19 Given hepatitis B adult vaccine 09/09/19 Given SARS-CoV-2(COVID-19)mRNA-LNP vac(osr171) 02/01/23 Recorded influenza virus vaccine, inactivated 12/21/22 Flavio rded influenza virus vaccine, inactivated 01/23/22 Flavio rded influenza virus vaccine, inactivated 01/11/20 Give n [id number] 12y+ bivalent booster vax 01/23/22 Recorded zoster vaccine, inactivated 09/26/21 Recorded zoster vaccine, inactivated 07/25/21 Recorded SARS-CoV-2 mRNA (vshorxg-phoz-xjjlk) vax 05/24/21 Recorded pneumococcal 13-valent vaccine 12/30/20 Recorded SARS-CoV-2 (COVID-19) mRNA BNT-162b2 vac 08/27/20 Recorded SARS-CoV-2 (COVID-19) mRNA BNT-162b2 vac 08/06/20 Recorded Hepatitis A Adult Vaccine 2 05/31/20 Given Hepatitis A Adult Vaccine 11/04/19 Recorded Measles/Mumps/Rubella Virus Vaccine 11/06/19 Recor ded tetanus/diphtheria/pertussis, acel(Tdap) 11/04/19 Recorded pneumococcal 23-valent vaccine 3 08/20/19 Given Influenza Virus Vaccine (oldterm) 04/29/19 Maite luna 1Result Comment: [id number] 2Result Comment: [facility]:[id number] 3Early/Late Reason: Med Not Available Medications cephalexin monohydrate 500 mg oral capsule 1 capsule = 500 mg, By Mouth, 3 times a day, for 7 days, take with food, # 21 capsule, 0 Refills, Acute 03/15/23 8:49:00 EST, 03/08/23 8:49:00 EST, Capsule, [id number], 169, cm, 03/07/23 10:53:00 EST, Height, 78.7, kg, 08/15/21 15:48:00 EDT D... Start Date: 03/08/23 Stop Date: 03/15/23 [...] Team Personnel Name: Gloria Stringer RN Position: [facility] RN Member Role: Primary Care Nurse Name: Tanya Chen NP Position: [facility] PCO Associate Professional Member Role: PCP Address: Address: [address] [place] [id number] Name: Coby Fernández RN Position: [facility] RN Member Role: Primary Care Nurse Name: Denia Batista Position: S Outreach Member Role: Lifetime Consulting Physician Name: Helena Kumar RN Position: [facility] RN Member Role: Primary Care Nurse Name: Shanel Funk RN Position: [facility] RN Member Role: Primary Care Nurse Name: Clau Daniel RN Position: [facility] SN RN Member Role: Primary Care Nurse Name: Merry Moreau RN Position: [facility] Outreach Member Role: Primary Care Nurse Name: Hayder Haile MD Position: [facility] Renal MD Member Role: Lifetime Consulting Physician Address: Address: [address] [place] [address] [facility] [place] [address]- [place] Care Team Related Persons Name: ANTONIO TUCKER Address: [address] [place] [address] Name: JAGRUTI TUCKER Address: [address] [address]
--- OUTSIDE RECORDS SUMMARY | 2023-09-19 17:48 | XMS_ITS | Continuity of Care Document ---
Author Organization [facility] Tyrell Dillon lt Address [address] [place] [address]- Care Team Providers Care School Based Therapist Name Role Phone Gustavo Tanya VASQUEZ Primary Care Physician Encounter [facility] Date(s): 07/19/23 - 08/18/23 [facility] Adult [address] [place] [address]- Allergies, Adverse Reactions, Alerts No Known Allergies [...] hepatitis B adult vaccine 09/09/19 Given SARS-CoV-2(COVID-19)mRNA-LNP vac([id number]) 02/01/23 Recorded influenza virus vaccine, inactivated 12/21/22 Flavio rded influenza virus vaccine, inactivated 01/23/22 Flavio rded influenza virus vaccine, inactivated 01/11/20 Give n [id number] 12y+ bivalent booster vax 01/23/22 Recorded SARS-CoV-2 mRNA ([id number]) vax 05/24/21 Recorded pneumococcal 13-valent vaccine 12/30/20 Recorded SARS-CoV-2 (COVID-19) mRNA BNT-162b2 vac 08/27/20 Recorded SARS-CoV-2 (COVID-19) mRNA BNT-162b2 vac 08/06/20 Recorded Hepatitis A Adult Vaccine 2 05/31/20 Given Hepatitis A Adult Vaccine 11/04/19 Recorded Measles/Mumps/Rubella Virus Vaccine 11/06/19 Recor ded pneumococcal 23-valent vaccine 3 08/20/19 Given Influenza Virus Vaccine (oldterm) 04/29/19 Recorde d 1Result Comment: [id number] 2Result Comment: [facility]:[id number] 3Early/Late Reason: Med Not Available Medications acamprosate [...] 5 Refills, Maintenance, 07/23/23 12:54:00 EDT, Tablet, [facility]/pharmacy #[id number], 168, cm, 07/22/23 11:32:00 EDT, Height, 79.5, kg, 07/22/23 11:32:00 EDT, Dry Weight Start Date: 07/23/23 Status: Ordered Melatonin 10 mg oral tablet 1 tablet = 10 mg, By Mouth, Daily at bedtime, for 30 days, # 30 tablet, 5 Refills, Acute 01/19/24 12:53:00 EDT, 07/23/23 12:53:00 EDT, Tablet, [facility]/pharmacy #[id number], 168, cm, 07/22/23 11:32:00 EDT, [...] Team Personnel Name: Gloria Stringer RN Position: [facility] RN Member Role: Primary Care Nurse Name: Tanya Chen NP Position: [facility] PCO Associate Professional Member Role: PCP Address: Address: [address] [place] [id number] Name: Coby Fernández RN Position: [facility] RN Member Role: Primary Care Nurse Name: Denia Batista Position: [facility] Outreach Member Role: Lifetime Consulting Physician Name: Helena Kumar RN Position: [facility] RN Member Role: Primary Care Nurse Name: Shanel Funk RN Position: [facility] RN Member Role: Primary Care Nurse Name: Clau Daniel RN Position: [facility] AMB Nurse Member Role: Primary Care Nurse Name: Merry Moreau RN Position: [facility] Outreach Member Role: Primary Care Nurse Name: Hayder Haile MD Position: [facility] Renal MD Member Role: Lifetime Consulting Physician Address: Address: [address] [place] [address] [facility] [address]- Care Team Related Persons Name: ANTONIO TUCKER Address: home [address] [place] [address] Name: JAGRUTI TUCKER Address: home [address] [address]
--- OUTSIDE RECORDS SUMMARY | 2023-09-19 17:48 | XMS_ITS | Continuity of Care Document ---
Author Organization [facility] Jori Santillan Dillon lt Address [address] [place] [address]- Care Team Providers Care Book Shelver Name Role Phone Tanya Chen NP Primary Care Physician [place] [facility] [place] 05/22/23 - 05/29/23 [facility] Jori Santillan Adult [address] [place] [address]- Encounter Diagnosis PAOLO (acute kidney injury)(Discharge Diagnosis) - 05/22/23 Attending Physician: Tanya Chen NP Allergies, Adverse [...] hepatitis B adult vaccine 09/09/19 Given SARS-CoV-2(COVID-19)mRNA-LNP vac([id number]) 02/01/23 Recorded influenza virus vaccine, inactivated 12/21/22 Flavio rded influenza virus vaccine, inactivated 01/23/22 Flavio rded influenza virus vaccine, inactivated 01/11/20 Give n [id number] 12y+ bivalent booster vax 01/23/22 Recorded SARS-CoV-2 mRNA ([id number]) vax 05/24/21 Recorded pneumococcal 13-valent vaccine 12/30/20 Recorded SARS-CoV-2 (COVID-19) mRNA BNT-162b2 vac 08/27/20 Recorded SARS-CoV-2 (COVID-19) mRNA BNT-162b2 vac 08/06/20 Recorded Hepatitis A Adult Vaccine 2 05/31/20 Given Hepatitis A Adult Vaccine 11/04/19 Recorded Measles/Mumps/Rubella Virus Vaccine 11/06/19 Recor ded tetanus/diphtheria/pertussis, acel(Tdap) 11/04/19 Recorded pneumococcal 23-valent vaccine 3 08/20/19 Given Influenza Virus Vaccine (oldterm) 04/29/19 Recorde d 1Result Comment: [id number] 2Result Comment: [facility]:[id number] 3Early/Late Reason: Med Not Available Medications cephalexin [...] Dates Health Status Cl inical Service Informant PAOLO (acute kidney injury) Discharge Diagnosis 05/22/23 Vital Signs Most recent to oldest [Reference Range]: 1 Height 171 cm (05/22/23 11:39 AM) Weight 90.7 kg (05/22/23 11:39 AM) Oxygen Saturation [94-100 %] 99 % (05/22/23 11:39 AM) Pulse Rate [55-90 bpm] 72 bpm (05/22/23 11:39 AM) Body Mass Index [18.5-24.99 kg/m2] 31.02 kg/m2 *>HHI* (05/22/23 11:39 AM) Blood Pressure [90-138/55-84 mm Hg] 103/ 64mm Hg (05/22/23 11:39 AM) Temperature [96.8-100.4 DegF] 97.9 DegF (05/22/23 11:39 AM) Mode of Delivery (Oxygen) Room air (05/22/23 11:39 AM) Blood pressure sites Arm, left (05/22/23 11:39 AM) Temperature Route Oral (05/22/23 11:39 AM) Weight Obtained Via Standing scale (05/22/23 11:39 AM) Social History Social History Type Response Smoking Status Former smoker, quit more than 30 days ago; Other: smoked socially; nothing regular; entered on: 07/15/19 Sex Patient Care team information Care Team Personnel Name: Gloria Stringer RN Position: [facility] RN Member Role: Primary Care Nurse Name: Tanya Chen NP Position: [facility] PCO Associate Professional Member Role: PCP Address: Address: [address] [place] [id number] Name: Coby Fernández RN Position: [facility] RN Member Role: Primary Care Nurse Name: Denia Batista Position: [facility] Outreach Member Role: Lifetime Consulting Physician Name: Helena Kumar RN Position: [facility] RN Member Role: Primary Care Nurse Name: Shanel Funk RN Position: [facility] RN Member Role: Primary Care Nurse Name: Clau Daniel RN Position: [facility] SN RN Member Role: Primary Care Nurse Name: Merry Moreau RN Position: [facility] Outreach Member Role: Primary Care Nurse Name: Hayder Haile MD Position: [facility] Renal MD Member Role: Lifetime Consulting Physician Address: Address: [address] [place] [address] [facility] [place] [id number]- [place] Care Team Related Persons Name: ANTONIO TUCKER Address: [address] [place] [address] Name: JAGRUTI TUCKER Address: home [address] [address]
--- OUTSIDE RECORDS SUMMARY | 2023-09-19 17:48 | XMS_ITS | Continuity of Care Document ---
Author Organization [facility] Tyrell Dillon Address [address] [place] [address]- Care Team Providers Care Water Resource Manager Name Role Phone Tanya Chen NP Primary Care Physician [phone] Encounter [facility] Date(s): 07/19/23 - 07/26/23 [facility] Adult [address] [place] [address]- Encounter Diagnosis Annual physical exam(Discharge Diagnosis) - 07/19/23 Alcohol abuse(Discharge Diagnosis) - 07/19/23 Cirrhosis of liver(Discharge Diagnosis) - 07/19/23 Esophageal varices(Discharge Diagnosis) - 07/19/23 Hyperlipidemia(Discharge Diagnosis) - 07/19/23 DENISE (obstructive sleep apnea)(Discharge Diagnosis) - 07/19/23 Obese class I(Discharge Diagnosis) - 07/19/23 Tubular adenoma of colon(Discharge Diagnosis) - 07/19/23 Subclinical hypothyroidism(Discharge Diagnosis) - 07/19/23 Vitamin D deficiency(Discharge Diagnosis) - 07/19/23 Attending Physician: Tanya Chen NP Referring Physician: Yvan Sherwood MD Allergies, Adverse Reactions, Alerts No Known [...] hepatitis B adult vaccine 09/09/19 Given SARS-CoV-2(COVID-19)mRNA-LNP vac([id number]) 02/01/23 Recorded influenza virus vaccine, inactivated 12/21/22 Flavio rded influenza virus vaccine, inactivated 01/23/22 Flavio rded influenza virus vaccine, inactivated 01/11/20 Give n [id number] 12y+ bivalent booster vax 01/23/22 Recorded SARS-CoV-2 mRNA ([id number]) vax 05/24/21 Recorded pneumococcal 13-valent vaccine 12/30/20 Recorded SARS-CoV-2 (COVID-19) mRNA BNT-162b2 vac 08/27/20 Recorded SARS-CoV-2 (COVID-19) mRNA BNT-162b2 vac 08/06/20 Recorded Hepatitis A Adult Vaccine 2 05/31/20 Given Hepatitis A Adult Vaccine 11/04/19 Recorded Measles/Mumps/Rubella Virus Vaccine 11/06/19 Recor ded pneumococcal 23-valent vaccine 3 08/20/19 Given Influenza Virus Vaccine (oldterm) 04/29/19 Recorde d 1Result Comment: [id number] 2Result Comment: [facility]:[id number] 3Early/Late Reason: Med Not Available Medications acamprosate [...] 5 Refills, Maintenance, 07/23/23 12:54:00 EDT, Tablet, [facility]/pharmacy #[id number], 168, cm, 07/22/23 11:32:00 EDT, Height, 79.5, kg, 07/22/23 11:32:00 EDT, Dry Weight Start Date: 07/23/23 Status: Ordered Melatonin 10 mg oral tablet 1 tablet = 10 mg, By Mouth, Daily at bedtime, for 30 days, # 30 tablet, 5 Refills, Acute 01/19/24 12:53:00 EDT, 07/23/23 12:53:00 EDT, Tablet, [facility]/pharmacy #[id number], 168, cm, 07/22/23 11:32:00 EDT, [...] Condition Confirmation Course Effective Dates Status H ealt Status Informant Alcohol abuse Confirmed Active Cholelithiasis [...] Service Informant Annual physical exam Discharge Diagnosis 07/19/23 Alcohol abuse Discharge Diagnosis 07/19/23 Cirrhosis of liver Discharge Diagnosis 07/19/23 Esophageal varices Discharge Diagnosis 07/19/23 Hyperlipidemia Discharge Diagnosis 07/19/23 DENISE (obstructive sleep apnea) Discharge Diagnosis 07/19/23 Obese class I Discharge Diagnosis 07/19/23 Tubular adenoma of colon Discharge Diagnosis 07/19/23 Subclinical hypothyroidism Discharge Diagnosis 07/19/23 Vitamin D deficiency Discharge Diagnosis 07/19/23 Vital Signs Most recent to oldest [Reference Range]: 1 Height 168.5 cm (07/19/23 1:41 PM) Weight 78.9 kg (07/19/23 1:41 PM) Oxygen Saturation [94-100 %] 99 % (07/19/23 1:41 PM) Pulse Rate [55-90 bpm] 94 bpm *H* (07/19/23 1:41 PM) Body Mass Index [18.5-24.99 kg/m2] 27.79 kg/m2 *H* (07/19/23 1:41 PM) Blood Pressure [90-138/55-84 mm Hg] 120/ 79mm Hg (07/19/23 1:41 PM) Mode of Delivery (Oxygen) Room air (07/19/23 1:41 PM) Blood pressure sites Arm, left (07/19/23 1:41 PM) Weight Obtained Via Standing scale (07/19/23 1:41 PM) Social History Social History Type Response Smoking Status Former smoker, quit more than 30 days ago; Other: smoked socially; nothing regular; entered on: 07/15/19 Sex Note * Heide Méndez: PERFORM, SIGN, VERIFY Event Display: Patient Education/Instruction Authored Date: [id number] [facility] *JS Dwyer Clinical Summary Name SANGITA TUCKER Age 58 Years 1965 PCP Tanya Chen NP PCP Visit Date 07/19/2023 13:37:00 Additional Instructions: Scheduled Appointments?? Future Appointments ?[facility] ?Phone:??--?Fax:??-- ?Appt. Date:??07/22/2023?4:30 PM ?Scheduled Provider:??Suyapa Goetz DO Tri Follow-Up Instructions ?? With: Address: When: Tanya Chen NP Comments: in 4-5 mo [facility] Diagnosis Encounter for general adult medical examination without abnormal findings; Hyperlipidemia, unspecified; Vitamin D deficiency, unspecified; Esophageal varices without bleeding; Unspecified cirrhosis of liver; Obstructive sleep apnea (adult) (pediatric); Alcohol abuse, uncomplicated; Body mass index [BMI] 30.0-30.9, adult; Benign neoplasm of colon, unspecified; Hypothyroidism, unspecified Medications: Please continue your medications until treatment is completed or stopped by your provider. Discuss any questions related to medications with your provider. Medications to Continue with No Changes These medications were not printed or sent to your pharmacy Acamprosate (acamprosate 333 mg oral delayed release tablet) Next Dose: Ascorbic Acid (Vitamin C) Oral Daily. Next Dose: Folic Acid (folic acid 0.8 mg oral tablet) 1 tab(s) Oral Daily. Next Dose: Furosemide (furosemide 20 mg oral tablet) Next Dose: Melatonin (Melatonin 10 mg oral tablet) 2 tab(s) Oral Daily at Bedtime. Next Dose: Pantoprazole (pantoprazole 40 mg oral delayed release tablet) Next Dose: Propranolol (propranolol 10 mg oral tablet) Next Dose: Spironolactone (spironolactone 50 mg oral tablet) 1 tab(s) Oral Daily. Next Dose: Trazodone (traZODone 100 mg oral tablet) 1 tab(s) Oral Daily at Bedtime. Next Dose: No Longer Take the Following Medications Meloxicam (meloxicam 15 mg oral tablet) Allergy Info:?? NKA Medications Given This Visit Future Orders ?No future orders Future Orders ?No future orders Vital Signs Height 168.5 cm Weight 78.9 kg BMI 27.79 kg/m2 Blood Pressure 120 mm Hg/79 mm Hg Temperature Pulse Rate 94 bpm Respiratory Rate 02 Sat Mode of Delivery 99 %/Room air You can now view a summary of your hospital visit from the comfort of your home through a free online portal called [employer]. [employer] is a website that allows you to securely view your medical information including discharge summary, medications and follow-up visits. ??You can alsosend a secure electronic message to your doctor???s office to request appointments, renew medications or just ask a question. You can enroll at [email or web address] or register during your next office visit. [...] primary care provider, you may find a [facility] provider by calling [facility] Link at [phone]. [facility], in keeping with [facility] guidance, no longer requires face masks [...] format to support your individualized medical care. Esophageal Varices Esophageal varices are enlarged veins at the lower end of??the esophagus (the tube that carries food from the mouth to the stomach).??Varices ??most often occur because of problems with blood flow inthe liver that are caused by chronic liver disease. Normally, a blood vessel called the portal veincarries blood from the digestive organs to the liver. But with liver disease, blood flow can become blocked because of scarring of the liver. This increases the blood pressure in the portal vein (a condition known as portal hypertension). Blood then backs up in nearby veins in the esophagus and stomach, causing varices. Varices are a serious and life-threatening problem. Treatment is needed to prevent them from rupturing and bleeding. If bleeding occurs, it can be fatal. Symptoms of Esophageal Varices With esophageal varices, blood vessels in the esophagus become abnormally enlarged. They may then rupture and bleed. Symptoms do not occur unless the varices are bleeding. This is an emergency problem. If you have any of the following symptoms, get medical attention right away: ??? Vomiting blood ??? Black, tarry, or bloody stools ??? Lightheadedness or loss of consciousness (fainting) Diagnosing Esophageal Varices You???ll likely be checked for varices if you have liver disease or other health problems that can cause them. The doctor will ask about your symptoms and health history. You???ll also be examined. Tests are then done to confirm the problem. These can include: ??? Upper endoscopy.??This is done to see inside the upper digestive tract. During the test, an endoscope is used. This is a thin, flexible tube with a tiny camera on the end. It???s inserted throughthe mouth. It???s then guided down through the esophagus, stomach, and first part of the small intestine. This allows the doctor to check for varices and detect??any bleeding. ??? Imaging tests.??These provide pictures of the liver or blood flow in the liver. They allow the doctor to check for enlarged veins around the liver and assess the risk of bleeding. Common imaging tests done include ultrasound and computed tomography (CT) scans. Treating Esophageal Varices The goal of treatment is to reduce the risk of bleeding or to control bleeding. Treatment can include one or more of the following: ??? Medications.??These may be prescribed to lower the blood pressure inside the enlarged veins. This reduces the risk of bleeding. Beta-blockers are the most common medication used. ??? Endoscopic therapy.??These are treatments for enlarged or bleeding veins that are done with thehelp of an endoscope. With ligation, small rubber bands are placed around the veins to close them off and stop any bleeding. With sclerotherapy, clotting medication is injected into the veins to cause scarring and shrink them. ??? Balloon tamponade.??This is a procedure in which a tube with a balloon is guided down into the esophagus and stomach. The balloon is then inflated with air. This applies pressure on enlarged or bleeding veins to control bleeding. This is a temporary method to control bleeding until other treatments are available. ??? Surgery.??This may be done to place a stent (tubelike device) in the liver. The stent helps reroute blood flow in the liver to lower the blood pressure in enlarged veins. Sometimes, the enlarged veins may be connected to other nearby veins to reroute blood flow. In severe cases, a liver transplant may be needed. This is to replace the diseased liver with a healthy donor liver. Follow-Up Regular visits with the doctor are needed to check for bleeding of the varices. If bleeding occurs,it is likely to occur again. More treatments will then be needed in the future. Once endoscopic therapy (banding) is performed, regular follow up endoscopic scans with banding are done to completely eradicate the varices. Work closely with your doctor to manage your condition and know when to seek emergency care. ?? 9400-3925 [employer]. [address] [place] [address], [place] [address]. All rights reserved. This information is not intended as a substitute for professional medical care. Always follow your healthcare professional's instructions. The Impact of Alcoholism Alcoholism affects not just the person who drinks. It also affects family and friendships. It affects the workplace. And it affects the community. Read below to learn more about the effects of the disease. Impact on the Person People with alcoholism must cope with problems caused by their drinking. These include problems with health, family, and work. Their drinking leads to fear and guilt. It causes anger and insecurity. People with alcoholism are often in denial about all of this. This means they do not admit their problems. Impact on the Workplace People with alcoholism have more accidents while at work. Their job performance may go down. And they are often absent or late. All this costs the company in lost time and medical care. It may cost in property damage. Coworkers may need to fill in or cover up for a person with alcoholism. This can lead to anger. Impact on the Family Alcoholism has an impact on the whole family. It can make family members feel alone. They may feel neglected or abused. They may be angry or distrustful. They may feel guilt or fear. These feelings cause a lot of stress and upset in a family. Impact on Society People with alcoholism are more often in traffic accidents. They are more often in other types of accidents and fires. They more often abuse their children and spouses. And they are more likely to kill someone else or themselves. The human cost of these problems is huge. So is the financial cost. Alcoholism costs the [place] billions of dollars every year. These costs are in the form of medical expenses and high insurance premiums. They are also in the form of property damage. What You Can Do If you are a coworker, family member, or friend, you can help. Start by learning more about alcoholism and its effects. Learn the warning signs. And reach out for support. If a person with alcoholismwill not get help, you can still join a support group and gather resources. One of the best things you can do is to not be an enabler. That is, you cannot make excuses for people who drink. This can h elp force them to take responsibility for their own actions. ?? [id number] [employer]. [address] [place] [address], [place] [address]. All rights reserved. This information is not intended as a substitute for professional medical care. Always follow your healthcare professional's instructions. [id number] Discharge Instructions for Cirrhosis of the Liver You have been diagnosed with cirrhosis of the liver. Cirrhosis is a chronic (long-lasting) liver problem that occurs when liver tissue is destroyed and replaced by scar tissue. Causes of cirrhosis include infection and chronic alcoholism. Signs of cirrhosis may be absent or only mild at first, but they usually get progressively worse. Cirrhosis is likely to occur if you have a history of alcohol abuse. Cirrhosis can???t be cured, but it can be treated. Home Care ??? Don???t drink alcohol. If you stop drinking now, you will feel better and live longer. ?? Find out about local support groups such as Alcoholics Anonymous. ?? Ask your doctor about medication that can help you quit drinking. ??? Cut back on salt. ?? Limit canned, dried, packaged, and fast foods. ?? Don???t add salt to your food at the table. ?? Season foods with herbs instead of salt when you cook. ??? Take your medications exactly as directed. ??? Talk to your doctor about vitamin supplements. Supplements of vitamins A, K, D, and thiamine may help. ??? Avoid aspirin and other blood-thinning medications. ??? Ask your doctor about what kind of diet you should follow. You may be asked to limit or not eatcertain foods. Follow-Up Make a follow-up appointment as directed by our staff. When to Call Your Doctor Call your doctor immediately if you have any of the following: ??? Fatigue, weakness, or lack of appetite ??? Vomiting (with or without blood) ??? Yellowing of your skin or eyes (jaundice) ??? Itching ??? Swelling in your abdomen or legs ??? Black or tarry stools ??? Skin that bruises easily ??? Confusion or trouble thinking clearly ?? [id number] [facility], [address] [place] [address], [place] [address]. All rights reserved. This information is not intended as a substitute for professional medical care. Always follow your healthcare professional's instructions. Alcoholism: Getting Help Facing a problem with alcohol can be hard. Once a person decides to get help, it can be found in many places. Below you will find resources that can give you more information. They can also help you find treatment. Primary care Speak with your primary??health care provider. Sometimes your??health care provider??can provide medication to help you stop drinking. If not, he or she can refer you to a specialist. Professional care This kind of care can be inpatient. It means you spend a period of time in a facility. Or it can beoutpatient. This means you come and go. The facilities have medical support and can help a person detox. Most health insurance plans will cover at least some treatment. To find this kind of care, talk to your health care provider or a counselor. Or go to a mental health clinic and ask for information. You can also go online to: Substance Abuse and Mental Health Services Administration at www.[facility].gov/treatment. Alcoholics anonymous (AA) AA helps members get sober and stay sober. They help you build healthy patterns of living. Everyoneis welcome at an AA meeting. You do not have to identify yourself. Some people find it easier to goto the first meeting with a friend. To find a meeting near you, contact AA online at www.aa.org. Orlook in the phone book for the number of a local chapter. The road to recovery Many people with alcoholism can give up alcohol for good. But change may not be easy or quick. Treatment is only a start. Relapses can be common. A relapse is not a sign of failure. Instead, it meanstreatment should continue. Once a person stops drinking, support is needed for them to stay sober. After care programs and groups, such as AA, are good for this kind of support. Helpful websites ??? National [employer] on Alcohol Abuse and Addiction?? www.niaaa.nih.gov/alcohol-health ??? National [place] on Alcoholism and Drug Dependence, Inc. (NCADD)?? www.ncadd.org ??? Alcoholism Anonymous?? www.aa.org ??? Substance Abuse and Mental Health Services Administration ([facility])?? www.samhsa.gov/treatment ?? [employer]. [address] [place] [address], [place] [address]. All rights reserved. This information is not intended as a substitute for professional medical care. Always follow your healthcare professional's instructions. Alcohol Abuse Alcoholic drinks are harmful when you have too many of them. There is no set number of drinks that defines too much. Drinking that disrupts your life or your health is called alcohol abuse. Alcohol abuse can hurt your relationships with others. You may lose friends, a spouse, or even your job. You may be abusing alcohol if any of the following are true for you: ??? Duties at home or with residential child care counselor suffer because of drinking. ??? Duties at work or in school suffer because of drinking. ??? You have missed work or school because of drinking. ??? You use alcohol while driving or operating machinery. ??? You have legal problems such as arrests due to drinking. ??? You keep drinking even though it causes serious problems in your life. Health effects Alcohol abuse causes health problems.??Sometimes this can happen after only drinking a ???little. There is no set number of drinks or amount of alcohol that defines too much.??The more you drink at one time, and the more often you drink determine both the short-term and long-term health effects.??It affects all parts of your body and your health, including your: ??? Brain. Alcohol is a central nervous system depressant.??It can damage parts of the brain that affect your balance, memory, thinking, and emotions. It can cause memory loss, blackouts, depression,agitation, sleep cycle changes, and seizures. These changes may or may not be reversible. ??? Heart and vascular system. Alcohol affects multiple areas. It can damage heart muscle causing cardiomyopathy, which is a weakening and stretching of the heart muscle. This can lead to trouble breathing, an irregular heartbeat, atrial fibrillation, leg swelling, and heart failure. Alcohol use makes the blood vessels stiffen causing hypertension (high blood pressure). All of these problems increase your risk of having heart attacks or strokes. ??? Liver. Alcohol causes fat to build up in the liver, affecting its normal function. This increases the risk for hepatitis, leading to abdominal pain, appetite loss, jaundice, bleeding problems, liver fibrosis, and cirrhosis. This, in turn, can affect your ability to fight off infections, and cancause diabetes. The liver changes prevent it from removing toxins in your blood that can cause encephalopathy which may show with confusion, altered level of consciousness, personality changes, memory loss, seizures, coma, and . ??? Pancreas. Alcohol can cause inflammation of the pancreas, or pancreatitis. This can cause abdominal pain, fever, and diabetes. ??? Immune system. Alcohol weakens your immune system in a number of ways. It suppresses your immune system making it harder to fight infections and colds. It also increases the chance of getting pneumonia and tuberculosis. ??? Cancer. Alcohol is a risk factor for developing cancer of the mouth, esophagus, pharynx, larynx, liver, and breast. ??? Sexual function.??Alcohol can lead to sexual problems. Home care The following guidelines will help you deal with alcohol abuse: ??? Admit you have a problem with alcohol. ??? Ask for help from your health care provider and trusted family members or close friends. ??? Get help from people trained in dealing with alcohol abuse. This may be individual counseling or group therapy, or it may be a supervised alcohol treatment program. ??? Join a self-help group for alcohol abuse such as Alcoholics Anonymous (AA). ??? Avoid people who abuse alcohol or tempt you to drink. Follow-up care Follow up as advised by the doctor or our staff. Contact these groups to get help: ??? Alcoholics Anonymous (AA):??Go to www.aa.org or check the phone book for meetings near you. ??? National Alcohol and Substance Abuse Information Center (NASAIC): 631.970.1583 www.addictioncareViryd Technologies.TapHome ??? National [place] on Alcoholism and Drug Dependence (NCADD): 316-KTF-UDCD (864-5568) www.ncadd.org ??? Al-Anon: 412-6WB-YSEW (732-7921) www.al-anon.org Call 911 Call 911 if any of these occur: ??? Trouble breathing or slow irregular breathing ??? Chest pain ??? Sudden weakness on one side of your body or sudden trouble speaking ??? Heavy bleeding or vomiting blood ??? Very drowsy or trouble awakening ??? Fainting or loss of consciousness ??? Rapid heart rate ??? Seizure When to seek medical care Get prompt medical attention if you have: ??? Confusion ??? Hallucinations (seeing, hearing, or feeling things that aren???t there) ??? Pain in your upper abdomen that gets worse ??? Repeated vomiting or black or tarry stools ??? Severe shakiness ?? 3758-5129 [employer]. [address] [place] [address], [place] [address]. All rights reserved. This information is not intended as a substitute for professional medical care. Always follow your healthcare professional's instructions. Prevention Guidelines, Men Ages 50 to 64 [...] men in this age group Every visit [address] [place] [address] [facility] ?? 1964-4062 [employer]. [address] [place] [address], [place] [address]. All rights reserved. This information is not intended as a substitute for professional medical care. Always follow your healthcare professional's instructions. * Heide Méndez: PERFORM, SIGN, VERIFY Event Display: Patient Education/Instruction Authored Date: [id number] [facility] *BMP So Tyrell Dwyer Clinical Summary Name SANGITA TUCKER Age 58 Years 1965 PCP Gustavo CERTIFIED TRAVEL COUNSELOR, Tanya Israel PCP Visit Date 07/19/2023 13:37:00 Additional Instructions: Scheduled Appointments?? Future Appointments [facility] ?Phone:??--?Fax:??-- ?Appt. Date:??07/22/2023?4:30 PM ?Scheduled Provider:??Bishnu MACIEL, Suyapa Tri Follow-Up Instructions ?? With: Address: When: Gustavo VASQUEZ, Tanya Israel Comments: in 4-5 mo [facility] Diagnosis Encounter for general adult medical examination without abnormal findings; Hyperlipidemia, unspecified; Vitamin D deficiency, unspecified; Esophageal varices without bleeding; Unspecified cirrhosis of liver; Obstructive sleep apnea (adult) (pediatric); Alcohol abuse, uncomplicated; Body mass index [BMI] 30.0-30.9, adult; Benign neoplasm of colon, unspecified; Hypothyroidism, unspecified Medications: Please continue your medications until treatment is completed or stopped by your provider. Discuss any questions related to medications with your provider. Medications to Continue with No Changes These medications were not printed or sent to your pharmacy Acamprosate (acamprosate 333 mg oral delayed release tablet) Next Dose: Ascorbic Acid (Vitamin C) Oral Daily. Next Dose: Folic Acid (folic acid 0.8 mg oral tablet) 1 tab(s) Oral Daily. Next Dose: Furosemide (furosemide 20 mg oral tablet) Next Dose: Melatonin (Melatonin 10 mg oral tablet) 2 tab(s) Oral Daily at Bedtime. Next Dose: Pantoprazole (pantoprazole 40 mg oral delayed release tablet) Next Dose: Propranolol (propranolol 10 mg oral tablet) Next Dose: Spironolactone (spironolactone 50 mg oral tablet) 1 tab(s) Oral Daily. Next Dose: Trazodone (traZODone 100 mg oral tablet) 1 tab(s) Oral Daily at Bedtime. Next Dose: No Longer Take the Following Medications Meloxicam (meloxicam 15 mg oral tablet) Allergy Info:?? NKA Medications Given This Visit Future Orders ?No future orders Future Orders ?No future orders Vital Signs Height 168.5 cm Weight 78.9 kg BMI 27.79 kg/m2 Blood Pressure 120 mm Hg/79 mm Hg Temperature Pulse Rate 94 bpm Respiratory Rate 02 Sat Mode of Delivery 99 %/Room air You can now view a summary of your hospital visit from the comfort of your home through a free online portal called [employer]. [employer] is a website that allows you to securely view your medical information including discharge summary, medications and follow-up visits. ??You can alsosend a secure electronic message to your doctor???s office to request appointments, renew medications or just ask a question. You can enroll at [email or web address] or register during your next [...] primary care provider, you may find a [facility] provider by calling [facility] Grows Up Link at [phone]. [facility], in keeping with [facility] guidance, no longer requires face masks [...] format to support your individualized medical care. Esophageal Varices Esophageal varices are enlarged veins at the lower end of??the esophagus (the tube that carries food from the mouth to the stomach).??Varices ??most often occur because of problems with blood flow inthe liver that are caused by chronic liver disease. Normally, a blood vessel called the portal veincarries blood from the digestive organs to the liver. But with liver disease, blood flow can become blocked because of scarring of the liver. This increases the blood pressure in the portal vein (a condition known as portal hypertension). Blood then backs up in nearby veins in the esophagus and stomach, causing varices. Varices are a serious and life-threatening problem. Treatment is needed to prevent them from rupturing and bleeding. If bleeding occurs, it can be fatal. Symptoms of Esophageal Varices With esophageal varices, blood vessels in the esophagus become abnormally enlarged. They may then rupture and bleed. Symptoms do not occur unless the varices are bleeding. This is an emergency problem. If you have any of the following symptoms, get medical attention right away: ??? Vomiting blood ??? Black, tarry, or bloody stools ??? Lightheadedness or loss of consciousness (fainting) Diagnosing Esophageal Varices You???ll likely be checked for varices if you have liver disease or other health problems that can cause them. The doctor will ask about your symptoms and health history. You???ll also be examined. Tests are then done to confirm the problem. These can include: ??? Upper endoscopy.??This is done to see inside the upper digestive tract. During the test, an endoscope is used. This is a thin, flexible tube with a tiny camera on the end. It???s inserted throughthe mouth. It???s then guided down through the esophagus, stomach, and first part of the small intestine. This allows the doctor to check for varices and detect??any bleeding. ??? Imaging tests.??These provide pictures of the liver or blood flow in the liver. They allow the doctor to check for enlarged veins around the liver and assess the risk of bleeding. Common imaging tests done include ultrasound and computed tomography (CT) scans. Treating Esophageal Varices The goal of treatment is to reduce the risk of bleeding or to control bleeding. Treatment can include one or more of the following: ??? Medications.??These may be prescribed to lower the blood pressure inside the enlarged veins. This reduces the risk of bleeding. Beta-blockers are the most common medication used. ??? Endoscopic therapy.??These are treatments for enlarged or bleeding veins that are done with thehelp of an endoscope. With ligation, small rubber bands are placed around the veins to close them off and stop any bleeding. With sclerotherapy, clotting medication is injected into the veins to cause scarring and shrink them. ??? Balloon tamponade.??This is a procedure in which a tube with a balloon is guided down into the esophagus and stomach. The balloon is then inflated with air. This applies pressure on enlarged or bleeding veins to control bleeding. This is a temporary method to control bleeding until other treatments are available. ??? Surgery.??This may be done to place a stent (tubelike device) in the liver. The stent helps reroute blood flow in the liver to lower the blood pressure in enlarged veins. Sometimes, the enlarged veins may be connected to other nearby veins to reroute blood flow. In severe cases, a liver transplant may be needed. This is to replace the diseased liver with a healthy donor liver. Follow-Up Regular visits with the doctor are needed to check for bleeding of the varices. If bleeding occurs,it is likely to occur again. More treatments will then be needed in the future. Once endoscopic therapy (banding) is performed, regular follow up endoscopic scans with banding are done to completely eradicate the varices. Work closely with your doctor to manage your condition and know when to seek emergency care. ?? 9971-5255 [employer]. [address] [place] [address]. All rights reserved. This information is not intended as a substitute for professional medical care. Always follow your healthcare professional's instructions. The Impact of Alcoholism Alcoholism affects not just the person who drinks. It also affects family and friendships. It affects the workplace. And it affects the community. Read below to learn more about the effects of the disease. Impact on the Person People with alcoholism must cope with problems caused by their drinking. These include problems with health, family, and work. Their drinking leads to fear and guilt. It causes anger and insecurity. People with alcoholism are often in denial about all of this. This means they do not admit their problems. Impact on the Workplace People with alcoholism have more accidents while at work. Their job performance may go down. And they are often absent or late. All this costs the company in lost time and medical care. It may cost in property damage. Coworkers may need to fill in or cover up for a person with alcoholism. This can lead to anger. Impact on the Family Alcoholism has an impact on the whole family. It can make family members feel alone. They may feel neglected or abused. They may be angry or distrustful. They may feel guilt or fear. These feelings cause a lot of stress and upset in a family. Impact on Society People with alcoholism are more often in traffic accidents. They are more often in other types of accidents and fires. They more often abuse their children and spouses. And they are more likely to kill someone else or themselves. The human cost of these problems is huge. So is the financial cost. Alcoholism costs the [place] billions of dollars every year. These costs are in the form of medical expenses and high insurance premiums. They are also in the form of property damage. What You Can Do If you are a coworker, family member, or friend, you can help. Start by learning more about alcoholism and its effects. Learn the warning signs. And reach out for support. If a person with alcoholismwill not get help, you can still join a support group and gather resources. One of the best things you can do is to not be an enabler. That is, you cannot make excuses for people who drink. This can h elp force them to take responsibility for their own actions. ?? 8854-8145 [employer]. [address] [place] [address]. All rights reserved. This information is not intended as a substitute for professional medical care. Always follow your healthcare professional's instructions. [address] Discharge Instructions for Cirrhosis of the Liver You have been diagnosed with cirrhosis of the liver. Cirrhosis is a chronic (long-lasting) liver problem that occurs when liver tissue is destroyed and replaced by scar tissue. Causes of cirrhosis include infection and chronic alcoholism. Signs of cirrhosis may be absent or only mild at first, but they usually get progressively worse. Cirrhosis is likely to occur if you have a history of alcohol abuse. Cirrhosis can???t be cured, but it can be treated. Home Care ??? Don???t drink alcohol. If you stop drinking now, you will feel better and live longer. ?? Find out about local support groups such as Alcoholics Anonymous. ?? Ask your doctor about medication that can help you quit drinking. ??? Cut back on salt. ?? Limit canned, dried, packaged, and fast foods. ?? Don???t add salt to your food at the table. ?? Season foods with herbs instead of salt when you cook. ??? Take your medications exactly as directed. ??? Talk to your doctor about vitamin supplements. Supplements of vitamins A, K, D, and thiamine may help. ??? Avoid aspirin and other blood-thinning medications. ??? Ask your doctor about what kind of diet you should follow. You may be asked to limit or not eatcertain foods. Follow-Up Make a follow-up appointment as directed by our staff. When to Call Your Doctor Call your doctor immediately if you have any of the following: ??? Fatigue, weakness, or lack of appetite ??? Vomiting (with or without blood) ??? Yellowing of your skin or eyes (jaundice) ??? Itching ??? Swelling in your abdomen or legs ??? Black or tarry stools ??? Skin that bruises easily ??? Confusion or trouble thinking clearly ?? 0407-1735 [employer], [address] [facility], [place] [address]. All rights reserved. This information is not intended as a substitute for professional medical care. Always follow your healthcare professional's instructions. Alcoholism: Getting Help Facing a problem with alcohol can be hard. Once a person decides to get help, it can be found in many places. Below you will find resources that can give you more information. They can also help you find treatment. Primary care Speak with your primary??health care provider. Sometimes your??health care provider??can provide medication to help you stop drinking. If not, he or she can refer you to a specialist. Professional care This kind of care can be inpatient. It means you spend a period of time in a facility. Or it can beoutpatient. This means you come and go. The facilities have medical support and can help a person detox. Most health insurance plans will cover at least some treatment. To find this kind of care, talk to your health care provider or a counselor. Or go to a mental health clinic and ask for information. You can also go online to: Substance Abuse and Mental Health Services Administration at www.samhsa.gov/treatment. Alcoholics anonymous (AA) AA helps members get sober and stay sober. They help you build healthy patterns of living. Everyoneis welcome at an AA meeting. You do not have to identify yourself. Some people find it easier to goto the first meeting with a friend. To find a meeting near you, contact AA online at www.aa.org. [place] in the phone book for the number of a local chapter. The road to recovery Many people with alcoholism can give up alcohol for good. But change may not be easy or quick. Treatment is only a start. Relapses can be common. A relapse is not a sign of failure. Instead, it meanstreatment should continue. Once a person stops drinking, support is needed for them to stay sober. After care programs and groups, such as AA, are good for this kind of support. Helpful websites ??? National Paramount on Alcohol Abuse and Addiction?? www.niaaa.nih.gov/alcohol-health ??? National [place] on Alcoholism and Drug Dependence, Inc. (NCADD)?? www.bluebird bio.org ??? Alcoholism Anonymous?? www.aa.org ??? Substance Abuse and Mental Health Services Administration (SAMHSA)?? www.samhsa.gov/treatment ?? 1567-4521 [employer]. [address] [place] [address]. All rights reserved. This information is not intended as a substitute for professional medical care. Always follow your healthcare professional's instructions. Alcohol Abuse Alcoholic drinks are harmful when you have too many of them. There is no set number of drinks that defines too much. Drinking that disrupts your life or your health is called alcohol abuse. Alcohol abuse can hurt your relationships with others. You may lose friends, a spouse, or even your job. You may be abusing alcohol if any of the following are true for you: ??? Duties at home or with residential child care counselor suffer because of drinking. ??? Duties at work or in school suffer because of drinking. ??? You have missed work or school because of drinking. ??? You use alcohol while driving or operating machinery. ??? You have legal problems such as arrests due to drinking. ??? You keep drinking even though it causes serious problems in your life. Health effects Alcohol abuse causes health problems.??Sometimes this can happen after only drinking a ???little. There is no set number of drinks or amount of alcohol that defines too much.??The more you drink at one time, and the more often you drink determine both the short-term and long-term health effects.??It affects all parts of your body and your health, including your: ??? Brain. Alcohol is a central nervous system depressant.??It can damage parts of the brain that affect your balance, memory, thinking, and emotions. It can cause memory loss, blackouts, depression,agitation, sleep cycle changes, and seizures. These changes may or may not be reversible. ??? Heart and vascular system. Alcohol affects multiple areas. It can damage heart muscle causing cardiomyopathy, which is a weakening and stretching of the heart muscle. This can lead to trouble breathing, an irregular heartbeat, atrial fibrillation, leg swelling, and heart failure. Alcohol use makes the blood vessels stiffen causing hypertension (high blood pressure). All of these problems increase your risk of having heart attacks or strokes. ??? Liver. Alcohol causes fat to build up in the liver, affecting its normal function. This increases the risk for hepatitis, leading to abdominal pain, appetite loss, jaundice, bleeding problems, liver fibrosis, and cirrhosis. This, in turn, can affect your ability to fight off infections, and cancause diabetes. The liver changes prevent it from removing toxins in your blood that can cause encephalopathy which may show with confusion, altered level of consciousness, personality changes, memory loss, seizures, coma, and . ??? Pancreas. Alcohol can cause inflammation of the pancreas, or pancreatitis. This can cause abdominal pain, fever, and diabetes. ??? Immune system. Alcohol weakens your immune system in a number of ways. It suppresses your immune system making it harder to fight infections and colds. It also increases the chance of getting pneumonia and tuberculosis. ??? Cancer. Alcohol is a risk factor for developing cancer of the mouth, esophagus, pharynx, larynx, liver, and breast. ??? Sexual function.??Alcohol can lead to sexual problems. Home care The following guidelines will help you deal with alcohol abuse: ??? Admit you have a problem with alcohol. ??? Ask for help from your health care provider and trusted family members or close friends. ??? Get help from people trained in dealing with alcohol abuse. This may be individual counseling or group therapy, or it may be a supervised alcohol treatment program. ??? Join a self-help group for alcohol abuse such as Alcoholics Anonymous (AA). ??? Avoid people who abuse alcohol or tempt you to drink. Follow-up care Follow up as advised by the doctor or our staff. Contact these groups to get help: ??? Alcoholics Anonymous (AA):??Go to www.aa.org or check the phone book for meetings near you. ??? National Alcohol and Substance Abuse Information Center (NASAIC): 951.818.8754 www.addictioncareViryd [employer].com ??? National [place] on Alcoholism and Drug Dependence (NCADD): 213-ETP-CJXQ (167-1592) www.ncadd.org ??? Al-Anon: 721-4BX-EEHZ (702-8789) www.al-anon.org Call 911 Call 911 if any of these occur: ??? Trouble breathing or slow irregular breathing ??? Chest pain ??? Sudden weakness on one side of your body or sudden trouble speaking ??? Heavy bleeding or vomiting blood ??? Very drowsy or trouble awakening ??? Fainting or loss of consciousness ??? Rapid heart rate ??? Seizure When to seek medical care Get prompt medical attention if you have: ??? Confusion ??? Hallucinations (seeing, hearing, or feeling things that aren???t there) ??? Pain in your upper abdomen that gets worse ??? Repeated vomiting or black or tarry stools ??? Severe shakiness ?? 9261-[address] [employer] [place] [address], [place] [address]. All rights reserved. This information is not intended as a substitute for professional medical care. Always follow your healthcare professional's instructions. Prevention Guidelines, Men Ages 50 to 64 [...] men in this age group Every visit [address] [place] [address] [facility] ?? 4104-3822 [employer]. [address] [place] [address]. All rights reserved. This information is not intended as a substitute for professional medical care. Always follow your healthcare professional's instructions. * Trini Luong: PERFORM, SIGN, VERIFY Event Display: Patient Education/Instruction Authored Date: [id number] [facility] *BMP So Tyrell Reymundo Clinical Summary Name SANGITA TUCKER Age 58 Years 1965 PCP Tanya Chen NP PCP Visit Date 07/19/2023 13:37:00 Additional Instructions: Scheduled Appointments?? Future Appointments ?[facility] ?Phone:??--?Fax:??-- ?Appt. Date:??07/22/2023?4:30 PM ?Scheduled Provider:??Suyapa Goetz DO Follow-Up Instructions ?? With: Address: When: Tanya Chen NP In 6 months Diagnosis Encounter for general adult medical examination without abnormal findings; Hyperlipidemia, unspecified; Vitamin D deficiency, unspecified; Esophageal varices without bleeding; Unspecified cirrhosis of liver; Obstructive sleep apnea (adult) (pediatric); Alcohol abuse, uncomplicated; Body mass index [BMI] 30.0-30.9, adult; Benign neoplasm of colon, unspecified; Hypothyroidism, unspecified Medications: Please continue your medications until treatment is completed or stopped by your provider. Discuss any questions related to medications with your provider. Medications to Continue with No Changes These medications were not printed or sent to your pharmacy Acamprosate (acamprosate 333 mg oral delayed release tablet) Next Dose: Ascorbic Acid (Vitamin C) Oral Daily. Next Dose: Folic Acid (folic acid 0.8 mg oral tablet) 1 tab(s) Oral Daily. Next Dose: Furosemide (furosemide 20 mg oral tablet) Next Dose: Melatonin (Melatonin 10 mg oral tablet) 2 tab(s) Oral Daily at Bedtime. Next Dose: Pantoprazole (pantoprazole 40 mg oral delayed release tablet) Next Dose: Propranolol (propranolol 10 mg oral tablet) Next Dose: Spironolactone (spironolactone 50 mg oral tablet) 1 tab(s) Oral Daily. Next Dose: Trazodone (traZODone 100 mg oral tablet) 1 tab(s) Oral Daily at Bedtime. Next Dose: No Longer Take the Following Medications Meloxicam (meloxicam 15 mg oral tablet) Allergy Info:?? NKA Medications Given This Visit Future Orders ?No future orders Future Orders ?No future orders Vital Signs Height 168.5 cm Weight 78.9 kg BMI 27.79 kg/m2 Blood Pressure 120 mm Hg/79 mm Hg Temperature Pulse Rate 94 bpm Respiratory Rate 02 Sat Mode of Delivery 99 %/Room air You can now view a summary of your hospital visit from the comfort of your home through a free online portal called [employer]. [employer] is a website that allows you to securely view your medical information including discharge summary, medications and follow-up visits. ??You can alsosend a secure electronic message to your doctor???s office to request appointments, renew medications or just ask a question. You can enroll at [email or web address] or register during your next office visit. [...] primary care provider, you may find a [facility] provider by calling [facility] Grows Up Link at [phone]. [facility], in keeping with [facility] guidance, no longer requires face masks [...] format to support your individualized medical care. Esophageal Varices Esophageal varices are enlarged veins at the lower end of??the esophagus (the tube that carries food from the mouth to the stomach).??Varices ??most often occur because of problems with blood flow inthe liver that are caused by chronic liver disease. Normally, a blood vessel called the portal veincarries blood from the digestive organs to the liver. But with liver disease, blood flow can become blocked because of scarring of the liver. This increases the blood pressure in the portal vein (a condition known as portal hypertension). Blood then backs up in nearby veins in the esophagus and stomach, causing varices. Varices are a serious and life-threatening problem. Treatment is needed to prevent them from rupturing and bleeding. If bleeding occurs, it can be fatal. Symptoms of Esophageal Varices With esophageal varices, blood vessels in the esophagus become abnormally enlarged. They may then rupture and bleed. Symptoms do not occur unless the varices are bleeding. This is an emergency problem. If you have any of the following symptoms, get medical attention right away: ??? Vomiting blood ??? Black, tarry, or bloody stools ??? Lightheadedness or loss of consciousness (fainting) Diagnosing Esophageal Varices You???ll likely be checked for varices if you have liver disease or other health problems that can cause them. The doctor will ask about your symptoms and health history. You???ll also be examined. Tests are then done to confirm the problem. These can include: ??? Upper endoscopy.??This is done to see inside the upper digestive tract. During the test, an endoscope is used. This is a thin, flexible tube with a tiny camera on the end. It???s inserted throughthe mouth. It???s then guided down through the esophagus, stomach, and first part of the small intestine. This allows the doctor to check for varices and detect??any bleeding. ??? Imaging tests.??These provide pictures of the liver or blood flow in the liver. They allow the doctor to check for enlarged veins around the liver and assess the risk of bleeding. Common imaging tests done include ultrasound and computed tomography (CT) scans. Treating Esophageal Varices The goal of treatment is to reduce the risk of bleeding or to control bleeding. Treatment can include one or more of the following: ??? Medications.??These may be prescribed to lower the blood pressure inside the enlarged veins. This reduces the risk of bleeding. Beta-blockers are the most common medication used. ??? Endoscopic therapy.??These are treatments for enlarged or bleeding veins that are done with thehelp of an endoscope. With ligation, small rubber bands are placed around the veins to close them off and stop any bleeding. With sclerotherapy, clotting medication is injected into the veins to cause scarring and shrink them. ??? Balloon tamponade.??This is a procedure in which a tube with a balloon is guided down into the esophagus and stomach. The balloon is then inflated with air. This applies pressure on enlarged or bleeding veins to control bleeding. This is a temporary method to control bleeding until other treatments are available. ??? Surgery.??This may be done to place a stent (tubelike device) in the liver. The stent helps reroute blood flow in the liver to lower the blood pressure in enlarged veins. Sometimes, the enlarged veins may be connected to other nearby veins to reroute blood flow. In severe cases, a liver transplant may be needed. This is to replace the diseased liver with a healthy donor liver. Follow-Up Regular visits with the doctor are needed to check for bleeding of the varices. If bleeding occurs,it is likely to occur again. More treatments will then be needed in the future. Once endoscopic therapy (banding) is performed, regular follow up endoscopic scans with banding are done to completely eradicate the varices. Work closely with your doctor to manage your condition and know when to seek emergency care. ?? [id number] [employer]. [address] [place], [place] [address]. All rights reserved. This information is not intended as a substitute for professional medical care. Always follow your healthcare professional's instructions. The Impact of Alcoholism Alcoholism affects not just the person who drinks. It also affects family and friendships. It affects the workplace. And it affects the community. Read below to learn more about the effects of the disease. Impact on the Person People with alcoholism must cope with problems caused by their drinking. These include problems with health, family, and work. Their drinking leads to fear and guilt. It causes anger and insecurity. People with alcoholism are often in denial about all of this. This means they do not admit their problems. Impact on the Workplace People with alcoholism have more accidents while at work. Their job performance may go down. And they are often absent or late. All this costs the company in lost time and medical care. It may cost in property damage. Coworkers may need to fill in or cover up for a person with alcoholism. This can lead to anger. Impact on the Family Alcoholism has an impact on the whole family. It can make family members feel alone. They may feel neglected or abused. They may be angry or distrustful. They may feel guilt or fear. These feelings cause a lot of stress and upset in a family. Impact on Society People with alcoholism are more often in traffic accidents. They are more often in other types of accidents and fires. They more often abuse their children and spouses. And they are more likely to kill someone else or themselves. The human cost of these problems is huge. So is the financial cost. Alcoholism costs the [place] billions of dollars every year. These costs are in the form of medical expenses and high insurance premiums. They are also in the form of property damage. What You Can Do If you are a coworker, family member, or friend, you can help. Start by learning more about alcoholism and its effects. Learn the warning signs. And reach out for support. If a person with alcoholismwill not get help, you can still join a support group and gather resources. One of the best things you can do is to not be an enabler. That is, you cannot make excuses for people who drink. This can h elp force them to take responsibility for their own actions. ?? 9483-8479 [employer]. [address] [place] [address], [place] [id number]. All rights reserved. This information is not intended as a substitute for professional medical care. Always follow your healthcare professional's instructions. [address] Discharge Instructions for Cirrhosis of the Liver You have been diagnosed with cirrhosis of the liver. Cirrhosis is a chronic (long-lasting) liver problem that occurs when liver tissue is destroyed and replaced by scar tissue. Causes of cirrhosis include infection and chronic alcoholism. Signs of cirrhosis may be absent or only mild at first, but they usually get progressively worse. Cirrhosis is likely to occur if you have a history of alcohol abuse. Cirrhosis can???t be cured, but it can be treated. Home Care ??? Don???t drink alcohol. If you stop drinking now, you will feel better and live longer. ?? Find out about local support groups such as Alcoholics Anonymous. ?? Ask your doctor about medication that can help you quit drinking. ??? Cut back on salt. ?? Limit canned, dried, packaged, and fast foods. ?? Don???t add salt to your food at the table. ?? Season foods with herbs instead of salt when you cook. ??? Take your medications exactly as directed. ??? Talk to your doctor about vitamin supplements. Supplements of vitamins A, K, D, and thiamine may help. ??? Avoid aspirin and other blood-thinning medications. ??? Ask your doctor about what kind of diet you should follow. You may be asked to limit or not eatcertain foods. Follow-Up Make a follow-up appointment as directed by our staff. When to Call Your Doctor Call your doctor immediately if you have any of the following: ??? Fatigue, weakness, or lack of appetite ??? Vomiting (with or without blood) ??? Yellowing of your skin or eyes (jaundice) ??? Itching ??? Swelling in your abdomen or legs ??? Black or tarry stools ??? Skin that bruises easily ??? Confusion or trouble thinking clearly ?? 2114-[address], [place] [address]. All rights reserved. This information is not intended as a substitute for professional medical care. Always follow your healthcare professional's instructions. Alcoholism: Getting Help Facing a problem with alcohol can be hard. Once a person decides to get help, it can be found in many places. Below you will find resources that can give you more information. They can also help you find treatment. Primary care Speak with your primary??health care provider. Sometimes your??health care provider??can provide medication to help you stop drinking. If not, he or she can refer you to a specialist. Professional care This kind of care can be inpatient. It means you spend a period of time in a facility. Or it can beoutpatient. This means you come and go. The facilities have medical support and can help a person detox. Most health insurance plans will cover at least some treatment. To find this kind of care, talk to your health care provider or a counselor. Or go to a mental health clinic and ask for information. You can also go online to: Substance Abuse and Mental Health Services Administration at www.samhsa.gov/treatment. Alcoholics anonymous (AA) AA helps members get sober and stay sober. They help you build healthy patterns of living. Everyoneis welcome at an AA meeting. You do not have to identify yourself. Some people find it easier to goto the first meeting with a friend. To find a meeting near you, contact AA online at www.aa.org. [place] in the phone book for the number of a local chapter. The road to recovery Many people with alcoholism can give up alcohol for good. But change may not be easy or quick. Treatment is only a start. Relapses can be common. A relapse is not a sign of failure. Instead, it meanstreatment should continue. Once a person stops drinking, support is needed for them to stay sober. After care programs and groups, such as AA, are good for this kind of support. Helpful websites ??? National Paramount on Alcohol Abuse and Addiction?? www.niaaa.nih.gov/alcohol-health ??? National [place] on Alcoholism and Drug Dependence, Inc. (NCADD)?? www.ncadd.org ??? Alcoholism Anonymous?? www.aa.org ??? Substance Abuse and Mental Health Services Administration (SAMHSA)?? www.samhsa.gov/treatment ?? 4421-4278 [employer]. [address] [place] [address]. All rights reserved. This information is not intended as a substitute for professional medical care. Always follow your healthcare professional's instructions. Alcohol Abuse Alcoholic drinks are harmful when you have too many of them. There is no set number of drinks that defines too much. Drinking that disrupts your life or your health is called alcohol abuse. Alcohol abuse can hurt your relationships with others. You may lose friends, a spouse, or even your job. You may be abusing alcohol if any of the following are true for you: ??? Duties at home or with residential child care counselor suffer because of drinking. ??? Duties at work or in school suffer because of drinking. ??? You have missed work or school because of drinking. ??? You use alcohol while driving or operating machinery. ??? You have legal problems such as arrests due to drinking. ??? You keep drinking even though it causes serious problems in your life. Health effects Alcohol abuse causes health problems.??Sometimes this can happen after only drinking a ???little. There is no set number of drinks or amount of alcohol that defines too much.??The more you drink at one time, and the more often you drink determine both the short-term and long-term health effects.??It affects all parts of your body and your health, including your: ??? Brain. Alcohol is a central nervous system depressant.??It can damage parts of the brain that affect your balance, memory, thinking, and emotions. It can cause memory loss, blackouts, depression,agitation, sleep cycle changes, and seizures. These changes may or may not be reversible. ??? Heart and vascular system. Alcohol affects multiple areas. It can damage heart muscle causing cardiomyopathy, which is a weakening and stretching of the heart muscle. This can lead to trouble breathing, an irregular heartbeat, atrial fibrillation, leg swelling, and heart failure. Alcohol use makes the blood vessels stiffen causing hypertension (high blood pressure). All of these problems increase your risk of having heart attacks or strokes. ??? Liver. Alcohol causes fat to build up in the liver, affecting its normal function. This increases the risk for hepatitis, leading to abdominal pain, appetite loss, jaundice, bleeding problems, liver fibrosis, and cirrhosis. This, in turn, can affect your ability to fight off infections, and cancause diabetes. The liver changes prevent it from removing toxins in your blood that can cause encephalopathy which may show with confusion, altered level of consciousness, personality changes, memory loss, seizures, coma, and . ??? Pancreas. Alcohol can cause inflammation of the pancreas, or pancreatitis. This can cause abdominal pain, fever, and diabetes. ??? Immune system. Alcohol weakens your immune system in a number of ways. It suppresses your immune system making it harder to fight infections and colds. It also increases the chance of getting pneumonia and tuberculosis. ??? Cancer. Alcohol is a risk factor for developing cancer of the mouth, esophagus, pharynx, larynx, liver, and breast. ??? Sexual function.??Alcohol can lead to sexual problems. Home care The following guidelines will help you deal with alcohol abuse: ??? Admit you have a problem with alcohol. ??? Ask for help from your health care provider and trusted family members or close friends. ??? Get help from people trained in dealing with alcohol abuse. This may be individual counseling or group therapy, or it may be a supervised alcohol treatment program. ??? Join a self-help group for alcohol abuse such as Alcoholics Anonymous (AA). ??? Avoid people who abuse alcohol or tempt you to drink. Follow-up care Follow up as advised by the doctor or our staff. Contact these groups to get help: ??? Alcoholics Anonymous (AA):??Go to www.aa.org or check the phone book for meetings near you. ??? National Alcohol and Substance Abuse Information Center (NASAI): 403.151.4447 www.[employer].TapHome ??? National [place] on Alcoholism and Drug Dependence (NCADD): 610-CBS-AKWE (830-9778) www.ncadd.org ??? Al-Anon: 323-0MZ-OAVI (171-6413) www.al-anon.org Call 911 Call 911 if any of these occur: ??? Trouble breathing or slow irregular breathing ??? Chest pain ??? Sudden weakness on one side of your body or sudden trouble speaking ??? Heavy bleeding or vomiting blood ??? Very drowsy or trouble awakening ??? Fainting or loss of consciousness ??? Rapid heart rate ??? Seizure When to seek medical care Get prompt medical attention if you have: ??? Confusion ??? Hallucinations (seeing, hearing, or feeling things that aren???t there) ??? Pain in your upper abdomen that gets worse ??? Repeated vomiting or black or tarry stools ??? Severe shakiness ?? 3892-5438 [employer]. [address] [place] [address]. All rights reserved. This information is not intended as a substitute for professional medical care. Always follow your healthcare professional's instructions. Prevention Guidelines, Men Ages 50 to 64 [...] men in this age group Every visit [address] [place] [address] [facility] ?? 2975-[address] [employer] [place] [address]. All rights reserved. This information is not intended as a substitute for professional medical care. Always follow your healthcare professional's instructions. Patient Care team information Care Team Personnel Name: Gloria Stringer RN Position: [facility] RN Member Role: Primary Care Nurse Name: Tanya Chen NP Position: [facility] PCO Associate Professional Member Role: PCP Address: Address: [address] [place] [id number] Name: Coby Fernández RN Position: [facility] RN Member Role: Primary Care Nurse Name: Denia Batista Position: [facility] Outreach Member Role: Lifetime Consulting Physician Name: Helena Kumar RN Position: [facility] RN Member Role: Primary Care Nurse Name: Shanel Funk RN Position: [facility] RN Member Role: Primary Care Nurse Name: Clau Daniel RN Position: [facility] SN RN Member Role: Primary Care Nurse Name: Merry Moreau RN Position: [facility] Outreach Member Role: Primary Care Nurse Name: Hayder Haile MD Position: [facility] Renal MD Member Role: Lifetime Consulting Physician Address: Address: [address] [place] [address] [facility] [address]- Care Team Related Persons Name: ANTONIO TUCKER Address: [address] [place] [address] Name: JAGRUTI TUCKER Address: [address] [address]
--- OUTSIDE RECORDS SUMMARY | 2023-09-19 17:48 | XMS_ITS | Continuity of Care Document ---
Author Organization [facility] Address [address] [place] [address]- Care Team Providers Care Nursing Service Administrator Name Role Phone Gustavo Tanya VASQUEZ Primary Care Physician [place] [facility] [place]24/19 [facility] [address] [place] [address]- [facility] Allergies, Adverse Reactions, Alerts Substance [...] 08/21/19 11:56:00 EDT, Route to Pharmacy Electronically, [facility]/pharmacy #[id number], 170.18, cm, 08/21/19 4:27:00 EDT, Height, 91, kg, 08/19/19 4:32:00 EDT, Dry Weight Start Date: 08/21/19 Status: Ordered midodrine 10 mg oral tablet 1 tablet = 10 mg, By Mouth, 3 times a day, # 90 tablet, 3 Refills, Maintenance, 09/16/19 20:47:00 EDT, Tablet, [facility]/pharmacy #[id number], 170, cm, 09/09/19 9:18:00 EDT, Height, 80.8, kg, 08/31/19 20:58:00 EDT, Dry Weight Start Date: 09/16/19 Status: Ordered multivitamin with minerals Multiple Vitamins with Minerals oral tablet 1 tablet, By Mouth, Daily, # 30 tablet, 11 Refills, Maintenance, 09/20/19 13:32:00 EDT, Tablet, [facility]/pharmacy #[id number], 1 tablet By Mouth Daily,x30 days, 170, cm, 09/09/19 9:18:00 EDT, Height, 80.8, kg, 08/31/19 20:58:00 EDT, Dry Weight Start Date: 09/20/19 Stop Date: 09/14/20 Status: Ordered nadolol 20 mg oral tablet 20 mg, 1, tablet, By Mouth, Daily, # 30 tablet, Refills 3, Tot. Refills 3, Maintenance, 09/16/19 20:47:00 EDT, Route to Pharmacy Electronically, [facility]/pharmacy #[id number], 170, cm, 09/09/19 9:18:00 EDT, [...] 09/20/19 13:32:00 EDT, Route to Pharmacy Electronically, [facility]/pharmacy #[id number], 170, cm, 09/09/19 9:18:00 EDT, [...] 09/16/19 20:47:00 EDT, Route to Pharmacy Electronically, [facility]/pharmacy #[id number], 170, cm, 09/09/19 9:18:00 EDT, Height, 80.8, kg, 08/31/19 20:58:00 EDT, Dry Weight Start Date: 09/16/19 Status: Ordered Vitamin D 11060 iu oral capsule 50,000 International_Units, 1, capsule, By Mouth, Every week, # 13 capsule, Refills 1, Tot. Refills1, Maintenance, 07/17/19 10:13:00 EDT, Route to Pharmacy Electronically, [facility]/pharmacy #[id number], 171, cm, 07/15/19 13:04:00 EDT, [...]
--- OUTSIDE RECORDS SUMMARY | 2023-09-19 17:48 | XMS_ITS | Continuity of Care Document ---
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 Name Role Phone Gustavo WEATHER STRIP MECHANICTanya Primary Care Physician Encounter [facility] Date(s): 05/28/23 - 06/27/23 [facility] Jori Malinley Adult [address] [place] [address]- Allergies, Adverse Reactions, Alerts No Known Allergies [...] hepatitis B adult vaccine 09/09/19 Given SARS-CoV-2(COVID-19)mRNA-LNP vac([id number]) 02/01/23 Recorded influenza virus vaccine, inactivated 12/21/22 Flavio rded influenza virus vaccine, inactivated 01/23/22 Flavio rded influenza virus vaccine, inactivated 01/11/20 Give n [id number] 12y+ bivalent booster vax 01/23/22 Recorded SARS-CoV-2 mRNA ([id number]) vax 05/24/21 Recorded pneumococcal 13-valent vaccine 12/30/20 Recorded SARS-CoV-2 (COVID-19) mRNA BNT-162b2 vac 08/27/20 Recorded SARS-CoV-2 (COVID-19) mRNA BNT-162b2 vac 08/06/20 Recorded Hepatitis A Adult Vaccine 2 2/9/21 Given Hepatitis A Adult Vaccine 11/04/19 Recorded Measles/Mumps/Rubella Virus Vaccine 11/06/19 Recor ded tetanus/diphtheria/pertussis, acel(Tdap) 11/04/19 Recorded pneumococcal 23-valent vaccine 3 08/20/19 Given Influenza Virus Vaccine (oldterm) 04/29/19 Recorde d 1Result Comment: [id number] 2Result Comment: [facility]:[id number] 3Early/Late Reason: Med Not Available Medications cephalexin [...] Team Personnel Name: Gloria Stringer RN Position: [facility] RN Member Role: Primary Care Nurse Name: Tanya Chen NP Position: [facility] PCO Associate Professional Member Role: PCP Address: Address: [address] [place] [address]- Name: Coby Fernández RN Position: [facility] RN Member Role: Primary Care Nurse Name: Denia Batista Position: [facility] Outreach Member Role: Lifetime Consulting Physician Name: Helena Kumar RN Position: [facility] RN Member Role: Primary Care Nurse Name: Shanel Funk RN Position: [facility] RN Member Role: Primary Care Nurse Name: Clau Daniel RN Position: [facility] SN RN Member Role: Primary Care Nurse Name: Merry Moreau RN Position: [facility] Outreach Member Role: Primary Care Nurse Name: Hayder Haile MD Position: [facility] Renal MD Member Role: Lifetime Consulting Physician Address: Address: [address] [place] [address] [facility] [place] [address]- Care Team Related Persons Name: ANTONIO TUCKER Address: [address] [place] [address] Name: JAGRUTI TUCKER Address: [address] [address]
--- OUTSIDE RECORDS SUMMARY | 2023-09-19 17:48 | XMS_ITS | Continuity of Care Document ---
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 Name Role Phone Gustavo PEDRO, Tanya Israel Primary Care Physician [place] [facility] [place] 07/23/22 - 08/22/22 [facility] Adult [address] [place] [address]- Allergies, Adverse Reactions, Alerts No Known Allergies Immunizations Given and Recorded Vaccine Date Status Refusal Reason zoster vaccine, inactivated 09/26/21 Recorded zoster vaccine, inactivated 07/25/21 Recorded hepatitis B adult vaccine 07/11/21 Recorded hepatitis B adult vaccine 12/30/20 Recorded hepatitis B adult vaccine 10/14/19 Given hepatitis B adult vaccine 09/09/19 Given SARS-CoV-2 mRNA ([id number]) vax 05/24/21 Recorded pneumococcal 13-valent vaccine 12/30/20 [...] Vaccine (oldterm) 04/29/19 Recorde d 1Result Comment: [facility]:[id number] 2Early/Late Reason: Med Not Available Medications ergocalciferol 08789 iu oral capsule 1, capsule, By Mouth, Every week, # 13 capsule, Refills 1, Tot. Refills 0, Maintenance, 06/28/20 12:51:00 EST, Route to Pharmacy Electronically, [facility] STORE [id number], 170.18, cm, 01/11/20 10:37:00 EDT, Height, 82.6, kg, 09/24/19 8:19:00 EDT, Dry Weight Start Date: 06/28/20 Status: Ordered multivitamin with minerals Multiple Vitamins with Minerals oral tablet 1 tablet, By Mouth, Daily, # 90 tablet, 11 Refills, Maintenance, 09/14/20 13:32:00 EDT, Tablet, [facility]/pharmacy #[id number], 1 tablet By Mouth [...] Acute07/13/23 12:00:00 EDT, 07/11/22 8:47:00 EDT, Tablet, [facility]/pharmacy #[id number], 170, cm, 07/11/22 8:12:00 [...] 6:51:00 EST, Route to Pharmacy Electronically, [facility]/pharmacy #[id number], 170.18, cm, 01/11/20 10:37:00 EDT, Height, 82.6, kg,... Start Date: 06/30/20 Status: Ordered Vitamin B6 50 mg oral tablet See Instructions, TAKE 1 TABLET BY MOUTH EVERY DAY, # 30 tablet, Refills 0, Acute, Instructions Replace Required Details, Route to Pharmacy Electronically, [facility] [id number], 170.18, cm, 01/11/20 10:37:00 EDT, Height, 82.6, [...] Care Nurse Name: Tanya Chen NP Position: [facility] PCO Associate Professional Member Role: PCP Address: Address: [address] [place] [address]- Name: Coby Fernández RN Position: S RN Member Role: Primary Care Nurse Name: Denia Batista Position: [facility] Outreach Member Role: Lifetime Consulting Physician Name: Helena Kumar RN Position: [facility] RN Member Role: Primary Care Nurse Name: Shanel Funk RN Position: [facility] RN Member Role: Primary Care Nurse Name: Merry Moreau RN Position: [facility] RN Member Role: Primary Care Nurse Name: Hayder Haile MD Position: [facility] Renal MD Member Role: Lifetime Consulting Physician Address: Address: [address] [place] [address] [facility] [address] Care Team Related Persons Name: ANTONIO TUCKER Address: [address] [place] [address] Name: JAGRUTI TUCKER Address: [address] [address]
--- OUTSIDE RECORDS SUMMARY | 2023-09-19 17:48 | XMS_ITS | Continuity of Care Document ---
Author Organization [facility] Tyrell Dillon Address [address] [place] [address]- Care Team Providers Care Right Of Way Agent Name Role Phone Tanya Chen NP Primary Care Physician [place] [facility] [place] 10[place]14/[place] - 10/21/19 [facility] Adult [address] [place] [address]- [facility] Attending Physician: Glendy MARTINEZ, Vipul Hamlin Referring Physician: Tanya Chen NP Allergies, Adverse [...] 09/16/19 20:47:00 EDT, Route to Pharmacy Electronically, [facility]/pharmacy #[id number], 170, cm, 09/09/19 9:18:00 EDT, Height, 80.8, kg, 08/31/19 20:58:00 EDT, Dry Weight Start Date: 09/16/19 Status: Ordered furosemide 20 mg oral tablet 20 mg, 1, tablet, By Mouth, Daily, # 30 tablet, Refills 11, Tot. Refills 11, Maintenance, 08/21/19 11:56:00 EDT, Route to Pharmacy Electronically, [facility]/pharmacy #[id number], 170.18, cm, 08/21/19 4:27:00 EDT, Height, 91, kg, 08/19/19 4:32:00 EDT, Dry Weight Start Date: 08/21/19 Status: Ordered midodrine 10 mg oral tablet 1 tablet = 10 mg, By Mouth, 3 times a day, # 90 tablet, 3 Refills, Maintenance, 09/16/19 20:47:00 EDT, Tablet, [facility]/pharmacy #[id number], 170, cm, 09/09/19 9:18:00 EDT, Height, 80.8, kg, 08/31/19 20:58:00 EDT, Dry Weight Start Date: 09/16/19 Status: Ordered multivitamin with minerals Multiple Vitamins with Minerals oral tablet 1 tablet, By Mouth, Daily, # 30 tablet, 11 Refills, Maintenance, 09/20/19 13:32:00 EDT, Tablet, [facility]/pharmacy #[id number], 1 tablet By Mouth Daily,x30 days, 170, cm, 09/09/19 9:18:00 EDT, Height, 80.8, kg, 08/31/19 20:58:00 EDT, Dry Weight Start Date: 09/20/19 Stop Date: 09/14/20 Status: Ordered nadolol 20 mg oral tablet 20 mg, 1, tablet, By Mouth, Daily, # 30 tablet, Refills 3, Tot. Refills 3, Maintenance, 09/16/19 20:47:00 EDT, Route to Pharmacy Electronically, [facility]/pharmacy #[id number], 170, cm, 09/09/19 9:18:00 EDT, [...] 09/20/19 13:32:00 EDT, Route to Pharmacy Electronically, [facility]/pharmacy #[id number], 170, cm, 09/09/19 9:18:00 EDT, [...] 09/16/19 20:47:00 EDT, Route to Pharmacy Electronically, [facility]/pharmacy #[id number], 170, cm, 09/09/19 9:18:00 EDT, Height, 80.8, kg, 08/31/19 20:58:00 EDT, Dry Weight Start Date: 09/16/19 Status: Ordered Vitamin D 47293 iu oral capsule 50,000 International_Units, 1, capsule, By Mouth, Every week, # 13 capsule, Refills 1, Tot. Refills1, Maintenance, 07/17/19 10:13:00 EDT, Route to Pharmacy Electronically, [facility]/pharmacy #[id number], 171, cm, 07/15/19 13:04:00 EDT, Height Start Date: 3/27/20 Status: Ordered Problem List Condition Effective Dates [...]
--- OUTSIDE RECORDS SUMMARY | 2023-09-19 17:48 | XMS_ITS | Continuity of Care Document ---
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
--- OUTSIDE RECORDS SUMMARY | 2023-09-19 17:48 | XMS_ITS | Continuity of Care Document ---
Author Organization [facility] Tyrell Dillon lt Address [address] [place] [address]- Care Team Providers Care Finance Analyst Name Role Phone Gustavo NETWORK SERVICES PROJECT MANAGERTanya Primary Care Physician [phone] Encounter [facility] Date(s): 05/27/23 - 06/26/23 [facility] [place] Adult [address] [place] [address]- Allergies, Adverse Reactions, Alerts No Known Allergies [...] hepatitis B adult vaccine 09/09/19 Given SARS-CoV-2(COVID-19)mRNA-LNP vac([id number]) 02/01/23 Recorded influenza virus vaccine, inactivated 12/21/22 Flavio rded influenza virus vaccine, inactivated 01/23/22 Flavio rded influenza virus vaccine, inactivated 01/11/20 Give n [id number] 12y+ bivalent booster vax 01/23/22 Recorded SARS-CoV-2 mRNA (bohfnxk-ipxu-dgssw) vax 05/24/21 Recorded pneumococcal 13-valent vaccine 12/30/20 Recorded SARS-CoV-2 (COVID-19) mRNA BNT-162b2 vac 08/27/20 Recorded SARS-CoV-2 (COVID-19) mRNA BNT-162b2 vac 08/06/20 Recorded Hepatitis A Adult Vaccine 2 2/9/21 Given Hepatitis A Adult Vaccine 11/04/19 Recorded Measles/Mumps/Rubella Virus Vaccine 11/06/19 Recor ded tetanus/diphtheria/pertussis, acel(Tdap) 11/04/19 Recorded pneumococcal 23-valent vaccine 3 08/20/19 Given Influenza Virus Vaccine (oldterm) 04/29/19 Recorde d 1Result Comment: [id number] 2Result Comment: [facility]:[id number] 3Early/Late Reason: Med Not Available Medications cephalexin [...] Personnel Name: Gloria Stringer RN Position: [facility] RN Member Role: Primary Care Nurse Name: Tanya Chen NP Position: [facility] PCO Associate Professional Member Role: PCP Address: Address: [address] [place] [address]- Name: Coby Fernández RN Position: [facility] RN Member Role: Primary Care Nurse Name: Denia Batista Position: [facility] Outreach Member Role: Lifetime Consulting Physician Name: Helena Kumar RN Position: [facility] RN Member Role: Primary Care Nurse Name: Shanel Funk RN Position: [facility] RN Member Role: Primary Care Nurse Name: Clau Daniel RN Position: [facility] SN RN Member Role: Primary Care Nurse Name: Merry Moreau RN Position: [facility] Outreach Member Role: Primary Care Nurse Name: Hayder Haile MD Position: [facility] Renal MD Member Role: Lifetime Consulting Physician Address: Address: [address] [place] [address] [facility] [place] [address]- Care Team Related Persons Name: ANTONIO TUCKER Address: home [address] [place] [address] Name: JAGRUTI TUCKER Address: home [address] [address]
--- OUTSIDE RECORDS SUMMARY | 2023-09-19 17:48 | XMS_ITS | Continuity of Care Document ---
Author Organization [facility] Jori Santillan Dillon lt Address [address] [place] [address]- Care Team Providers Care Wholesale Loan Processor Name Role Phone Gustavo CHECKER PRODUCT DESIGNTanya Primary Care Physician [facility]counter [facility] Date(s): 05/27/23 - 06/26/23 [facility] [place] Adult [address] [place] [address]- Allergies, Adverse Reactions, Alerts No Known Allergies [...] hepatitis B adult vaccine 09/09/19 Given SARS-CoV-2(COVID-19)mRNA-LNP vac([id number]) 02/01/23 Recorded influenza virus vaccine, inactivated 12/21/22 Flavio rded influenza virus vaccine, inactivated 01/23/22 Flavio rded influenza virus vaccine, inactivated 01/11/20 Give n [id number] 12y+ bivalent booster vax 01/23/22 Recorded SARS-CoV-2 mRNA (gyhtgwm-gfbx-uybba) vax 05/24/21 Recorded pneumococcal 13-valent vaccine 12/30/20 Recorded SARS-CoV-2 (COVID-19) mRNA BNT-162b2 vac 08/27/20 Recorded SARS-CoV-2 (COVID-19) mRNA BNT-162b2 vac 08/06/20 Recorded Hepatitis A Adult Vaccine 2 2/9/21 Given Hepatitis A Adult Vaccine 11/04/19 Recorded Measles/Mumps/Rubella Virus Vaccine 11/06/19 Recor ded tetanus/diphtheria/pertussis, acel(Tdap) 11/04/19 Recorded pneumococcal 23-valent vaccine 3 08/20/19 Given Influenza Virus Vaccine (oldterm) 04/29/19 Recorde d 1Result Comment: [id number] 2Result Comment: [facility]:[id number] 3Early/Late Reason: Med Not Available Medications cephalexin [...] Professional Member Role: PCP Address: Address: [address] [place] [address]- Name: Coby Fernández RN Position: [facility] [...] Member Role: Lifetime Consulting Physician Address: Address: [address] [place] [address] [facility] [place] [address]- Care Team Related Persons Name: ANTONIO TUCKER Address: home [address] [place] [address] Name: JAGRUTI TUCKER Address: [address] [address]
--- OUTSIDE RECORDS SUMMARY | 2023-09-19 17:48 | XMS_ITS | Continuity of Care Document ---
Author Organization [facility] Tyrell Dillon Address [address] [place] [address]- Care Team Providers Care Shipping Coordinator Name Role Phone Gustavo BOX PACKERTanya Primary Care Physician Encounter [facility] [place] [place] Date(s): 07/24/21 - 08/23/21 [facility] Adult [address] [place] [address]- Attending Physician: Tania Bautista Admitting Physician: AdmTania rene Referring Physician: AdmtrTania Allergies, Adverse Reactions, Alerts No Known Allergies Immunizations Given and Recorded Vaccine Date Status Refusal Reason zoster vaccine, inactivated 07/25/21 Recorded hepatitis B adult vaccine 07/11/21 Recorded hepatitis B adult vaccine 12/30/20 Recorded hepatitis B adult vaccine 10/14/19 Given hepatitis B adult vaccine 09/09/19 Given SARS-CoV-2 mRNA (vfjlsuc-dezs-lcrof) vax 05/24/21 Recorded pneumococcal 13-valent vaccine 12/30/20 [...] Vaccine (oldterm) 04/29/19 Recorde d 1Result Comment: [facility]:[id number] 2Early/Late Reason: Med Not Available Medications ergocalciferol 00696 iu oral capsule 1, capsule, By Mouth, Every week, # 13 capsule, Refills 1, Tot. Refills 0, Maintenance, 06/28/20 12:51:00 EST, Route to Pharmacy Electronically, [facility], 170.18, cm, 01/11/20 10:37:00 EDT, Height, 82.6, kg, 09/24/19 8:19:00 EDT, Dry Weight Start Date: 06/28/20 Status: Ordered multivitamin with minerals Multiple Vitamins with Minerals oral tablet 1 tablet, By Mouth, Daily, # 90 tablet, 11 Refills, Maintenance, 09/14/20 13:32:00 EDT, Tablet, [facility]/pharmacy #0693, 1 tablet By Mouth Daily, [...] 06/30/20 6:51:00 EST, Route to Pharmacy Electronically, [facility]/pharmacy #[id number], 170.18, cm, 01/11/20 10:37:00 EDT, Height, 82.6, kg,... Start Date: 06/30/20 Status: Ordered Vitamin B6 50 mg oral tablet See Instructions, TAKE 1 TABLET BY MOUTH EVERY DAY, # 30 tablet, Refills 0, Acute, Instructions Replace Required Details, Route to Pharmacy Electronically, [facility], 170.18, cm, 01/11/20 10:37:00 EDT, Height, 82.6, [...]
--- OUTSIDE RECORDS SUMMARY | 2023-09-19 17:48 | XMS_ITS | Continuity of Care Document ---
Author Organization [facility] ter Address [address] [place] [address]- Care Team Providers Care Registered Land Surveyor Name Role Phone Gustavo VASQUEZ, Tanya Israel Primary Care Physician [phone] [place] [facility] [place] - 08/21/[address] [address]- [facility] Discharge Disposition: A-D/C Home Attending Physician: Sol Parker MD Admitting Physician: Uriah Vazquez MD Referring Physician: Not on Staff, Referring MD Allergies, Adverse Reactions, Alerts Substance Reaction Severity Status NKA Active Immunizations Given and Recorded Vaccine Date Status Refusal Reason pneumococcal 23-valent vaccine 1 08/20/19 Given Influenza Virus Vaccine (oldterm) 04/29/19 Recorde d 1Early/Late Reason: Med Not Available Medications Comprehensive Metabolic Panel and PT/INR lab draw Comprehensive Metabolic Panel and PT/INR lab draw, See Instructions, # 1 each, Refills 0, Tot. Refills 0, Maintenance, Comprehensive Metabolic Panel and PT/INR lab draw August 26, 2019 please forward results to Dr. Mendoza and Tanya Chen TITLE I COORDINATOR, 0... Start Date: 08/21/19 Status: Ordered folic acid 1 mg oral tablet 1 mg, 1, tablet, By Mouth, Daily, # 30 tablet, Refills 0, Tot. Refills 0, Maintenance, 08/21/19 13:30:00 EDT, [facility] 0 Refills, Maintenance, 08/21/19 13:32:00 EDT, Tablet, [facility]/pharmacy #[id number], [...] Date: 08/21/19 Stop Date: 09/20/19 Status: Ordered prednisoLONE 10 mg oral tablet, disintegrating 4 tablet = 40 mg, By Mouth, Daily, for 9 days, # 36 tablet, 0 Refills, Acute 08/30/19 12:10:00 EDT,08/21/19 12:10:00 EDT, DIS Tablet, [facility]/pharmacy #[id number], 170.18, cm, 08/21/19 4:27:00 EDT, Height, 91, kg, 08/19/19 4:32:00 EDT, Dry Weight Start Date: 08/21/19 Stop Date: 08/30/19 Status: Ordered prednisoLONE 10 mg oral tablet, disintegrating = 40 mg, By Mouth, Daily, # 20 tablet, 0 Refills, Maintenance, 08/21/19 23:52:00 EDT, [facility], 170.18, cm, 08/21/19 4:27:00 EDT, Height, 91, kg, 08/19/19 4:32:00 EDT, Dry Weight Start Date: 08/21/19 Stop Date: 08/25/19 Status: Ordered pyridoxine 50 mg oral tablet 50 mg, 1, tablet, By Mouth, Daily, for 30 days, # 30 tablet, Refills 0, Tot. Refills 0, Acute 09/20/19 13:32:00 EDT, 08/21/19 13:32:00 EDT, Route to Pharmacy Electronically, [facility]/pharmacy #0693, 170.18, cm, 08/21/19 4:27:00 EDT, Height, 91, kg, ... Start Date: 08/21/19 Stop Date: 09/20/19 Status: Ordered spironolactone 25 mg oral tablet 50 mg, 2, tablet, By Mouth, Daily, # 60 tablet, Refills 11, Tot. Refills 11, Maintenance, 08/21/19 12:04:00 EDT, Route to Pharmacy Electronically, [facility]/pharmacy #[id number], 170.18, cm, 08/21/19 4:27:00 EDT, Height, 91, kg, 08/19/19 4:32:00 EDT, Dry Weight Start Date: 08/21/19 Status: Ordered thiamine 100 mg oral tablet 100 mg, 1, tablet, By Mouth, Daily, # 30 tablet, Refills 0, Tot. Refills 0, Maintenance, 08/21/19 13:32:00 EDT, Route to Pharmacy Electronically, [facility]/pharmacy #0693, 170.18, cm, 08/21/19 4:27:00 EDT,Height, 91, kg, 08/19/19 4:32:00 EDT, Dry Weight Start Date: 08/21/19 Status: Ordered Vitamin D 48060 iu oral capsule 50,000 International_Units, 1, capsule, By Mouth, Every week, # 13 capsule, Refills 1, Tot. Refills1, Maintenance, 07/17/19 10:13:00 EDT, Route to Pharmacy Electronically, [facility]/pharmacy #[id number], 171, cm, 07/15/19 13:04:00 EDT, Height Start Date: 07/17/19 Status: Ordered Problem List Condition Effective Dates Status Health Status Inform ant Alcohol abuse(Confirmed) Active Cholelithiasis(Confirmed) Active Cirrhosis of liver(Confirmed) Active Depression(Confirmed) Active Hyperlipidemia(Confirmed) Active Enlarged prostate(Confirmed) Active Microscopic hematuria(Confirmed) Active Obesity(Confirmed) Active DENISE (obstructive sleep apnea)(Confirmed) Active Rosacea(Confirmed) Active Fatty liver(Confirmed) Active Vitamin D deficiency(Confirmed) Active Results Orders for Microbiology Reports Name Date Blood Culture 08/19/19 Blood Culture #2 08/19/19 Anaerobic Culture (ANAEROBIC CULTURE) Sterile Body Fluid Culture W/ Gram Smear 08/18/19 Microbiology Reports TEST:Blood Culture STATUS:Unauthenticated BODY SITE: SOURCE:Blood COLLECTED DATE/TIME:08/19/19 4:39 PM Blood Culture SPECIMEN DESCRIPTION : BLOOD LAC SPECIAL REQUESTS : NONE CULTURE : NO GROWTH AFTER 48 HOURS REPORT STATUS : PRELIMINARY REPORT TEST:Blood Culture, Second Order STATUS:Unauthenticated BODY SITE: SOURCE:Blood COLLECTED DATE/TIME:08/19/19 4:39 PM Blood Culture, Second Order SPECIMEN DESCRIPTION : BLOOD RH SPECIAL REQUESTS : NONE CULTURE : NO GROWTH AFTER 48 HOURS REPORT STATUS : PRELIMINARY REPORT TEST:Anaerobic Culture STATUS:Unauthenticated BODY SITE: SOURCE:PARACE COLLECTED DATE/TIME:08/18/19 11:50 PM Anaerobic Culture SPECIMEN DESCRIPTION : PARACENTESIS FLUID SPECIAL REQUESTS : NONE CULTURE : NO ANAEROBES ISOLATED SO FAR. REPORT STATUS : PRELIMINARY REPORT TEST:Sterile Fluid Culture STATUS:Auth (Verified) BODY SITE: SOURCE:PARACE COLLECTED DATE/TIME:08/18/19 11:50 PM Sterile Fluid Culture SPECIMEN DESCRIPTION : PARACENTESIS FLUID SPECIAL REQUESTS : NONE GRAM STAIN : 1+ POLYMORPHONUCLEAR LEUKOCYTES NO ORGANISMS SEEN CULTURE : NO GROWTH 2 DAYS REPORT STATUS : FINAL 08/21/2019 Radiology Reports * Exam Date Time Procedure Performing Provider Status 08/19/19 4:00 PM Chest Portable Grzegorz Damon; Auth (Ve rified) Notes: (Chest Portable) Reason For Exam: Fever/Increased White Count RESULT: Chest Portable AP upright portable chest dated August 19, 2019 at 1551 hours. Comparison films are from April. HISTORY: Fever and increased white blood cell count. FINDINGS: The cardiac silhouette is at the upper limits of normal for size. Some mild central pulmonary vascular congestion is noted. There is opacity at the left lung base most consistent with a small effusion. Some linear density at the right lung bases likely atelectasis. Degenerative changes are noted in the spine. IMPRESSION: Mild volume overload. Minimal right basilar atelectasis and small left pleural effusion. Examination 92014. Thank you for allowing me to participate in the care of this patient. WSN: [id number] Ordering Physician: Shara Grayson Dictated By: Migue Pimentel MD Dictated Date/Time: 08/19/19 4:02 pm Reviewed By: Migue Pimentel MD Signed By: Migue Pimentel MD Signed Date/Time: 08/19/19 4:02 pm Transcribed By: ROSELYN Transcribed Date/Time: 08/19/19 4:02 pm Vital Signs Most recent to oldest [Reference Range]: 1 2 3 Height 170.18 cm (08/21/19 4:27 AM) 170.18 cm (08/20/19 8:21 PM) 170.18 cm (08/20/19 1:29 PM) Weight 87.9 kg (08/19/19 4:32 AM) 89.7 kg (08/18/19 4:17 PM) 89.7 kg (08/18/19 2:23 PM) Oxygen Saturation [94-100 %] 99 % (08/21/19 4:27 AM) 96 % (08/20/19 8:21 PM) 96 % (08/20/19 1:29 PM) Pulse Rate [55-90 bpm] 100 bpm *H* (08/21/19 4:27 AM) 102 bpm *H* (08/20/19 8:21 PM) 111 bpm *H* (08/20/19 1:29 PM) Body Mass Index [18.5-24.99] 30.35 *>HHI* (08/19/19 4:32 AM) Blood Pressure [90-138/55-84 mm Hg] 133/71mm Hg (08/21/19 4:27 AM) 134/73mm Hg (08/20/19 8:21 PM) 128/64mm Hg (08/20/19 1:29 PM) Respiratory Rate [16-30 br/min] 20 br/min (08/21/19 4:27 AM) 20 br/min (08/20/19 8:21 PM) 18 br/min (08/20/19 1:29 PM) Temperature [96.8-100.4 DegF] 99.4 DegF (08/21/19 4:27 AM) 98.8 DegF (08/20/19 8:21 PM) 98.6 DegF (08/20/19 1:29 PM) Liters per Minute 0 L/min (08/18/19 2:23 PM) Mode of Delivery (Oxygen) Room air (08/21/19 4:27 AM) Room air (08/20/19 8:21 PM) Room air (08/20/19 1:29 PM) Blood pressure sites Arm, left (08/21/19 4:27 AM) Arm, left (08/20/19 8:21 PM) Arm, left (08/20/19 5:08 AM) Temperature Route Oral (08/21/19 4:27 AM) Oral (08/20/19 8:21 PM) Oral (08/20/19 1:29 PM) Dry Weight 91 kg (08/19/19 4:32 AM) 89.7 kg (08/18/19 4:17 PM) 89.7 kg (08/18/19 2:23 PM) Weight Obtained Via Bed scale (08/19/19 4:32 AM) Standing scale (08/18/19 2:23 PM) Dry Weight Obtained Via Patient/family s tated (08/19/19 4:32 AM) Standing scale (08/18/19 2:23 PM) Social History Social History Type Response Smoking Status Former smoker, quit more than 30 days ago; Other: smoked socially; nothing regular; entered on: 07/15/19 Sex
--- OUTSIDE RECORDS SUMMARY | 2023-09-19 17:48 | XMS_ITS | Continuity of Care Document ---
Author Organization [facility] Tyrell Dillon Address [address] [place] [address]- Care Team Providers Care Director Of Managed Services Name Role Phone Gustavo DRILL FOREMANTanya Primary Care Physician [phone] Encounter [facility] Date(s): 07/12/21 - 08/11/[address] [facility] [place] Adult [address] [place] [address]- Allergies, Adverse Reactions, Alerts No Known Allergies Immunizations Given and Recorded Vaccine Date Status Refusal Reason zoster vaccine, inactivated 07/25/21 Recorded hepatitis B adult vaccine 07/11/21 Recorded hepatitis B adult vaccine 12/30/20 Recorded hepatitis B adult vaccine 10/14/19 Given hepatitis B adult vaccine 09/09/19 Given SARS-CoV-2 mRNA (gvxndce-fgzu-zeyme) vax 05/24/21 Recorded pneumococcal 13-valent vaccine 12/30/20 [...] Vaccine (oldterm) 04/29/19 Recorde d 1Result Comment: [facility]:[id number] 2Early/Late Reason: Med Not Available Medications ergocalciferol 91175 iu oral capsule 1, capsule, By Mouth, Every week, # 13 capsule, Refills 1, Tot. Refills 0, Maintenance, 06/28/20 12:51:00 EST, Route to Pharmacy Electronically, [facility], 170.18, cm, 01/11/20 10:37:00 EDT, Height, 82.6, kg, 09/24/19 8:19:00 EDT, Dry Weight Start Date: 06/28/20 Status: Ordered multivitamin with minerals Multiple Vitamins with Minerals oral tablet 1 tablet, By Mouth, Daily, # 90 tablet, 11 Refills, Maintenance, 09/14/20 13:32:00 EDT, Tablet, [facility]/pharmacy #[id number], 1 tablet By Mouth Daily, 170.18, [...] 6:51:00 EST, Route to Pharmacy Electronically, [facility]/pharmacy #[id number], 170.18, cm, 01/11/20 10:37:00 EDT, Height, 82.6, kg,... Start Date: 06/30/20 Status: Ordered Vitamin B6 50 mg oral tablet See Instructions, TAKE 1 TABLET BY MOUTH EVERY DAY, # 30 tablet, Refills 0, Acute, Instructions Replace Required Details, Route to Pharmacy Electronically, [facility], 170.18, cm, 01/11/20 10:37:00 EDT, Height, 82.6, [...]
--- OUTSIDE RECORDS SUMMARY | 2023-09-19 17:48 | XMS_ITS | Continuity of Care Document ---
Author Organization [facility] Jori Santillan Dillon Address [address] [place] [address]- Care Team Providers Care Impregnating Machine Operator Name Role Phone Gustavo Tanya VASQUEZ Primary Care Physician [place] [facility] [place]19 [place] 07/22/19 [facility] Jori Malinley Adult [address] [place] [address]- [facility] Encounter Diagnosis Annual physical exam(Discharge Diagnosis) - 07/15/19 Fatty liver(Discharge Diagnosis) - 07/15/19 Enlarged prostate(Discharge Diagnosis) - 07/15/19 Alcohol abuse(Discharge Diagnosis) - 07/15/19 Hyperlipidemia(Discharge Diagnosis) - 07/15/19 Rosacea(Discharge Diagnosis) - 07/15/19 Vitamin D deficiency(Discharge Diagnosis) - 07/15/19 Obesity(Discharge Diagnosis) - 07/15/19 DENISE (obstructive sleep apnea)(Discharge Diagnosis) - 07/15/19 Depression(Discharge Diagnosis) - 07/15/19 Attending Physician: Tanya Chen NP Allergies, Adverse Reactions, Alerts Substance Reaction Severity Status NKA Active Immunizations Given and Recorded Vaccine Date Status Refusal Reason Influenza Virus Vaccine (oldterm) 04/29/19 Recorde d Medications Vitamin D 30942 iu oral capsule 50,000 International_Units, 1, capsule, By Mouth, Every week, # 13 capsule, Refills 1, Tot. Refills1, Maintenance, 07/17/19 10:13:00 EDT, Route to Pharmacy Electronically, [facility]/pharmacy #[id number], 171, cm, 07/15/19 13:04:00 EDT, Height Start [...] Service Informant Annual physical exam Discharge Diagnosis 07/15/19 Fatty liver Discharge Diagnosis 07/15/19 Enlarged prostate Discharge Diagnosis 07/15/19 Alcohol abuse Discharge Diagnosis 07/15/19 Hyperlipidemia Discharge Diagnosis 07/15/19 Rosacea Discharge Diagnosis 07/15/19 DENISE (obstructive sleep apnea) Discharge Diagnosis 07/15/19 Obesity Discharge Diagnosis 07/15/19 Vitamin D deficiency Discharge Diagnosis 07/15/19 Depression Discharge Diagnosis 07/15/19 Procedures Procedure Date Related Diagnosis Body Site Status CT of abdomen and pelvis- fa tty liver with hypodense lesion ?hemangioma, enlarged prostate 1 06/04/14 Completed Polysomnogram- DENISE AHI of 30 and minimum oxygen saturation of 75% 2 10/29/08 Completed 1Right kidney Normal Left kidney Normal . Ureters Normal . Bladder Normal Lung Bases Lung bases are clear. No pleural effusion. Liver There is a hypodense lesion in the domeof the right lobe of the liver measuring about 10 mm in diameter with a nonspecific appearance. It is relatively benign and may represent a small cyst or hemangioma. Otherwise the liver is homogeneous but slightly hypodense consistent with fatty infiltration.Gallbladder Unremarkable.Bile ducts No intra or extra hepatic bile duct dilation. Spleen Normal in size and attenuation. Pancreas Normal. Adrenal Glands Normal.Stomach Small bowel and Large Bowel Normal. Omentum peritoneum and mesentery No p neumoperitoneum. No free fluid or other abnormalities. Lymph nodes No pathologically enlarged lymph nodes.Vascular structures The vascular structures appears normal. The IVC is unremarkable.Abdominal wall. Unremarkable. Bones No acute findings.Pelvis The prostate is enlarged. Impression: The kidneys ureters and bladder are unremarkable. The prostate is enlarged. Fatty infiltration of the liver. Nonspecific relatively benign-appearing lesion in the right lobe of the liver. This would be a difficult area to image with ultrasound although it may be possible. Otherwise it could be evaluated with contrast-enhanced CT using a liver mass protocol. 2AHI of 30 and minimum oxygen saturation of 75% Vital Signs Most recent to oldest [Reference Range]: 1 Height 171 cm (07/15/19 1:04 PM) Weight 87.6 kg (07/15/19 1:04 PM) Oxygen Saturation [94-100 %] 99 % (07/15/19 1:04 PM) Pulse Rate [55-90 bpm] 114 bpm *H* (07/15/19 1:04 PM) Body Mass Index [18.5-24.99] 29.96 *H* (07/15/19 1:04 PM) Blood Pressure [90-138/55-84 mm Hg] 124/ 78mm Hg (07/15/19 1:04 PM) Respiratory Rate [16-30 br/min] 16 br/mi n (07/15/19 1:04 PM) Temperature [96.8-100.4 DegF] 97.8 DegF (07/15/19 1:04 PM) Mode of Delivery (Oxygen) Room air (07/15/19 1:04 PM) Blood pressure sites Arm, left (07/15/19 1:04 PM) Temperature Route Oral (07/15/19 1:04 PM) Weight Obtained Via Standing scale (07/15/19 1:04 PM) Social History Social History Type Response Smoking Status Former smoker, quit more than 30 days ago; Other: smoked socially; nothing regular; entered on: 07/15/19 Sex
--- OUTSIDE RECORDS SUMMARY | 2023-09-19 17:48 | XMS_ITS | Continuity of Care Document ---
Author Organization [facility] Tyrell Dillon lt Address [address] [place] [address]- Care Team Providers Care Windows Consultant Name Role Phone Gustavo LOOM INSPECTORTanya Primary Care Physician [phone] Encounter [facility] Date(s): 04/08/23 - 05/08/23 [facility] Tyrell Adult [address] [place] [address]- Allergies, Adverse Reactions, Alerts No Known Allergies [...] hepatitis B adult vaccine 09/09/19 Given SARS-CoV-2(COVID-19)mRNA-LNP vac([id number]) 02/01/23 Recorded influenza virus vaccine, inactivated 12/21/22 Flavio rded influenza virus vaccine, inactivated 01/23/22 Flavio rded influenza virus vaccine, inactivated 01/11/20 Give n [id number] 12y+ bivalent booster vax 01/23/22 Recorded SARS-CoV-2 mRNA (rcnmaoz-ftit-gwajx) vax 05/24/21 Recorded pneumococcal 13-valent vaccine 12/30/20 Recorded SARS-CoV-2 (COVID-19) mRNA BNT-162b2 vac 08/27/20 Recorded SARS-CoV-2 (COVID-19) mRNA BNT-162b2 vac 08/06/20 Recorded Hepatitis A Adult Vaccine 2 05/31/20 Given Hepatitis A Adult Vaccine 11/04/19 Recorded Measles/Mumps/Rubella Virus Vaccine 11/06/19 Recor ded tetanus/diphtheria/pertussis, acel(Tdap) 11/04/19 Recorded pneumococcal 23-valent vaccine 3 08/20/19 Given Influenza Virus Vaccine (oldterm) 04/29/19 Recorde d 1Result Comment: [id number] 2Result Comment: [facility]:[id number] 3Early/Late Reason: Med Not Available Medications cephalexin [...] Team Personnel Name: Gloria Stringer RN Position: [facility] RN Member Role: Primary Care Nurse Name: Tanya Chen NP Position: [facility] PCO Associate Professional Member Role: PCP Address: Address: [address] [place] [address]- Name: Coby Fernández RN Position: [facility] RN Member Role: Primary Care Nurse Name: Denia Batista Position: [facility] Outreach Member Role: Lifetime Consulting Physician Name: Helena Kumar RN Position: [facility] RN Member Role: Primary Care Nurse Name: Shanel Funk RN Position: [facility] RN Member Role: Primary Care Nurse Name: Clau Daniel RN Position: [facility] SN RN Member Role: Primary Care Nurse Name: Lizzeth COREA, Merry Position: [facility] Outreach Member Role: Primary Care Nurse Name: Hayder Haile MD Position: [facility] Renal MD Member Role: Lifetime Consulting Physician Address: Address: [address] [place] [address] [facility] [place] [address]- Care Team Related Persons Name: GARRETT ANTONIO Address: home [address] [place] [address] Name: JAGRUTI TUCKER Address: home [address] [address]
--- OUTSIDE RECORDS SUMMARY | 2023-09-19 17:48 | XMS_ITS | Continuity of Care Document ---
Author Organization [facility] Address [address] [place] [address]- Care Team Providers Care Otter Trawler Boatswain Name Role Phone Gustavo BODY SHOP ESTIMATORTanya Primary Care Physician Encounter [facility] Date(s): 07/23/23 - 08/23/[address] [address] Attending Physician: Aamir Maldonado MD Admitting Physician: Aamir Maldonado MD Allergies, Adverse Reactions, Alerts No Known [...] hepatitis B adult vaccine 09/09/19 Given SARS-CoV-2(COVID-19)mRNA-LNP vac([id number]) 02/01/23 Recorded influenza virus vaccine, inactivated 12/21/22 Flavio rded influenza virus vaccine, inactivated 01/23/22 Flavio rded influenza virus vaccine, inactivated 01/11/20 Give n [id number] 12y+ bivalent booster vax 01/23/22 Recorded SARS-CoV-2 mRNA (qideqqi-mdia-zejjg) vax 05/24/21 Recorded pneumococcal 13-valent vaccine 12/30/20 Recorded SARS-CoV-2 (COVID-19) mRNA BNT-162b2 vac 08/27/20 Recorded SARS-CoV-2 (COVID-19) mRNA BNT-162b2 vac 08/06/20 Recorded Hepatitis A Adult Vaccine 2 05/31/20 Given Hepatitis A Adult Vaccine 11/04/19 Recorded Measles/Mumps/Rubella Virus Vaccine 11/06/19 Recor ded pneumococcal 23-valent vaccine 3 08/20/19 Given Influenza Virus Vaccine (oldterm) 04/29/19 Recorde d 1Result Comment: [id number] 2Result Comment: [facility]:[id number] 3Early/Late Reason: Med Not Available Medications acamprosate [...] Refills, Maintenance, 07/23/23 12:54:00 EDT, Tablet, [facility]/pharmacy #[id number], 168, cm, 07/22/23 11:32:00 EDT, Height, 79.5, kg, 07/22/23 11:32:00 EDT, Dry Weight Start Date: 07/23/23 Status: Ordered Melatonin 10 mg oral tablet 1 tablet = 10 mg, By Mouth, Daily at bedtime, for 30 days, # 30 tablet, 5 Refills, Acute 01/19/24 12:53:00 EDT, 07/23/23 12:53:00 EDT, Tablet, [facility]/pharmacy #[id number], 168, cm, 07/22/23 11:32:00 EDT, [...] Associate Professional Member Role: PCP Address: Address: [address] [place] [id number] Name: Coby Fernández RN Position: [facility] RN Member Role: Primary Care Nurse Name: Denia Batista Position: [facility] Outreach Member Role: Lifetime Consulting Physician Name: Helena Kumar RN Position: [facility] RN Member Role: Primary Care Nurse Name: Shanel Funk RN Position: [facility] RN Member Role: Primary Care Nurse Name: Clau Daniel RN Position: [facility] AMB Nurse Member Role: Primary Care Nurse Name: Merry Moreau RN Position: [facility] Outreach Member Role: Primary Care Nurse Name: Hayder Haile MD Position: [facility] Renal MD Member Role: Lifetime Consulting Physician Address: Address: [address] [place] [address] [facility] [address]- Care Team Related Persons Name: ANTONIO TUCKER Address: home [address] [place] [address] Name: JAGRUTI TUCKER Address: [address] [address]
--- OUTSIDE RECORDS SUMMARY | 2023-09-19 17:48 | XMS_ITS | Continuity of Care Document ---
Author Organization [facility] Jori Santillan Dillon lt Address [address] [place] [address]- Care Team Providers Care Eeg Technician Name Role Phone Gustavo CORDUROY CUTTING SUPERVISORTanya Primary Care Physician [facility]counter [facility] Date(s): 05/14/23 - 06/13/23 [facility] Jori Malinley Adult [address] [place] [address]- Allergies, Adverse Reactions, Alerts No Known Allergies [...] hepatitis B adult vaccine 09/09/19 Given SARS-CoV-2(COVID-19)mRNA-LNP vac([id number]) 02/01/23 Recorded influenza virus vaccine, inactivated 12/21/22 Flavio rded influenza virus vaccine, inactivated 01/23/22 Flavio rded influenza virus vaccine, inactivated 01/11/20 Give n [id number] 12y+ bivalent booster vax 01/23/22 Recorded SARS-CoV-2 mRNA (guouydf-llmd-lcwix) vax 05/24/21 Recorded pneumococcal 13-valent vaccine 12/30/20 Recorded SARS-CoV-2 (COVID-19) mRNA BNT-162b2 vac 08/27/20 Recorded SARS-CoV-2 (COVID-19) mRNA BNT-162b2 vac 08/06/20 Recorded Hepatitis A Adult Vaccine 2 2/9/21 Given Hepatitis A Adult Vaccine 11/04/19 Recorded Measles/Mumps/Rubella Virus Vaccine 11/06/19 Recor ded tetanus/diphtheria/pertussis, acel(Tdap) 11/04/19 Recorded pneumococcal 23-valent vaccine 3 08/20/19 Given Influenza Virus Vaccine (oldterm) 04/29/19 Recorde d 1Result Comment: [id number] 2Result Comment: [facility]:[id number] 3Early/Late Reason: Med Not Available Medications cephalexin [...] Team Personnel Name: Gloria Stringer RN Position: [facility] RN Member Role: Primary Care Nurse Name: Tanya Chen NP Position: [facility] PCO Associate Professional Member Role: PCP Address: Address: [address] [place] [address]- Name: Coby Fernández RN Position: [facility] RN Member Role: Primary Care Nurse Name: Denia Batista Position: [facility] Outreach Member Role: Lifetime Consulting Physician Name: Helena Kumar RN Position: [facility] RN Member Role: Primary Care Nurse Name: Shanel Funk RN Position: [facility] RN Member Role: Primary Care Nurse Name: Clau Daniel RN Position: [facility] SN RN Member Role: Primary Care Nurse Name: Merry Moreau RN Position: [facility] Outreach Member Role: Primary Care Nurse Name: Hayder Haile MD Position: [facility] Renal MD Member Role: Lifetime Consulting Physician Address: Address: [address] [place] [address] [facility] [place] [address]- Care Team Related Persons Name: ANTONIO TUCKER Address: [address] [place] [address] Name: JAGRUTI TUCKER Address: [address] [address]
--- OUTSIDE RECORDS SUMMARY | 2023-09-19 17:48 | XMS_ITS | Continuity of Care Document ---
Author Organization [facility] Tyrell Dillon Address [address] [place] [address]- Care Team Providers Care Flarer Name Role Phone Gustavo VASQUEZ, Tanya Israel Primary Care Physician [phone] Encounter [facility] Date(s): 07/13/22 - 08/25/22 [facility] Adult [address] [place] [address]- Attending Physician: Tanya Chen NP Referring Physician: Kaela MARTINEZ, Yvan Burns Allergies, Adverse Reactions, Alerts No Known Allergies Immunizations Given and Recorded Vaccine Date Status Refusal Reason zoster vaccine, inactivated 09/26/21 Recorded zoster vaccine, inactivated 07/25/21 Recorded hepatitis B adult vaccine 07/11/21 Recorded hepatitis B adult vaccine 12/30/20 Recorded hepatitis B adult vaccine 10/14/19 Given hepatitis B adult vaccine 09/09/19 Given SARS-CoV-2 mRNA (kpburuh-zbzz-krpie) vax 05/24/21 Recorded pneumococcal 13-valent vaccine 12/30/20 [...] Vaccine (oldterm) 04/29/19 Recorde d 1Result Comment: [facility]:[id number] 2Early/Late Reason: Med Not Available Medications ergocalciferol 07044 iu oral capsule 1, capsule, By Mouth, Every week, # 13 capsule, Refills 1, Tot. Refills 0, Maintenance, 06/28/20 12:51:00 EST, Route to Pharmacy Electronically, [id number], 170.18, cm, 01/11/20 10:37:00 EDT, Height, 82.6, [...] Acute07/13/23 12:00:00 EDT, 07/11/22 8:47:00 EDT, Tablet, [facility]/pharmacy #[id number], 170, cm, 07/11/22 8:12:00 EDT, Height, 78.7, kg, 08/15/21 15:48:00 EDT, Dry Weight Start Date: 07/11/22 Stop Date: 07/13/23 Status: Ordered traZODone 50 mg oral tablet 50 mg, 1, tablet, By Mouth, Daily at bedtime, for 30 days, # 30 tablet, Refills 0, Tot. Refills 0, Acute 09/02/22 17:25:00 EDT, 08/03/22 17:25:00 EDT, Route to Pharmacy Electronically, [facility], 170, cm, 07/11/22 8:12:00 EDT, Height, 7... Start Date: 08/03/22 Stop Date: 09/02/22 Status: Ordered Vitamin B1 100 mg oral tablet 1, tablet, By Mouth, Daily, OFFICE VISIT NEEDED FOR FURTHER REFILLS, # 30 tablet, Refills 0, Tot. Refills 0, Maintenance, 06/30/20 6:51:00 EST, Route to Pharmacy Electronically, [facility]/pharmacy #[id number], 170.18, cm, 01/11/20 10:37:00 EDT, Height, 82.6, kg,... Start Date: 06/30/20 Status: Ordered Vitamin B6 50 mg oral tablet See Instructions, TAKE 1 TABLET BY MOUTH EVERY DAY, # 30 tablet, Refills 0, Acute, Instructions Replace Required Details, Route to Pharmacy Electronically, [facility] 01870, 170.18, cm, 01/11/20 10:37:00 EDT, Height, 82.6, [...] Associate Professional Member Role: PCP Address: Address: [address] [place] [address]- Name: Coby Fernández RN Position: [facility] [...] Role: Lifetime Consulting Physician Address: Address: [address] [place] [address] [facility] [place] [address]- Care Team Related Persons Name: ANTONIO TUCKER Address: [address] [place] [address] Name: JAGRUTI TUCKER Address: [address] [address]
--- OUTSIDE RECORDS SUMMARY | 2023-09-19 17:48 | XMS_ITS | Continuity of Care Document ---
Author Organization [facility] Jori Santillan Dillon lt Address [address] [place] [address]- Care Team Providers Care Deep Submergence Vehicle Operator Name Role Phone Gustavo Tanya VASQUEZ Primary Care Physician [facility]counter [facility] Date(s): 02/08/23 - 03/10/23 [facility] Jori Malinley Adult [address] [place] [address]- Allergies, Adverse Reactions, Alerts No Known Allergies Immunizations Given and Recorded Vaccine Date Status Refusal Reason pneumococcal 20-valent conjugate vaccine 1 03/07/23 Given hepatitis B adult vaccine 02/01/23 Recorded hepatitis B adult vaccine 07/11/21 Recorded hepatitis B adult vaccine 12/30/20 Recorded hepatitis B adult vaccine 10/14/19 Given hepatitis B adult vaccine 09/09/19 Given SARS-CoV-2(COVID-19)mRNA-LNP vac([id number]) 02/01/23 Recorded influenza virus vaccine, inactivated 12/21/22 Flavio rded influenza virus vaccine, inactivated 01/23/22 Flavio rded influenza virus vaccine, inactivated 01/11/20 Give n [id number] 12y+ bivalent booster vax 01/23/22 Recorded zoster vaccine, inactivated 09/26/21 Recorded zoster vaccine, inactivated 07/25/21 Recorded SARS-CoV-2 mRNA (gzjngff-wpnj-bktyz) vax 05/24/21 Recorded pneumococcal 13-valent vaccine 12/30/20 Recorded SARS-CoV-2 (COVID-19) mRNA BNT-162b2 vac 08/27/20 Recorded SARS-CoV-2 (COVID-19) mRNA BNT-162b2 vac 08/06/20 Recorded Hepatitis A Adult Vaccine 2 05/31/20 Given Hepatitis A Adult Vaccine 11/04/19 Recorded Measles/Mumps/Rubella Virus Vaccine 11/06/19 Recor ded tetanus/diphtheria/pertussis, acel(Tdap) 11/04/19 Recorded pneumococcal 23-valent vaccine 3 08/20/19 Given Influenza Virus Vaccine (oldterm) 04/29/19 Recorde d 1Result Comment: [id number] 2Result Comment: [facility]:[id number] 3Early/Late Reason: Med Not Available Medications cephalexin [...] Member Role: Primary Care Nurse Name: Tanya Chne NP Position: [facility] PCO Associate Professional Member Role: PCP Address: Address: [address] [place] [address]- Name: Coby Fernández RN [facility] [...] Care Nurse Name: Clau Daniel RN Position: [facility] SN RN Member Role: Primary Care Nurse Name: Merry Moreau RN Position: [facility] Outreach Member Role: Primary Care Nurse Name: Hayder Haile MD Position: [facility] Renal MD Member Role: Lifetime Consulting Physician Address: Address: [address] [place] [address] [facility] [place] [address]- Care Team Related Persons Name: ANTONIO TUCKER Address: home [address] [place] [address] Name: JAGRUTI TUCKER Address: [address] [address]
--- OUTSIDE RECORDS SUMMARY | 2023-09-19 17:48 | XMS_ITS | Continuity of Care Document ---
Author Organization [facility] Jori Santillan Dillon Address [address] [place] [address]- Care Team Providers Care Mother Tester Name Role Phone Tanya Chen NP Primary Care Physician [place] [facility] Date(s): 07/06/21 - 08/17/21 [facility] Jori Malinley Adult [address] [place] [address]- Encounter Diagnosis Annual physical exam(Discharge Diagnosis) - 07/17/21 Alcoholic hepatitis(Discharge Diagnosis) - 07/17/21 Cirrhosis of liver(Discharge Diagnosis) - 07/17/21 Esophageal varices(Discharge Diagnosis) - 07/17/21 Hyperlipidemia(Discharge Diagnosis) - 07/17/21 Macrocytic anemia(Discharge Diagnosis) - 07/17/21 Portal hypertension(Discharge Diagnosis) - 07/17/21 Subclinical hypothyroidism(Discharge Diagnosis) - 07/17/21 Vitamin D deficiency(Discharge Diagnosis) - 07/17/21 Tubular adenoma of colon(Discharge Diagnosis) - 07/17/21 H/O alcohol abuse(Discharge Diagnosis) - 07/17/21 Attending Physician: Tanya Chen NP Allergies, Adverse Reactions, Alerts No Known Allergies Immunizations Given and Recorded Vaccine Date Status Refusal Reason zoster vaccine, inactivated 07/25/21 Recorded hepatitis B adult vaccine 07/11/21 Recorded hepatitis B adult vaccine 12/30/20 Recorded hepatitis B adult vaccine 10/14/19 Given hepatitis B adult vaccine 09/09/19 Given SARS-CoV-2 mRNA (wosdnuf-nfls-hlfpg) vax 05/24/21 Recorded pneumococcal 13-valent vaccine 12/30/20 [...] Vaccine (oldterm) 04/29/19 Recorde d 1Result Comment: [facility]:[id number] 2Early/Late Reason: Med Not Available Medications ergocalciferol 69983 iu oral capsule 1, capsule, By Mouth, Every week, # 13 capsule, Refills 1, Tot. Refills 0, Maintenance, 06/28/20 12:51:00 EST, Route to Pharmacy Electronically, [facility], 170.18, cm, 01/11/20 10:37:00 EDT, Height, 82.6, kg, 09/24/19 8:19:00 EDT, Dry Weight Start Date: 06/28/20 Status: Ordered multivitamin with minerals Multiple Vitamins with Minerals oral tablet 1 tablet, By Mouth, Daily, # 90 tablet, 11 Refills, Maintenance, 09/14/20 13:32:00 EDT, Tablet, [facility]/pharmacy #[id number], 1 tablet By Mouth [...] 06/30/20 6:51:00 EST, Route to Pharmacy Electronically, [facility]/pharmacy #[id number], 170.18, cm, 01/11/20 10:37:00 EDT, Height, 82.6, kg,... Start Date: 06/30/20 Status: Ordered Vitamin B6 50 mg oral tablet See Instructions, TAKE 1 TABLET BY MOUTH EVERY DAY, # 30 tablet, Refills 0, Acute, Instructions Replace Required Details, Route to Pharmacy Electronically, [id number], 170.18, cm, 01/11/20 10:37:00 EDT, Height, 82.6, [...] Service Informant Annual physical exam Discharge Diagnosis 07/17/21 Alcoholic hepatitis Discharge Diagnosis 07/17/21 Cirrhosis of liver Discharge Diagnosis 07/17/21 Esophageal varices Discharge Diagnosis 07/17/21 Hyperlipidemia Discharge Diagnosis 07/17/21 Macrocytic anemia Discharge Diagnosis 07/17/21 Portal hypertension Discharge Diagnosis 07/17/21 Subclinical hypothyroidism Discharge Diagnosis 07/17/21 Vitamin D deficiency Discharge Diagnosis 07/17/21 Tubular adenoma of colon Discharge Diagnosis 07/17/21 H/O alcohol abuse Discharge Diagnosis 07/17/21 Social History Social History Type Response Smoking Status Former smoker, quit more than 30 days ago; Other: smoked socially; nothing regular; entered on: 07/15/19 Sex
--- OUTSIDE RECORDS SUMMARY | 2023-09-19 17:48 | XMS_ITS | Continuity of Care Document ---
Author Organization [facility] Jori Santillan Dillon lt Address [address] [place] [address]- Care Team Providers Care Post Office Clerk Name Role Phone Gustavo MANAGER AGRICULTURETanya Primary Care Physician [facility]counter [facility] Date(s): 05/22/23 - 06/21/23 [facility] Jori Malinley Adult [address] [place] [address]- Allergies, Adverse Reactions, Alerts No Known Allergies [...] hepatitis B adult vaccine 09/09/19 Given SARS-CoV-2(COVID-19)mRNA-LNP vac([id number]) 02/01/23 Recorded influenza virus vaccine, inactivated 12/21/22 Flavio rded influenza virus vaccine, inactivated 01/23/22 Flavio rded influenza virus vaccine, inactivated 01/11/20 Give n [id number] 12y+ bivalent booster vax 01/23/22 Recorded SARS-CoV-2 mRNA (uprrgcp-thtj-yiyrr) vax 05/24/21 Recorded pneumococcal 13-valent vaccine 12/30/20 Recorded SARS-CoV-2 (COVID-19) mRNA BNT-162b2 vac 08/27/20 Recorded SARS-CoV-2 (COVID-19) mRNA BNT-162b2 vac 08/06/20 Recorded Hepatitis A Adult Vaccine 2 2/9/21 Given Hepatitis A Adult Vaccine 11/04/19 Recorded Measles/Mumps/Rubella Virus Vaccine 11/06/19 Recor ded tetanus/diphtheria/pertussis, acel(Tdap) 11/04/19 Recorded pneumococcal 23-valent vaccine 3 08/20/19 Given Influenza Virus Vaccine (oldterm) 04/29/19 Recorde d 1Result Comment: [id number] 2Result Comment: [facility]:[id number] 3Early/Late Reason: Med Not Available Medications cephalexin [...] Professional Member Role: PCP Address: Address: [address] [place] [address]- Name: Coby Fernández RN Position: [facility] [...] Role: Lifetime Consulting Physician Address: Address: [address] [place] [address] [facility] [place] [address]- Care Team Related Persons Name: ANTONIO TUCKER Address: home [address] [place] [address] Name: JAGRUTI TUCKER Address: [address] [address]
--- OUTSIDE RECORDS SUMMARY | 2023-09-19 17:48 | XMS_ITS | Continuity of Care Document ---
Author Organization [facility] Tyrell Dillon lt Address [address] [place] [address]- Care Team Providers Care Quenching Car Operator Name Role Phone Gustavo PEDRO, Tanya Israel Primary Care Physician Encounter [facility] Date(s): 04/19/23 - 05/19/23 [facility] Adult [address] [place] [address]- Allergies, Adverse Reactions, Alerts No Known Allergies [...] hepatitis B adult vaccine 09/09/19 Given SARS-CoV-2(COVID-19)mRNA-LNP vac([id number]) 02/01/23 Recorded influenza virus vaccine, inactivated 12/21/22 Flavio rded influenza virus vaccine, inactivated 01/23/22 Flavio rded influenza virus vaccine, inactivated 01/11/20 Give n [id number] 12y+ bivalent booster vax 01/23/22 Recorded SARS-CoV-2 mRNA (nhwijok-ions-emggt) vax 05/24/21 Recorded pneumococcal 13-valent vaccine 12/30/20 Recorded SARS-CoV-2 (COVID-19) mRNA BNT-162b2 vac 08/27/20 Recorded SARS-CoV-2 (COVID-19) mRNA BNT-162b2 vac 08/06/20 Recorded Hepatitis A Adult Vaccine 2 05/31/20 Given Hepatitis A Adult Vaccine 11/04/19 Recorded Measles/Mumps/Rubella Virus Vaccine 11/06/19 Recor ded tetanus/diphtheria/pertussis, acel(Tdap) 11/04/19 Recorded pneumococcal 23-valent vaccine 3 08/20/19 Given Influenza Virus Vaccine (oldterm) 04/29/19 Recorde d 1Result Comment: [id number] 2Result Comment: [facility]:[id number] 3Early/Late Reason: Med Not Available Medications cephalexin [...] Associate Professional Member Role: PCP Address: Address: [address] [place] [id number] Name: Coby Fernández RN Position: [facility] [...] Role: Lifetime Consulting Physician Address: Address: [address] [place] [address] [facility] [place] [address]- [place] Care Team Related Persons Name: GARRETTANTONIO Address: home [address] [place] [address] Name: JAGRUTI TUCKER Address: [address] [address]
--- OUTSIDE RECORDS SUMMARY | 2023-09-19 17:48 | XMS_ITS | Continuity of Care Document ---
Author Organization [facility] Address [address] [place] [address]- Care Team Providers Care System Engineer Name Role Phone Tanya Chen NP Primary Care Physician Encounter [facility] Date(s): 06/08/22 - 12/22/22 [facility] [address] [place] [address]- Attending Physician: Aime Mendoza MD Admitting Physician: [...] B adult vaccine 09/09/19 Given SARS-CoV-2 mRNA (gicghgr-rily-ccgkb) vax 05/24/21 Recorded pneumococcal 13-valent vaccine 12/30/20 [...] Vaccine (oldterm) 04/29/19 Recorde d 1Result Comment: [facility]:[id number] 2Early/Late Reason: Med Not Available Medications ergocalciferol 18576 iu oral capsule 1, capsule, By Mouth, Every week, # 13 capsule, Refills 1, Tot. Refills 0, Maintenance, 06/28/20 12:51:00 EST, Route to Pharmacy Electronically, [facility], 170.18, cm, 01/11/20 10:37:00 EDT, Height, 82.6, kg, 09/24/19 8:19:00 EDT, Dry Weight Start Date: 06/28/20 Status: Ordered multivitamin with minerals Multiple Vitamins with Minerals oral tablet 1 tablet, By Mouth, Daily, # 90 tablet, 11 Refills, Maintenance, 09/14/20 13:32:00 EDT, Tablet, [facility]/pharmacy #[id number], 1 tablet By Mouth Daily, [...] Acute07/13/23 12:00:00 EDT, 07/11/22 8:47:00 EDT, Tablet, [facility]/pharmacy #[id number], 170, cm, 07/11/22 8:12:00 EDT, Height, 78.7, kg, 08/15/21 15:48:00 EDT, Dry Weight Start Date: 07/11/22 Stop Date: 07/13/23 Status: Ordered Vitamin B1 100 mg oral tablet 1, tablet, By Mouth, Daily, OFFICE VISIT NEEDED FOR FURTHER REFILLS, # 30 tablet, Refills 0, Tot. Refills 0, Maintenance, 06/30/20 6:51:00 EST, Route to Pharmacy Electronically, [facility]/pharmacy #[id number], 170.18, cm, 01/11/20 10:37:00 EDT, Height, 82.6, kg,... Start Date: 06/30/20 Status: Ordered Vitamin B6 50 mg oral tablet See Instructions, TAKE 1 TABLET BY MOUTH EVERY DAY, # 30 tablet, Refills 0, Acute, Instructions Replace Required Details, Route to Pharmacy Electronically, [facility], 170.18, cm, 01/11/20 10:37:00 EDT, Height, 82.6, [...] Team Personnel Name: Gloria Stringer RN Position: [facility] RN Member Role: Primary Care Nurse Name: Tanya Chen NP Position: [facility] PCO Associate Professional Member Role: PCP Address: Address: [address] [place] [id number] Name: Coby Fernández RN Position: [facility] RN Member Role: Primary Care Nurse Name: Denia Batista Position: [facility] Outreach Member Role: Lifetime Consulting Physician Name: [place]ena Kumar RN Position: [facility] RN Member Role: Primary Care Nurse Name: Shanel Funk RN Position: [facility] RN Member Role: Primary Care Nurse Name: Clau Daniel RN Position: [facility] SN RN Member Role: Primary Care Nurse Name: Merry Moreau RN Position: [facility] Outreach Member Role: Primary Care Nurse Name: Hayder Haile MD Position: [facility] Renal MD Member Role: Lifetime Consulting Physician Address: Address: [address] [place] [address] [facility] [place] [address]- Care Team Related Persons Name: ANTONIO TUCKER Address: [address] [place] [address] Name: JAGRUTI TUCKER Address: [address] [address]
--- OUTSIDE RECORDS SUMMARY | 2023-09-19 17:49 | XMS_ITS | Continuity of Care Document ---
Author Organization [facility] Address [address] [place] [address]- Care Team Providers Care Transitions Manager Name Role Phone Gustavo Tanya VASQUEZ Primary Care Physician Encounter [facility] Date(s): 12/21/21 - 01/20/22 [facility] [address] [place] [address]- Attending Physician: Tania Bautista Admitting Physician: AdmtrTania Referring Physician: Admtr, ArFrancia Allergies, Adverse Reactions, Alerts No Known Allergies Immunizations Given and Recorded Vaccine Date Status Refusal Reason zoster vaccine, inactivated 09/26/21 Recorded zoster vaccine, inactivated 07/25/21 Recorded hepatitis B adult vaccine 07/11/21 Recorded hepatitis B adult vaccine 12/30/20 Recorded hepatitis B adult vaccine 10/14/19 Given hepatitis B adult vaccine 09/09/19 Given SARS-CoV-2 mRNA (cummwot-bpvk-ilctd) vax 05/24/21 Recorded pneumococcal 13-valent vaccine 12/30/20 [...] d 1Result Comment: [facility]:[id number] 2Early/Late Reason: Med Not Available Medications ergocalciferol 72600 iu oral capsule 1, capsule, By Mouth, Every week, # 13 capsule, Refills 1, Tot. Refills 0, Maintenance, 06/28/20 12:51:00 EST, Route to Pharmacy Electronically, [facility], 170.18, cm, 01/11/20 10:37:00 EDT, Height, 82.6, kg, 09/24/19 8:19:00 EDT, Dry Weight Start Date: 06/28/20 Status: Ordered multivitamin with minerals Multiple Vitamins with Minerals oral tablet 1 tablet, By Mouth, Daily, # 90 tablet, 11 Refills, Maintenance, 09/14/20 13:32:00 EDT, Tablet, [facility]/pharmacy #[id number], 1 tablet By Mouth [...] 6:51:00 EST, Route to Pharmacy Electronically, [facility]/pharmacy #[id number], 170.18, cm, 01/11/20 10:37:00 EDT, Height, 82.6, kg,... Start Date: 06/30/20 Status: Ordered Vitamin B6 50 mg oral tablet See Instructions, TAKE 1 TABLET BY MOUTH EVERY DAY, # 30 tablet, Refills 0, Acute, Instructions Replace Required Details, Route to Pharmacy Electronically, [facility] 422[facility], 170.18, cm, 01/11/20 10:37:00 EDT, Height, 82.6, [...] on: 07/15/19 Sex Patient Care team information Personnel Name: Tanya Chen NP Address: Address: [address] [place] [address]
--- OUTSIDE RECORDS SUMMARY | 2023-09-19 17:49 | XMS_ITS | Continuity of Care Document ---
Author Organization [facility] Durand Dillon Address [address] [place] [address]- Care Team Providers Care Bicycle Assembler Name Role Phone Gustavo Tanya VASQUEZ Primary Care Physician [phone] Encounter [facility] Date(s): 03/07/23 - 04/06/23 [facility] Adult [address] [place] [address]- Attending Physician: Tania Bautista Admitting Physician: AdmTania [...] hepatitis B adult vaccine 09/09/19 Given SARS-CoV-2(COVID-19)mRNA-LNP vac(gax803) 02/01/23 Recorded influenza virus vaccine, inactivated 12/21/22 Flavio rded influenza virus vaccine, inactivated 01/23/22 Flavio rded influenza virus vaccine, inactivated 01/11/20 Give n [id number] 12y+ bivalent booster vax 01/23/22 Recorded zoster vaccine, inactivated 09/26/21 Recorded zoster vaccine, inactivated 07/25/21 Recorded SARS-CoV-2 mRNA (stxoigx-liyh-cwjgm) vax 05/24/21 Recorded pneumococcal 13-valent vaccine 12/30/20 Recorded SARS-CoV-2 (COVID-19) mRNA BNT-162b2 vac 08/27/20 Recorded SARS-CoV-2 (COVID-19) mRNA BNT-162b2 vac 08/06/20 Recorded Hepatitis A Adult Vaccine 2 05/31/20 Given Hepatitis A Adult Vaccine 11/04/19 Recorded Measles/Mumps/Rubella Virus Vaccine 11/06/19 Recor ded tetanus/diphtheria/pertussis, acel(Tdap) 11/04/19 Recorded pneumococcal 23-valent vaccine 3 08/20/19 Given Influenza Virus Vaccine (oldterm) 04/29/19 Recorde d 1Result Comment: [id number] 2Result Comment: [facility]:[id number] 3Early/Late Reason: Med Not Available Problem List [...] 07/15/19 Sex Cardiology * Event Display: Non Cardiovascular Results Authored Date: * Event Display: EKG Non Authored Date: Note * Tresa Nugent RN: PERFORM, SIGN, VERIFY Gustavo Tanya VASQUEZ: REVIEW Event Display: Case Management Discharge Plan Authored Date: [id number] Patient: SANGITA TUCKER Age: 54 years Sex: [...] lovenox is giving his own lovenox declined [facility] discussed new meds explained them is following up with liver doctor Do you know what to do in case of an emergency? yes Were you given any prescriptions to fill? Yes. Do you understand how to take your medication? Yes Do you have an appointment already scheduled with your PCP? Yes Is date appropriate: IPF [facility] tomorrow. Home Care Services requested? No Have there been any changes in your condition since discharge? No Do you have someone at home that is able to help you? Yes Patient Care team information Care Team Personnel Name: Gloria Stringer RN Position: [facility] RN Member Role: Primary Care Nurse Name: Tanya Chen NP Position: [facility] PCO Associate Professional Member Role: PCP Address: Address: [address] [place] [address]- Name: Coby Fernández RN Position: [facility] RN Member Role: Primary Care Nurse Name: Denia Batista Position: [facility] Outreach Member Role: Lifetime Consulting Physician Name: [place] Kumar RN Position: [facility] RN Member Role: Primary Care Nurse Name: Shanel Funk RN Position: [facility] RN Member Role: Primary Care Nurse Name: Clau Daniel RN Position: [facility] SN RN Member Role: Primary Care Nurse Name: Merry Moreau RN Position: [facility] Outreach Member Role: Primary Care Nurse Name: Hayder Haile MD Position: [facility] Renal MD Member Role: Lifetime Consulting Physician Address: Address: [address] [place] [address] [facility] [place] [address]- Care Team Related Persons Name: ANTONIO TUCKER Address: [address] [place] [address] Name: JAGRUTI TUCKER Address: [address] [address]
--- OUTSIDE RECORDS SUMMARY | 2023-09-19 17:49 | XMS_ITS | Continuity of Care Document ---
Author Organization [facility] Tyrell Dillon Address [address] [place] [address]- Care Team Providers Care Pharmacogeneticist Name Role Phone Ugstavo TRUCK BRACERTanya Primary Care Physician [facility] Date(s): 07/12/21 - 08/11/21 [facility] Jori Malinley Adult [address] [place] [address]- Allergies, Adverse Reactions, Alerts No Known Allergies Immunizations Given and Recorded Vaccine Date Status Refusal Reason zoster vaccine, inactivated 07/25/21 Recorded hepatitis B adult vaccine 07/11/21 Recorded hepatitis B adult vaccine 12/30/20 Recorded hepatitis B adult vaccine 10/14/19 Given hepatitis B adult vaccine 09/09/19 Given SARS-CoV-2 mRNA (bpwhdhg-tprr-qcdor) vax 05/24/21 Recorded pneumococcal 13-valent vaccine 12/30/20 [...] Vaccine (oldterm) 04/29/19 Recorde d 1Result Comment: [facility]:[id number] 2Early/Late Reason: Med Not Available Medications ergocalciferol 83325 iu oral capsule 1, capsule, By Mouth, Every week, # 13 capsule, Refills 1, Tot. Refills 0, Maintenance, 06/28/20 12:51:00 EST, Route to [facility]acy [facility]ically, [facility], 170.18, cm, 01/11/20 10:37:00 EDT, Height, 82.6, kg, 09/24/19 8:19:00 EDT, Dry Weight Start Date: 06/28/20 Status: Ordered multivitamin with minerals Multiple Vitamins with Minerals oral tablet 1 tablet, By Mouth, Daily, # 90 tablet, 11 Refills, Maintenance, 09/14/20 13:32:00 EDT, Tablet, [facility]/pharmacy #[id number], 1 tablet By Mouth Daily, [...] 06/30/20 6:51:00 EST, Route to Pharmacy Electronically, [facility]/pharmacy #[id number], 170.18, cm, 01/11/20 10:37:00 EDT, Height, 82.6, kg,... Start Date: 06/30/20 Status: Ordered Vitamin B6 50 mg oral tablet See Instructions, TAKE 1 TABLET BY MOUTH EVERY DAY, # 30 tablet, Refills 0, Acute, Instructions Replace Required Details, Route to Pharmacy Electronically, [facility], 170.18, cm, 01/11/20 10:37:00 EDT, Height, 82.6, [...]
--- OUTSIDE RECORDS SUMMARY | 2023-09-19 17:49 | XMS_ITS | Continuity of Care Document ---
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 Name Role Phone Gustavo COMPUTER INFORMATION SYSTEMS PROFESSORTanya Primary Care Physician [facility] Date(s): 07/12/21 - 08/11/21 [facility] Jori Malinley Adult [address] [place] [address]- Allergies, Adverse Reactions, Alerts No Known Allergies Immunizations Given and Recorded Vaccine Date Status Refusal Reason zoster vaccine, inactivated 07/25/21 Recorded hepatitis B adult vaccine 07/11/21 Recorded hepatitis B adult vaccine 12/30/20 Recorded hepatitis B adult vaccine 10/14/19 Given hepatitis B adult vaccine 09/09/19 Given SARS-CoV-2 mRNA (tuzahrh-pokv-vwtxe) vax 05/24/21 Recorded pneumococcal 13-valent vaccine 12/30/20 [...] (oldterm) 04/29/19 Recorde d 1Result Comment: [facility]:[id number] 2Early/Late Reason: Med Not Available Medications ergocalciferol 78215 iu oral capsule 1, capsule, By Mouth, Every week, # 13 capsule, Refills 1, Tot. Refills 0, Maintenance, 06/28/20 12:51:00 EST, Route to Pharmacy Electronically, [facility], 170.18, cm, 01/11/20 10:37:00 EDT, Height, 82.6, kg, 09/24/19 8:19:00 EDT, Dry Weight Start Date: 06/28/20 Status: Ordered multivitamin with minerals Multiple Vitamins with Minerals oral tablet 1 tablet, By Mouth, Daily, # 90 tablet, 11 Refills, Maintenance, 09/14/20 13:32:00 EDT, Tablet, [facility]/pharmacy #[id number], 1 tablet By [...] 06/30/20 6:51:00 EST, Route to Pharmacy Electronically, [facility]/pharmacy #[id number], 170.18, cm, 01/11/20 10:37:00 EDT, Height, 82.6, kg,... Start Date: 06/30/20 Status: Ordered Vitamin B6 50 mg oral tablet See Instructions, TAKE 1 TABLET BY MOUTH EVERY DAY, # 30 tablet, Refills 0, Acute, Instructions Replace Required Details, Route to Pharmacy Electronically, [facility], 170.18, cm, 01/11/20 10:37:00 EDT, Height, 82.6, [...]
--- OUTSIDE RECORDS SUMMARY | 2023-09-19 17:49 | XMS_ITS | Continuity of Care Document ---
Author Organization [facility] Jori Santillan Dillon Address [address] [place] [address]- Care Team Providers Care Finished Carpet Inspector Name Role Phone Gustavo HIM TECH, Tanya Israel Primary Care Physician Encounter [facility] Date(s): 08/26/19 - 09/02/19 [facility] Jori Malinley Adult [address] [place] [address]- [facility] Encounter Diagnosis Alcoholic hepatitis(Discharge Diagnosis) - 08/26/19 Cirrhosis of liver(Discharge Diagnosis) - 08/26/19 Alcohol abuse(Discharge Diagnosis) - 08/26/19 Depression(Discharge Diagnosis) - 08/26/19 Hyponatremia(Discharge Diagnosis) - 08/26/19 Blood in stool(Discharge Diagnosis) - 08/26/19 Portal hypertension(Discharge Diagnosis) - 08/26/19 Macrocytic anemia(Discharge Diagnosis) - 08/26/19 Subclinical hypothyroidism(Discharge Diagnosis) - 08/26/19 Attending Physician: Glendy MARTINEZ, Vipul Hamlin Allergies, Adverse [...] 08/21/19 13:30:00 EDT, Route to Pharmacy Electronically, [facility]/pharmacy #[id number], 170.18, cm, 08/21/19 4:27:00 EDT, Height, 91, kg, 08/19/19 4:32:00 EDT, Dry Weight Start Date: 08/21/19 Status: Ordered furosemide 20 mg oral tablet 20 mg, 1, tablet, By Mouth, Daily, # 30 tablet, Refills 11, Tot. Refills 11, Maintenance, 08/21/19 11:56:00 EDT, Route to Pharmacy Electronically, [facility]/pharmacy #[id number], 170.18, cm, 08/21/19 4:27:00 EDT, Height, 91, kg, 08/19/19 4:32:00 EDT, Dry Weight Start Date: 08/21/19 Status: Ordered multivitamin with minerals Multiple Vitamins with Minerals oral tablet 1 tablet, By Mouth, Daily, # 30 tablet, 0 Refills, Maintenance, 08/21/19 13:32:00 EDT, Tablet, [facility]/pharmacy #0693, 1 tablet By Mouth Daily,x30 [...] 08/21/19 13:32:00 EDT, Route to Pharmacy Electronically, [facility]/pharmacy #0693, 170.18, cm, 08/21/19 4:27:00 EDT, Height, 91, kg, ... Start Date: 08/21/19 Stop Date: 09/20/19 Status: Ordered spironolactone 25 mg oral tablet 50 mg, 2, tablet, By Mouth, Daily, # 60 tablet, Refills 11, Tot. Refills 11, Maintenance, 08/21/19 12:04:00 EDT, Route to Pharmacy Electronically, [facility]/pharmacy #[id number], 170.18, cm, 08/21/19 4:27:00 EDT, Height, 91, kg, 08/19/19 4:32:00 EDT, Dry Weight Start Date: 08/21/19 Status: Ordered thiamine 100 mg oral tablet 100 mg, 1, tablet, By Mouth, Daily, # 30 tablet, Refills 0, Tot. Refills 0, Maintenance, 08/21/19 13:32:00 EDT, Route to Pharmacy Electronically, [facility]/pharmacy #[id number], 170.18, cm, 08/21/19 4:27:00 EDT,Height, 91, kg, 08/19/19 4:32:00 EDT, Dry Weight Start Date: 08/21/19 Status: Ordered Vitamin D 64513 iu oral capsule 50,000 International_Units, 1, capsule, By Mouth, Every week, # 13 capsule, Refills 1, Tot. Refills1, Maintenance, 07/17/19 10:13:00 EDT, Route to Pharmacy Electronically, [facility]/pharmacy #[id number], 171, cm, 07/15/19 13:04:00 EDT, [...] Subclinical hypothyroidism(Confirmed) Active Vitamin D deficiency(Confirmed) Active Diagnosis Diagnosis Type Effective Dates Health Status Clinical Service Informant Alcoholic hepatitis Discharge Diagnosis 08/26/19 Cirrhosis of liver Discharge Diagnosis 08/26/19 Alcohol abuse Discharge Diagnosis 08/26/19 Depression Discharge Diagnosis 08/26/19 Hyponatremia Discharge Diagnosis 08/26/19 Blood in stool Discharge Diagnosis 08/26/19 Portal hypertension Discharge Diagnosis 08/26/19 Macrocytic anemia Discharge Diagnosis 08/26/19 Subclinical hypothyroidism Discharge Diagnosis 08/26/19 Vital Signs Most recent to oldest [Reference Range]: 1 Height 170.18 cm (08/26/19 10:07 AM) Weight 83.8 kg (08/26/19 10:07 AM) Oxygen Saturation [94-100 %] 96 % (08/26/19 10:07 AM) Pulse Rate [55-90 bpm] 106 bpm *H* (08/26/19 10:07 AM) Body Mass Index [18.5-24.99] 28.94 *H* (08/26/19 10:07 AM) Blood Pressure [90-138/55-84 mm Hg] 98/6 0mm Hg (08/26/19 10:07 AM) Respiratory Rate [16-30 br/min] 16 br/mi n (08/26/19 10:07 AM) Temperature [96.8-100.4 DegF] 97.8 DegF (08/26/19 10:07 AM) Mode of Delivery (Oxygen) Room air (08/26/19 10:07 AM) Blood pressure sites Arm, right (08/26/19 10:07 AM) Temperature Route Oral (08/26/19 10:07 AM) Weight Obtained Via Standing scale (08/26/19 10:07 AM) Social History Social History Type Response Smoking Status Former smoker, quit more than 30 days ago; Other: smoked socially; nothing regular; entered on: 07/15/19 Sex
--- OUTSIDE RECORDS SUMMARY | 2023-09-19 17:49 | XMS_ITS | Continuity of Care Document ---
Author Organization [facility] Tyrell Dillon Address [address] [place] [address]- Care Team Providers Care Starch Mangle Tender Name Role Phone Gustavo Tanya VASQUEZ Primary Care Physician [phone] Encounter [facility] Date(s): 01/07/20 - 02/06/20 [facility] Adult [address] [place] [address]- [facility] Allergies, Adverse Reactions, Alerts Substance Reaction Severity [...] 01/04/20 21:25:00 EDT, Route to Pharmacy Electronically, [facility]/pharmacy #[id number], 170.18, cm, 10/20/19 9:53:00 EDT, Height, 82.6, kg, 09/24/19 8:19:00 EDT, Dry Weight Start Date: 01/04/20 Status: Ordered furosemide 20 mg oral tablet 20 mg, 1, tablet, By Mouth, Daily, # 30 tablet, Refills 11, Tot. Refills 11, Maintenance, 08/21/19 11:56:00 EDT, Route to Pharmacy Electronically, [facility]/pharmacy #[id number], 170.18, cm, 08/21/19 4:27:00 EDT, Height, 91, kg, 08/19/19 4:32:00 EDT, Dry Weight Start Date: 08/21/19 Status: Ordered multivitamin with minerals Multiple Vitamins with Minerals oral tablet 1 tablet, By Mouth, Daily, # 30 tablet, 11 Refills, Maintenance, 09/20/19 13:32:00 EDT, Tablet, [facility]/pharmacy #[id number], 1 tablet By Mouth Daily,x30 days, 170, cm, 09/09/19 9:18:00 EDT, Height, 80.8, kg, 08/31/19 20:58:00 EDT, Dry Weight Start Date: 09/20/19 Stop Date: 09/14/20 Status: Ordered nadolol 20 mg oral tablet 20 mg, 1, tablet, By Mouth, Daily, # 30 tablet, Refills 5, Tot. Refills 5, Maintenance, 01/29/20 10:20:00 EDT, Route to Pharmacy Electronically, [facility]/pharmacy #[id number], 170.18, cm, 01/11/20 10:37:00 EDT,Height, [...] EDT, Route to Pharmacy Electronically, [id number], 170.18, cm, 01/11/20 10:37:00 EDT, Height, 82.6, kg, 09/24/19 8:19:00 EDT, Dry Weight Start Date: 01/18/20 Status: Ordered Vitamin B6 50 mg oral tablet 1, tablet, By Mouth, Daily, # 30 tablet, Refills 5, Tot. Refills 0, Acute, 01/18/20 9:04:00 EDT, Route to Pharmacy Electronically, [facility], 170.18, cm, 01/11/20 10:37:00 EDT, Height, 82.6, kg, 09/24/19 8:19:00 EDT, Dry Weight Start Date: 01/18/20 Status: Ordered Vitamin D 46135 iu oral capsule 50,000 International_Units, 1, capsule, By Mouth, Every week, # 13 capsule, Refills 1, Tot. Refills1, Maintenance, 01/05/20 8:42:00 EDT, Route to Pharmacy Electronically, [facility]/pharmacy #[id number], 170.18,cm, 10/20/19 9:53:00 EDT, Height, [...]
--- OUTSIDE RECORDS SUMMARY | 2023-09-19 17:49 | XMS_ITS | Continuity of Care Document ---
Author Organization [facility] Address [address] [place] [address]- Care Team Providers Care Coverer Name Role Phone Gustavo Tanya VASQUEZ Primary Care Physician Encounter [facility] Date(s): 11/22/22 - 12/22/22 [facility] [address] [place] [address]- Attending Physician: AdmTania rene Admitting Physician: Admtr, Ar8 Referring Physician: Admtr, Ar8 Allergies, Adverse Reactions, Alerts No Known Allergies Immunizations Given and Recorded Vaccine Date Status Refusal Reason zoster vaccine, inactivated 09/26/21 Recorded zoster vaccine, inactivated 07/25/21 Recorded hepatitis B adult vaccine 07/11/21 Recorded hepatitis B adult vaccine 12/30/20 Recorded hepatitis B adult vaccine 10/14/19 Given hepatitis B adult vaccine 09/09/19 Given SARS-CoV-2 mRNA ([id number]) vax 05/24/21 Recorded pneumococcal 13-valent vaccine 12/30/20 [...] 04/29/19 Recorde d 1Result Comment: [facility]:[id number] 2Early/Late Reason: Med Not Available Medications ergocalciferol 37950 iu oral capsule 1, capsule, By Mouth, Every week, # 13 capsule, Refills 1, Tot. Refills 0, Maintenance, 06/28/20 12:51:00 EST, Route to Pharmacy Electronically, [facility], 170.18, cm, 01/11/20 10:37:00 EDT, Height, 82.6, kg, 09/24/19 8:19:00 EDT, Dry Weight Start Date: 06/28/20 Status: Ordered multivitamin with minerals Multiple Vitamins with Minerals oral tablet 1 tablet, By Mouth, Daily, # 90 tablet, 11 Refills, Maintenance, 09/14/20 13:32:00 EDT, Tablet, [facility]/pharmacy #[id number], 1 tablet By Mouth Daily, 170.18, [...] EDT, 07/11/22 8:47:00 EDT, Tablet, [facility]/pharmacy #[id number], 170, cm, 07/11/22 8:12:00 EDT, Height, 78.7, kg, 08/15/21 15:48:00 EDT, Dry Weight Start Date: 07/11/22 Stop Date: 07/13/23 Status: Ordered Vitamin B1 100 mg oral tablet 1, tablet, By Mouth, Daily, OFFICE VISIT NEEDED FOR FURTHER REFILLS, # 30 tablet, Refills 0, Tot. Refills 0, Maintenance, 06/30/20 6:51:00 EST, Route to Pharmacy Electronically, [facility]/pharmacy #[id number], 170.18, cm, 01/11/20 10:37:00 EDT, Height, 82.6, kg,... Start Date: 06/30/20 Status: Ordered Vitamin B6 50 mg oral tablet See Instructions, TAKE 1 TABLET BY MOUTH EVERY DAY, # 30 tablet, Refills 0, Acute, Instructions Replace Required Details, Route to Pharmacy Electronically, [facility], 170.18, cm, 01/11/20 10:37:00 EDT, Height, 82.6, [...] Associate Professional Member Role: PCP Address: Address: [address] [place] [id number] Name: Coby Fernández RN Position: [facility] [...] Member Role: Lifetime Consulting Physician Address: Address: [address] [place] [address] [facility] [address]- Care Team Related Persons Name: ANTONIO TUCKER Address: home [address] [place] [address] Name: JAGRUTI TUCKER Address: [address] [address]
--- OUTSIDE RECORDS SUMMARY | 2023-09-19 17:49 | XMS_ITS | Continuity of Care Document ---
Author Organization [facility] Address [address] [place] [address]- Care Team Providers Care Ad Setter Name Role Phone Tanya Chen NP Primary Care Physician [phone] Encounter [facility] [place] Date(s): 09/22/21 - 01/20/22 [facility] [address] [place] [address]- Attending Physician: Aime Mendoza MD Admitting Physician: [...] B adult vaccine 09/09/19 Given SARS-CoV-2 mRNA ([id number]) vax 05/24/21 Recorded pneumococcal 13-valent vaccine 12/30/20 [...] d 1Result Comment: [facility]:[id number] 2Early/Late Reason: Med Not Available Medications ergocalciferol 97996 iu oral capsule 1, capsule, By Mouth, Every week, # 13 capsule, Refills 1, Tot. Refills 0, Maintenance, 06/28/20 12:51:00 EST, Route to Pharmacy Electronically, [facility] STORE [facility], 170.18, cm, 01/11/20 10:37:00 EDT, Height, 82.6, kg, 09/24/19 8:19:00 EDT, Dry Weight Start Date: 06/28/20 Status: Ordered multivitamin with minerals Multiple Vitamins with Minerals oral tablet 1 tablet, By Mouth, Daily, # 90 tablet, 11 Refills, Maintenance, 09/14/20 13:32:00 EDT, Tablet, [facility]/pharmacy #[id number], 1 tablet By Mouth Daily, [...] 06/30/20 6:51:00 EST, Route to Pharmacy Electronically, [facility]/pharmacy #[id number], 170.18, cm, 01/11/20 10:37:00 EDT, Height, 82.6, kg,... Start Date: 06/30/20 Status: Ordered Vitamin B6 50 mg oral tablet See Instructions, TAKE 1 TABLET BY MOUTH EVERY DAY, # 30 tablet, Refills 0, Acute, Instructions Replace Required Details, Route to Pharmacy Electronically, [facility]ORE [address], 170.18, cm, 01/11/20 10:37:00 EDT, Height, 82.6, [...] Personnel Name: Tanya Chen NP Address: Address: [address] [place] [id number]
--- OUTSIDE RECORDS SUMMARY | 2023-09-19 17:49 | XMS_ITS | Continuity of Care Document ---
Author Organization [facility] Tyrell Dillon Address [address] [place] [address]- Care Team Providers Care Sole Tacker Name Role Phone Tanya Chen NP Primary Care Physician Encounter [facility] [place] Date(s): 09/09/19 - 09/16/19 [facility] Adult [address] [place] [address]- [facility] Attending Physician: Tanya Chen NP Referring Physician: [...] 10/07/19 9:35:00 EDT, 09/07/19 9:35:00 EDT, Injection, [facility], 170, cm, 09/07/19 7:36:00 EDT, Height, 80.8, kg, 08/31/19 20:58:00 EDT, Start Date: 09/07/19 Stop Date: 10/07/19 Status: Ordered folic acid 1 mg oral tablet 1 mg, 1, tablet, By Mouth, Daily, # 30 tablet, Refills 3, Tot. Refills 3, Maintenance, 09/16/19 20:47:00 EDT, Route to Pharmacy Electronically, [facility]/pharmacy #[id number], 170, cm, 09/09/19 9:18:00 EDT, Height, 80.8, kg, 08/31/19 20:58:00 EDT, Dry Weight Start Date: 09/16/19 Status: Ordered furosemide 20 mg oral tablet 20 mg, 1, tablet, By Mouth, Daily, # 30 tablet, Refills 11, Tot. Refills 11, Maintenance, 08/21/19 11:56:00 EDT, Route to Pharmacy Electronically, [facility]/pharmacy #[id number], 170.18, cm, 08/21/19 4:27:00 EDT, Height, 91, kg, 08/19/19 4:32:00 EDT, Dry Weight Start Date: 08/21/19 Status: Ordered lactulose 10 gm/15 ml oral syrup 30 mL = 20 Gm, By Mouth, 3 times a day, for 30 days, # 2,700 mL, 0 Refills, Acute 10/07/19 9:36:00 EDT, 09/07/19 9:36:00 EDT, Syrup, [facility], 30 mL By Mouth 3 times a day,x30 days, 170, cm, 09/07/19 7:36:00 EDT, Height, 80.8, kg, 08/20... Start Date: 09/07/19 Stop Date: 10/07/19 Status: Ordered midodrine 10 mg oral tablet 1 tablet = 10 mg, By Mouth, 3 times a day, # 90 tablet, 3 Refills, Maintenance, 09/16/19 20:47:00 EDT, Tablet, [facility]/pharmacy #[id number], 170, cm, 09/09/19 9:18:00 EDT, Height, 80.8, kg, 08/31/19 20:58:00 EDT, Dry Weight Start Date: 09/16/19 Status: Ordered multivitamin with minerals Multiple Vitamins with Minerals oral tablet 1 tablet, By Mouth, Daily, for 30 days, # 30 tablet, 0 Refills, Hard Stop 09/20/19 13:32:00 EDT, 08/21/19 13:32:00 EDT, Tablet, [facility]/pharmacy #[id number], 170.18, cm, 08/21/19 4:27:00 EDT, Height, 91, kg, 08/19/19 4:32:00 EDT, Dry Weight Start Date: 08/21/19 Stop Date: 09/20/19 Status: Ordered multivitamin with minerals Multiple Vitamins with Minerals oral tablet 1 tablet, By Mouth, Daily, # 30 tablet, 11 Refills, Maintenance, 09/20/19 13:32:00 EDT, Tablet, [facility]/pharmacy #[id number], 1 tablet By Mouth Daily,x30 days, 170, cm, 09/09/19 9:18:00 EDT, Height, 80.8, kg, 08/31/19 20:58:00 EDT, Dry Weight Start Date: 09/20/19 Stop Date: 09/14/20 Status: Ordered nadolol 20 mg oral tablet 20 mg, 1, tablet, By Mouth, Daily, # 30 tablet, Refills 3, Tot. Refills 3, Maintenance, 09/16/19 20:47:00 EDT, Route to Pharmacy Electronically, [facility]/pharmacy #[id number], 170, cm, 09/09/19 9:18:00 EDT, [...] 08/21/19 13:32:00 EDT, Route to Pharmacy Electronically, [facility]/pharmacy #[id number], 170.18, cm, 08/21/19 4:27:00 EDT, Height, 91, kg, ... Start Date: 08/21/19 Stop Date: 09/20/19 Status: Ordered pyridoxine 50 mg oral tablet 50 mg, 1, tablet, By Mouth, Daily, for 30 days, # 30 tablet, Refills 3, Tot. Refills 3, Acute 01/18/20 13:32:00 EDT, 09/20/19 13:32:00 EDT, Route to Pharmacy Electronically, [facility]/pharmacy #[id number], 170, cm, 09/09/19 9:18:00 EDT, [...] 09/16/19 20:47:00 EDT, Route to Pharmacy Electronically, [facility]/pharmacy #[id number], 170, cm, 09/09/19 9:18:00 EDT, Height, 80.8, kg, 08/31/19 20:58:00 EDT, Dry Weight Start Date: 09/16/19 Status: Ordered Vitamin D 96149 iu oral capsule 50,000 International_Units, 1, capsule, By Mouth, Every week, # 13 capsule, Refills 1, Tot. Refills1, Maintenance, 07/17/19 10:13:00 EDT, Route to Pharmacy Electronically, [facility]/pharmacy #[id number], 171, cm, 07/15/19 13:04:00 EDT, [...] Subclinical hypothyroidism(Confirmed) Active Vitamin D deficiency(Confirmed) Active Vital Signs Most recent to oldest [Reference Range]: 1 2 Height 170 cm (09/09/19 9:18 AM) 170 cm (09/09/19 8:51 AM) Weight 82.1 kg (09/09/19 8:51 AM) Oxygen Saturation [94-100 %] 98 % (09/09/19 8:51 AM) Pulse Rate [55-90 bpm] 80 bpm (09/09/19 8:51 AM) Body Mass Index [18.5-24.99] 28.41 *H* (09/09/19 8:51 AM) Blood Pressure [90-138/55-84 mm Hg] 90/5 0mm Hg (09/09/19 9:18 AM) 88/48mm Hg *L* (09/09/19 8:51 AM) Respiratory Rate [16-30 br/min] 14 br/mi n *L* (09/09/19 8:51 AM) Mode of Delivery (Oxygen) Room air (09/09/19 8:51 AM) Blood pressure sites Arm, left (09/09/19 9:18 AM) Arm, right (09/09/19 8:51 AM) Weight Obtained Via Standing scale (09/09/19 8:51 AM) Social History Social History Type Response Smoking Status Former smoker, quit more than 30 days ago; Other: smoked socially; nothing regular; entered on: 07/15/19 Sex
[2023-09-19 18:35] VITALS: BP 118/62; PULSE 92; RESP 16; TEMP 36.5; O2SAT 98
--- NOTE | 2023-09-19 19:06 | PC.ADMIT ---
Addendum entered by Amanda Loomis RN 09/19/23 19:40: During the short contact with Jigar, he did deny urges to harm self or others and any visual or perceptual disturbances. He did verbalize that he will seek staff if that changes. Per medical history, he has cirrhosis, esophageal varicies with banding and thrombocytopenia. Original Note: Jigar arrived via wheelchair from med/tele floor to M5. He met with Dr Dominguez and is now on a 12b status. Jigar presents as weak, tired and nauseous. He cooperated with sharps/skin check while sitting as he states If I move or stand or attempt to walk, I will throw up . His skin is remarkable for many bruises from IV starts, injections given and lab draws, no open areas noted. He had to be moved to his room via wheelchair, he was settled in bed, given randal preston and crackers. The admission process will be completed later.
[2023-09-19 20:45] VITALS: BP 123/64; PULSE 80; TEMP 37.3
[2023-09-19] MEDS: Melatonin 3 MG TABLET 9 MG PO (20:49)
[2023-09-19 21:57] VITALS: BP 112/63; PULSE 83; TEMP 37.4; O2SAT 99
[2023-09-20] MEDS: Omeprazole 40 MG CAPSULE.DR PO (06:28)
[2023-09-20 08:09] LABS: Estimated Average Glucose 82 mg/dL; Hemoglobin A1c % 4.5 % (<6.0)
[2023-09-20 08:24] LABS: Cholesterol 90 mg/dL (<200); HDL Cholesterol 6 mg/dL (>40); LDL Cholesterol Calculated 61 mg/dL (<100); Magnesium 1.7 mg/dL (1.6-2.6); Triglycerides 117 mg/dL (<150)
[2023-09-20 08:39] LABS: Free T4 (Free Thyroxine) 0.77 ng/dL (0.71-1.85); Thyroid Stimulating Hormone 3.93 uIU/mL (0.32-4.0)
[2023-09-20 08:57] LABS: Folate 9.3 ng/mL (> or = 4.0); Vitamin B12 > 2000 pg/mL (200-900)
[2023-09-20 09:23] VITALS: BP 136/77; PULSE 91; RESP 18; TEMP 36.8; O2SAT 99
[2023-09-20] MEDS: Folic Acid 1 MG TABLET PO (09:26)
--- NOTE | 2023-09-20 10:00 | P.HPPS_ITS ---
HPI Date of Service: 09/20/23 Chief Complaint: Depression, alcohol use disorder Sources of Information: patient interviewed, chart reviewed and crisis/core team assessment reviewed HPI Subjective Notes: [place] Warning, Conditional Voluntary and 3 Day Narrative: 58-year-old male with history of alcohol use disorder and alcoholic cirrhosis complicated by ascites/esophageal varices/portal hypertension, chronic thrombocytopenia, elsa not on cpap, and hld initially admitted to medical floor for following treatment for acute alcohol withdrawal and to rule out GI bleed with subsequent upper endoscopy negative for GI bleed; patient cleared and discharged on carvedilol. In the community patient would say things to his family such as i don't want to be around anymore and so given intoxication and withdrawal symptoms family had him Section 12 to the hospital. Patient presents to psychiatric unit for vague SI statements in the community. Patient denies any actual SI at all. He says when he was drunk he might have said something vaguely suicidal but that is all and he has no intent or plans. He denies depression and anxiety and does not want any medication or psychiatric treatment. Patient said he was at a treatment facility in [place] for 30 days and now he just needs to practice sobriety on his own and that inpatient admission or programs are just redundant. Patient said that his daughter Modesta has been pushing for him to be admitted, worried about his drinking. He understands her worries but reiterates that is unfounded and has no suicidal thoughts at all. He says that working his sobriety out is something he needs to do on his own and if he wants to drink, he is going to drink... But currently he wants to practice sobriety. Special Education Teaching Assistant discussed patient's medical comorbidities directly related to his chronic alcohol abuse which patient fully understands and agrees to continue with recommended treatment from GI/hospitalist team. Patient wants discharge immediately and refuses to sign himself into the [facility]. He says he has copious amounts of paperwork to fill out so he can get SSDI as he needs to pay child support. Patient gave permission to contact his family regarding his case. He is polite, calm, organized in speech and behavior and making reasonable requests for discharge. Special Education Teaching Assistant talked with patient's daughter Modesta. She corroborates that patient has never actually made any suicidal threats or allusions that he is going to harm himself; she says he is said things like he does not want to be around anymore and he will just drink his life away but nothing more. She denies any history of SI or self-harm at all. She is concerned saying that he drinks every day and that his body is clearly deteriorating. She said after going to [facility] for 30 days, he returned in June and started drinking pretty soon afterwards; he went to another detox in July but left against medical advice; she says he will go to but typically intoxicated and does not think he is getting much out of it. It seems this past week patient had what sounds like DTs, delusional and even call the police on himself, resulting in this hospitalization. She says that he drinks so much that he does not eat very much does not attend activities of daily living. She had heard of Section 35 which she discussed with hand sign writer Past Psychiatric History: No psychiatric admission; no history of psychiatric medications known of No history of SI or SI Medical Evaluation Reviewed: Yes [facility] Medical History (Updated 09/27/23 @ 00:02 by Lan Mayberry) Tubular adenoma Subclinical hypothyroidism Alcohol use disorder BPH (benign prostatic hyperplasia) Obstructive sleep apnea Hyperlipidemia Portal hypertension Esophageal varices Alcoholic cirrhosis Family History: Deferred Social History: Patient has 5 daughters and lives at home with at least 1 of them He is , pays child support Currently receiving SSDI Substance History: Decades long history of severe alcohol dependence Trauma History: Deferred; patient not wanting to discuss Diagnostics Vital Signs (24Hr): Vital Signs - 24 hr 09/19/23 18:35 09/19/23 20:45 09/19/23 21:57 Temperature 97.7 F 99.1 F 99.4 F Pulse Rate 92 80 83 Respiratory Rate 16 Blood Pressure 118/62 123/64 112/63 Pulse Oximetry 98 99 Oxygen Delivery Method Room Air Room Air 09/20/23 09:23 Temperature 98.3 F Pulse Rate 91 Respiratory Rate 18 Blood Pressure 136/77 Pulse Oximetry 99 Oxygen Delivery Method Room Air Labs Labs: Laboratory Results - last 48 hr 09/20/23 07:50 Estimat Average Glucose 82 Hemoglobin A1c % 4.5 Magnesium 1.7 Triglycerides 117 Cholesterol 90 LDL Cholesterol, Calc 61 HDL Cholesterol 6 L Vitamin B12 > 2000 H Folate 9.3 TSH 3.93 Free T4 0.77 Meds/Allergies Meds Home Medications ?Medication ?Instructions ?Recorded ?Confirmed ?Type melatonin 10 mg tablet 10 mg PO BEDTIME PRN Insomnia 08/12/23 09/20/23 History Allergies Allergies Allergy/AdvReac Type Severity Reaction Status Date / Time No Known Allergies Allergy Verified 09/13/23 22:54 Mental Status Exam Mental Status Exam Narrative: Pt is alert and oriented; behavior is cooperative, friendly and calm; patient is not in distress; dressed in casual attire with unkempt hair but adequate hygiene; mood is described as good and affect congruent; eye contact appropriate; Speech is normal rate, volume and prosody and not pressured; no psychomotor agitation/retardation present; thought process is organized and goal directed; Thought content is on tx; otherwise pertinent to relevant topics and without any delusional content, paranoid ideations or grandiosity; denies any SI/HI. There is no evidence of perceptual disturbance. Patients insight and judgment appear intact. Assessment & Plan Assessment & Plan (1) Alcohol use disorder: Status: Acute Code(s): F10.90 - Alcohol use, unspecified, uncomplicated (2) Chronic alcoholic liver disease: Status: Acute Code(s): K70.9 - Alcoholic liver disease, unspecified (3) Thrombocytopenia: Status: Acute Code(s): D69.6 - Thrombocytopenia, unspecified (4) Esophageal varices: Status: Acute Code(s): I85.00 - Esophageal varices without bleeding (5) Portal hypertension: Status: Acute Code(s): K76.6 - Portal hypertension Plan 58-year-old male with history of alcohol use disorder and alcoholic cirrhosis complicated by ascites/esophageal varices/portal hypertension, chronic thrombocytopenia, elsa not on cpap, and hld initially admitted to medical floor for following treatment for acute alcohol withdrawal and to rule out GI bleed with subsequent upper endoscopy negative for GI bleed; patient cleared and discharged on carvedilol. In the community patient would say things to his family such as i don't want to be around anymore and so given intoxication and withdrawal symptoms family had him Section 12 to the hospital. Patient presents to psychiatric unit for vague SI statements in the community. Patient denies any actual SI at all. He says when he was drunk he might have said something vaguely suicidal but that is all and he has no intent or plans. He denies depression and anxiety and does not want any medication or psychiatric treatment. Patient said he was at a treatment facility in [place] for 30 days and now he just needs to practice sobriety on his own and that inpatient admission or programs are just redundant. Patient said that his daughter Modesta has been pushing for him to be admitted, worried about his drinking. He understands her worries but reiterates that is unfounded and has no suicidal thoughts at all. He says that working his sobriety out is something he needs to do on his own and if he wants to drink, he is going to drink... But currently he wants to practice sobriety. Special Education Teaching Assistant discussed patient's medical comorbidities directly related to his chronic alcohol abuse which patient fully understands and agrees to continue with recommended treatment from GI/hospitalist team. Patient wants discharge immediately and refuses to sign himself into the hospital. He says he has copious amounts of paperwork to fill out so he can get SSDI as he needs to pay child support. Patient gave permission to contact his family regarding his case. He is polite, calm, organized in speech and behavior and making reasonable requests for discharge. -hand sign writer discussed all the ways this psychiatric admission could be helpful however patient politely declined resources available. Special Education Teaching Assistant talked with patient's daughter Modesta. She corroborates that patient has never actually made any suicidal threats or allusions that he is going to harm himself; she says he is said things like he does not want to be around anymore and he will just drink his life away but nothing more. She denies any history of SI or self-harm at all. She is concerned saying that he drinks every day and that his body is clearly deteriorating. She said after going to [place] program for 30 days, he returned in June and started drinking pretty soon afterwards; he went to another detox in July but left against medical advice; she says he will go to but typically intoxicated and does not think he is getting much out of it. It seems this past week patient had what sounds like DTs, delusional and even call the police on himself, resulting in this hospitalization. She says that he drinks so much that he does not eat very much does not attend activities of daily living. She had heard of Section 35 which she discussed with hand sign writer Impression: Patient denies any depression or anxiety, any SI or history of self-harm at all. Patient's daughter corroborates. Patient is not interested in pursuing sobriety, at least not with getting any help in doing so. Patient does not want to be on the psychiatric unit and is not willing to sign himself in; he does not want psychiatric medications, therapy, treatment, help with aftercare or help of any other kind which he politely declines. Patient has severe alcohol dependence and it is very likely he will continue to drink which will very likely result in harm to his body. However he is organized, in speech, behavior and thinking; he understands very well the risks of continuing to drink alcohol and explains that it his his choice how he works out his sobriety. Based on patient's presentation and corroborating collateral, Special Education Teaching Assistant agrees that patient is not in imminent risk for harm to himself or others. He does not rise to the level of involuntary commitment and his request for discharge honored. Patient educated on: diagnosis, medication risk/benefits, substance abuse and medical condition Informed Consent: understands Reason for continued inpatient stay Substantial Risk for: stable for discharge Statement Statement: I have reviewed the history and physical and performed a pertinent examination on my patient. No changes have occurred unless specified. If the History and Physical was not performed prior to admission, the Hospitalist's service will be consulted for completing the admission physical. Time Spent With Patient Time: Total time managing care of this patient today ____ minutes.
--- NOTE | 2023-09-20 11:08 | P.DS_ITS ---
DS: Providers Provider Date of Service: 09/20/23 Date of admission: 09/19/23 17:39 Primary care physician: Unknown Physician DS: Medications Discharge Medications Home Medications: Home Medications ?Medication ?Instructions ?Recorded ?Confirmed folic acid 800 mcg tablet 0.8 mg PO DAILY 08/12/23 09/20/23 melatonin 10 mg tablet 10 mg PO BEDTIME PRN Insomnia 08/12/23 09/20/23 naltrexone 50 mg PO DAILY 09/20/23 09/20/23 Previous Rx's ?Medication ?Instructions ?Recorded carvedilol 3.125 mg tablet 3.125 mg PO BID 30 days #60 tabs 09/19/23 omeprazole 40 mg capsule,delayed 40 mg PO DAILY #30 caps 09/19/23 release Mental Status Exam Mental Status Exam Narrative: Pt is alert and oriented; behavior is cooperative, friendly and calm; patient is not in distress; dressed in casual attire with unkempt hair but adequate hygiene; mood is described as good and affect congruent; eye contact appropriate; Speech is normal rate, volume and prosody and not pressured; no psychomotor agitation/retardation present; thought process is organized and goal directed; Thought content is on tx; otherwise pertinent to relevant topics and without any delusional content, paranoid ideations or grandiosity; denies any SI/HI. There is no evidence of perceptual disturbance. Patients insight and judgment appear intact. Data Data Completed and Pending Completed studies during hospitalization [Text1]: 09/20/23 07:50 Estimat Average Glucose 82 Hemoglobin A1c % 4.5 Magnesium 1.7 Triglycerides 117 Cholesterol 90 LDL Cholesterol, Calc 61 HDL Cholesterol 6 L Vitamin B12 > 2000 H Folate 9.3 TSH 3.93 Free T4 0.77 DS: Summary Hospital Course Hospital Course: 58-year-old male with history of alcohol use disorder and alcoholic cirrhosis complicated by ascites/esophageal varices/portal hypertension, chronic thrombocytopenia, denise not on cpap, and hld initially admitted to medical floor for following treatment for acute alcohol withdrawal and to rule out GI bleed with subsequent upper endoscopy negative for GI bleed; patient cleared and discharged on carvedilol. In the community patient would say things to his family such as i don't want to be around anymore and so given intoxication and withdrawal symptoms family had him Section 12 to the hospital. Patient presents to psychiatric unit for vague SI statements in the community. Patient denies any actual SI at all. He says when he was drunk he might have said something vaguely suicidal but that is all and he has no intent or plans. He denies depression and anxiety and does not want any medication or psychiatric treatment. Patient said he was at a treatment facility in [place] for 30 days and now he just needs to practice sobriety on his own and that inpatient admission or programs are just redundant. Patient said that his daughter Modesta has been pushing for him to be admitted, worried about his drinking. He understands her worries but reiterates that is unfounded and has no suicidal thoughts at all. He says that working his sobriety out is something he needs to do on his own and if he wants to drink, he is going to drink... But currently he wants to practice sobriety. Terrestrial Ecologist discussed patient's medical comorbidities directly related to his chronic alcohol abuse which patient fully understands and agrees to continue with recommended treatment from GI/hospitalist team. Patient wants discharge immediately and refuses to sign himself into the hospital. He says he has copious amounts of paperwork to fill out so he can get SSDI as he needs to pay child support. Patient gave permission to contact his family regarding his case. He is polite, calm, organized in speech and behavior and making reasonable requests for discharge. -senior mortgage underwriter discussed all the ways this psychiatric admission could be helpful however patient politely declined resources available. Terrestrial Ecologist talked with patient's daughter Modesta. She corroborates that patient has never actually made any suicidal threats or allusions that he is going to harm himself; she says he is said things like he does not want to be around anymore and he will just drink his life away but nothing more. She denies any history of SI or self-harm at all. She is concerned saying that he drinks every day and that his body is clearly deteriorating. She said after going to [place] program for 30 days, he returned in June and started drinking pretty soon afterwards; he went to another detox in July but left against medical advice; she says he will go to but typically intoxicated and does not think he is getting much out of it. It seems this past week patient had what sounds like DTs, delusional and even call the police on himself, resulting in this hospitalization. She says that he drinks so much that he does not eat very much does not attend activities of daily living. She had heard of Section 35 which she discussed with senior mortgage underwriter Impression: Patient denies any depression or anxiety, any SI or history of self-harm at all. Patient's daughter corroborates. Patient is not interested in pursuing sobriety, at least not with getting any help in doing so. Patient does not want to be on the psychiatric unit and is not willing to sign himself in; he does not want psychiatric medications, therapy, treatment, help with aftercare or help of any other kind which he politely declines. Patient has severe alcohol dependence and it is very likely he will continue to drink which will very likely result in harm to his body. However he is organized, in speech, behavior and thinking; he understands very well the risks of continuing to drink alcohol and explains that it his his choice how he works out his sobriety. Based on patient's presentation and corroborating collateral, Terrestrial Ecologist agrees that patient is not in imminent risk for harm to himself or others. He does not rise to the level of involuntary commitment and his request for discharge honored. Time spent discussing smoking cessation with patient: 3 to 10 minutes Status at Discharge Functional status at discharge: independent ambulation Overall status at discharge: patient is back to baseline Time Spent with Patient Time attestation: Total time managing care of this patient today __45__ minutes. Time spent: Greater than 30 minutes Discharge Plan Discharge Anticipated Discharge Date/Time: 09/20/23 11:18 Patient Disposition: Home, Self-Care Discharge Diagnosis: Alcohol use disorder Referrals: Ramya Lopez NP [Nurse Practitioner] - 09/25/23 11:30 am (in office ) Discharge Medications: New folic acid 1 mg Tablet 1 mg PO DAILY 30 Days Qty: 30 0RF thiamine HCl (vitamin B1) 50 mg tablet 100 mg PO DAILY 30 Days Qty: 60 0RF Continued omeprazole 40 mg capsule,delayed release(DR/EC) 40 mg PO DAILY 30 Days Qty: 30 0RF carvedilol 3.125 mg Tablet 3.125 mg PO BID 30 Days Qty: 60 0RF Protocol: Hold for SBP/HR < HOLD for SBP < : 90 HOLD for HR < : 60 melatonin 10 mg Tablet 10 mg PO BEDTIME PRN (Reason: Insomnia) Discontinued naltrexone tablet 50 mg PO DAILY Rx Instructions: Discharge medication folic acid 800 mcg tablet 0.8 mg PO DAILY Discharge Orders: Discharge Order (Routine); Ordered 09/19/23 Ordered By: Keira Hurtado Diet: Regular diet Activity on Discharge: As tolerated Stand Alone Forms: Patient Portal Discharge page, Community Support Print Language: Rwandan Care Plan Goals: Maintain mood and safe behaviors Take medications as prescribed Continue to pursue sobriety Practice coping skills Continue with outpatient providers and reach out to them as needed Health Concerns: Mood stability and behaviors Sobriety Ascites/esophageal varices/portal hypertension Chronic thrombocytopenia DENISE (not on cpap) HLD Plan of Treatment: Follow up with your PCP, psychiatric provider and other outpatient providers regarding above concerns Take medications as prescribed Assessment: Risk assessment at time of discharge:? Patient was interviewed prior to discharge and found to be fully oriented and without any SI or HI. Patient has improved insight and judgment and wants to continue treatment. Patient is not in imminent risk of harm to self or others and has a safety plan that includes presenting to the closest ER or calling 911 if feeling unsafe.? Patient has been observed closely by nursing and unit staff throughout admission; patient has not engaged in any behaviors that suggest dangerousness to self or others and has demonstrated appropriate behaviors and impulse control Discharge Date/Time: 09/20/23 12:03
== END 2023-09-20 12:03 | disposition home or self-care (01) | DRG 775 ==
PROVIDERS: Clinical Nurse Specialist Psychiatric/Mental Health, Adult; Admitting Provider Psychiatry & Neurology Psychiatry; Visit Provider Psychiatry & Neurology Psychiatry
DX: F10.20 Alcohol dependence, uncomplicated (principal); I85.10 Secondary esophageal varices without bleeding; K70.31 Alcoholic cirrhosis of liver with ascites; K76.6 Portal hypertension; G47.33 Obstructive sleep apnea (adult) (pediatric); Z79.899 Other long term (current) drug therapy
CPT/HCPCS: 36415; 80061; 82607; 82746; 83036; 83735; 84439; 84443

== ENCOUNTER → 2023-09-19 17:39 | Outpatient (BNV) | payer BC, SELFPAY | PROVIDERS: Admitting Provider Psychiatry & Neurology Psychiatry; Visit Provider Psychiatry & Neurology Psychiatry | DX: F10.90 Alcohol use, unspecified, uncomplicated (principal); K70.9 Alcoholic liver disease, unspecified; D69.6 Thrombocytopenia, unspecified; I85.00 Esophageal varices without bleeding; K76.6 Portal hypertension | CPT/HCPCS: 99235; 99499 ==

== ENCOUNTER 2023-12-02 16:06 | Inpatient (IN) | payer BC, SELFPAY ==
--- NOTE | ~2023-12-02 | CT_ITS ---
EXAMINATION: CT HEAD WITHOUT CONTRAST CT CERVICAL SPINE WITHOUT CONTRAST CLINICAL INFORMATION: Fall. COMPARISON: CT head 09/14/2023. TECHNIQUE: Contiguous axial imaging was performed from the skull base to vertex without intravenous administration of contrast. Contiguous axial imaging was performed from the upper chest through the skull base without intravenous administration of contrast. Coronal and sagittal reformats were obtained at the acquisition workstation. This CT examination was performed using dose optimization techniques as appropriate, variously including the following: *Automated exposure control *Adjustment of mA and/or kV according to patient size (this includes techniques or standardized protocols for targeted exams where dose is matched to indication/reason for exam; i.e. extremities or head) *Use of iterative reconstruction technique DLP: 1101 mGy-cm FINDINGS: Head: There is no evidence of acute intracranial hemorrhage or edematous territorial infarction. A few foci of hypoattenuation in the periventricular and deep white matter are consistent with mild microangiopathy. Rankin-white matter differentiation is preserved. Proportional prominence of the ventricles and sulcal spaces. No evidence for obstructive hydrocephalus. No abnormal mass effect or midline shift. No extra-axial fluid collections. No acute soft tissue or osseous abnormalities. Mild mucosal thickening of the paranasal sinuses. Mucous retention cyst in the right maxillary sinus. No air-fluid levels. The mastoids and middle ear cavities are clear. Cervical Spine: The atlantooccipital and atlantoaxial articulations remain well aligned. No evidence of acute compression deformity or traumatic subluxation. Moderate intervertebral disc height loss with prominent anterior osteophyte complexes at C5-C6. Otherwise, mild multilevel intervertebral disc height loss and uncovertebral hypertrophy. There is no prevertebral soft tissue swelling. The thyroid gland and remaining cervical soft tissues are normal in appearance. Few solid bilateral up to 3 mm pulmonary nodules, for example right apex (12:303) and left apex (12:272). CT/CT cervical spine wo IV con IMPRESSION: 1. No acute intracranial pathology. 2. No acute cervical spinal fractures or malalignment. 3. Few solid pulmonary nodules in the lung apices, largest measuring up to 3 mm. According to the UPDATED 2017 Fleischner Society recommendations, the advised follow-up imaging for multiple solid nodules measuring up to 6-8 mm is follow-up CT at 3 to 6 months. In high-risk patients, subsequent CT follow-up at 18 to 24 months is recommended. In low-risk patients, subsequent CT follow-up at 18 to 24 months is optional.
--- NOTE | ~2023-12-02 | CT_ITS ---
EXAMINATION: CT ABDOMEN AND PELVIS WITH CONTRAST CLINICAL INFORMATION: Lactic acidosis. COMPARISON: 09/14/2023 TECHNIQUE: Multidetector volumetric images were obtained from the superior aspect of the liver through the pubic symphysis following administration 85 mL of Omnipaque 350 intravenous contrast. Sagittal and coronal reformatted images were obtained on the technologist's workstation. Oral contrast: No This CT examination was performed using dose optimization techniques as appropriate, variously including the following: *Automated exposure control *Adjustment of mA and/or kV according to patient size (this includes techniques or standardized protocols for targeted exams where dose is matched to indication/reason for exam; i.e. extremities or head) *Use of iterative reconstruction technique DLP: 475 mGy-cm FINDINGS: LUNG BASES: The visualized lung bases are unremarkable. LIVER, GALLBLADDER, AND BILIARY TREE: The liver is small, heterogeneous and irregular in contour. There is a 2 cm cyst towards the dome of the liver. There is no intrahepatic biliary duct dilatation. Numerous gallstones are seen. PANCREAS: Unremarkable. SPLEEN: The spleen is mildly enlarged measuring up to 14 cm. ADRENAL GLANDS: Unremarkable. KIDNEYS AND URETERS: The kidneys are normal in size, shape, and attenuation. No hydronephrosis, hydroureter, or calculi seen. No perinephric stranding. BLADDER: Unremarkable. GASTROINTESTINAL TRACT: Mild right colonic thickening. There also appears to be diffuse gastric fold thickening. The appendix is visualized and is within normal limits. There is mesenteric anasarca. ABDOMINAL WALL: There is mild soft tissue anasarca. LYMPH NODES: Normal. VASCULAR: There are splenic, perigastric and paraesophageal varices. PELVIC VISCERA: Unremarkable. OSSEOUS STRUCTURES: Unremarkable. CT/CT abdomen pelvis w IV con IMPRESSION: 1. Cirrhosis of the liver with evidence of portal hypertension including splenomegaly and varices. 2. Mild right colonic wall thickening and diffuse gastric fold thickening. This may be related to portal hypertension. 3. Cholelithiasis. 4. Mild soft tissue anasarca. Fleischner guidelines were followed.
--- NOTE | ~2023-12-02 | XR_ITS ---
EXAMINATION: PORTABLE CHEST 1 VIEW CLINICAL INFORMATION: fall. COMPARISON: No recent pertinent prior studies are available for comparison. TECHNIQUE: Portable frontal view of the chest was obtained. FINDINGS: The lungs are well expanded. Mild chronic appearing reticular markings but no focal infiltrate, effusion, edema, or pneumothorax. Cardiac and mediastinal silhouettes are within normal limits for technique. No acute bony abnormality seen. XR/XR chest 1V IMPRESSION: No evidence of acute disease.
[2023-12-02 16:47] VITALS: BP 152/80; PULSE 130; O2SAT 97
--- NOTE | 2023-12-02 16:51 | ECG_ITS ---
Test Reason : FALL Blood Pressure : / mmHG Vent. Rate : 121 BPM Atrial Rate : 121 BPM P-R Int : 128 ms QRS Dur : 078 ms QT Int : 320 ms P-R-T Axes : 000 036 059 degrees QTc Int : 454 ms Sinus tachycardia Otherwise normal ECG No previous ECGs available Referred By: Munir Salas Electronically Signed By:DYLAN CORTEZ
[2023-12-02 16:57] VITALS: BP 156/85; PULSE 119; RESP 20; TEMP 37.3; O2SAT 100; BMI 26.3
--- NOTE | 2023-12-02 17:09 | ED_ITS ---
HPI - General Adult General Chief complaint: Fall Stated complaint: WANTS DETOX Time Seen by Provider: 12/02/23 16:38 Source: patient, RN notes reviewed and old records reviewed Mode of arrival: EMS Limitations: no limitations History of Present Illness ED Provider: Josue JOSEPH narrative: 58-year-old male past medical history significant for alcoholic liver cirrhosis, esophageal varices, depression presents for evaluation of ?I need help. ? Her last, the patient's daughter found the patient on the ground next to his bed The patient states that he has been on the ground for approximately 2 days He reports a problem with alcohol abuse He states he drinks 1-2 bottles of fireball daily His last drink was sometime yesterday but he is not sure exactly when The patient reports feeling nauseous and anxious He has some upper back pain that he believes is related to a fall He denies any abdominal pain, vomiting He denies any black or bloody stool The patient had an endoscopy on 09/18/2023 with grade 1 esophageal varices with no high-grade lesions noted He denies any fevers or chills at this time The patient is seeking detox Related Data Home Medications ?Medication ?Instructions ?Recorded ?Confirmed melatonin 10 mg tablet 10 mg PO BEDTIME PRN Insomnia 08/12/23 09/20/23 Previous Rx's ?Medication ?Instructions ?Recorded carvedilol 3.125 mg tablet 3.125 mg PO BID 30 days #60 tabs 09/20/23 folic acid 1 mg tablet 1 mg PO DAILY 30 days #30 tabs 09/20/23 omeprazole 40 mg capsule,delayed 40 mg PO DAILY 30 days #30 caps 09/20/23 release thiamine HCl (vitamin B1) 50 mg 100 mg (2 x 50 mg) PO DAILY 30 09/20/23 tablet days #60 tabs Allergies Allergy/AdvReac Type Severity Reaction Status Date / Time No Known Allergies Allergy Verified 12/02/23 16:58 Review of Systems 2 Constitutional: Constitutional: Denies body ache(s), Denies chills, Denies fever(s), Reports frequent falls and Denies headache(s) Eyes: Eyes: Denies blurry vision ENT: Denies headache(s) Cardiovascular: Cardiovascular: Denies chest pain and Denies dyspnea Respiratory: Respiratory: Denies cough and Denies dyspnea Gastrointestinal: Gastrointestinal: Denies abdominal pain, Denies melena, Denies hematochezia, Denies coffee ground emesis, Denies diarrhea, Reports nausea and Denies vomiting Musculoskeletal: Musculoskeletal: Reports back pain Integumentary/Breasts: Skin/Breast: Reports erythema, Denies rash and Reports unusual bruising Neurologic: Reports frequent falls and Denies headache(s) Hematologic/Lymphatic: Hematologic/Lymphatic: Reports easy bruising PMFSH Past Medical History Medical History (Updated 12/03/23 @ 00:15 by Munir Salas) Tubular adenoma Subclinical hypothyroidism Alcohol use disorder BPH (benign prostatic hyperplasia) Obstructive sleep apnea Hyperlipidemia Portal hypertension Esophageal varices Alcoholic cirrhosis Social History Social History Household Members: Other Household Members Other:: Mother, daughter, daughter's boyfriend Housing: Unknown / Unable to assess Do you presently have visiting nurse or other home services: No Alcohol intake: current Alcohol intake frequency: 3 or more drinks per day Alcohol type: hard liquor Comment: 1:1 sitter at bedside Patient Tobacco Use Status: Never used Tobacco Smoked in Last 30 Days: No e-Cigarette/Vaping Use: Never Used Use of substances other than those prescribed or required for medical reasons: No Substance Use Type: Other Advance Directives: Yes Advance Directives on File: Yes Advance Directives Date on File: 08/16/23 service: No Physical Exam ED Vital Signs: Vital Signs - 24 hr 12/02/23 16:57 12/02/23 18:09 12/02/23 20:21 Temperature 99.1 F 98.6 F Pulse Rate 119 H 126 H 117 H Respiratory Rate 20 15 10 L Blood Pressure 156/85 H 140/73 H 146/71 H Pulse Oximetry 100 99 Oxygen Delivery Method Room Air Room Air 12/02/23 20:21 12/02/23 21:44 Temperature 98.5 F Pulse Rate 117 H 119 H Respiratory Rate 10 L 17 Blood Pressure 146/71 H 135/84 Pulse Oximetry 99 100 Oxygen Delivery Method Room Air Room Air BMI result Body Mass Index 26.3 Const General: alert and awake Nutritional Appearance: well nourished Orientation/consciousness: patient oriented x3 HENMT Head: Yes normocephalic and Yes atraumatic Eyes Other: Bilateral scleral icterus Eyelids: Yes eyelids normal Conjunctivae: conjunctivae normal Sclerae: sclerae normal Corneas: corneas normal Pupils: Equal, round and reactive pupils present EOM: EOMs intact bilaterally Neck Neck: Yes full ROM Resp Effort & Inspection: normal respiratory effort, able to speak in complete sentences, no audible wheezes and not labored Auscultation: clear to auscultation bilaterally Cardio Rhythm: regular rhythm GI Inspection: Yes distended Palpation (GI): Soft to palpation, not firm, nontender, no guarding and not rigid Auscultation: normoactive bowel sounds Back/Spine/Pelvis Other: 2 areas of ecchymosis to the thoracic region, 1 over the thoracic spine at approximately 8:10 a.m.. The other slightly more superior and to the left Skin General skin exam: jaundice Neuro Other: Is tremulous but answering questions appropriately General: patient oriented x3 Cranial nerves: Yes CN's II-XII intact bilaterally, Yes Equal, round and reactive pupils present and Yes Bilaterally intact EOM present Cognition (Neuro): normal cognition Extrem Other: Moving all extremities well without any obvious deformities Course Reevaluation(s) Reevaluation #1: Patient's lactate was elevated to 12.7. The patient has no abdominal pain or tenderness on exam. The patient does not feel his abdomen is more distended than usual. The lactic acid is likely related to alcoholic ketosis. There is no current signs of infection. The patient was cultured is afebrile with no leukocytosis. To address the elevated lactic at ordered an additional L of IV fluid, magnesium given the magnesium of 1.5 Time: 18:38 Reevaluation #2: Patient's lactic is trending downward, the urinalysis does appear to show acute UTI. Not think this is related to sepsis, the patient's LV lactic is most likely related to the alcohol abuse and lactic acidosis. I did treat the UTI with ceftriaxone Time: 00:14 Medications Administered Discontinued Medications Generic Name Dose Route Start Last Admin Trade Name Freq PRN Reason Stop Dose Admin Haloperidol Lactate 2.5 mg 12/02/23 23:09 12/02/23 23:14 Haloperidol Lactate 5 Mg/Ml Vial IVPUSH 12/02/23 23:10 2.5 mg STAT STA Administration Sodium Chloride 500 mls @ 999 mls/hr 12/02/23 17:00 12/02/23 18:47 Ns IV 12/02/23 17:30 Infused .Q31M CHRIS Infusion Thiamine HCl 500 mg/ Sodium 105 mls @ 210 mls/hr 12/02/23 16:59 12/02/23 18:47 Chloride IV 12/02/23 17:28 Infused ONCE ONE Infusion Folic Acid 1 mg/ Sodium 50.2 mls @ 100.4 mls/hr 12/02/23 16:59 12/02/23 20:27 Chloride IV 12/02/23 17:28 Infused ONCE ONE Infusion Sodium Chloride 1,000 mls @ 999 mls/hr 12/02/23 18:45 12/02/23 22:58 Ns IV 12/02/23 19:45 Infused .Q1H1M CHRIS Infusion Magnesium Sulfate 2 gm in 50 mls @ 25 mls/hr 12/02/23 18:31 12/02/23 22:07 Magnesium Sulfate/H2o IV 12/02/23 20:30 Infused ONCE ONE Infusion Dextrose/Sodium Chloride 1,000 mls @ 125 mls/hr 12/02/23 19:12 12/02/23 21:36 D5ns IVCONT 12/03/23 03:11 0 mls/hr .Q8H STA Infusion Sodium Chloride 1,000 mls @ 999 mls/hr 12/02/23 21:00 12/02/23 22:58 Ns IV 12/02/23 22:00 Infused .Q1H1M CHRIS Infusion Iohexol 85 ml 12/02/23 23:33 12/02/23 23:34 Iohexol 350 Mg/Ml 100 Ml Infus..Btl IV 12/02/23 23:34 85 ml ONCE ONE Administration Ondansetron HCl 4 mg 12/02/23 22:29 12/02/23 22:39 Ondansetron Hcl 4 Mg/2 Ml Vial IVPUSH 12/02/23 22:30 4 mg ONCE ONE Administration Phenobarbital Sodium 255 mg 12/02/23 18:00 12/02/23 17:52 Phenobarbital Sodium 130 Mg/Ml Im Once IM 12/02/23 18:01 255 mg ONCE ONE Administration Protocol Phenobarbital Sodium 191 mg 12/02/23 21:00 12/02/23 22:39 Phenobarbital Sodium 130 Mg/Ml Vial Im Q3hx2 IM 12/03/23 00:01 191 mg Q3H CHRIS Administration Protocol Medical Decision Making Medical Decision Making MDM Narrative: 58-year-old male with past medical history significant for alcoholic liver cirrhosis presents for evaluation in what appears to be alcohol withdrawal. He reports that his last drink was at least yesterday. He is hypertensive and tachycardic. He has also been on the floor for approximately 2 days per his report and his possible he is in rhabdomyolysis. The patient will require IV hydration. We will start with a L of normal saline, folic acid and thiamine. Though the patient has a long history of alcohol abuse, he has never been severely hyponatremic. He does not drink beer. Broad workup including CT brain, C-spine due to the fall, a chest x-ray, labs including a CPK, liver function, magnesium. We will start phenobarb protocol for alcohol withdrawal Differential Diagnosis Differential Diagnoses: The differential diagnosis associated with the presentation includes Liver cirrhosis Alcohol withdrawal Delirium tremens Rhabdomyolysis Metabolic abnormality PAOLO Admission/Observation Consideration of admission/observation: Escalation of care including admission/observation considered Lab Data 12/02/23 17:44 12/02/23 20:33 Labs: Lab Results 12/02/23 12/02/23 12/02/23 Range/Units 17:44 18:25 19:32 WBC 5.1 (4.8-10.8) X10*3/uL RBC 3.30 L (4.60-5.80) X10*6/uL Hgb 10.6 L (14.0-18.0) g/dl Hct 29.9 L (42.0-52.0) % MCV 90.6 (80.0-98.0) fL MCH 32.1 (27.0-33.0) pg MCHC 35.5 (31.0-36.0) g/dl RDW 17.2 H (11.0-16.0) % Plt Count 29 L D (160-400) X10*3/uL MPV 10.4 (9.4-12.4) fL Immature Gran % (Auto) 0.6 H (0.0-0.4) % Neut % (Auto) 89.6 H (45-73) % Lymph % (Auto) 5.7 L (20-40) % [place] % (Auto) 3.7 (2-11) % Eos % (Auto) 0.0 (0-4) % Baso % (Auto) 0.4 (0-2) % Lymph # (Auto) 0.3 L (1.2-4.9) X10*3/uL [place] # (Auto) 0.2 (0.1-1.2) X10*3/uL Eos # (Auto) 0.0 (0.0-0.4) X10*3/uL Baso # (Auto) 0.0 (0.0-0.2) X10*3/uL Abs Immat Gran (auto) 0.03 (0.00-0.03) X10*3/uL Absolute Neuts (auto) 4.6 (2.0-8.3) x10*3/uL Absolute Nucleated RBC 0.000 (0.0-0.012) X10*3/uL Nucleated RBC % (auto) 0.0 (0.0-0.2) /100WBC PT 18.9 H D (11.1-13.3) SEC INR 1.6 H (0.9-1.1) APTT 36.6 (26.0-36.8) SEC VBG pH 7.33 (7.32-7.43) VBG pCO2 28 mmHg VBG pO2 105 mmHg VBG HCO3 15 L (22-26) mmol/L VBG O2 Saturation 100.0 % VBG Base Excess -8.9 mmol/L Sodium 147 H (135-145) mmol/L Potassium 3.6 (3.3-5.1) mmol/L Chloride 107 (96-108) mmol/L Carbon Dioxide 15 L (22-29) mmol/L Anion Gap 29 H (12-20) BUN 8 L (9-16) mg/dL Creatinine 0.78 (0.5-1.4) mg/dL Estim Creat Clear Calc 95.4 Estimated GFR > 60 Random Glucose 110 (60-115) mg/dL Lactic Acid 12.7 H* (0.5-2.0) mmol/L Lactic Acid F/U @ 2Hr (0.5-2.0) mmol/L Lactic Acid F/U @ 4Hr (0.5-2.0) mmol/L Calcium 8.5 (8.4-10.2) mg/dL Phosphorus 3.8 (2.7-4.5) mg/dL Magnesium 1.5 L (1.6-2.6) mg/dL Total Bilirubin 5.5 H (0.0-1.0) mg/dL AST 117 H (5-37) U/L ALT 35 (0-40) U/L Alkaline Phosphatase 124 H (39-117) U/L Total Creatine Kinase 331 H (38-174) U/L Troponin I High Sens 3.9 (<3.5-35.0) ng/L Total Protein 7.5 (6.5-8.0) g/dL Albumin 3.0 L (3.5-5.0) g/dL Lipase 34 (8-78) U/L Urine Color Urine Appearance Urine pH (5.0-9.0) Ur Specific [place] (1.005-1.025) Urine Protein (Neg-Trace) mg/dL Urine Glucose (UA) (Negative) mg/dL Urine Ketones (Negative) mg/dL Urine Blood (Negative) Urine Nitrite (Negative) Ur Leukocyte Esterase (Negative) Urine RBC (0-2) /HPF Urine WBC (0-5) /HPF Ur Squamous Epith Cells (0-2) /HPF Urine Bacteria (None Seen) Hyaline Casts (0-2) /LPF Urine Opiates Screen (Not Detect) Ur Buprenorphine Scrn (Not Detect) ng/mL Ur Oxycodone Screen (Not Detect) ng/mL Urine Methadone Screen (Not Detect) ng/mL Urine Fentanyl Screen (Not Detect) Ur Barbiturates Screen (Not Detect) Ur Phencyclidine Scrn (Not Detect) Ur Amphetamines Screen (Not Detect) U Benzodiazepines Scrn (Not Detect) Urine Cocaine Screen (Not Detect) U Marijuana (THC) Screen (Not Detect) Ethyl Alcohol 268 mg/dL Influenza Type A (PCR) NEGATIVE (Negative) Influenza Type B (PCR) NEGATIVE (Negative) RSV RNA Qual (PCR) NEGATIVE (Negative) SARS-CoV-2 RNA (RT-PCR) NEGATIVE (Negative) 12/02/23 12/02/23 12/02/23 Range/Units 20:00 20:33 22:56 WBC (4.8-10.8) X10*3/uL RBC (4.60-5.80) X10*6/uL Hgb (14.0-18.0) g/dl Hct (42.0-52.0) % MCV (80.0-98.0) fL MCH (27.0-33.0) pg MCHC (31.0-36.0) g/dl RDW (11.0-16.0) % Plt Count (160-400) X10*3/uL MPV (9.4-12.4) fL Immature Gran % (Auto) (0.0-0.4) % Neut % (Auto) (45-73) % Lymph % (Auto) (20-40) % [place] % (Auto) (2-11) % Eos % (Auto) (0-4) % Baso % (Auto) (0-2) % Lymph # (Auto) (1.2-4.9) X10*3/uL [place] # (Auto) (0.1-1.2) X10*3/uL Eos # (Auto) (0.0-0.4) X10*3/uL Baso # (Auto) (0.0-0.2) X10*3/uL Abs Immat Gran (auto) (0.00-0.03) X10*3/uL Absolute Neuts (auto) (2.0-8.3) x10*3/uL Absolute Nucleated RBC (0.0-0.012) X10*3/uL Nucleated RBC % (auto) (0.0-0.2) /100WBC PT (11.1-13.3) SEC INR (0.9-1.1) APTT (26.0-36.8) SEC VBG pH (7.32-7.43) VBG pCO2 mmHg VBG pO2 mmHg VBG HCO3 (22-26) mmol/L VBG O2 Saturation % VBG Base Excess mmol/L Sodium 143 (135-145) mmol/L Potassium 3.5 (3.3-5.1) mmol/L Chloride 110 H (96-108) mmol/L Carbon Dioxide 16 L (22-29) mmol/L Anion Gap 21 H (12-20) BUN 7 L (9-16) mg/dL Creatinine 0.76 (0.5-1.4) mg/dL Estim Creat Clear Calc 97.9 Estimated GFR > 60 Random Glucose 235 H (60-115) mg/dL Lactic Acid (0.5-2.0) mmol/L Lactic Acid F/U @ 2Hr 11.8 H* (0.5-2.0) mmol/L Lactic Acid F/U @ 4Hr 10.2 H* (0.5-2.0) mmol/L Calcium 7.7 L D (8.4-10.2) mg/dL Phosphorus (2.7-4.5) mg/dL Magnesium (1.6-2.6) mg/dL Total Bilirubin (0.0-1.0) mg/dL AST (5-37) U/L ALT (0-40) U/L Alkaline Phosphatase (39-117) U/L Total Creatine Kinase (38-174) U/L Troponin I High Sens (<3.5-35.0) ng/L Total Protein (6.5-8.0) g/dL Albumin (3.5-5.0) g/dL Lipase (8-78) U/L Urine Color Dark Yellow Urine Appearance Cloudy Urine pH 5.5 (5.0-9.0) Ur Specific [place] 1.020 (1.005-1.025) Urine Protein 100 (2+) H (Neg-Trace) mg/dL Urine Glucose (UA) 500 H (Negative) mg/dL Urine Ketones Trace (Negative) mg/dL Urine Blood Large (3+) H (Negative) Urine Nitrite Negative (Negative) Ur Leukocyte Esterase Small (1+) H (Negative) Urine RBC 3-5 H (0-2) /HPF Urine WBC 11-20 H (0-5) /HPF Ur Squamous Epith Cells 6-10 (0-2) /HPF Urine Bacteria 4+ (None Seen) Hyaline Casts 0-2 (0-2) /LPF Urine Opiates Screen Not Detected (Not Detect) Ur Buprenorphine Scrn Not Detected (Not Detect) ng/mL Ur Oxycodone Screen Not Detected (Not Detect) ng/mL Urine Methadone Screen Not Detected (Not Detect) ng/mL Urine Fentanyl Screen Not Detected (Not Detect) Ur Barbiturates Screen POSITIVE H (Not Detect) Ur Phencyclidine Scrn Not Detected (Not Detect) Ur Amphetamines Screen Not Detected (Not Detect) U Benzodiazepines Scrn Not Detected (Not Detect) Urine Cocaine Screen Not Detected (Not Detect) U Marijuana (THC) Screen Not Detected (Not Detect) Ethyl Alcohol mg/dL Influenza Type A (PCR) (Negative) Influenza Type B (PCR) (Negative) RSV RNA Qual (PCR) (Negative) SARS-CoV-2 RNA (RT-PCR) (Negative) Discharge Plan Discharge Clinical Impression: Alcohol use disorder, Chronic alcoholic liver disease, Urinary tract infection Patient Disposition: Admitted As Inpatient Prescriptions: No Action folic acid 1 mg Tablet 1 mg PO DAILY 30 Days Qty: 30 0RF thiamine HCl (vitamin B1) 50 mg tablet 100 mg PO DAILY 30 Days Qty: 60 0RF omeprazole 40 mg capsule,delayed release(DR/EC) 40 mg PO DAILY 30 Days Qty: 30 0RF carvedilol 3.125 mg Tablet 3.125 mg PO BID 30 Days Qty: 60 0RF Protocol: Hold for SBP/HR < HOLD for SBP < : 90 HOLD for HR < : 60 melatonin 10 mg Tablet 10 mg PO BEDTIME PRN (Reason: Insomnia) Print Language: Brazilian
[2023-12-02] MEDS: Thiamine HCL 500 MG in 0.9 % Sodium Chloride 100 ML 210 MG IV (17:48)
[2023-12-02] MEDS: 0.9 % Sodium Chloride 500 ML 999 ML IV (17:49)
[2023-12-02] MEDS: PHENobarbitaL sodium 130 MG/ML IM ONCE 255 MG IM (17:52)
[2023-12-02 17:56] LABS: MANUAL DIFF FLAG NO
[2023-12-02 18:02] LABS: INTERNATIONAL NORM RATIO 1.6 (0.9-1.1); Prothrombin Time 18.9 SEC (11.1-13.3)
[2023-12-02 18:03] LABS: Basophils Percent Auto 0.4 % (0-2); Hematocrit 29.9 % (42.0-52.0); Hemoglobin 10.6 g/dl (14.0-18.0); Imm Gran Abs Auto 0.03 X10*3/uL (0.00-0.03); Imm Gran Pct Auto 0.6 % (0.0-0.4); Lymphocytes Absolute Auto 0.3 X10*3/uL (1.2-4.9); Lymphocytes Percent Auto 5.7 % (20-40); Mean Corpuscular HGB Conc 35.5 g/dl (31.0-36.0); Mean Corpuscular Hemoglobin 32.1 pg (27.0-33.0); Mean Corpuscular Volume 90.6 fL (80.0-98.0); Mean Platelet Volume 10.4 fL (9.4-12.4); Monocytes Absolute Auto 0.2 X10*3/uL (0.1-1.2); Monocytes Percent Auto 3.7 % (2-11); Neutrophils Absolute Auto 4.6 x10*3/uL (2.0-8.3); Neutrophils Percent Auto 89.6 % (45-73); Red Cell Distribution Width 17.2 % (11.0-16.0); White Blood Count 5.1 X10*3/uL (4.8-10.8)
[2023-12-02 18:05] LABS: Partial Thromboplastin Time 36.6 SEC (26.0-36.8)
[2023-12-02 18:06] LABS: Platelet Count 29 X10*3/uL (160-400)
[2023-12-02 18:09] VITALS: BP 140/73; PULSE 126; RESP 15; TEMP 37; O2SAT 99
[2023-12-02 18:12] LABS: Ethanol 268 mg/dL
[2023-12-02 18:26] LABS: Troponin-I High Sensitivity 3.9 ng/L (<3.5-35.0)
[2023-12-02 18:27] LABS: Alanine Aminotransferase 35 U/L (0-40); Alkaline Phosphatase 124 U/L (39-117); Anion Gap 29 (12-20); Aspartate Amino Transferase 117 U/L (5-37); Bilirubin Total 5.5 mg/dL (0.0-1.0); Blood Urea Nitrogen 8 mg/dL (9-16); Calcium 8.5 mg/dL (8.4-10.2); Carbon Dioxide 15 mmol/L (22-29); Chloride 107 mmol/L (96-108); Creatinine Clr Calc Pharmacy 95.4; Estimated Glomerular Filt Rate > 60; Glucose Random 110 mg/dL (60-115); Lipase 34 U/L (8-78); Magnesium 1.5 mg/dL (1.6-2.6); Phosphorus 3.8 mg/dL (2.7-4.5); Potassium 3.6 mmol/L (3.3-5.1); Sodium 147 mmol/L (135-145); Total Protein 7.5 g/dL (6.5-8.0)
[2023-12-02 18:29] LABS: Lactic Acid 12.7 mmol/L (0.5-2.0)
[2023-12-02] MEDS: Folic Acid 1 MG in 0.9 % Sodium Chloride 50 ML 100.4 MG IV (18:46)
[2023-12-02] MEDS: 0.9 % Sodium Chloride 1,000 ML 999 ML IV ×2 (18:47→21:46)
[2023-12-02] MEDS: Magnesium Sulfate/H2O 2 GM/50 ML PIGGYBACK IV (19:31)
[2023-12-02 19:43] LABS: Influenza A PCR NEGATIVE (Negative); Influenza B PCR NEGATIVE (Negative); Resp Syncy Virus RNA Qual PCR NEGATIVE (Negative); SARS COV2 PCR INHOUSE NEGATIVE (Negative)
[2023-12-02] MEDS: Dextrose 5 % and 0.9 % NaCl 1,000 ML 125 ML IVCONT (19:43)
[2023-12-02 19:50] LABS: Reflex Lactate? Lactic Acid Added
[2023-12-02 20:11] LABS: VBG Base Excess -8.9 mmol/L; VBG HCO3 15 mmol/L (22-26); VBG pCO2 28 mmHg; VBG pH 7.33 (7.32-7.43); VBG pO2 105 mmHg
[2023-12-02 20:12] LABS: Venous Blood Gas Refer to POC result
[2023-12-02 20:21] VITALS: BP 146/71; PULSE 117; RESP 10; O2SAT 99
[2023-12-02 20:31] LABS: ~Lactic Acid-LAB USE ONLY 11.8 mmol/L (0.5-2.0)
[2023-12-02 20:42] LABS: Appearance Urine Cloudy; Color Urine Dark Yellow; Glucose Urine UA 500 mg/dL (Negative); Leukocyte Esterase Urine Small (1+) (Negative); Nitrite Urine Negative (Negative); PH 5.5 (5.0-9.0); UMIC TRIGGER UACC YES; Urine Blood Large (3+) (Negative); Urine Ketones Trace mg/dL (Negative); Urine Protein 100 (2+) mg/dL (Neg-Trace)
[2023-12-02 20:53] LABS: Amphetamine Screen Urine Not Detected (Not Detect); Bacteria Urine 4+ (None Seen); Barbiturates, Urine POSITIVE (Not Detect); Benzodiazepines Screen Urine Not Detected (Not Detect); Buprenorphine Scr Not Detected (Not Detect); Cannabinoid Screen Urine Not Detected (Not Detect); Cocaine Screen Urine Not Detected (Not Detect); Fentanyl, urine Not Detected (Not Detect); Hyaline Casts Urine 0-2 /LPF (0-2); Methadone Screen, Urine Not Detected (Not Detect); Opiate Screen Urine Not Detected (Not Detect); Oxycodone Screen Urine Not Detected (Not Detect); Phencyclidine Screen Urine Not Detected (Not Detect); UACC Culture Trigger YES
[2023-12-02 20:56] LABS: Anion Gap 21 (12-20); Blood Urea Nitrogen 7 mg/dL (9-16); Calcium 7.7 mg/dL (8.4-10.2); Carbon Dioxide 16 mmol/L (22-29); Chloride 110 mmol/L (96-108); Creatinine Clr Calc Pharmacy 97.9; Estimated Glomerular Filt Rate > 60; Glucose Random 235 mg/dL (60-115); Potassium 3.5 mmol/L (3.3-5.1); Sodium 143 mmol/L (135-145)
[2023-12-02 21:44] VITALS: BP 135/84; PULSE 119; RESP 17; TEMP 36.9; O2SAT 100
[2023-12-02 22:02] LABS: Reflex Lactate? 2 Y
[2023-12-02] MEDS: PHENobarbitaL sodium 130 MG/ML VIAL IM Q3Hx2 191 MG IM (22:39)
[2023-12-02] MEDS: ondansetron HCL 4 MG/2 ML VIAL IVPUSH (22:39)
[2023-12-02] MEDS: Haloperidol Lactate 5 MG/ML VIAL 2.5 MG IVPUSH (23:14)
[2023-12-02 23:18] LABS: ~Lactic Acid-LAB USE ONLY 10.2 mmol/L (0.5-2.0)
[2023-12-02] MEDS: iohexoL 350 MG/ML 100 ML INFUS..BTL 85 ML IV (23:34)
[2023-12-03] VITALS (7 sets, daily range): BP systolic 123–161; BP diastolic 68–83; PULSE 85–124; RESP 12–18; TEMP 36.8–37.7; O2SAT 99–100; BMI 26.3
--- NOTE | 2023-12-03 00:24 | PM.IMHP ---
History of Present Illness Date of Service: 12/03/23 Chief Complaint: Alcohol withdrawal This is a 58-year-old male with pertinent history of alcohol use disorder with alcoholic cirrhosis and varices, chronic thrombocytopenia, DENISE not on CPAP, mixed hyperlipidemia who presents to the emergency department for concerns of alcohol withdrawal. Patient states he is here to seek help for his alcohol use. His last drink was 1 day prior to presentation. He drinks about 1-2 bottles of fireball every day. Patient has been feeling nauseous and has had 1 episode of nonbloody emesis. Also has been having tremors and anxiety. Does have a history of alcohol withdrawal. No history of alcohol withdrawal seizures. Denies blood in vomit. Denies hematochezia or melena. No fever, chills, chest discomfort, palpitations, shortness of breath, abdominal pain, changes in urinary or bowel habits. In the emergency department, lactic acid was found to be elevated and patient was resuscitated with IV crystalloids. Also initiated on phenobarb protocol Review of Systems Constitutional: Constitutional: Reports lethargy, Reports malaise, Reports poor appetite and Reports weakness Cardiovascular: Cardiovascular: Reports no additional cardiovascular complaints Respiratory: Respiratory: Reports no additional respiratory complaints Gastrointestinal: Gastrointestinal: Reports no additional gastrointestinal complaints Genitourinary: Genitourinary: Reports no additional male genitourinary complaints Neurologic: Reports weakness Psychiatric: Psychiatric: Reports anxiety [facility] Medical History Tubular adenoma Subclinical hypothyroidism Alcohol use disorder BPH (benign prostatic hyperplasia) Obstructive sleep apnea Hyperlipidemia Portal hypertension Esophageal varices Alcoholic cirrhosis Pertinent family history: No family history of early CAD Social History Household Members: Other Household Members Other:: Mother, daughter, daughter's boyfriend Housing: Unknown / Unable to assess Do you presently have visiting nurse or other home services: No Alcohol intake: current Alcohol intake frequency: 3 or more drinks per day Alcohol type: hard liquor Comment: 1:1 sitter at bedside Patient Tobacco Use Status: Never used Tobacco Smoked in Last 30 Days: No e-Cigarette/Vaping Use: Never Used Use of substances other than those prescribed or required for medical reasons: No Substance Use Type: Other Advance Directives: Yes Advance Directives on File: Yes Advance Directives Date on File: 08/16/23 service: No Meds Allergies Allergy/AdvReac Type Severity Reaction Status Date / Time No Known Allergies Allergy Verified 12/02/23 16:58 Active Medications: Current Medications Ceftriaxone Sodium 1 gm/ (Sodium Chloride) 50 mls @ 100 mls/hr IV ONCE ONE Stop: 12/03/23 00:42 Pharmacy Consult (Consult Rx Etoh Phenob Im/Po) 1 each MISCELLANE ONCE PRN; Protocol PRN Reason: Consult order Phenobarbital (Phenobarbital 15 Mg Tablet) 45 mg PO BID [facility]; Protocol Stop: 12/04/23 21:01 Phenobarbital (Phenobarbital 30 Mg Tablet) 30 mg PO BID [facility]; Protocol Stop: 12/06/23 21:01 Phenobarbital (Phenobarbital 30 Mg Tablet) 30 mg PO DAILY [facility]; Protocol Stop: 12/08/23 09:01 Home Medications ?Medication ?Instructions ?Recorded ?Confirmed ?Last Taken ?Type melatonin 10 mg tablet 10 mg PO BEDTIME PRN Insomnia 08/12/23 09/20/23 Unknown History Physical Exam Vital Signs and Narrative: Vital Signs: Last Vital Signs Temp 98.5 F 12/02/23 21:44 Pulse 119 H 12/02/23 21:44 Resp 17 12/02/23 21:44 BP 135/84 12/02/23 21:44 Pulse Ox 100 12/02/23 21:44 O2 Del Method Room Air 12/02/23 21:44 BMI result Body Mass Index 26.3 Middle-aged male lying in bed in no distress Neck supple, no JVD Regular rate and rhythm, S1-S2 heard Regular breath sounds bilaterally, no wheezing or crackles appreciated Abdomen soft nontender, no guarding, no rigidity Patient is awake, alert and oriented to self, place, time and person ; bilateral hand tremors present Psych: Anxious No pedal edema Results Labs 12/02/23 17:44 12/02/23 20:33 Labs: Laboratory Results - last 24 hr 12/02/23 12/02/23 12/02/23 17:44 18:25 19:32 MCV 90.6 MCH 32.1 MCHC 35.5 RDW 17.2 H Plt Count 29 L D MPV 10.4 Immature Gran % (Auto) 0.6 H Neut % (Auto) 89.6 H Lymph % (Auto) 5.7 L [place] % (Auto) 3.7 Eos % (Auto) 0.0 Baso % (Auto) 0.4 Lymph # (Auto) 0.3 L [place] # (Auto) 0.2 Eos # (Auto) 0.0 Baso # (Auto) 0.0 Abs Immat Gran (auto) 0.03 Absolute Neuts (auto) 4.6 Absolute Nucleated RBC 0.000 Nucleated RBC % (auto) 0.0 PT 18.9 H D INR 1.6 H APTT 36.6 VBG pH 7.33 VBG pCO2 28 VBG pO2 105 VBG HCO3 15 L VBG O2 Saturation 100.0 VBG Base Excess -8.9 Anion Gap 29 H Estim Creat Clear Calc 95.4 Estimated GFR > 60 Random Glucose 110 Lactic Acid 12.7 H* Lactic Acid F/U @ 2Hr Lactic Acid F/U @ 4Hr Calcium 8.5 Phosphorus 3.8 Magnesium 1.5 L Total Bilirubin 5.5 H AST 117 H ALT 35 Alkaline Phosphatase 124 H Total Creatine Kinase 331 H Troponin I High Sens 3.9 Total Protein 7.5 Albumin 3.0 L Lipase 34 Urine Color Urine Appearance Urine pH Ur Specific [place] Urine Protein Urine Glucose (UA) Urine Ketones Urine Blood Urine Nitrite Ur Leukocyte Esterase Urine RBC Urine WBC Ur Squamous Epith Cells Urine Bacteria Hyaline Casts Urine Opiates Screen Ur Buprenorphine Scrn Ur Oxycodone Screen Urine Methadone Screen Urine Fentanyl Screen Ur Barbiturates Screen Ur Phencyclidine Scrn Ur Amphetamines Screen U Benzodiazepines Scrn Urine Cocaine Screen U Marijuana (THC) Screen Ethyl Alcohol 268 Influenza Type A (PCR) NEGATIVE Influenza Type B (PCR) NEGATIVE RSV RNA Qual (PCR) NEGATIVE SARS-CoV-2 RNA (RT-PCR) NEGATIVE 12/02/23 12/02/23 12/02/23 20:00 20:33 22:56 MCV MCH MCHC RDW Plt Count MPV Immature Gran % (Auto) Neut % (Auto) Lymph % (Auto) [place] % (Auto) Eos % (Auto) Baso % (Auto) Lymph # (Auto) [place] # (Auto) Eos # (Auto) Baso # (Auto) Abs Immat Gran (auto) Absolute Neuts (auto) Absolute Nucleated RBC Nucleated RBC % (auto) PT INR APTT VBG pH VBG pCO2 VBG pO2 VBG HCO3 VBG O2 Saturation VBG Base Excess Anion Gap 21 H Estim Creat Clear Calc 97.9 Estimated GFR > 60 Random Glucose 235 H Lactic Acid Lactic Acid F/U @ 2Hr 11.8 H* Lactic Acid F/U @ 4Hr 10.2 H* Calcium 7.7 L D Phosphorus Magnesium Total Bilirubin AST ALT Alkaline Phosphatase Total Creatine Kinase Troponin I High Sens Total Protein Albumin Lipase Urine Color Dark Yellow Urine Appearance Cloudy Urine pH 5.5 Ur Specific [place] 1.020 Urine Protein 100 (2+) H Urine Glucose (UA) 500 H Urine Ketones Trace Urine Blood Large (3+) H Urine Nitrite Negative Ur Leukocyte Esterase Small (1+) H Urine RBC 3-5 H Urine WBC 11-20 H Ur Squamous Epith Cells 6-10 Urine Bacteria 4+ Hyaline Casts 0-2 Urine Opiates Screen Not Detected Ur Buprenorphine Scrn Not Detected Ur Oxycodone Screen Not Detected Urine Methadone Screen Not Detected Urine Fentanyl Screen Not Detected Ur Barbiturates Screen POSITIVE H Ur Phencyclidine Scrn Not Detected Ur Amphetamines Screen Not Detected U Benzodiazepines Scrn Not Detected Urine Cocaine Screen Not Detected U Marijuana (THC) Screen Not Detected Ethyl Alcohol Influenza Type A (PCR) Influenza Type B (PCR) RSV RNA Qual (PCR) SARS-CoV-2 RNA (RT-PCR) Imaging Radiologist's Impressions: Impressions Cervical Spine CT 12/02/23 17:43 IMPRESSION: 1. No acute intracranial pathology. 2. No acute cervical spinal fractures or malalignment. 3. Few solid pulmonary nodules in the lung apices, largest measuring up to 3 mm. According to the UPDATED 2017 Fleischner Society recommendations, the advised follow-up imaging for multiple solid nodules measuring up to 6-8 mm is follow-up CT at 3 to 6 months. In high-risk patients, subsequent CT follow-up at 18 to 24 months is recommended. In low-risk patients, subsequent CT follow-up at 18 to [address] is [address] Head CT 12/02/23 17:43 IMPRESSION: 1. No acute intracranial pathology. 2. No acute cervical spinal fractures or malalignment. 3. Few solid pulmonary nodules in the lung apices, largest measuring up to 3 mm. According to the UPDATED 2017 Fleischner Society recommendations, the advised follow-up imaging for multiple solid nodules measuring up to 6-8 mm is follow-up CT at 3 to 6 months. In high-risk patients, subsequent CT follow-up at 18 to 24 months is recommended. In low-risk patients, subsequent CT follow-up at 18 to 24 months is optional. Chest X-Ray 12/02/23 17:55 IMPRESSION: No evidence of acute disease. Abdomen/Pelvis CT 12/02/23 23:25 IMPRESSION: 1. Cirrhosis of the liver with evidence of portal hypertension including splenomegaly and varices. 2. Mild right colonic wall thickening and diffuse gastric fold thickening. This may be related to portal hypertension. 3. Cholelithiasis. 4. Mild soft tissue anasarca. Fleischner guidelines were followed. Assessment and Plan (1) Alcohol use disorder: Status: Acute Plan This is a 58-year-old male with pertinent history of alcohol use disorder with alcoholic cirrhosis and varices, chronic thrombocytopenia, DENISE not on CPAP, mixed hyperlipidemia who presents to the emergency department for concerns of alcohol withdrawal. #. Alcohol withdrawal in a patient with alcohol use disorder: Initiated on phenobarb protocol in the ER. On thiamine and folic acid. Monitor CIWA. Consulted Addiction Team #. Acute lactic acidosis due to alcoholism and liver disease. Trending down. No sepsis #. Hypomagnesemia due to alcohol use: Repleted #. Alcoholic cirrhosis, compensated with portal hypertension/varices: On Lasix and spironolactone #. Chronic thrombocytopenia due to cirrhosis: No evidence of active bleed #. DENISE: Not on CPAP #. Asymptomatic bacteriuria: Defer treatment Med rec pending DVT prophylaxis: Mechanical Full code Admit as inpatient and will require two night minimum hospital stay for management of alcohol withdrawal (as above), which is not possible in a lesser acute setting. Quality Stroke Does the patient have a stroke diagnosis?: No VTE Prior VTE?: No VTE Risk Level:: Medical - moderate - high VTE Device Contraindication: N/A - Device Ordered VTE Drug Contraindication: Treatment Not Indicated
[2023-12-03] MEDS: cefTRIAXone sodium 1 GM in 0.9 % Sodium Chloride 50 ML IV (00:41)
[2023-12-03] MEDS: PHENobarbitaL sodium 130 MG/ML VIAL IM Q3Hx2 191 MG IM (01:13)
--- NOTE | 2023-12-03 06:04 | PC.NURSE ---
pt awake and alert, asking for something to drink, explained rodrigo he was NPO, and then pt asked, if he was going for a procedure, none ordered, tiger text dr Griffiths, new order received, that pt can have food
[2023-12-03 06:41] LABS: MANUAL DIFF FLAG NO
[2023-12-03 06:53] LABS: Lactic Acid 8.4 mmol/L (0.5-2.0)
[2023-12-03 07:00] LABS: Anion Gap 18 (12-20); Blood Urea Nitrogen 5 mg/dL (9-16); Calcium 8.3 mg/dL (8.4-10.2); Carbon Dioxide 18 mmol/L (22-29); Chloride 110 mmol/L (96-108); Creatinine Clr Calc Pharmacy 97.9; Estimated Glomerular Filt Rate > 60; Glucose Random 96 mg/dL (60-115); Potassium 3.5 mmol/L (3.3-5.1); Sodium 142 mmol/L (135-145)
[2023-12-03 07:02] LABS: Magnesium 1.6 mg/dL (1.6-2.6)
[2023-12-03 07:03] LABS: Basophils Percent Auto 0.3 % (0-2); Eosinophils Percent Auto 0.3 % (0-4); Hematocrit 24.7 % (42.0-52.0); Imm Gran Abs Auto 0.02 X10*3/uL (0.00-0.03); Imm Gran Pct Auto 0.6 % (0.0-0.4); Lymphocytes Absolute Auto 0.4 X10*3/uL (1.2-4.9); Lymphocytes Percent Auto 12.4 % (20-40); Mean Corpuscular HGB Conc 34.8 g/dl (31.0-36.0); Mean Corpuscular Hemoglobin 31.5 pg (27.0-33.0); Mean Corpuscular Volume 90.5 fL (80.0-98.0); Monocytes Absolute Auto 0.3 X10*3/uL (0.1-1.2); Monocytes Percent Auto 10.1 % (2-11); Neutrophils Absolute Auto 2.6 x10*3/uL (2.0-8.3); Neutrophils Percent Auto 76.3 % (45-73); Red Blood Count 2.73 X10*6/uL (4.60-5.80); Red Cell Distribution Width 17.9 % (11.0-16.0); White Blood Count 3.4 X10*3/uL (4.8-10.8)
[2023-12-03 07:05] LABS: Hemoglobin 8.6 g/dl (14.0-18.0); Platelet Count 21 X10*3/uL (160-400)
--- NOTE | 2023-12-03 07:06 | PC.NURSE ---
report given to Viola COREA
[2023-12-03 08:39] LABS: Reflex Lactate? Lactic Acid Added
--- NOTE | 2023-12-03 08:41 | MHC.CM.PN ---
PT REPORTS HE LIVES AT HOME WITH FAMILY AND IS INDEPENDENT WITH CARE HE REPORTS HE HAS NO HOME SERVICES BUT DOES ATTEND AA MEETINGS HE HAS A HCP ON FILE PCP: YULIYA TRINIDAD DCP: HOME NO SERVICES PT WILL NEED ASSISTANCE WITH TRANSPORT, SHUTTLE VS LYFT
[2023-12-03] MEDS: 0.9 % Sodium Chloride Flush 3 ML SYRINGE IVFLUSH (08:56)
[2023-12-03] MEDS: PHENobarbitaL 15 MG TABLET 45 MG PO ×2 (08:57→20:26)
--- NOTE | 2023-12-03 09:28 | HO.PM.IMPN ---
Subjective Subjective Date of Service: 12/03/23 Interval History: seen in f/u for alcohol withdrawal, lactic acidosis, electrolyte abnormalites has some tremores, coopertive, drinks up to half a liter a day Physical Exam Vital Signs: Vital Signs: Last Vital Signs Temp 99.9 F 12/03/23 07:45 Pulse 115 H 12/03/23 07:45 Resp 12 12/03/23 07:45 BP 133/69 12/03/23 07:45 Pulse Ox 100 12/03/23 07:45 O2 Del Method Room Air 12/03/23 07:45 BMI result Body Mass Index 26.3 General: AO X 3, no acute distress heent: sclera icteris Resp: CTA bilateral CVS: S1,S2,RRR GI: +BS, NT, no distention Skin: No rash Neuro: motor grossly intact, but has tremors in hand Psych: appropriate affect Objective Data Active Medications Acetaminophen (Acetaminophen 325 Mg Tablet) 650 mg PO Q6H PRN PRN Reason: Pain, Mild (Pain Scale 1-3), fever or headache Calcium Carbonate (Calcium Carbonate 750 Mg Tab.Chew) 750 mg PO Q4H PRN PRN Reason: Heartburn Magnesium Hydroxide (Milk Of Magnesia 30 Ml Oral.Susp) 30 ml PO DAILY PRN PRN Reason: Constipation Melatonin (Melatonin 3 Mg Tablet) 6 mg PO BEDTIME PRN PRN Reason: Insomnia Ondansetron HCl (Ondansetron Hcl 4 Mg/2 Ml Vial) 4 mg IVPUSH Q8H PRN PRN Reason: Nausea and Vomiting Pharmacy Consult (Consult Rx Etoh Phenob Im/Po) 1 each MISCELLANE ONCE PRN; Protocol PRN Reason: Consult order Phenobarbital (Phenobarbital 15 Mg Tablet) 45 mg PO BID [facility]; Protocol Stop: 12/04/23 21:01 Last Admin: 12/03/23 08:57 Dose: 45 mg Documented By: KRISTEN Phenobarbital (Phenobarbital 30 Mg Tablet) 30 mg PO BID [facility]; Protocol Stop: 12/06/23 21:01 Phenobarbital (Phenobarbital 30 Mg Tablet) 30 mg PO DAILY [facility]; Protocol Stop: 12/08/23 09:01 Sodium Chloride (0.9 % Sodium Chloride Flush 3 Ml Syringe) 3 ml IVFLUSH [facility] Last Admin: 12/03/23 08:56 Dose: 3 ml Documented By: KRISTEN Labs 12/03/23 06:28 12/03/23 06:28 Labs: Laboratory Results - last 24 hr 12/02/23 12/02/23 12/02/23 17:44 18:25 19:32 MCV 90.6 MCH 32.1 MCHC 35.5 RDW 17.2 H Plt Count 29 L D MPV 10.4 Immature Gran % (Auto) 0.6 H Neut % (Auto) 89.6 H Lymph % (Auto) 5.7 L [place] % (Auto) 3.7 Eos % (Auto) 0.0 Baso % (Auto) 0.4 Lymph # (Auto) 0.3 L [place] # (Auto) 0.2 Eos # (Auto) 0.0 Baso # (Auto) 0.0 Abs Immat Gran (auto) 0.03 Absolute Neuts (auto) 4.6 Absolute Nucleated RBC 0.000 Nucleated RBC % (auto) 0.0 PT 18.9 H D INR 1.6 H APTT 36.6 VBG pH 7.33 VBG pCO2 28 VBG pO2 105 VBG HCO3 15 L VBG O2 Saturation 100.0 VBG Base Excess -8.9 Anion Gap 29 H Estim Creat Clear Calc 95.4 Estimated GFR > 60 Random Glucose 110 Lactic Acid 12.7 H* Lactic Acid F/U @ 2Hr Lactic Acid F/U @ 4Hr Calcium 8.5 Phosphorus 3.8 Magnesium 1.5 L Total Bilirubin 5.5 H AST 117 H ALT 35 Alkaline Phosphatase 124 H Total Creatine Kinase 331 H Troponin I High Sens 3.9 Total Protein 7.5 Albumin 3.0 L Lipase 34 Urine Color Urine Appearance Urine pH Ur Specific Pep Urine Protein Urine Glucose (UA) Urine Ketones Urine Blood Urine Nitrite Ur Leukocyte Esterase Urine RBC Urine WBC Ur Squamous Epith Cells Urine Bacteria Hyaline Casts Urine Opiates Screen Ur Buprenorphine Scrn Ur Oxycodone Screen Urine Methadone Screen Urine Fentanyl Screen Ur Barbiturates Screen Ur Phencyclidine Scrn Ur Amphetamines Screen U Benzodiazepines Scrn Urine Cocaine Screen U Marijuana (THC) Screen Ethyl Alcohol 268 Influenza Type A (PCR) NEGATIVE Influenza Type B (PCR) NEGATIVE RSV RNA Qual (PCR) NEGATIVE SARS-CoV-2 RNA (RT-PCR) NEGATIVE 12/02/23 12/02/23 12/02/23 20:00 20:33 22:56 MCV MCH MCHC RDW Plt Count MPV Immature Gran % (Auto) Neut % (Auto) Lymph % (Auto) [place] % (Auto) Eos % (Auto) Baso % (Auto) Lymph # (Auto) [place] # (Auto) Eos # (Auto) Baso # (Auto) Abs Immat Gran (auto) Absolute Neuts (auto) Absolute Nucleated RBC Nucleated RBC % (auto) PT INR APTT VBG pH VBG pCO2 VBG pO2 VBG HCO3 VBG O2 Saturation VBG Base Excess Anion Gap 21 H Estim Creat Clear Calc 97.9 Estimated GFR > 60 Random Glucose 235 H Lactic Acid Lactic Acid F/U @ 2Hr 11.8 H* Lactic Acid F/U @ 4Hr 10.2 H* Calcium 7.7 L D Phosphorus Magnesium Total Bilirubin AST ALT Alkaline Phosphatase Total Creatine Kinase Troponin I High Sens Total Protein Albumin Lipase Urine Color Dark Yellow Urine Appearance Cloudy Urine pH 5.5 Ur Specific Pep 1.020 Urine Protein 100 (2+) H Urine Glucose (UA) 500 H Urine Ketones Trace Urine Blood Large (3+) H Urine Nitrite Negative Ur Leukocyte Esterase Small (1+) H Urine RBC 3-5 H Urine WBC 11-20 H Ur Squamous Epith Cells 6-10 Urine Bacteria 4+ Hyaline Casts 0-2 Urine Opiates Screen Not Detected Ur Buprenorphine Scrn Not Detected Ur Oxycodone Screen Not Detected Urine Methadone Screen Not Detected Urine Fentanyl Screen Not Detected Ur Barbiturates Screen POSITIVE H Ur Phencyclidine Scrn Not Detected Ur Amphetamines Screen Not Detected U Benzodiazepines Scrn Not Detected Urine Cocaine Screen Not Detected U Marijuana (THC) Screen Not Detected Ethyl Alcohol Influenza Type A (PCR) Influenza Type B (PCR) RSV RNA Qual (PCR) SARS-CoV-2 RNA (RT-PCR) 12/03/23 06:28 MCV 90.5 MCH 31.5 MCHC 34.8 RDW 17.9 H Plt Count 21 L D MPV 12.0 Immature Gran % (Auto) 0.6 H Neut % (Auto) 76.3 H Lymph % (Auto) 12.4 L [place] % (Auto) 10.1 Eos % (Auto) 0.3 Baso % (Auto) 0.3 Lymph # (Auto) 0.4 L [place] # (Auto) 0.3 Eos # (Auto) 0.0 Baso # (Auto) 0.0 Abs Immat Gran (auto) 0.02 Absolute Neuts (auto) 2.6 Absolute Nucleated RBC 0.000 Nucleated RBC % (auto) 0.0 PT INR APTT VBG pH VBG pCO2 VBG pO2 VBG HCO3 VBG O2 Saturation VBG Base Excess Anion Gap 18 Estim Creat Clear Calc 97.9 Estimated GFR > 60 Random Glucose 96 Lactic Acid 8.4 H* Lactic Acid F/U @ 2Hr Lactic Acid F/U @ 4Hr Calcium 8.3 L D Phosphorus Magnesium 1.6 Total Bilirubin AST ALT Alkaline Phosphatase Total Creatine Kinase Troponin I High Sens Total Protein Albumin Lipase Urine Color Urine Appearance Urine pH Ur Specific Pep Urine Protein Urine Glucose (UA) Urine Ketones Urine Blood Urine Nitrite Ur Leukocyte Esterase Urine RBC Urine WBC Ur Squamous Epith Cells Urine Bacteria Hyaline Casts Urine Opiates Screen Ur Buprenorphine Scrn Ur Oxycodone Screen Urine Methadone Screen Urine Fentanyl Screen Ur Barbiturates Screen Ur Phencyclidine Scrn Ur Amphetamines Screen U Benzodiazepines Scrn Urine Cocaine Screen U Marijuana (THC) Screen Ethyl Alcohol Influenza Type A (PCR) Influenza Type B (PCR) RSV RNA Qual (PCR) SARS-CoV-2 RNA (RT-PCR) Microbiology Microbiology Results: Microbiology 12/02/23 Unknown Urine Culture - Preliminary Urine clean catch - Clean Catch Midstream Culture too young to evaluate. Assessment and Plan (1) Portal hypertension: Status: Acute (2) Esophageal varices: Status: Acute (3) Chronic alcoholic liver disease: Status: Acute Plan 58-year-old male with pertinent history of alcohol use disorder with alcoholic cirrhosis and varices, chronic thrombocytopenia, DENISE not on CPAP, mixed hyperlipidemia who presents to the emergency department for concerns of alcohol withdrawal. Alcohol withdrawal - Initiated on phenobarb protocol -thiamine, folate -addiction med consult Acute lactic acidosis due to alcoholism and liver disease, no sepsis Acute metabolic --likely d/t lactic acidosis and hyperchloremic met acidosis -recheck labs, IVF -trending [place], 10 to 5 Hypomagnesemia, repleted Alcoholic cirrhosis with chronic liver failure, compensated with portal hypertension/varices: -continue lasix and aldactone, cessation discussed Chronic thrombocytopenia due to cirrhosis: No evidence of active bleed -monitor, no heparin or lovenox DENISE: Not on CPAP Asymptomatic bacteriuria: Defer treatment DVT prophylaxis: Mechanical Full code Admit as inpatient and will require two night minimum hospital stay for management of alcohol withdrawal (as above), which is not possible in a lesser acute setting. Quality Stroke Does the patient have a stroke diagnosis?: No VTE Prior VTE?: No VTE Risk Level:: Medical - moderate - high VTE Device Contraindication: N/A - Device Ordered VTE Drug Contraindication: Treatment Not Indicated
--- NOTE | 2023-12-03 09:34 | PC.NURSE ---
this RN resumed care of pt at 0645. a&ox4. vss and up to date aside from being slightly sinus tachy on the playground monitor - HR between 110-115bpm. pt denies chest pain/palpitations. pt's bed extremely dirty upon assessment. 1:1 assist needed to stand up while having bedding changed. pt is extremely unsteady on his feet/tremulous. bedding changed, new pads placed, new [place] provided to pt. pt repositioned to comfort. CIWA = 6. pt medicated per provider order. admitting provider bedside assessing pt. no sob/wob noted. respirations even/unlabored. plan of care ongoing. call beauchamp placed within reach.
[2023-12-03 09:44] LABS: ~Lactic Acid-LAB USE ONLY 9.3 mmol/L (0.5-2.0)
--- NOTE | 2023-12-03 09:47 | PC.NURSE ---
critical lab result - lactic of 9.3 - dr. ely notified/aware.
[2023-12-03] MEDS: Lactated Ringers 1,000 ML 150 ML IVCONT ×2 (11:03→18:08)
[2023-12-03 11:21] LABS: Reflex Lactate? 2 Y
[2023-12-03 12:40] LABS: ~Lactic Acid-LAB USE ONLY 5.8 mmol/L (0.5-2.0)
--- NOTE | 2023-12-03 12:57 | PHA.MEDREC ---
Addendum entered by Len Mao RPh 12/03/23 13:20: Med rec was reviewed. Original Note: Pharmacy Consult ? Medication Reconciliation Pharmacy has completed the medication reconciliation. Confirmed meds with Pt. Patient states he is only taking Folic Acid and Vitamin B-1 tablets daily and nothing else. Patient also confirmed he has not taken anything in about 2-3 weeks.
[2023-12-03] MEDS: Folic Acid 1 MG TABLET PO (13:26)
[2023-12-03 13:30] LABS: Anion Gap 15 (12-20); Beta-Hydroxybutyrate 0.05 mmol/L (0.02-0.27); Blood Urea Nitrogen 5 mg/dL (9-16); Calcium 8.2 mg/dL (8.4-10.2); Carbon Dioxide 18 mmol/L (22-29); Chloride 104 mmol/L (96-108); Creatinine Clr Calc Pharmacy 88.6; Estimated Glomerular Filt Rate > 60; Glucose Random 167 mg/dL (60-115); Sodium 134 mmol/L (135-145)
[2023-12-03 13:51] LABS: Lactic Acid 6.2 mmol/L (0.5-2.0)
[2023-12-03 15:09] LABS: Reflex Lactate? Lactic Acid Added
[2023-12-03] MEDS: Potassium Chloride ER 20 MEQ TAB.ER.PRT 40 MEQ PO (15:41)
[2023-12-03 16:54] LABS: ~Lactic Acid-LAB USE ONLY 4.1 mmol/L (0.5-2.0)
[2023-12-03] MEDS: PHENobarbitaL sodium 130 MG/ML VIAL 30 MG IM (17:05)
[2023-12-03] MEDS: carvediloL 3.125 MG TABLET PO ×2 (17:11→20:25)
[2023-12-03 17:24] LABS: Cancel Lactic Acid Canceled
--- NOTE | 2023-12-03 23:46 | PC.NURSE ---
This RN assumed care at 1900, pt sleeping, comfortably at the moment, IVF running, respirations even and non-labored. Call beauchamp within reach.
[2023-12-04] MEDS: Lactated Ringers 1,000 ML 150 ML IVCONT ×3 (01:04→16:28)
[2023-12-04 03:37] VITALS: BP 118/57; PULSE 95; RESP 17; TEMP 36.9; O2SAT 100
[2023-12-04 07:19] LABS: Anion Gap 7 (12-20); Blood Urea Nitrogen 4 mg/dL (9-16); Calcium 7.8 mg/dL (8.4-10.2); Carbon Dioxide 25 mmol/L (22-29); Chloride 103 mmol/L (96-108); Creatinine Clr Calc Pharmacy 109.4; Estimated Glomerular Filt Rate > 60; Glucose Random 85 mg/dL (60-115); Potassium 3.4 mmol/L (3.3-5.1); Sodium 132 mmol/L (135-145)
[2023-12-04 07:57] VITALS: BP 126/60; PULSE 88; RESP 16; TEMP 37.2; O2SAT 100
--- NOTE | 2023-12-04 08:52 | P.PNIM_ITS ---
Subjective Subjective Date of Service: 12/04/23 Interval History: Patient is doing much better, less tremulous, lactic acid has trended down Physical Exam 2 Vital Signs: Vital Signs: Last Vital Signs Temp 99.0 F 12/04/23 07:57 Pulse 88 12/04/23 07:57 Resp 16 12/04/23 07:57 BP 126/60 12/04/23 07:57 Pulse Ox 100 12/04/23 07:57 O2 Del Method Room Air 12/04/23 07:57 BMI result Body Mass Index 26.3 General: AO X 3, no acute distress heent: sclera icteris Resp: CTA bilateral CVS: S1,S2,RRR GI: +BS, NT, no distention Skin: No rash Neuro: motor grossly intact, but has tremors in hand Psych: appropriate affect Objective Data Active Medications Acetaminophen (Acetaminophen 325 Mg Tablet) 650 mg PO Q6H PRN PRN Reason: Pain, Mild (Pain Scale 1-3), fever or headache Calcium Carbonate (Calcium Carbonate 750 Mg Tab.Chew) 750 mg PO Q4H PRN PRN Reason: Heartburn Carvedilol (Carvedilol 3.125 Mg Tablet) 3.125 mg PO BID [facility]; Protocol Last Admin: 12/03/23 20:25 Dose: 3.125 mg Documented By: SARI Folic Acid (Folic Acid 1 Mg Tablet) 1 mg PO DAILY [facility] Last Admin: 12/03/23 13:26 Dose: 1 mg Documented By: ZIYAD Furosemide (Furosemide 20 Mg Tablet) 20 mg PO DAILY [facility]; Protocol Lactated Ringer's (Lr) 1,000 mls @ 150 mls/hr IVCONT .Q6H40M [facility] Last Admin: 12/04/23 01:04 Dose: 150 mls/hr Documented By: SRAI Magnesium Hydroxide (Milk Of Magnesia 30 Ml Oral.Susp) 30 ml PO DAILY PRN PRN Reason: Constipation Melatonin (Melatonin 3 Mg Tablet) 6 mg PO BEDTIME PRN PRN Reason: Insomnia Omeprazole (Omeprazole 20 Mg Capsule.Dr) 20 mg PO DAILY@0900 [facility] Ondansetron HCl (Ondansetron Hcl 4 Mg/2 Ml Vial) 4 mg IVPUSH Q8H PRN PRN Reason: Nausea and Vomiting Pharmacy Consult (Consult Rx Etoh Phenob Im/Po) 1 each MISCELLANE ONCE PRN; Protocol PRN Reason: Consult order Phenobarbital (Phenobarbital 15 Mg Tablet) 45 mg PO BID [facility]; Protocol Stop: 12/04/23 21:01 Last Admin: 12/03/23 20:26 Dose: 45 mg Documented By: SARI Phenobarbital (Phenobarbital 30 Mg Tablet) 30 mg PO BID [facility]; Protocol Stop: 12/06/23 21:01 Phenobarbital (Phenobarbital 30 Mg Tablet) 30 mg PO DAILY [facility]; Protocol Stop: 12/08/23 09:01 Sodium Chloride (0.9 % Sodium Chloride Flush 3 Ml Syringe) 3 ml IVFLUSH QSHIFT [facility] Last Admin: 12/03/23 21:52 Dose: Not Given Documented By: SARI Non-Admin Reason: IV Running Spironolactone (Spironolactone 25 Mg Tablet) 50 mg PO DAILY [facility]; Protocol Thiamine HCl (Thiamine Hcl 100 Mg Tablet) 100 mg PO DAILY [facility] Labs 12/03/23 06:28 12/04/23 05:42 Labs: Laboratory Results - last 24 hr 12/03/23 12/03/23 12/03/23 09:10 12:15 12:59 Anion Gap 15 Estim Creat Clear Calc 88.6 Estimated GFR > 60 Random Glucose 167 H Lactic Acid 6.2 H* Lactic Acid F/U @ 2Hr 9.3 H* Lactic Acid F/U @ 4Hr 5.8 H* Calcium 8.2 L Beta-Hydroxybutyrate 0.05 12/03/23 12/04/23 15:57 05:42 Anion Gap 7 L Estim Creat Clear Calc 109.4 Estimated GFR > 60 Random Glucose 85 Lactic Acid Lactic Acid F/U @ 2Hr 4.1 H* Lactic Acid F/U @ 4Hr Calcium 7.8 L Beta-Hydroxybutyrate Microbiology Microbiology Results: Microbiology 12/02/23 18:29 Blood Culture - Preliminary Blood - Venous No growth after 24 hours. 12/02/23 17:44 Blood Culture - Preliminary Blood - Venous No growth after 24 hours. 12/02/23 Unknown Urine Culture - Preliminary Urine clean catch - Clean Catch Midstream Culture too young to evaluate. Assessment and Plan (1) Portal hypertension: Status: Acute (2) Esophageal varices: Status: Acute (3) Chronic alcoholic liver disease: Status: Acute Plan 58-year-old male with pertinent history of alcohol use disorder with alcoholic cirrhosis and varices, chronic thrombocytopenia, DENISE not on CPAP, mixed hyperlipidemia who presents to the emergency department for concerns of alcohol withdrawal. Alcohol withdrawal -continue phenobarbital per protocol -thiamine, folate -addiction med consult Acute lactic acidosis due to alcoholism and liver disease, no sepsis -has trended down from 11 to 4 Acute metabolic acidosis --likely d/t lactic acidosis and hyperchloremic met acidosis, resolved. Bicab is normal -continue ivf Hypomagnesemia, repleted Alcoholic cirrhosis with chronic liver failure, compensated with portal hypertension/varices: -continue lasix and aldactone, cessation discussed Chronic thrombocytopenia due to cirrhosis: No evidence of active bleed -monitor, no heparin or lovenox DENISE: Not on CPAP Asymptomatic bacteriuria: Defer treatment DVT prophylaxis: Mechanical Full code need for inpatient: treatment of active alcohol withdrawal Quality Stroke Does the patient have a stroke diagnosis?: No VTE Prior VTE?: No VTE Risk Level:: Medical - moderate - high VTE Device Contraindication: N/A - Device Ordered VTE Drug Contraindication: Treatment Not Indicated
[2023-12-04 09:25] VITALS: BP 126/60; PULSE 106
[2023-12-04] MEDS: Omeprazole 20 MG CAPSULE.DR PO (09:25)
[2023-12-04] MEDS: carvediloL 3.125 MG TABLET PO ×2 (09:25→21:03)
[2023-12-04] MEDS: PHENobarbitaL 15 MG TABLET 45 MG PO ×2 (09:25→21:02)
[2023-12-04] MEDS: Spironolactone 25 MG TABLET 50 MG PO (09:25)
[2023-12-04 09:26] VITALS: BP 126/60
[2023-12-04] MEDS: Furosemide 20 MG TABLET PO (09:26)
[2023-12-04] MEDS: Thiamine HCL 100 MG TABLET PO (09:26)
[2023-12-04] MEDS: Folic Acid 1 MG TABLET PO (09:26)
--- NOTE | 2023-12-04 13:00 | CA_ITS ---
Transthoracic Echocardiogram Patient (Last, First, Middle): Jigar Travis D Gender: Male Date of : 1965 Age: 58 Procedure Date: 12/04/2023 Procedure Type: Transthoracic Echocardiogram Location: S3E Height: 167.64 cm Weight: 73.94 kg BSA: 1.83 m2 Heart Rate: bpm BP: 126 / 60 mmHg Woven Label Designer: SB Referring MD: West Tatum MD Symptoms: pericardial effusion Study Quality: Adequate ECG Rhythm: Sinus Conclusions: - The left ventricular systolic function is normal. The calculated ejection fraction is 61% by biplane method. - No obvious valvular pathology seen on this study. Findings Left Ventricle Normal left ventricular cavity size. There is normal left ventricular wall thickness. The left ventricular systolic function is normal. The calculated ejection fraction is 61% by biplane method. There is no evidence of regional wall motion abnormalities. Diastolic function is normal for age. Right Ventricle Mildly increased right ventricular cavity size. There is normal right ventricular systolic function. Atria Mild biatrial enlargement. Aortic Valve There is a normal trileaflet aortic valve. There is no aortic valve stenosis. There is no aortic valve regurgitation. Mitral Valve The mitral valve appears normal. There is no mitral valve regurgitation. There is no mitral valve stenosis. Pulmonic Valve The pulmonic valve is likely normal. Tricuspid Valve Normal tricuspid valve structure. There is trace tricuspid valve regurgitation. Tricuspid regurgitation envelope is inadequate for calculation of right ventricular systolic pressure. Great Vessels The sinuses of valsalva and asc aorta are normal in size. Venous The inferior vena cava is normal in size and collapses less than 50% with inspiration. Pericardium/Pleural There is no evidence of pericardial effusion. Prior Study Comparison No prior study available for comparison. Recommendations, Care & Conclusions No obvious valvular pathology seen on this study. Measurements 2D Linear Measurements IVSd: 0.70 0.6-0.9/0.6-1.0 cm LVIDd: 4.54 3.9-5.3/4.2-5.9 cm LVIDd Index: 2.48 2.4-3.2/2.2-3.1 cm/m2 LVIDs: 3.63 2.0-3.6 cm LVPWd: 0.72 0.7-1.1 cm LA Diam: 4.10 2.7-3.8/3.0-4.0 cm LAIDs Index: 2.24 1.5-2.3 cm/m2 LV Mass: 122.19 67-162/88-224 g LV Mass Index: 66.77 43-95/49-115 g/m2 LVOT Diam: 2.40 3.0+(-)1.3 cm 2D Systolic Function EF 4C: 57.10 >55% EF 2C: 63.70 >55% EF BiP: 60.50 >55% Mitral Valve MV Pk E: 0.89 MV PK A: 0.70 MV Decel Time: 110.00 E/A: 1.30 E'Lateral: 9.68 E'Medial: 9.68 E/E' Med: 9.20 E/E' Lat: 9.20 PHT: 32.00 MVA PHT: 6.88 Decel [place]: 8.13 Aortic Valve AoV Pk [place]: 1.45 AoV Pk Grad: 8.00 LVOT LVOT Pk [place]: 1.17 LVOT Mn [place]: 0.82 LVOT VTI: 0.22 LVOT Pk Grad: 5.00 LVOT Mn Grad: 3.00 LVOT Diam: 2.40 LVOT Area: 4.52 Diastolic Function MV Pk E: 0.89 MV Pk A: 0.70 E/A: 1.30 E'Medial: 9.68 E/E' Med: 9.20 E' Laterial: 9.68 E/E' Lat: 9.20 Right Ventricle TAPSE (mm): 2.72 TVS' [place]: 19.70 Tricuspid Valve RA Press: 3.00 Great Vessels Aorta Sinus of Valsalva: 3.80 2.0-3.5 cm Ao Asc: 3.20 2.1-3.4 cm Pulmonary Veins Pulm Vein S/D 1.50 Pulmonary Valve PV Pk Montrell: 0.98 Peak PV Grad: 4.00 Updated in Other Vendor System with Status of Final Dagoberto Garcia MD electronically signed on 12/04/2023 3:11:53 PM with status of Final
--- NOTE | 2023-12-04 14:21 | MHC.RECOVRN ---
AUDIT-C Brief Intervention Pt had positive screen for unhealthy alcohol use on admission, subsequently met with t/w to discuss alcohol use and recovery supports/options. Pt voices concern regarding alcohol use and is aware that drinking at unhealthy levels is known to increase risk of alcohol related health problems. Pt reports he is able to go weeks without alcohol and every once in awhile relapse. Pt reports when he is drinking he consumes 1/2 liter Fireball daily typically for about a week. Pt reports [place] [facility] [place] had been drinking for about a week. Pt reports that when he decides to stop, he does taper the amount as he is aware of the dangers of alcohol withdrawal. Pt expresses how alcohol use has impacted health, including negative impact on physical health and wellbeing. Discussed risk reduction strategies including drinking below the recommended limit. Pt reports longest period in recovery was 1 year in 2021. During that time, pt attended AA, went to work, and did well with routine. Pt reports he lives with his mother and daughter who are both supportive. 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 Provided pt with written resources including information on inpatient and outpatient treatment, HUNG, harm reduction, and recovery coaching. Pt plans to return to work and attend AA 3-4 times per week. Pt provided with t/w contact information if questions or concerns arise. Denies other questions or concerns at this time.
[2023-12-04 15:12] VITALS: BP 123/63; PULSE 84; RESP 16; TEMP 37.3; O2SAT 99
[2023-12-04] MEDS: 0.9 % Sodium Chloride Flush 3 ML SYRINGE IVFLUSH ×2 (16:29→21:03)
[2023-12-04] MEDS: Doxycycline Hyclate 100 MG in 0.9 % Sodium Chloride 250 ML 166.67 MG IV (17:45)
--- NOTE | 2023-12-04 18:32 | MHC.RECOVSUP ---
? Reason for consult Recovery Support o Current location: 361_1 o Identified substance use concern: Alcohol; - Support ? Intervention: o Community resources provided o Harm reduction discussion ? Plan: o Patient to follow up with [facility] after discharge ? Additional information: Met with Patient and we talked about recovery and the different pathways. 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 A refferal was made.
[2023-12-04 19:23] VITALS: BP 127/70; PULSE 86; RESP 16; TEMP 36.6; O2SAT 100
[2023-12-04] MEDS: Melatonin 3 MG TABLET 6 MG PO (21:03)
[2023-12-05] MEDS: Lactated Ringers 1,000 ML 150 ML IVCONT ×2 (00:20→08:27)
[2023-12-05 03:09] VITALS: BP 131/72; PULSE 88; RESP 18; TEMP 36.8; O2SAT 100
[2023-12-05] MEDS: Doxycycline Hyclate 100 MG in 0.9 % Sodium Chloride 250 ML 166.67 MG IV (06:06)
[2023-12-05 06:49] LABS: Anion Gap 8 (12-20); Blood Urea Nitrogen 3 mg/dL (9-16); Calcium 8.2 mg/dL (8.4-10.2); Carbon Dioxide 23 mmol/L (22-29); Chloride 105 mmol/L (96-108); Creatinine Clr Calc Pharmacy 99.2; Estimated Glomerular Filt Rate > 60; Glucose Random 90 mg/dL (60-115); Potassium 3.2 mmol/L (3.3-5.1); Sodium 133 mmol/L (135-145)
[2023-12-05 08:00] VITALS: BP 147/79; PULSE 92; RESP 18; TEMP 36.9; O2SAT 100
[2023-12-05] MEDS: Spironolactone 25 MG TABLET 50 MG PO (08:27)
[2023-12-05] MEDS: Omeprazole 20 MG CAPSULE.DR PO (08:28)
[2023-12-05] MEDS: Folic Acid 1 MG TABLET PO (08:28)
[2023-12-05] MEDS: carvediloL 3.125 MG TABLET PO ×2 (08:28→21:53)
[2023-12-05] MEDS: Potassium Chloride ER 20 MEQ TAB.ER.PRT 40 MEQ PO ×2 (08:28→21:53)
[2023-12-05] MEDS: Furosemide 20 MG TABLET PO (08:28)
[2023-12-05] MEDS: Thiamine HCL 100 MG TABLET PO (08:28)
[2023-12-05] MEDS: PHENobarbitaL 30 MG TABLET PO ×2 (08:28→21:52)
--- NOTE | 2023-12-05 10:18 | HO.PM.IMPN ---
Subjective Subjective Date of Service: 12/05/23 Interval History: Doing well, no sings of withdrawal Physical Exam Vital Signs: Vital Signs: Last Vital Signs Temp 98.5 F 12/05/23 08:00 Pulse 92 12/05/23 08:00 Resp 18 12/05/23 08:00 BP 147/79 H 12/05/23 08:00 Pulse Ox 100 12/05/23 08:00 O2 Del Method Room Air 12/05/23 08:00 BMI result Body Mass Index 26.3 General: AO X 3, no acute distress heent: sclera icteris Resp: CTA bilateral CVS: S1,S2,RRR GI: +BS, NT, no distention Skin: No rash, large bruse on back but no hematoma Neuro: motor grossly intact, but has tremors in hand Psych: appropriate affect Objective Data Active Medications Acetaminophen (Acetaminophen 325 Mg Tablet) 650 mg PO Q6H PRN PRN Reason: Pain, Mild (Pain Scale 1-3), fever or headache Calcium Carbonate (Calcium Carbonate 750 Mg Tab.Chew) 750 mg PO Q4H PRN PRN Reason: Heartburn Carvedilol (Carvedilol 3.125 Mg Tablet) 3.125 mg PO BID [facility]; Protocol Last Admin: 12/05/23 08:28 Dose: 3.125 mg Documented By: COTEMA Folic Acid (Folic Acid 1 Mg Tablet) 1 mg PO DAILY [facility] Last Admin: 12/05/23 08:28 Dose: 1 mg Documented By: COTEMA Furosemide (Furosemide 20 Mg Tablet) 20 mg PO DAILY [facility]; Protocol Last Admin: 12/05/23 08:28 Dose: 20 mg Documented By: COTEMA Lactated Ringer's (Lr) 1,000 mls @ 150 mls/hr IVCONT .Q6H40M [facility] Last Admin: 12/05/23 08:27 Dose: 150 mls/hr Documented By: COTEMA Doxycycline Hyclate 100 mg/ (Sodium Chloride) 250 mls @ 166.67 mls/hr IV Q12H [facility] Last Infusion: 12/05/23 07:38 Dose: Infused Documented By: COTEMA Magnesium Hydroxide (Milk Of Magnesia 30 Ml Oral.Susp) 30 ml PO DAILY PRN PRN Reason: Constipation Melatonin (Melatonin 3 Mg Tablet) 6 mg PO BEDTIME PRN PRN Reason: Insomnia Last Admin: 12/04/23 21:03 Dose: 6 mg Documented By: LYSZ Omeprazole (Omeprazole 20 Mg Capsule.Dr) 20 mg PO DAILY@0900 [facility] Last Admin: 12/05/23 08:28 Dose: 20 mg Documented By: SAMEER Ondansetron HCl (Ondansetron Hcl 4 Mg/2 Ml Vial) 4 mg IVPUSH Q8H PRN PRN Reason: Nausea and Vomiting Pharmacy Consult (Consult Rx Etoh Phenob Im/Po) 1 each MISCELLANE ONCE PRN; Protocol PRN Reason: Consult order Phenobarbital (Phenobarbital 30 Mg Tablet) 30 mg PO BID [facility]; Protocol Stop: 12/06/23 21:01 Last Admin: 12/05/23 08:28 Dose: 30 mg Documented By: SAMEER Phenobarbital (Phenobarbital 30 Mg Tablet) 30 mg PO DAILY [facility]; Protocol Stop: 12/08/23 09:01 Potassium Chloride (Potassium Chloride Er 20 Meq Tab.Er.Prt) 40 meq PO BID [facility] Stop: 12/06/23 09:01 Last Admin: 12/05/23 08:28 Dose: 40 meq Documented By: SAMEER Sodium Chloride (0.9 % Sodium Chloride Flush 3 Ml Syringe) 3 ml IVFLUSH QSHIFT [facility] Last Admin: 12/05/23 07:22 Dose: Not Given Documented By: SAMEER Non-Admin Reason: IV Running Spironolactone (Spironolactone 25 Mg Tablet) 50 mg PO DAILY [facility]; Protocol Last Admin: 12/05/23 08:27 Dose: 50 mg Documented By: SAMEER Thiamine HCl (Thiamine Hcl 100 Mg Tablet) 100 mg PO DAILY [facility] Last Admin: 12/05/23 08:28 Dose: 100 mg Documented By: SAMEER Labs 12/03/23 06:28 12/05/23 05:20 Labs: Laboratory Results - last 24 hr 12/05/23 05:20 Anion Gap 8 L Estim Creat Clear Calc 99.2 Estimated GFR > 60 Random Glucose 90 Calcium 8.2 L Microbiology Microbiology Results: Microbiology 12/02/23 Unknown Urine Culture - Preliminary Urine clean catch - Clean Catch Midstream Enterococcus faecium 12/02/23 18:29 Blood Culture - Preliminary Blood - Venous No growth after 48 hours. 12/02/23 17:44 Blood Culture - Preliminary Blood - Venous No growth after 48 hours. Assessment and Plan (1) Portal hypertension: Status: Acute (2) Esophageal varices: Status: Acute (3) Chronic alcoholic liver disease: Status: Acute Plan 58-year-old male with pertinent history of alcohol use disorder with alcoholic cirrhosis and varices, chronic thrombocytopenia, DENISE not on CPAP, mixed hyperlipidemia who presents to the emergency department for concerns of alcohol withdrawal. Alcohol withdrawal -continue phenobarbital per protocol -thiamine, folate -addiction med has seen him and provided community resources Acute lactic acidosis due to alcoholism and liver disease, no sepsis -has trended down from 11 to 4 Acute metabolic acidosis --likely d/t lactic acidosis and hyperchloremic met acidosis, resolved. Bicab is normal -continue ivf Anemia--acute on chronic, no evidence of active bleed, recheck with type and screen Hypomagnesemia, repleted Alcoholic cirrhosis with chronic liver failure, compensated with portal hypertension/varices: -continue lasix and aldactone, cessation discussed Chronic thrombocytopenia due to cirrhosis: No evidence of active bleed -monitor, no heparin or lovenox DENISE: Not on CPAP Asymptomatic bacteriuria: Defer treatment DVT prophylaxis: Mechanical Full code need for inpatient: treatment of active alcohol withdrawal Quality Stroke Does the patient have a stroke diagnosis?: No VTE Prior VTE?: No VTE Risk Level:: Medical - moderate - high VTE Device Contraindication: N/A - Device Ordered VTE Drug Contraindication: Treatment Not Indicated
[2023-12-05 10:38] LABS: Hematocrit 23.1 % (42.0-52.0); Hemoglobin 8.1 g/dl (14.0-18.0); Mean Corpuscular HGB Conc 35.1 g/dl (31.0-36.0); Mean Corpuscular Hemoglobin 31.5 pg (27.0-33.0); Mean Corpuscular Volume 89.9 fL (80.0-98.0); Mean Platelet Volume 11.4 fL (9.4-12.4); Red Blood Count 2.57 X10*6/uL (4.60-5.80); Red Cell Distribution Width 17.4 % (11.0-16.0); White Blood Count 2.7 X10*3/uL (4.8-10.8)
[2023-12-05 10:39] LABS: Platelet Count 28 X10*3/uL (160-400)
[2023-12-05 10:54] LABS: Alanine Aminotransferase 28 U/L (0-40); Albumin Level 2.5 g/dL (3.5-5.0); Alkaline Phosphatase 111 U/L (39-117); Aspartate Amino Transferase 102 U/L (5-37); Bilirubin Direct 3.2 mg/dL (0.0-0.5); Bilirubin Total 5.9 mg/dL (0.0-1.0); Total Protein 6.2 g/dL (6.5-8.0)
[2023-12-05 10:57] LABS: Magnesium 1.4 mg/dL (1.6-2.6)
[2023-12-05] MEDS: Magnesium Sulfate/H2O 2 GM/50 ML PIGGYBACK IV ×2 (11:46→16:09)
[2023-12-05 15:48] VITALS: BP 141/77; PULSE 91; RESP 20; TEMP 36.9; O2SAT 99
[2023-12-05] MEDS: Amoxicillin/Potassium Clav 875 MG TABLET PO (16:09)
[2023-12-05 19:38] VITALS: BP 145/82; PULSE 92; RESP 20; TEMP 36.9; O2SAT 100
[2023-12-05] MEDS: Melatonin 3 MG TABLET 6 MG PO (21:52)
[2023-12-05] MEDS: 0.9 % Sodium Chloride Flush 3 ML SYRINGE IVFLUSH (21:54)
[2023-12-06 03:24] VITALS: BP 127/67; PULSE 82; RESP 16; TEMP 36.4; O2SAT 100
[2023-12-06] MEDS: Amoxicillin/Potassium Clav 875 MG TABLET PO (05:15)
[2023-12-06 06:40] LABS: Hematocrit 22.6 % (42.0-52.0); Hemoglobin 7.9 g/dl (14.0-18.0); Mean Corpuscular Hemoglobin 31.5 pg (27.0-33.0); Mean Platelet Volume 10.7 fL (9.4-12.4); PLT CLUMP 1; Red Blood Count 2.51 X10*6/uL (4.60-5.80)
[2023-12-06 06:49] LABS: Platelet Count 36 X10*3/uL (160-400); White Blood Count 1.9 X10*3/uL (4.8-10.8)
[2023-12-06 07:02] LABS: Anion Gap 11 (12-20); Blood Urea Nitrogen 4 mg/dL (9-16); Calcium 8.3 mg/dL (8.4-10.2); Carbon Dioxide 19 mmol/L (22-29); Chloride 108 mmol/L (96-108); Creatinine Clr Calc Pharmacy 91.8; Estimated Glomerular Filt Rate > 60; Glucose Random 101 mg/dL (60-115); Magnesium 1.9 mg/dL (1.6-2.6); Potassium 3.6 mmol/L (3.3-5.1); Sodium 134 mmol/L (135-145)
[2023-12-06 07:33] VITALS: BP 116/69; PULSE 81; RESP 20; TEMP 36.8; O2SAT 100
[2023-12-06] MEDS: Potassium Chloride ER 20 MEQ TAB.ER.PRT 40 MEQ PO (08:36)
[2023-12-06] MEDS: Omeprazole 20 MG CAPSULE.DR PO (08:36)
[2023-12-06] MEDS: PHENobarbitaL 30 MG TABLET PO (08:36)
[2023-12-06] MEDS: Doxycycline Monohydrate 100 MG CAPSULE PO (08:36)
[2023-12-06] MEDS: Spironolactone 25 MG TABLET 50 MG PO (08:36)
[2023-12-06] MEDS: Furosemide 20 MG TABLET PO (08:37)
[2023-12-06] MEDS: Thiamine HCL 100 MG TABLET PO (08:37)
[2023-12-06] MEDS: 0.9 % Sodium Chloride Flush 3 ML SYRINGE IVFLUSH (08:37)
[2023-12-06] MEDS: carvediloL 3.125 MG TABLET PO (08:37)
[2023-12-06] MEDS: Folic Acid 1 MG TABLET PO (08:37)
--- NOTE | 2023-12-06 08:52 | P.DS_ITS ---
DS: Providers Provider Date of Service: 12/06/23 Date of admission: 12/03/23 00:23 Date of discharge: 12/06/23 Primary care physician: Tanya Chen NP Consults: 12/03/23 00:23 Addiction Medicine Routine Consulting Provider: Vamshi Hahn Reason for consultation: alcohol use disorder DS: Diagnosis Discharge Diagnosis (1) Portal hypertension: Status: Acute (2) Esophageal varices: Status: Acute (3) Chronic alcoholic liver disease: Status: Acute DS: Summary Hospital Course Hospital Course: Chief Complaint: Alcohol withdrawal This is a 58-year-old male with pertinent history of alcohol use disorder with alcoholic cirrhosis and varices, chronic thrombocytopenia, DENISE not on CPAP, mixed hyperlipidemia who presents to the emergency department for concerns of alcohol withdrawal. Patient states he is here to seek help for his alcohol use. His last drink was 1 day prior to presentation. He drinks about 1-2 bottles of fireball every day. Patient has been feeling nauseous and has had 1 episode of nonbloody emesis. Also has been having tremors and anxiety. Does have a hist ory of alcohol withdrawal. No history of alcohol withdrawal seizures. Denies blood in vomit. Denies hematochezia or melena. No fever, chills, chest discomfort, palpitations, shortness of breath, abdominal pain, changes in urinary or bowel habits. In the emergency department, lactic acid was found to be elevated and patient was resuscitated with IV crystalloids. Also initiated on phenobarb protocol hospital course: Patient presented with alcohol withdrawal in the setting of known cirrhosis of the liver, esophageal varices and chronic thrombocytopenia, he had a postive UA, initially high sodium but now low and had hypokalemia which has been corrected. Problmes Alcohol withdrawal he wwas treated with phenobarbital, thiamine and folate replacement. addiction med has seen him and provided community resources which he says he will follow Acute lactic acidosis due to alcoholism and liver disease, no sepsis.. Initial lactic acid of 11 came down gradually and is presently just 4 Acute metabolic acidosis --likely d/t lactic acidosis and hyperchloremic met acidosis, resolved. Resolved with IVF Anemia including pancytopenia-acute on chronic, no evidence of active bleed.. H/H was above transfusion threshold Hypomagnesemia, repleted and now within normal Alcoholic cirrhosis with chronic liver failure, compensated with portal hypertension/varices: -continue lasix and aldactone, cessation discussed again Chronic thrombocytopenia due to cirrhosis: No evidence of active bleed -monitor, no heparin or lovenox DENISE: Not on CPAP Asymptomatic bacteriuria/UTI--Urine culture growin enterococcus sensitive to doxycline and will treat for 7 days. Time Attestation Discharge Coordination Time (in mins): 35 Quality: Safe Use of Opioids Does Pt have an Active Cancer Diagnosis on the Problem List?: No Quality: Stroke Does the patient have a stroke diagnosis?: No Physical Exam Vital Signs: Vital Signs: Last Vital Signs Temp 98.2 F 12/06/23 07:33 Pulse 81 12/06/23 07:33 Resp 20 12/06/23 07:33 BP 116/69 12/06/23 07:33 Pulse Ox 100 12/06/23 07:33 O2 Del Method Room Air 12/06/23 07:33 BMI result Body Mass Index 26.3 General: AO X 3, no acute distress heent: sclera icteris Resp: CTA bilateral CVS: S1,S2,RRR GI: +BS, NT, no distention Skin: No rash, large bruse on back but no hematoma Neuro: motor grossly intact, but has tremors in hand Psych: appropriate affect DS: Data Data Completed and Pending Completed studies during hospitalization [Text1]: Procedures Detoxification Services for Substance Abuse Treatment (09/14/23) Inspection of Upper Intestinal Tract, Via Natural or Artificial Opening Endoscopic (09/14/23) Transfusion of Nonautologous Frozen Plasma into Peripheral Vein, Percutaneous Approach (09/14/23) Transfusion of Nonautologous Platelets into Peripheral Vein, Percutaneous Approach (09/14/23) Labs on day of discharge: Laboratory Results - last 24 hr 12/05/23 12/05/23 12/06/23 05:20 10:27 05:39 WBC 2.7 L 1.9 L RBC 2.57 L 2.51 L Hgb 8.1 L 7.9 L Hct 23.1 L 22.6 L MCV 89.9 90.0 MCH 31.5 31.5 MCHC 35.1 35.0 RDW 17.4 H 18.0 H Plt Count 28 L D 36 L D MPV 11.4 10.7 Absolute Nucleated RBC 0.000 0.000 Nucleated RBC % (auto) 0.0 0.0 Sodium Cancelled Potassium Chloride Carbon Dioxide Anion Gap BUN Creatinine Estim Creat Clear Calc Estimated GFR Random Glucose Calcium Magnesium 1.4 L* Total Bilirubin 5.9 H Direct Bilirubin 3.2 H AST 102 H ALT 28 Alkaline Phosphatase 111 Total Protein 6.2 L Albumin 2.5 L Blood Type A Positive Antibody Screen NEGATIVE 12/06/23 12/06/23 12/06/23 05:39 05:39 05:39 WBC RBC Hgb Hct MCV MCH MCHC RDW Plt Count MPV Absolute Nucleated RBC Nucleated RBC % (auto) Sodium 134 L Potassium Cancelled 3.6 Chloride Cancelled 108 Carbon Dioxide Cancelled Anion Gap BUN Creatinine Estim Creat Clear Calc Estimated GFR Random Glucose Calcium Magnesium Total Bilirubin Direct Bilirubin AST ALT Alkaline Phosphatase Total Protein Albumin Blood Type Antibody Screen 12/06/23 12/06/23 12/06/23 05:39 05:39 05:39 WBC RBC Hgb Hct MCV MCH MCHC RDW Plt Count MPV Absolute Nucleated RBC Nucleated RBC % (auto) Sodium Potassium Chloride Carbon Dioxide 19 L Anion Gap Cancelled 11 L BUN Cancelled 4 L Creatinine Cancelled Estim Creat Clear Calc Estimated GFR Random Glucose Calcium Magnesium Total Bilirubin Direct Bilirubin AST ALT Alkaline Phosphatase Total Protein Albumin Blood Type Antibody Screen 12/06/23 12/06/23 12/06/23 05:39 05:39 05:39 WBC RBC Hgb Hct MCV MCH MCHC RDW Plt Count MPV Absolute Nucleated RBC Nucleated RBC % (auto) Sodium Potassium Chloride Carbon Dioxide Anion Gap BUN Creatinine 0.81 Estim Creat Clear Calc Cancelled 91.8 Estimated GFR Cancelled > 60 Random Glucose Cancelled Calcium Magnesium Total Bilirubin Direct Bilirubin AST ALT Alkaline Phosphatase Total Protein Albumin Blood Type Antibody Screen 12/06/23 12/06/23 12/06/23 05:39 05:39 05:39 WBC RBC Hgb Hct MCV MCH MCHC RDW Plt Count MPV Absolute Nucleated RBC Nucleated RBC % (auto) Sodium Potassium Chloride Carbon Dioxide Anion Gap BUN Creatinine Estim Creat Clear Calc Estimated GFR Random Glucose 101 Calcium Cancelled 8.3 L Magnesium Cancelled 1.9 Total Bilirubin Direct Bilirubin AST ALT Alkaline Phosphatase Total Protein Albumin Blood Type Antibody Screen Preliminary micro results at discharge 12/02/23 18:29 Blood Culture - Preliminary Blood - Venous No growth after 48 hours. 12/02/23 17:44 Blood Culture - Preliminary Blood - Venous No growth after 48 hours. Discharge Plan Discharge Anticipated Discharge Date/Time: 12/06/23 07:47 Patient Disposition: Home, Self-Care Discharge Diagnosis: Alcohol withdrawal, UTI, hypo. Referrals: Tanya Chen NP [Primary Care Provider] - 1 Week Discharge Medications: New doxycycline monohydrate 100 mg Capsule 100 mg PO Q12H Qty: 13 0RF Continued folic acid 1 mg Tablet 1 mg PO DAILY 30 Days Qty: 30 0RF thiamine HCl (vitamin B1) 50 mg tablet 100 mg PO DAILY 30 Days Qty: 60 0RF carvedilol 3.125 mg tablet 3.125 mg PO BID pantoprazole 40 mg tablet,delayed release (DR/EC) 40 mg PO DAILY furosemide 20 mg tablet 20 mg PO DAILY spironolactone 50 mg tablet 50 mg PO DAILY Diet: Advance to usual diet Activity on Discharge: As tolerated Stand Alone Forms: Patient Portal Discharge page Print Language: Korean Care Plan Goals: Every from alcoholism treatment of UTI Health Concerns: chronic alcoholic liver disease alcohol withdrawal UTI hypokalemia Plan of Treatment: avoid alcohol at all costs and follow through the community resources given to you take doxycycline to treat UTI follow-up with your primary care doctor within a week. call for appointment Assessment: see above
[2023-12-06 12:41] LABS: Anion Gap 11 (12-20); Carbon Dioxide 21 mmol/L (22-29); Chloride 106 mmol/L (96-108); Potassium 3.9 mmol/L (3.3-5.1); Sodium 134 mmol/L (135-145)
--- NOTE | 2023-12-06 12:49 | MHC.CM.PN ---
Pt is medically cleared for discharge home self-care, pt will transport home via lyft.
== END 2023-12-06 14:47 | disposition home or self-care (01) | DRG 775 ==
LOC: HO.ED 12-03 00:15 → HO.EDOVER 12-03 00:25 → HO.S3 12-03 09:24
PROVIDERS: Physician Assistant; Admitting Provider Student in an Organized Health Care Education/Training Program; Emergency Provider Emergency Medicine; PCP Nurse Practitioner Family; Visit Provider Internal Medicine
DX: F10.239 Alcohol dependence with withdrawal, unspecified (principal); E87.21 Acute metabolic acidosis; I85.10 Secondary esophageal varices without bleeding; K76.6 Portal hypertension; K72.10 Chronic hepatic failure without coma; D64.9 Anemia, unspecified; K70.30 Alcoholic cirrhosis of liver without ascites; G47.33 Obstructive sleep apnea (adult) (pediatric); D69.59 Other secondary thrombocytopenia; E83.42 Hypomagnesemia; E78.2 Mixed hyperlipidemia; N39.0 Urinary tract infection, site not specified; Y90.8 Blood alcohol level of 240 mg/100 ml or more; Z20.822 Contact with and (suspected) exposure to COVID-19; Z79.899 Other long term (current) drug therapy
CPT/HCPCS: 0241U; 36415; 70450; 71045; 72125; 74177; 80048; 80051; 80053; 80076; 80307; 81001; 82010; 82550; 82803; 83605; 83690; 83735; 84100; 84484; 85025; 85027; 85610; 85730; 86850; 86900; 86901; 87040; 87086; 87088; 87186; 93005; 93306; 99285; J0696; J1630; J2405; J2560; J3411; J3475; J7120; Q9967

== ENCOUNTER → 2023-12-02 16:51 | Outpatient (BNV) | payer BC, SELFPAY | PROVIDERS: Admitting Provider Student in an Organized Health Care Education/Training Program; Emergency Provider Emergency Medicine; PCP Nurse Practitioner Family; Visit Provider Internal Medicine | DX: R00.0 Tachycardia, unspecified (principal) | CPT/HCPCS: 93010 ==

== ENCOUNTER 2023-12-03 00:23 | Outpatient (BNV) | payer BC, SELFPAY | END 2023-12-04 13:00 | PROVIDERS: Admitting Provider Student in an Organized Health Care Education/Training Program; Emergency Provider Emergency Medicine; PCP Nurse Practitioner Family; Visit Provider Internal Medicine | DX: I31.39 Other pericardial effusion (noninflammatory) (principal) | CPT/HCPCS: 93306 ==

== ENCOUNTER → 2023-12-03 00:23 | Outpatient (BNV) | payer BC, SELFPAY | PROVIDERS: Admitting Provider Student in an Organized Health Care Education/Training Program; Emergency Provider Emergency Medicine; PCP Nurse Practitioner Family; Visit Provider Student in an Organized Health Care Education/Training Program | DX: K76.6 Portal hypertension (principal); I85.00 Esophageal varices without bleeding; K70.9 Alcoholic liver disease, unspecified | CPT/HCPCS: 99223; 99232; 99239; 99499 ==

== ENCOUNTER 2023-12-09 15:20 | Emergency (ER) | payer BC, SELFPAY ==
[2023-12-09 15:40] VITALS: BP 116/70; BP 150/60; PULSE 84; PULSE 90; RESP 16; O2SAT 100; O2SAT 98; BMI 26.2
--- NOTE | 2023-12-09 15:40 | ECG_ITS ---
Test Reason : ETOH Blood Pressure : / mmHG Vent. Rate : 081 BPM Atrial Rate : 081 BPM P-R Int : 164 ms QRS Dur : 084 ms QT Int : 398 ms P-R-T Axes : 048 001 026 degrees QTc Int : 462 ms Normal sinus rhythm Normal ECG When compared with ECG of 02-DEC-2023 17:28, Vent. rate has decreased BY 40 BPM T wave amplitude has increased in Lateral leads Referred By: Slick Sabillon Electronically Signed By:HERSON ESPANA
--- NOTE | 2023-12-09 15:52 | ED.GENADULT ---
HPI - General Adult General Chief complaint: ETOH/Substance Use Stated complaint: etoh, section [address] by cpd Time Seen by Provider: 12/09/23 15:37 Source: patient History of Present Illness ED Provider: Ramandeep JOSEPH narrative: 58-year-old male with past medical history of depression, alcohol use disorder, esophageal varices, cirrhosis presenting for hospital evaluation at the request of [place] police. Patient was supposedly supposed to go to court today however he was intoxicated and check the police requested he present to the hospital on [place] 35 to sober up. Patient endorses drinking alcohol today however denies drug use. Patient denies SI/HI. Patient states he would like to go home. Patient thinks that his daughter called the police on him because he kicked her out of the house last night. Related Data Home Medications ?Medication ?Instructions ?Recorded ?Confirmed carvedilol 3.125 mg tablet 3.125 mg PO BID 12/03/23 12/03/23 furosemide 20 mg tablet 20 mg PO DAILY 12/03/23 12/03/23 pantoprazole 40 mg tablet,delayed 40 mg PO DAILY 12/03/23 12/03/23 release spironolactone 50 mg tablet 50 mg PO DAILY 12/03/23 12/03/23 Previous Rx's ?Medication ?Instructions ?Recorded folic acid 1 mg tablet 1 mg PO DAILY 30 days #30 tabs 09/20/23 thiamine HCl (vitamin B1) 50 mg 100 mg (2 x 50 mg) PO DAILY 30 09/20/23 tablet days #60 tabs doxycycline monohydrate 100 mg 100 mg PO Q12H #13 caps 12/06/23 capsule Allergies Allergy/AdvReac Type Severity Reaction Status Date / Time No Known Allergies Allergy Verified 12/09/23 15:51 Review of Systems Review of Systems: Patient endorses alcohol use Patient denies head pain, neck pain, shortness of breath, chest pain, abdominal pain, nausea, vomiting, urinary symptoms Yes all other systems are reviewed and are negative [facility] Past Medical History Attestation statement: The following information was validated with the patient. [facility] Narrative: Alcohol use disorder, cirrhosis, esophageal varices Source: old records reviewed Medical History Tubular adenoma Subclinical hypothyroidism Alcohol use disorder BPH (benign prostatic hyperplasia) Obstructive sleep apnea Hyperlipidemia Portal hypertension Esophageal varices Alcoholic cirrhosis Social History Social History Household Members: Family Household Members Other:: Mother, daughter, daughter's boyfriend Housing: House Do you presently have visiting nurse or other home services: No Alcohol intake: current Alcohol intake frequency: 3 or more drinks per day Alcohol type: hard liquor Comment: 1:1 sitter at bedside Patient Tobacco Use Status: Never used Tobacco e-Cigarette/Vaping Use: Never Used Substance Use Type: Other Advance Directives: Yes Advance Directives on File: Yes Advance Directives Date on File: 08/16/23 service: No Physical Exam ED Vital Signs: Vital Signs - 24 hr 12/09/23 15:40 12/09/23 18:14 Temperature 97.2 F Pulse Rate 84 68 Respiratory Rate 16 16 Blood Pressure 116/70 110/68 Pulse Oximetry 98 98 Oxygen Delivery Method Room Air BMI result Body Mass Index 26.2 Patient appears intoxicated however is A&O x4; no focal neurologic deficits Launch clear to auscultation bilaterally; normal S1-S2 regular rate rhythm Abdomen is soft nontender nondistended Bruising noted the patient's backside. Patient states that this is old and was a result from lying on the ground for an extended period of time. (bruising noted in patients record form last week) Course Reevaluation(s) Reevaluation #1: I spoke with [place] police Department who states that patient does not need to be released to into their custody. Time: 20:38 Reevaluation #2: Pt appearing clinically sober walking with steady gait Time: 20:39 Medical Decision Making Medical Decision Making [facility] Narrative: Patient is visibly intoxicated however at this time there are no concerns for any acute underlying illness We will hold the patient for sobriety and contact should be police when he is clinically sober EKG and point of care glucose ordered On reassessment patient is clinically sober and ready be discharged. I confirmed with chicken pleased that he does not need be released into their custody. I gave patient return precautions and follow up instruction Differential Diagnosis Differential Diagnoses: The differential diagnosis associated with the presentation includes Intoxication Lab Data Labs: Lab Results 12/09/23 Range/Units 16:10 POC Glucose 107 (60-115) mg/dL Discharge Plan Discharge Clinical Impression: Alcohol intoxication Patient Disposition: Home, Self-Care Additional Instructions: Please refrain from excessive alcohol consumption Please schedule an appointment with your outpatient providers to be evaluated in 24-48 hours If you develop any new or worsening symptoms please seek immediate medical attention or return to this emergency department Prescriptions: No Action folic acid 1 mg Tablet 1 mg PO DAILY 30 Days Qty: 30 0RF thiamine HCl (vitamin B1) 50 mg tablet 100 mg PO DAILY 30 Days Qty: 60 0RF carvedilol 3.125 mg tablet 3.125 mg PO BID pantoprazole 40 mg tablet,delayed release (DR/EC) 40 mg PO DAILY furosemide 20 mg tablet 20 mg PO DAILY spironolactone 50 mg tablet 50 mg PO DAILY doxycycline monohydrate 100 mg Capsule 100 mg PO Q12H Qty: 13 0RF Print Language: Slovak
--- NOTE | 2023-12-09 15:55 | PC.NURSE ---
[facility] ED PCT at bedside obtaining EKG at this time.
--- NOTE | 2023-12-09 16:07 | MHC.EDTECH ---
Patient was biba ,ekg taken and was read by Provider ,blood sugar check ,Patient was change into hospital attire ,all Patient belongings are at bedside .
[2023-12-09 17:23] LABS: Glucose, Whole Blood 107 mg/dL (60-115)
[2023-12-09 18:14] VITALS: BP 110/68; PULSE 68; RESP 16; TEMP 36.2; O2SAT 98
[2023-12-09 20:47] VITALS: BP 110/68; PULSE 68; RESP 16; TEMP 36.2; O2SAT 98
== END 2023-12-09 20:48 | disposition home or self-care (01) ==
PROVIDERS: Emergency Provider Student in an Organized Health Care Education/Training Program; PCP Nurse Practitioner Family
DX: F10.120 Alcohol abuse with intoxication, uncomplicated (principal); Y90.9 Presence of alcohol in blood, level not specified; K70.30 Alcoholic cirrhosis of liver without ascites; E78.5 Hyperlipidemia, unspecified; Z79.899 Other long term (current) drug therapy
CPT/HCPCS: 82947; 93005; 99283; 99284

== ENCOUNTER 2024-01-30 17:07 | Emergency (ER) | payer BC, SELFPAY ==
--- NOTE | ~2024-01-30 | XR_ITS ---
EXAMINATION: XR KNEE, RIGHT CLINICAL INFORMATION: Right knee pain. Swelling, ecchymosis. COMPARISON: None available. TECHNIQUE: Four views of the right knee. FINDINGS: No acute fracture or dislocation. No joint space narrowing or marginal osteophytes. No osseous erosion. No joint effusion. No abnormal soft tissue calcification. XR/XR knee RT 4V IMPRESSION: Unremarkable examination. Electronically signed by: Andrez Perez MD 01/30/2024 09:28 PM EDT
[2024-01-30 17:10] VITALS: BP 142/86; PULSE 110; O2SAT 98; BMI 25.8
[2024-01-30 17:16] VITALS: BP 116/69; PULSE 76; RESP 16; TEMP 37.2; O2SAT 99
[2024-01-30 17:25] LABS: MANUAL DIFF FLAG NO
[2024-01-30 17:27] LABS: Basophils Percent Auto 0.5 % (0-2); Eosinophils Percent Auto 0.2 % (0-4); Hematocrit 31.5 % (42.0-52.0); Imm Gran Abs Auto 0.04 X10*3/uL (0.00-0.03); Imm Gran Pct Auto 0.7 % (0.0-0.4); Lymphocytes Absolute Auto 0.2 X10*3/uL (1.2-4.9); Mean Corpuscular HGB Conc 34.9 g/dl (31.0-36.0); Mean Corpuscular Hemoglobin 29.6 pg (27.0-33.0); Mean Corpuscular Volume 84.9 fL (80.0-98.0); Monocytes Absolute Auto 0.3 X10*3/uL (0.1-1.2); Monocytes Percent Auto 4.6 % (2-11); Neutrophils Absolute Auto 5.1 x10*3/uL (2.0-8.3); Red Blood Count 3.71 X10*6/uL (4.60-5.80); Red Cell Distribution Width 14.3 % (11.0-16.0); White Blood Count 5.7 X10*3/uL (4.8-10.8)
[2024-01-30 17:31] VITALS: PULSE 76
[2024-01-30 17:36] LABS: Platelet Count 52 X10*3/uL (160-400)
[2024-01-30 17:41] LABS: Alanine Aminotransferase 30 U/L (0-40); Alkaline Phosphatase 128 U/L (39-117); Anion Gap 18 (12-20); Aspartate Amino Transferase 84 U/L (5-37); Bilirubin Total 2.7 mg/dL (0.0-1.0); Blood Urea Nitrogen 13 mg/dL (9-16); Calcium 7.7 mg/dL (8.4-10.2); Carbon Dioxide 20 mmol/L (22-29); Chloride 111 mmol/L (96-108); Creatinine Clr Calc Pharmacy 94.8; Estimated Glomerular Filt Rate > 60; Ethanol 382 mg/dL; Glucose Random 178 mg/dL (60-115); Potassium 3.6 mmol/L (3.3-5.1); Sodium 145 mmol/L (135-145); Total Protein 7.1 g/dL (6.5-8.0)
[2024-01-30 17:48] LABS: Appearance Urine Clear; Color Urine Dark Yellow; Glucose Urine UA Negative (Negative); Leukocyte Esterase Urine Trace (Negative); Nitrite Urine Negative (Negative); PH 6.5 (5.0-9.0); Specific Gravity - Urine 1.025 (1.005-1.025); UMIC TRIGGER UACC YES; Urine Blood Moderate (2+) (Negative); Urine Ketones Negative (Negative); Urine Protein 100 (2+) mg/dL (Neg-Trace)
[2024-01-30 17:51] LABS: Bacteria Urine None Seen (None Seen); Hyaline Casts Urine 0-2 /LPF (0-2); Squamous Epithelial Cell Urine 0-2 /HPF (0-2); WBC Urine 0-5 /HPF (0-5)
[2024-01-30 17:58] LABS: Amphetamine Screen Urine Not Detected (Not Detect); Barbiturates, Urine Not Detected (Not Detect); Benzodiazepines Screen Urine Not Detected (Not Detect); Buprenorphine Scr Not Detected (Not Detect); Cannabinoid Screen Urine Not Detected (Not Detect); Cocaine Screen Urine Not Detected (Not Detect); Fentanyl, urine Not Detected (Not Detect); Methadone Screen, Urine Not Detected (Not Detect); Opiate Screen Urine Not Detected (Not Detect); Oxycodone Screen Urine Not Detected (Not Detect); Phencyclidine Screen Urine Not Detected (Not Detect)
[2024-01-30 19:21] LABS: Lipase 26 U/L (8-78); Magnesium 1.9 mg/dL (1.6-2.6)
--- NOTE | 2024-01-30 20:13 | ED.ALCOHOL ---
HPI - Alcohol General Chief Complaint: ETOH/Substance Use Stated Complaint: etoh,fall, wants to talk to crisis Time Seen by Provider: 01/30/24 17:57 Source: patient, EMS, RN notes reviewed and old records reviewed Mode of arrival: EMS History of Present Illness ED Provider: Mel Christianson PA-C HPI narrative: 58-year-old male with a past medical history of ETOH use disorder, BPH, DENISE, HLD, portal hypertension, esophageal varices, cirrhosis, presenting to ED via EMS for ETOH intoxication. Patient states I drank too much, admits to drinking 6 bottles of fireball. Reports history of ETOH withdrawal, denies known withdrawal seizures. States recently finished 45 day rehab, and is interested in detox again. Denies illicit substance use, recent injury/trauma or fall. Patient does report remote trauma while playing basketball at rehab, was hit in the face and right knee, old. Related Data Home Medications ?Medication ?Instructions ?Recorded ?Confirmed carvedilol 3.125 mg tablet 3.125 mg PO BID 12/03/23 12/03/23 furosemide 20 mg tablet 20 mg PO DAILY 12/03/23 12/03/23 pantoprazole 40 mg tablet,delayed 40 mg PO DAILY 12/03/23 12/03/23 release spironolactone 50 mg tablet 50 mg PO DAILY 12/03/23 12/03/23 Previous Rx's ?Medication ?Instructions ?Recorded folic acid 1 mg tablet 1 mg PO DAILY 30 days #30 tabs 09/20/23 thiamine HCl (vitamin B1) 50 mg 100 mg (2 x 50 mg) PO DAILY 30 09/20/23 tablet days #60 tabs doxycycline monohydrate 100 mg 100 mg PO Q12H #13 caps 12/06/23 capsule Allergies Allergy/AdvReac Type Severity Reaction Status Date / Time No Known Allergies Allergy Verified 01/30/24 17:12 Review of Systems Review of Systems: Yes all other systems are reviewed and are negative Constitutional: Constitutional: Reports as per [facility] Past Medical History Attestation statement: The following information was validated with the patient. Source: old records reviewed Medical History Chronic alcoholic liver disease Tubular adenoma Subclinical hypothyroidism Alcohol use disorder BPH (benign prostatic hyperplasia) Obstructive sleep apnea Hyperlipidemia Portal hypertension Esophageal varices Alcoholic cirrhosis Social History Social History Household Members: Family Household Members Other:: Mother, daughter, daughter's boyfriend Housing: House Do you presently have visiting nurse or other home services: No Alcohol intake: current Alcohol intake frequency: 3 or more drinks per day Alcohol type: hard liquor Comment: 1:1 sitter at bedside Patient Tobacco Use Status: Never used Tobacco Smoked in Last 30 Days: No e-Cigarette/Vaping Use: Never Used Use of substances other than those prescribed or required for medical reasons: No Substance Use Type: Other Advance Directives: Yes Advance Directives on File: Yes Advance Directives Date on File: 08/16/23 Do you have a plan to hurt others: No Plan service: No Physical Exam ED Vital Signs: Vital Signs - 24 hr 01/30/24 17:16 Temperature 98.9 F Pulse Rate 76 Respiratory Rate 16 Blood Pressure 116/69 Pulse Oximetry 99 Oxygen Delivery Method Room Air BMI result Body Mass Index 25.8 Const Other: + ETOH odor on breath. Intoxicated General: cooperative, no acute distress, alert and awake Orientation/consciousness: patient oriented x3 HENMT Other: + healing ecchymosis noted to right periorbital region. No palpable step-off. EOMs intact. Head: Yes normal to inspection and Yes atraumatic Ears: hearing grossly normal bilaterally General nose exam: Normal external nose present Face and sinus: Yes normal facial exam Mouth: Normal oral and palatal mucosa present Eyes General: appearance normal, both eyes and all related structures Pupils: Equal, round and reactive pupils present EOM: EOMs intact bilaterally Neck Neck: Yes normal visual inspection and Yes no meningeal signs Resp Effort & Inspection: normal respiratory effort and no respiratory distress Auscultation: clear to auscultation bilaterally Cardio Rate: regular rate Heart sounds: S1 normal heart sound present and S2 normal heart sound present GI Inspection: Yes normal to inspection Palpation (GI): Soft to palpation, nontender, no guarding and not rigid Back/Spine/Pelvis Other: No midline cervical/thoracic/lumbar spinous tenderness/step-off or deformity Skin Rashes: no rashes Wounds: no wounds Neuro General: patient oriented x3, tone normal, moves all extremities and no meningeal signs Cranial nerves: Yes CN's II-XII intact bilaterally and Yes Equal, round and reactive pupils present Extrem Other: Right knee with appreciable swelling, healing ecchymosis/erythema. Mildly tender. Full range of motion intact. Neurovascularly intact distally. Course Course Course Narrative: -chronic anemia. Calcium chronically low. Total bilirubin chronically elevated. AST chronically elevated. -UA not infected -ethanol 382 > physician observation initiated at 20:41 as patient needs more time to be evaluated by CARE team for detox -2100-- ED care transferred to RAFA[facility] Rosenthal pending knee x-ray, CARE team consult, and observation for clinical sobriety. Medical Decision Making Medical Decision Making MDM Narrative: 58-year-old male with a past medical history of ETOH use disorder, BPH, DENISE, HLD, portal hypertension, esophageal varices, cirrhosis, presenting to ED via EMS for ETOH intoxication. On exam vital signs stable, EtOH odor on breath, intoxicated, no evidence of new trauma. Old trauma noted with healing ecchymosis to right periorbital region and right knee. No midline spinous tenderness or focal neuro deficits. Concern for ETOH intoxication. Lower suspicion for ICH/acute fractures Plan: Labs, detox Please refer to course for remaining clinical decision making, interpretation of labs/imaging results, and discussions with consultants and/or family members. Differential Diagnosis Differential Diagnoses: The differential diagnosis associated with the presentation includes As above Admission/Observation Consideration of admission/observation: Escalation of care including admission/observation considered Consult Healthcare Provider Management of the patient was discussed with: Behavioral Health Provider Lab Data [facility] Lab Attestation statement: I reviewed the patient's lab results. 01/30/24 17:19 01/30/24 17:19 Labs: Lab Results 01/30/24 01/30/24 Range/Units 17:19 17:39 WBC 5.7 (4.8-10.8) X10*3/uL RBC 3.71 L D (4.60-5.80) X10*6/uL Hgb 11.0 L D (14.0-18.0) g/dl Hct 31.5 L D (42.0-52.0) % MCV 84.9 (80.0-98.0) fL MCH 29.6 (27.0-33.0) pg MCHC 34.9 (31.0-36.0) g/dl RDW 14.3 (11.0-16.0) % Plt Count 52 L D (160-400) X10*3/uL MPV 9.0 L (9.4-12.4) fL Immature Gran % (Auto) 0.7 H (0.0-0.4) % Neut % (Auto) 90.0 H (45-73) % Lymph % (Auto) 4.0 L (20-40) % [place] % (Auto) 4.6 (2-11) % Eos % (Auto) 0.2 (0-4) % Baso % (Auto) 0.5 (0-2) % Lymph # (Auto) 0.2 L (1.2-4.9) X10*3/uL [place] # (Auto) 0.3 (0.1-1.2) X10*3/uL Eos # (Auto) 0.0 (0.0-0.4) X10*3/uL Baso # (Auto) 0.0 (0.0-0.2) X10*3/uL Abs Immat Gran (auto) 0.04 H (0.00-0.03) X10*3/uL Absolute Neuts (auto) 5.1 (2.0-8.3) x10*3/uL Absolute Nucleated RBC 0.000 (0.0-0.012) X10*3/uL Nucleated RBC % (auto) 0.0 (0.0-0.2) /100WBC Sodium 145 (135-145) mmol/L Potassium 3.6 (3.3-5.1) mmol/L Chloride 111 H (96-108) mmol/L Carbon Dioxide 20 L (22-29) mmol/L Anion Gap 18 (12-20) BUN 13 (9-16) mg/dL Creatinine 0.87 (0.5-1.4) mg/dL Estim Creat Clear Calc 94.8 Estimated GFR > 60 Random Glucose 178 H (60-115) mg/dL Calcium 7.7 L D (8.4-10.2) mg/dL Magnesium 1.9 (1.6-2.6) mg/dL Total Bilirubin 2.7 H (0.0-1.0) mg/dL AST 84 H (5-37) U/L ALT 30 (0-40) U/L Alkaline Phosphatase 128 H (39-117) U/L Total Protein 7.1 (6.5-8.0) g/dL Albumin 3.0 L (3.5-5.0) g/dL Lipase 26 (8-78) U/L Urine Color Dark Yellow Urine Appearance Clear Urine pH 6.5 (5.0-9.0) Ur Specific [place] 1.025 (1.005-1.025) Urine Protein 100 (2+) H (Neg-Trace) mg/dL Urine Glucose (UA) Negative (Negative) mg/dL Urine Ketones Negative (Negative) mg/dL Urine Blood Moderate (2+) H (Negative) Urine Nitrite Negative (Negative) Ur Leukocyte Esterase Trace H (Negative) Urine RBC 11-20 H (0-2) /HPF Urine WBC 0-5 (0-5) /HPF Ur Squamous Epith Cells 0-2 (0-2) /HPF Urine Bacteria None Seen (None Seen) Hyaline Casts 0-2 (0-2) /LPF Urine Opiates Screen Not Detected (Not Detect) Ur Buprenorphine Scrn Not Detected (Not Detect) ng/mL Ur Oxycodone Screen Not Detected (Not Detect) ng/mL Urine Methadone Screen Not Detected (Not Detect) ng/mL Urine Fentanyl Screen Not Detected (Not Detect) Ur Barbiturates Screen Not Detected (Not Detect) Ur Phencyclidine Scrn Not Detected (Not Detect) Ur Amphetamines Screen Not Detected (Not Detect) U Benzodiazepines Scrn Not Detected (Not Detect) Urine Cocaine Screen Not Detected (Not Detect) U Marijuana (THC) Screen Not Detected (Not Detect) Ethyl Alcohol 382 H* mg/dL Radiology Impression Discussion of test interpretation with radiology: I have reviewed the radiologist's reading. Independent Historian Clinical information obtained from an independent historian. History obtained from or confirmed by: EMS External Record Review External record reviewed: Inpatient record, Office record, Outpatient record, Prior outpatient labs, Prior outpatient radiology, Primary care record and Outside ED record Tests considered The following testing was considered but not selected: As above Social Determinants Patient?s care significantly limited by Social Determinants of Health including: Inadequate housing, Low income, Alcoholism and drug addiction in family, Problems related to primary support group, Problems related to employment and Other Social Determinant of Health Discharge Plan Discharge Clinical Impression: Alcoholic intoxication Patient Disposition: Still a Patient Prescriptions: No Action folic acid 1 mg Tablet 1 mg PO DAILY 30 Days Qty: 30 0RF thiamine HCl (vitamin B1) 50 mg tablet 100 mg PO DAILY 30 Days Qty: 60 0RF carvedilol 3.125 mg tablet 3.125 mg PO BID pantoprazole 40 mg tablet,delayed release (DR/EC) 40 mg PO DAILY furosemide 20 mg tablet 20 mg PO DAILY spironolactone 50 mg tablet 50 mg PO DAILY doxycycline monohydrate 100 mg Capsule 100 mg PO Q12H Qty: 13 0RF Print Language: South Korean
[2024-01-30 21:20] VITALS: BP 131/74; PULSE 115; RESP 16; TEMP 37
[2024-01-30 22:24] VITALS: BP 122/71; PULSE 100; RESP 16; O2SAT 98
--- NOTE | 2024-01-30 22:54 | PC.NURSE ---
Assumed care of pt at 191 - pt observed by computational physicist initially d/t 1:1 for this RN with critical care pt. Received updated report from computational physicist at this time. Pt currently lying on stretcher with no acute distress at this time. Respirations even and unlabored. pt changed over by Security.
[2024-01-31] MEDS: LORazepam 1 MG TABLET PO ×2 (00:20→05:29)
[2024-01-31 01:23] VITALS: BP 136/73; PULSE 102; RESP 16; TEMP 37.1; O2SAT 98
[2024-01-31 06:00] VITALS: BP 143/79; PULSE 102; RESP 16; TEMP 37.1; O2SAT 100
--- NOTE | 2024-01-31 07:40 | PC.NURSE ---
med rec completed with patient. Patient reports has not been taking lasiks, spironolactone, because he no longer had edema in feet and ankles , states her pcp is aware he is no longer taking
[2024-01-31] MEDS: carvediloL 3.125 MG TABLET PO (08:06)
[2024-01-31] MEDS: Thiamine HCL 100 MG TABLET PO (08:06)
[2024-01-31] MEDS: Omeprazole 20 MG CAPSULE.DR PO (08:07)
[2024-01-31] MEDS: Folic Acid 1 MG TABLET PO (08:07)
--- NOTE | 2024-01-31 09:14 | PC.NURSE ---
Patient reporting he wants to be discharged home because he needs to work this afternoon, recovery at bedside speaking with patient
[2024-01-31 10:12] VITALS: BP 140/80; PULSE 90; RESP 18; TEMP 37.1; O2SAT 98
--- NOTE | 2024-01-31 10:12 | MHC.RECOVRN ---
Briefly met with pt in [id number], along with acetone recovery worker Jp, after pt requesting ATS. Prior to meeting with pt, RN informed t/w pt no longer requesting ATS and wants to dc home. Pt sitting in bed, awake, alert, easily engages in conversation, appears comfortable. Pt reports he was recently at [place] x 45 days and released on 01/22/24. Pt reports he had a few days of no alcohol use after release but has had a recurrence x 2-3 days. Pt reports he has been drinking 1/2 liter Fireball daily. Denies hx withdrawal seizures. Pt educated regarding dangers of abrupt cessation of alcohol use. Pt is not interested in ATS placement from the ED, he wishes to return home and follow up with outpatient providers. Pt reports he has a therapist and also attends meetings at [facility]. Pt provided with [facility] information as well as t/w contact information if needed. Denies questions or concerns for t/w. Discussed with ED provider, pt to dc home.
--- NOTE | 2024-01-31 10:14 | PC.NURSE ---
Patient stating does not have a ride home, provided with shuttle pass, and aware he needs to wait in ED waiting room and shuttle will pick him up at the doors
== END 2024-01-31 10:15 | disposition home or self-care (01) ==
PROVIDERS: Physician Assistant; Emergency Provider Internal Medicine; PCP Nurse Practitioner Family
DX: F10.129 Alcohol abuse with intoxication, unspecified (principal); M25.561 Pain in right knee; Y90.8 Blood alcohol level of 240 mg/100 ml or more; Z51.81 Encounter for therapeutic drug level monitoring; Z79.899 Other long term (current) drug therapy
CPT/HCPCS: 36415; 73564; 80053; 80307; 81001; 83690; 83735; 85025; 99285

== ENCOUNTER 2024-02-10 17:45 | Emergency (ER) | payer BC, SELFPAY ==
[2024-02-10 17:51] VITALS: BP 130/82; PULSE 99; O2SAT 99
[2024-02-10 18:00] VITALS: BP 124/75; PULSE 95; RESP 18; TEMP 36.6; O2SAT 92; BMI 24.7
[2024-02-10 18:35] LABS: MANUAL DIFF FLAG NO
[2024-02-10 18:40] LABS: INTERNATIONAL NORM RATIO 1.6 (0.9-1.1); Prothrombin Time 18.2 SEC (10.9-12.4)
[2024-02-10 18:43] LABS: Partial Thromboplastin Time 29.1 SEC (26.0-36.8)
[2024-02-10 18:49] LABS: Basophils Percent Auto 0.6 % (0-2); Eosinophils Percent Auto 0.6 % (0-4); Hematocrit 31.5 % (42.0-52.0); Hemoglobin 10.8 g/dl (14.0-18.0); Imm Gran Abs Auto 0.01 X10*3/uL (0.00-0.03); Imm Gran Pct Auto 0.2 % (0.0-0.4); Lymphocytes Absolute Auto 0.6 X10*3/uL (1.2-4.9); Lymphocytes Percent Auto 12.1 % (20-40); Mean Corpuscular HGB Conc 34.3 g/dl (31.0-36.0); Mean Corpuscular Hemoglobin 28.7 pg (27.0-33.0); Mean Corpuscular Volume 83.8 fL (80.0-98.0); Mean Platelet Volume 11.9 fL (9.4-12.4); Monocytes Absolute Auto 0.2 X10*3/uL (0.1-1.2); Monocytes Percent Auto 4.6 % (2-11); Neutrophils Absolute Auto 3.9 x10*3/uL (2.0-8.3); Neutrophils Percent Auto 81.9 % (45-73); Red Blood Count 3.76 X10*6/uL (4.60-5.80); Red Cell Distribution Width 15.4 % (11.0-16.0); White Blood Count 4.8 X10*3/uL (4.8-10.8)
[2024-02-10 18:50] LABS: Platelet Count 29 X10*3/uL (160-400)
[2024-02-10 18:56] LABS: Alanine Aminotransferase 27 U/L (0-40); Albumin Level 3.1 g/dL (3.5-5.0); Alkaline Phosphatase 127 U/L (39-117); Anion Gap 14 (12-20); Aspartate Amino Transferase 100 U/L (5-37); Bilirubin Total 3.7 mg/dL (0.0-1.0); Blood Urea Nitrogen 8 mg/dL (9-16); Calcium 8.1 mg/dL (8.4-10.2); Carbon Dioxide 25 mmol/L (22-29); Chloride 103 mmol/L (96-108); Creatinine Clr Calc Pharmacy 91.8; Estimated Glomerular Filt Rate > 60; Glucose Random 135 mg/dL (60-115); Magnesium 1.5 mg/dL (1.6-2.6); Potassium 3.2 mmol/L (3.3-5.1); Sodium 139 mmol/L (135-145); Total Protein 7.1 g/dL (6.5-8.0)
[2024-02-10 19:00] VITALS: BP 112/69; PULSE 85; RESP 16; TEMP 37.1; O2SAT 100
[2024-02-10 19:25] LABS: Influenza A PCR NEGATIVE (Negative); Influenza B PCR NEGATIVE (Negative); Resp Syncy Virus RNA Qual PCR NEGATIVE (Negative); SARS COV2 PCR INHOUSE NEGATIVE (Negative)
[2024-02-10 21:55] VITALS: BP 106/86; PULSE 86; RESP 16; O2SAT 99
--- NOTE | 2024-02-10 22:21 | PC.NURSE ---
pt alert, and oriented. comes in for nausea and vomiting with blood in vomit at home. Denies nausea right now. no vomiting seen in ED. Pt resting in stretcher and currently has no complaints. He denies pain. CIWA 0. Last drink a few minutes [employer], right before EMS got to his house. He has some dark tinged substance dried to his moustache and a echymosis to his right eye. He does not know how it happened
--- NOTE | 2024-02-10 23:16 | PC.NURSE ---
this rn assumed care of pt, pt a&ox4, respiration even and unlabored. pt denies pain at this time, no acute distress noted.
--- NOTE | 2024-02-11 01:21 | ED.ALCOHOL ---
HPI - Alcohol General Chief Complaint: ETOH/Substance Use Stated Complaint: drinking all day, coughing up blood Time Seen by Provider: 02/10/24 20:34 Source: patient Mode of arrival: ambulatory Limitations: no limitations History of Present Illness ED Provider: Dr. Sussy Fall HPI narrative: patient comes to the emergency room complaining of vomiting. Earlier today, in triage she was noted that patient was vomiting blood. However, patient is adamant that he was vomiting but there was no blood in it at all. Patient denies SI or HI, patient states that he is aware that he has alcohol problems, would like to talk to the care team. Related Data Home Medications ?Medication ?Instructions ?Recorded ?Confirmed carvedilol 3.125 mg tablet 3.125 mg PO BID 12/03/23 01/31/24 furosemide 20 mg tablet 20 mg PO DAILY 12/03/23 12/03/23 pantoprazole 40 mg tablet,delayed 40 mg PO DAILY 12/03/23 01/31/24 release spironolactone 50 mg tablet 50 mg PO DAILY 12/03/23 12/03/23 Previous Rx's ?Medication ?Instructions ?Recorded folic acid 1 mg tablet 1 mg PO DAILY 30 days #30 tabs 09/20/23 thiamine HCl (vitamin B1) 50 mg 100 mg (2 x 50 mg) PO DAILY 30 09/20/23 tablet days #60 tabs doxycycline monohydrate 100 mg 100 mg PO Q12H #13 caps 12/06/23 capsule Allergies Allergy/AdvReac Type Severity Reaction Status Date / Time No Known Allergies Allergy Verified 02/10/24 18:05 Review of Systems Review of Systems: Constitutional : No Weight loss, No Fever, No Chills, No Night Sweats, No Fatigue, No Malaise ENT/Mouth : No Hearing loss, No Ear Pain, No Nasal Congestion, No Sinus Pain, No Hoarseness, No sore throat, No Rhinorrhea, No Swallowing Difficulty Eyes: No Eye Pain, No Swelling, No Redness, No Foreign Body, No Discharge, No Vision Changes Cardiovascular : No Chest Pain, No SOB, No Dyspnea on Exertion, No Orthopnea, No Edema, No Palpitations Respiratory : No Cough, No Sputum, No Wheezing, No Smoke Exposure, No Dyspnea Gastrointestinal : No Nausea, No Vomiting, No Diarrhea, No Constipation, No abdominal Pain, No Hematochezia, No Melena Genitourinary : no irregular bleeding, No Dysuria, No Urinary Frequency, No Hematuria, No Urinary Incontinence, No Urgency, No Flank Pain, No Urinary Flow Changes, No Hesitancy Musculoskeletal : No joint pain, No Myalgias, No Joint Swelling Skin : No Skin Lesions, No rash Neuro : No Weakness, No Numbness, No Paresthesias, No Loss of Consciousness, No Dizziness, No Headache Psych : No Anxiety/Panic, No Depression, No SI/HI/AH/VH, Admits to alcohol intoxication Heme/Lymph: No Bruising, No Bleeding,No Lymphadenopathy Endocrine : No Polyuria, No Polydipsia, No Temperature Intolerance [facility] Past Medical History Medical History Chronic alcoholic liver disease Tubular adenoma Subclinical hypothyroidism Alcohol use disorder BPH (benign prostatic hyperplasia) Obstructive sleep apnea Hyperlipidemia Portal hypertension Esophageal varices Alcoholic cirrhosis Social History Social History Household Members: Family Household Members Other:: Mother, daughter, daughter's boyfriend Housing: House Do you presently have visiting nurse or other home services: No Alcohol intake: current Alcohol intake frequency: 3 or more drinks per day Alcohol type: hard liquor Comment: 1:1 sitter at bedside Patient Tobacco Use Status: Never used Tobacco Smoked in Last 30 Days: No e-Cigarette/Vaping Use: Never Used Use of substances other than those prescribed or required for medical reasons: No Substance Use Type: Other Advance Directives: Yes Advance Directives on File: Yes Advance Directives Date on File: 08/16/23 service: No Physical Exam ED Vital Signs: Vital Signs - 24 hr 02/10/24 18:00 02/10/24 19:00 02/10/24 21:55 Temperature 97.9 F 98.7 F Pulse Rate 95 85 86 Respiratory Rate 18 16 16 Blood Pressure 124/75 112/69 106/86 Pulse Oximetry 92 100 99 Oxygen Delivery Method Room Air Room Air Room Air BMI result Body Mass Index 24.7 Const Other: Appearance: Alert. Oriented X3. No acute distress. Eyes: Pupils equal, round and reactive to light. old ecchymosis around the right eye, patient able to move his eyes [id number] with no difficulty, no nerve entrapment suspected. Patient's conjunctivae is a bit pinkish, has discharge, likely bacterial conjunctivitis. ENT: Pharynx normal. Neck: Normal inspection. Neck supple. No lymph nodes noted. No crepitus CVS: Normal heart rate and rhythm. Pulses normal. Normal S1 and S2 Respiratory: No respiratory distress. Breath sounds normal. No Wheezing. No rales Abdomen: Soft and nontender. No rigidity. No distention. Skin: Skin warm and dry. Normal skin color. Normal skin turgor. Extremities: No lower extremity edema. No Lacerations. No Rash Neuro: Oriented X 3. No motor deficit. No sensory deficit. Moving all extremities. No slurred speech. CN 2 through 12 grossly intact Psych: calm, cooperative, normal affect Medical Decision Making Medical Decision Making MDM Narrative: My interpretation of labs: Patient's hematology at baseline, at baseline chemistry, LFTs patient potassium is slightly decreased 3.2, magnesium 1.5, slightly decreased. - Potassium and magnesium was repleted p.o. - alcohol level pending - care team consult pending - physician observation started at 01:26 - patient is not SI or HI, section 12 not indicated at this time Differential Diagnosis Differential Diagnoses: The differential diagnosis associated with the presentation includes ( polysubstance abuse, alcohol abuse, anxiety, depression) Admission/Observation Consideration of admission/observation: Escalation of care including admission/observation considered ( patient is under physician observation waiting to be seen by the care team) Lab Data [facility] Lab Attestation statement: I reviewed the patient's lab results. 02/10/24 18:26 02/10/24 18:26 Labs: Lab Results 02/10/24 Range/Units 18:26 WBC 4.8 (4.8-10.8) X10*3/uL RBC 3.76 L (4.60-5.80) X10*6/uL Hgb 10.8 L (14.0-18.0) g/dl Hct 31.5 L (42.0-52.0) % MCV 83.8 (80.0-98.0) fL MCH 28.7 (27.0-33.0) pg MCHC 34.3 (31.0-36.0) g/dl RDW 15.4 (11.0-16.0) % Plt Count 29 L D (160-400) X10*3/uL MPV 11.9 (9.4-12.4) fL Immature Gran % (Auto) 0.2 (0.0-0.4) % Neut % (Auto) 81.9 H (45-73) % Lymph % (Auto) 12.1 L (20-40) % Whitley % (Auto) 4.6 (2-11) % Eos % (Auto) 0.6 (0-4) % Baso % (Auto) 0.6 (0-2) % Lymph # (Auto) 0.6 L (1.2-4.9) X10*3/uL Whitley # (Auto) 0.2 (0.1-1.2) X10*3/uL Eos # (Auto) 0.0 (0.0-0.4) X10*3/uL Baso # (Auto) 0.0 (0.0-0.2) X10*3/uL Abs Immat Gran (auto) 0.01 (0.00-0.03) X10*3/uL Absolute Neuts (auto) 3.9 (2.0-8.3) x10*3/uL Absolute Nucleated RBC 0.000 (0.0-0.012) X10*3/uL Nucleated RBC % (auto) 0.0 (0.0-0.2) /100WBC PT 18.2 H (10.9-12.4) SEC INR 1.6 H (0.9-1.1) APTT 29.1 D (26.0-36.8) SEC Sodium 139 (135-145) mmol/L Potassium 3.2 L (3.3-5.1) mmol/L Chloride 103 (96-108) mmol/L Carbon Dioxide 25 (22-29) mmol/L Anion Gap 14 (12-20) BUN 8 L (9-16) mg/dL Creatinine 0.81 (0.5-1.4) mg/dL Estim Creat Clear Calc 91.8 Estimated GFR > 60 Random Glucose 135 H (60-115) mg/dL Calcium 8.1 L (8.4-10.2) mg/dL Magnesium 1.5 L (1.6-2.6) mg/dL Total Bilirubin 3.7 H (0.0-1.0) mg/dL AST 100 H (5-37) U/L ALT 27 (0-40) U/L Alkaline Phosphatase 127 H (39-117) U/L Total Protein 7.1 (6.5-8.0) g/dL Albumin 3.1 L (3.5-5.0) g/dL Influenza Type A (PCR) NEGATIVE (Negative) Influenza Type B (PCR) NEGATIVE (Negative) RSV RNA Qual (PCR) NEGATIVE (Negative) SARS-CoV-2 RNA (RT-PCR) NEGATIVE (Negative) Critical Care Time Critical Care Time Critical Care Time: Yes Total Critical Care Time: 45 Attestation: I have personally provided critical care time. Time includes review of lab data, radiology results, discussion with consultants, and monitoring for potential decompensation. Intervention performed as documented. Discharge Plan Discharge Clinical Impression: Alcohol abuse, Hypomagnesemia, Acute hypokalemia, Acute bacterial conjunctivitis Patient Disposition: Still a Patient Prescriptions: No Action folic acid 1 mg Tablet 1 mg PO DAILY 30 Days Qty: 30 0RF thiamine HCl (vitamin B1) 50 mg tablet 100 mg PO DAILY 30 Days Qty: 60 0RF carvedilol 3.125 mg tablet 3.125 mg PO BID pantoprazole 40 mg tablet,delayed release (DR/EC) 40 mg PO DAILY furosemide 20 mg tablet 20 mg PO DAILY spironolactone 50 mg tablet 50 mg PO DAILY doxycycline monohydrate 100 mg Capsule 100 mg PO Q12H Qty: 13 0RF Print Language: Pashto
[2024-02-11 01:46] LABS: Ethanol 392 mg/dL
[2024-02-11] MEDS: Potassium Chloride Packet 20 MEQ PACKET 60 MEQ PO (02:08)
[2024-02-11] MEDS: Magnesium Oxide 400 MG TABLET 800 MG PO (02:08)
[2024-02-11] MEDS: Erythromycin Base 0.5% Oph Oin 1 GM TUBE 1 CM EYE-RIGHT (02:08)
--- NOTE | 2024-02-11 02:11 | PC.NURSE ---
pt medicated per jun, tolerated well with water. pt right eye noted to be red and irritated with some dry eye drainage, ointment placed in eye at this time.
--- NOTE | 2024-02-11 02:44 | PC.NURSE ---
pt noted to have some belongings at bedside, security called for full change lead of pt.
--- NOTE | 2024-02-11 03:03 | PC.NURSE ---
pt belongings placed on shelf 2 by security.
[2024-02-11 04:08] VITALS: BP 132/71; PULSE 88; RESP 15; O2SAT 99
[2024-02-11 06:00] VITALS: BP 135/76; PULSE 105; RESP 16; TEMP 37.5; O2SAT 99
--- NOTE | 2024-02-11 08:33 | PC.NURSE ---
motor coach chauffeur at bedside speaking with patient
--- NOTE | 2024-02-11 09:35 | PC.NURSE ---
Per defensive secondary coach, patient is not willing to go to recovery center, will be set up with outpatient resources
--- NOTE | 2024-02-11 09:39 | PC.NURSE ---
Patient up ambulating with steady gait
--- NOTE | 2024-02-11 09:45 | MHC.RECOVSUP ---
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 Made RC referal, sent to [facility]. He will be D/C to home as soon as he is confirmed stable.
--- NOTE | 2024-02-11 10:59 | PC.NURSE ---
Patient resting comfortably in kauffman bed, grunting and making noises at times, awaiting improvement in symptoms
--- NOTE | 2024-02-11 11:17 | PC.NURSE ---
Patient to waiting room in wheelchair to wait for transportation
[2024-02-11 11:18] VITALS: BP 135/76; PULSE 105; RESP 16; TEMP 37.5; O2SAT 99
== END 2024-02-11 11:19 | disposition home or self-care (01) ==
PROVIDERS: Physician Assistant Medical; Emergency Provider Emergency Medicine
DX: E83.42 Hypomagnesemia (principal); E87.6 Hypokalemia; H10.31 Unspecified acute conjunctivitis, right eye; F10.10 Alcohol abuse, uncomplicated; Y90.8 Blood alcohol level of 240 mg/100 ml or more; R11.10 Vomiting, unspecified; Z03.818 Encounter for observation for suspected exposure to other biological agents ruled out; Z79.899 Other long term (current) drug therapy
CPT/HCPCS: 0241U; 80053; 80307; 83735; 85025; 85610; 85730; 99283; 99284